=== PATIENT | male | born 1955 | race Caucasian/White ===

== ENCOUNTER → 2017-06-30 | Outpatient (CLI) | payer MEDICARE ==
--- NOTE | 2017-06-30 08:09 | US ---
EXAMINATION TYPE: US abdomen complete DATE OF EXAM: 06/30/2017 COMPARISON: NONE CLINICAL HISTORY: R10.84 Generalized abdominal pain. Intermittent abdomen pain x 1.5 years, diarrhea EXAM MEASUREMENTS: Liver Length: 13.4 cm Gallbladder Wall: 0.2 cm CBD: 0.2 cm Spleen: 8.6 cm Right Kidney: 10.8 x 4.5 x 4.9 cm Left Kidney: 9.6 x 5.2 x 4.4 cm Pancreas: visualized portions wnl, tail obscured by overlying midline bowel gas Liver: wnl Gallbladder: wnl Evidence for sonographic Heller's sign: no CBD: visualized portions wnl, limited by overlying bowel gas Spleen: visualized portions wnl, limited by rib shadowing and overlying bowel gas Right Kidney: 1.0 x 0.9cm cystic area inferior pole, dilated renal pelvis Left Kidney: visualized portions wnl, limited by rib shadowing and overlying bowel gas Upper IVC: wnl Abd Aorta: atherosclerotic changes, AAA seen distally measuring 3.8 x 4.3cm and 7.5cm in length IMPRESSION: 1. Abdominal aortic aneurysm distal abdominal aorta. AP diameter is 3.8 cm with a wider 4.3 cm transv erse dimension. 2. Right renal cyst.
== END | disposition home or self-care (01) ==
LOC: RADUSWWP 07:15
PROVIDERS: ATTEND Internal Medicine Geriatric Medicine
DX: N28.1 Cyst of kidney, acquired (principal); I71.4 Abdominal aortic aneurysm, without rupture
CPT/HCPCS: 76700

== ENCOUNTER 2017-07-31 12:10 | Day surgery (SDC) | payer MEDICARE ==
[2017-07-29 14:22] VITALS: BMI 21.6
[~2017-07-31 12:10] MED LIST: LACTATED RINGERS 1,000 ML IV SCH
[2017-07-31 13:01] VITALS: RESP 16; TEMP 98
[2017-07-31] MEDS ORDERED: LIDOCAINE 1% 20 ML VIAL (10MG/ML) FOR IV START INTRADERMA ONE (13:07)
[2017-07-31] MEDS ORDERED: LIDOCAINE 1% INJ 10MG/ML (20 ML MDV) ONE (13:55)
[2017-07-31] MEDS ORDERED: PROPOFOL 10 MG/ML 20 ML VIAL IV ONE (13:55)
[2017-07-31] MEDS ORDERED: MIDAZOLAM 2 MG/2 ML VIAL ONE (13:55)
[2017-07-31] MEDS ORDERED: IV FLUID CONTINUATION 550 ML IV ONE (14:34)
--- NOTE | 2017-07-31 14:46 | P.PCN ---
Date of Procedure: 07/31/17 Procedure(s) Performed: Procedure: 1. Esophagogastroduodenoscopy and biopsy. 2. Colonoscopy and biopsy and polypectomy. Preoperative diagnosis: Reflux symptoms and change in bowel habits. Postoperative diagnosis: 1. Small sliding hiatal hernia with no obvious esophagitis with short segment of Meeks's esophagus. 2. Mild antral gastritis. 3. Colon exam within normal limits. 4. Biopsies obtained from the duodenum, antrum, esophagus and Meeks's esophagus. Preparation: HalfLytely prep. Sedation: Was provided by anesthesia. Brief clinical history: The patient is a 61-year-old male who I have evaluated in the office recently for episodes of diarrhea alternating with constipation for several days at the time as well as dyspepsia and heartburn type symptoms. This evaluation is to assess for ulcers or complicated reflux disease or bowel pathology. Procedure: With the patient on his left lateral decubitus position and after informed consent and adequate sedation, I passed the Olympus-GIF 160 video upper endoscope through the cricopharyngeus down the esophagus. GE junction was around 35 cm from the incisors and the tubular esophagus continues for another 2-3 cm then there was a small sliding hiatal hernia. The esophagus did not show any evidence of esophagitis. The endoscope was then passed into the stomach which was insufflated with air and inspected in detail including the retroflex view in the cardia. There was some mottling and erythema in the antrum but no ulcers or erosions. Pyloric channel, duodenal bulb, post bulbar area and descending duodenum did not show any ulcers or obvious abnormalities. Because of his symptoms, I obtained biopsies from the duodenum, antrum and esophagus in addition to biopsies from the Meeks's segment then the endoscope was withdrawn and I proceeded to do colonoscopy. Perianal area did not show any fissures or fistulas. There were no masses felt on digital rectal examination. The Olympus CFQ 160L video colonoscope was then inserted in the rectum in the usual fashion and advanced to the cecum. The colon appeared healthy with no edema, erythema, friability, ulceration, exudation or spontaneous bleeding. No polyps or tumors were seen or any obvious diverticular disease or other pathology. I retroflexed the endoscope in the rectum before the endoscope was withdrawn. The patient tolerated the procedure well. Plan: The patient was reassured. Will await pathology results. Discussed dietary measures. Further plans based on his course. I will keep you updated on his progress. He will follow up with you as planned.
[2017-07-31 14:54] VITALS: BP 171/90; PULSE 66
[2017-07-31 14:55] LABS: Glucose,Whole Blood 97 mg/dL (75-99)
== END 2017-07-31 15:45 | disposition home or self-care (01) ==
LOC: ORWHC2ENDO 12:10
DX: K21.0 Gastro-esophageal reflux disease with esophagitis (principal); I10 Essential (primary) hypertension; K22.70 Barrett's esophagus without dysplasia; K29.50 Unspecified chronic gastritis without bleeding; K44.9 Diaphragmatic hernia without obstruction or gangrene; R19.4 Change in bowel habit; Z79.899 Other long term (current) drug therapy
CPT/HCPCS: 88305; 88342; 45378; 43239; J2250; J2001; J2704

== ENCOUNTER 2018-06-20 17:50 | Inpatient (IN) | payer MEDICARE ==
[2018-06-20] MEDS ORDERED: PIPERACILLIN-TAZOBACTAM 3.375 GM in DEXTROSE/WATER 1 50ML.BAG IVPB SCH (21:00)
[2018-06-20] MEDS ORDERED: NALOXONE 0.4 MG/ML 1 ML VIAL IV PRN (21:09)
--- NOTE | 2018-06-20 21:09 | ED ---
Upper Extremity HPI - General Chief Complaint: Extremity Injury, Upper Stated Complaint: Orthopedic consult Time Seen by Provider: 06/20/18 17:50 Source: patient, EMS, RN notes reviewed, old records reviewed Mode of arrival: EMS Limitations: no limitations - History of Present Illness Initial Comments: This is a 62-year-old male who states 5 days ago he has right hand caught in a shopping cart. He presents with complaints of swelling and pain some dorsal redness over his left hand. He was seen at [facility] and transferred here for orthopedic evaluation with a presumed diagnosis of tenosynovitis. He denies any overt fevers chills or sweats he does complain some pain no other modifying factors MD Complaint: Injury to:: right, hand, finger - Related Data Home Medications Medication Instructions Recorded Confirmed Atenolol 100 mg PO BID 07/29/17 06/20/18 DULoxetine HCL [Cymbalta] 60 mg PO BID 07/29/17 06/20/18 Esomeprazole Magnesium [NexIUM 20 mg PO DAILY 07/29/17 06/20/18 24Hr] Gabapentin [Neurontin] 300 mg PO BID 07/29/17 06/20/18 Naproxen Sodium [Aleve] 440 mg PO BID PRN 07/29/17 06/20/18 Tamsulosin HCl [Flomax] 0.4 mg PO DAILY 07/29/17 06/20/18 Atorvastatin [Lipitor] 40 mg PO DAILY 06/20/18 06/20/18 Melatonin 5 mg PO HS 06/20/18 06/20/18 QUEtiapine [SEROquel] 50 mg PO HS 06/20/18 06/20/18 Allergies Allergy/AdvReac Type Severity Reaction Status Date / Time No Known Allergies Allergy Verified 06/20/18 17:59 Review of Systems ROS Statement: Those systems with pertinent positive or pertinent negative responses have been documented in the HPI. ROS Other: All systems not noted in ROS Statement are negative. Past Medical History Past Medical History: GERD/Reflux, Hypertension Additional Past Medical History / Comment(s): freq episodes of constipation and diarrhea with intermittent bleeding with stools,left inquinal hernia,gastritis, hx back fx 7 different areas,mult fx to neck,tremors,difficulty urinating, hypoglycemic,unsteady gait-does not use cane/walker History of Any Multi-Drug Resistant Organisms: None Reported Past Surgical History: Appendectomy, Orthopedic Surgery Additional Past Surgical History / Comment(s): open laparotomy,bone graft rt wrist,lt wrist repair Past Anesthesia/Blood Transfusion Reactions: No Reported Reaction Past Psychological History: Depression Smoking Status: Current every day smoker Past Alcohol Use History: None Reported Past Drug Use History: Marijuana - Past Family History Mother Family Medical History: CVA/TIA Father Family Medical History: Dementia Additional Family Medical History / Comment(s): parkinson's General Exam - General Exam Comments Initial Comments: This is a well-developed well-nourished awake alert oriented 3 male Limitations: no limitations General appearance: alert, in no apparent distress Head exam: Present: atraumatic, normocephalic, normal inspection Eye exam: Present: normal appearance, PERRL, EOMI. Absent: scleral icterus, conjunctival injection, periorbital swelling ENT exam: Present: normal exam, mucous membranes moist Neck exam: Present: normal inspection. Absent: tenderness, meningismus, lymphadenopathy Respiratory exam: Present: normal lung sounds bilaterally. Absent: respiratory distress, wheezes, rales, rhonchi, stridor Cardiovascular Exam: Present: regular rate, normal rhythm, normal heart sounds. Absent: systolic murmur, diastolic murmur, rubs, gallop, clicks GI/Abdominal exam: Absent: distended, tenderness, guarding, rebound, rigid Extremities exam: Present: full ROM, normal capillary refill, other ( Examination reveals evidence of wounds to the middle finger and index finger on the left some edema noted however to his other fingers are also somewhat short and to be similar habitus). Absent: tenderness, pedal edema, joint swelling, calf tenderness Back exam: Present: normal inspection Neurological exam: Present: alert, oriented X3, CN II-XII intact Psychiatric exam: Present: normal affect, normal mood Skin exam: Present: warm, dry, intact, normal color. Absent: rash Course Vital Signs 06/20/18 06/20/18 06/20/18 17:52 19:06 20:24 Temperature 100.9 F H 100.2 F H 98.8 F Pulse Rate 68 58 L 62 Respiratory 16 16 16 Rate Blood Pressure 134/86 136/70 135/74 O2 Sat by Pulse 97 98 97 Oximetry - Reevaluation(s) Reevaluation #1: 06/20/18 21:08 I did discuss the case with Dr. Tong the patient will be admitted to Dr. Estrada but with Dr. Tong and Dr. Trivedi on consultation Disposition Clinical Impression: Cellulitis of finger of left hand, Flexor tenosynovitis of finger, Fever Disposition: ADMITTED IP TO THIS HOSP Condition: Stable Referrals: Nakul Dotson MD [Primary Care Provider] - 1-2 days
[2018-06-20] MEDS: SODIUM CHLORIDE 0.9% 1,000 ML IV SCH (21:43)
[2018-06-20] MEDS: HYDROmorphone 1 MG/ML 1 ML SYRINGE IVP PRN (22:35)
[2018-06-21] MEDS: HYDROmorphone 1 MG/ML 1 ML SYRINGE IVP PRN ×4 (01:31→18:37)
[2018-06-21] MEDS: SODIUM CHLORIDE 0.9% 1,000 ML IV SCH ×3 (06:29→21:24)
[2018-06-21] MEDS: PIPERACILLIN-TAZOBACTAM 3.375 GM in DEXTROSE/WATER 1 50ML.BAG IVPB SCH ×3 (08:20→23:51)
[2018-06-21] MEDS ORDERED: PANTOPRAZOLE 40 MG/10 ML VIAL IV SCH (09:00)
--- NOTE | 2018-06-21 09:46 | P.CNOR ---
History of Present Illness - HPI Consult date: 06/21/18 History of present illness: The patient is a right-hand dominant 62-year-old male presenting with a right hand infection. The patient was transferred from [facility]. The on-call orthopaedic physician who is being paid by [facility] to take call Dr. Nikko El apparently does not feel comfortable dealing with basic orthopedic conditions and requested transferring the patient to a more qualified orthopedic surgeon. I agreed to manage the patient's hand infection after discussion with the PA at [facility] who stated that the patient did not have the means to travel down to [place] for management. This morning the patient has pain in his left middle finger. The patient has had prior infections in his left thumb and small finger requiring open debridement. He denies fevers or chills. Past Medical History Past Medical History: GERD/Reflux, Hypertension Additional Past Medical History / Comment(s): freq episodes of constipation and diarrhea with intermittent bleeding with stools,left inquinal hernia repair, gastritis,hx back fx 7 different areas,mult fx to neck,tremors,difficulty urinating,hypoglycemic,unsteady gait-does not use cane/walker History of Any Multi-Drug Resistant Organisms: None Reported Past Surgical History: Appendectomy, Orthopedic Surgery Additional Past Surgical History / Comment(s): open laparotomy,bone graft rt wrist,lt wrist repair Past Anesthesia/Blood Transfusion Reactions: No Reported Reaction Past Psychological History: Depression Smoking Status: Current every day smoker Past Alcohol Use History: None Reported Additional Past Alcohol Use History / Comment(s): started smoking at age 57, smokes approx 5- 6 cig per day Past Drug Use History: Marijuana Additional Drug Use History / Comment(s): uses marijuana daily - Past Family History Mother Family Medical History: CVA/TIA Father Family Medical History: Dementia Additional Family Medical History / Comment(s): parkinson's Medications and Allergies Home Medications Medication Instructions Recorded Confirmed Type Atenolol 100 mg PO BID 07/29/17 06/20/18 History DULoxetine HCL [Cymbalta] 60 mg PO BID 07/29/17 06/20/18 History Esomeprazole Magnesium [NexIUM 20 mg PO DAILY 07/29/17 06/20/18 History 24Hr] Gabapentin [Neurontin] 300 mg PO BID 07/29/17 06/20/18 History Naproxen Sodium [Aleve] 440 mg PO BID PRN 07/29/17 06/20/18 History Tamsulosin HCl [Flomax] 0.4 mg PO DAILY 07/29/17 06/20/18 History Atorvastatin [Lipitor] 40 mg PO DAILY 06/20/18 06/20/18 History Melatonin 5 mg PO HS 06/20/18 06/20/18 History QUEtiapine [SEROquel] 50 mg PO HS 06/20/18 06/20/18 History Allergies Allergy/AdvReac Type Severity Reaction Status Date / Time No Known Allergies Allergy Verified 06/20/18 17:59 Physical Examination The patient is in no apparent distress and is alert and able to answer questions. His head is normocephalic and atraumatic. He demonstrates nonlabored breathing with symmetric chest expansion. His abdomen is nonobese and nontender. A focused examination of the left upper extremity was conducted. On inspection of the left hand there is fusiform swelling and erythema over the middle finger both volarly and dorsally. There are 2 small open wounds over the volar aspect of the middle and proximal phalanx with a small amount of serous drainage. There are healed surgical wounds over the thenar eminence at the base of the thumb and over the ring finger. There is exquisite tenderness along the flexor tendon. There is pain with passive extension of the middle finger. The tip of the finger is warm and well perfused with brisk capillary refill. There is slightly decreased sensation at the tip of the middle finger. Assessment and Plan (1) Cellulitis of finger of left hand Current Visit: Yes Status: Acute Code(s): L03.012 - CELLULITIS OF LEFT FINGER SNOMED Code(s): 35912182 (2) Flexor tenosynovitis of finger Current Visit: Yes Status: Acute Code(s): M65.9 - SYNOVITIS AND TENOSYNOVITIS, UNSPECIFIED SNOMED Code(s): 206243483 Plan: The patient is presenting with clinical signs consistent with purulent flexor tenosynovium I do's. Due to the severity of the infection I recommended surgical debridement. We discussed different options including closed tendon irrigation with small incisions over the A1 and A5 davida and use of an angiocatheter versus a more extensile open debridement with a zigzag Sharri incision. Due to the severity of the infection and the multiple open draining wounds I recommended a more extensile debridement and extending the incision into the mid palmar space. The patient has previously had hand infections and is well aware of the potential risks of surgery. The patient also knows that due to his cigarette smoking he is at a much higher risk of having a complication. We will plan on taking him to the operating room this morning for an urgent incision and drainage of the middle finger and mid palmar space. The patient will need an infectious disease consultation for determination of choice of antibiotic, duration of treatment, and route of administration.
[2018-06-21] MEDS ORDERED: IV FLUID CONTINUATION 1,000 ML IV ONE (10:32)
[2018-06-21] MEDS ORDERED: LACTATED RINGERS 1,000 ML IV ONE (10:52)
[2018-06-21] MEDS ORDERED: KETOROLAC 30 MG/ML 1 ML VIAL IVP ONE (11:23)
--- NOTE | 2018-06-21 11:30 | P.OP ---
Date of Procedure: 06/21/18 Preoperative Diagnosis: 1. Left purulent flexor tenosynovitis, middle finger 2. Current every day cigarette smoker Postoperative Diagnosis: 1. Left middle finger purulent flexor tendosynovitis 2. Left mid palmar space abscess 3. Current every day cigarette smoker Procedure(s) Performed: 1. Incision and drainage left middle finger purulent flexor tenosynovitis and evacuation of mid palmar space hematoma Anesthesia: ROSALIO Surgeon: Portillo Tong Director Bioinformatics #1: Bia Gtz Estimated Blood Loss (ml): 25 IV fluids (ml): 400 Pathology: other (Deep cultures) Condition: stable Disposition: PACU Indications for Procedure: The patient is a right-hand dominant 62-year-old male with a medical history significant for cigarette smoking. The patient sustained several wounds over his hand resulting in a worsening infection. The patient is had prior infections in his left hand requiring surgical debridement. The patient initially presented to [facility]. The on-call orthopaedic physician at [facility] did not feel comfortable managing the wound so the patient was transferred to our facility. I met with the patient preoperatively and examined his left hand. He had open draining wounds was gross purulence and signs suggestive of a deep space infection so I recommended a formal and extensile open debridement with a Sharri type incision. We discussed the potential risks and complications of surgery including but not limited to risk of anesthesia, risk of superficial infection, risk of deep infection, risk of wound necrosis, risk of ongoing infection, risk of need for further surgery, and possibly amputation. The patient understands that he is at increased risk of having these complications due to his cigarette smoking. He provided his consent to go forward with surgery. Operative Findings: There was gross purulence in the middle finger flexor tendon sheath and in the mid palmar space. There was superficial necrosis in the skin over the volar aspect of the middle finger Description of Procedure: The patient was identified in preoperative holding and the correct left arm and middle finger were marked with my initials. I reviewed the consent form with the patient. All of his questions were answered. The patient was then brought back to the operating room were a Mac anesthetic was administered. A tourniquet was applied over the proximal aspect of the arm. An arm table was placed beneath the arm. The left arm was then prepped and draped in the standard sterile fashion. Prior to starting surgery timeout was performed identifying the correct patient, operative extremity, and procedure. The patient's arm was then elevated for 2 minutes and the tourniquet was inflated to 250 mmHg. I began by outlining a volar Cheri-type incision over the middle finger extending into the palm area and skin incision was made with a scalpel and dissection was carried down to the flexor tendon sheath. Immediately upon entering the flexor tendon sheath there was a large lee of pus. Extension was carried into the mid palmar space and gross purulence was expressed from within the mid palmar space. All of the pus was decompressed and deep cultures were obtained. The wounds were then copiously irrigated using 3 L of sterile saline. A Hudson drain was then passed proximally into the midpalmar space to facilitate further drainage. The wound was loosely closed with nylon sutures to allow for drainage. The tourniquet was let down. The tip of the middle finger had brisk capillary refill. A loose sterile dressing with Betadine soaked Adaptic, fluffs, Kerlix and an Jose wrap was applied. The patient was transferred back to the PACU having to the procedure well. Bia Gtz NP was required as a skilled pet care assistant. Plan: The patient will need IV antibiotics under the direction of infectious disease. I would recommend warm water soaks and whirlpool treatments of the left hand. I will defer wound management to the wound team and infectious disease. We will continue to closely monitor the patient's response to treatment and will be available should he require a second formal debridement in the operating room.
[2018-06-21] MEDS: HYDROmorphone 1 MG/ML 1 ML SYRINGE IVP ONE ×2 (11:39→11:52)
[2018-06-21] MEDS ORDERED: hydrALAZINE HCL 20 MG/ML 1 ML VIAL IVP ONE (11:39)
--- NOTE | 2018-06-21 12:16 | P.HPIM ---
History of Present Illness H&P Date: 06/21/18 Chief Complaint: Left hand pain This is 62 years old male who presented to the emergency department with left hand pain. Patient reported injury earlier last week when he had open wound in the palm of his left hand after he got stuck with sharp mental that caused him to bleed profusely patient after that was seen by physician at urgent care who prescribed him antibiotics with patient not sure if he took the whole course of antibiotics and continued to have pain and decreased discharge range of motion in his left hand and presented to the ER for that reason. Patient denied fever , chills, nausea, vomiting, dumping, dizziness, lightheadedness or blurry vision. Patient stated that the pain got worse to the point where he was not able to move his middle finger and believes that he developed some mass in the left hand that was very painful to touch. Patient denied any drainage. Patient currently in the recovery room after he has incision and drainage by orthopedic surgery and stated that he is lethargic and unable to provide detailed information. Patient smokes 5-10 sig it's a day denied alcohol abuse and said that he smokes medical marijuana for his anxiety and nerve root irritation Review of Systems Studies reviewed and negative except as above Past Medical History Past Medical History: GERD/Reflux, Hypertension Additional Past Medical History / Comment(s): freq episodes of constipation and diarrhea with intermittent bleeding with stools,left inquinal hernia repair, gastritis,hx back fx 7 different areas,mult fx to neck,tremors,difficulty urinating,hypoglycemic,unsteady gait-does not use cane/walker History of Any Multi-Drug Resistant Organisms: None Reported Past Surgical History: Appendectomy, Orthopedic Surgery Additional Past Surgical History / Comment(s): open laparotomy,bone graft rt wrist,lt wrist repair Past Anesthesia/Blood Transfusion Reactions: No Reported Reaction Past Psychological History: Depression Smoking Status: Current every day smoker Past Alcohol Use History: None Reported Additional Past Alcohol Use History / Comment(s): started smoking at age 57, smokes approx 5- 6 cig per day Past Drug Use History: Marijuana Additional Drug Use History / Comment(s): uses marijuana daily - Past Family History Mother Family Medical History: CVA/TIA Father Family Medical History: Dementia Additional Family Medical History / Comment(s): parkinson's Medications and Allergies Home Medications Medication Instructions Recorded Confirmed Type Atenolol 100 mg PO BID 07/29/17 06/20/18 History DULoxetine HCL [Cymbalta] 60 mg PO BID 07/29/17 06/20/18 History Esomeprazole Magnesium [NexIUM 20 mg PO DAILY 07/29/17 06/20/18 History 24Hr] Gabapentin [Neurontin] 300 mg PO BID 07/29/17 06/20/18 History Naproxen Sodium [Aleve] 440 mg PO BID PRN 07/29/17 06/20/18 History Tamsulosin HCl [Flomax] 0.4 mg PO DAILY 07/29/17 06/20/18 History Atorvastatin [Lipitor] 40 mg PO DAILY 06/20/18 06/20/18 History Melatonin 5 mg PO HS 06/20/18 06/20/18 History QUEtiapine [SEROquel] 50 mg PO HS 06/20/18 06/20/18 History Allergies Allergy/AdvReac Type Severity Reaction Status Date / Time No Known Allergies Allergy Verified 06/20/18 17:59 Physical Exam Vitals: Vital Signs Temp Pulse Pulse Pulse Resp BP BP 06/21/18 12:00 75 24 168/87 06/21/18 11:45 71 18 183/98 06/21/18 11:30 61 24 191/108 06/21/18 11:16 97 F L 64 16 175/96 06/21/18 10:12 98.4 F 71 18 159/94 06/21/18 08:00 71 18 06/21/18 07:00 98.4 F 71 18 159/94 06/20/18 23:00 98.1 F 70 18 159/95 06/20/18 21:11 98.7 F 63 16 147/84 06/20/18 20:24 98.8 F 62 16 135/74 06/20/18 19:06 100.2 F H 58 L 16 136/70 06/20/18 17:52 100.9 F H 68 16 134/86 Pulse Ox 06/21/18 12:00 96 06/21/18 11:45 98 06/21/18 11:30 96 06/21/18 11:16 99 06/21/18 10:12 97 06/21/18 08:00 06/21/18 07:00 97 06/20/18 23:00 95 06/20/18 21:11 99 08/11/18 20:24 97 06/20/18 19:06 98 06/20/18 17:52 97 Intake and Output 06/20/18 06/21/18 06/21/18 22:59 06:59 14:59 Intake Total 400 Output Total 5 Balance 395 Intake: IV 400 Output: Estimated Blood Loss 5 Other: Voiding Method Toilet Weight 56.699 kg Gen.: in stated age, no acute distress Heart: Normal S1-S2 Lungs: Clear to auscultation bilaterally Abdomen: Soft, no tenderness, positive bowel sounds in all 4 quadrant no guarding or rebound Skin: No new rash Psych: Alert and oriented 3 Neuro: No focal deficit Left hand examination revealed dressing applied and intact without obvious drainage positive pulses Thrombosis Risk Factor Assmnt - Choose All That Apply Any of the Below Risk Factors Present?: No Other Risk Factors: Yes Each Risk Factor Represents 2 Points: Age 61-74 years Other congenital or acquired thrombophilia - If yes, enter type in comment: No Thrombosis Risk Factor Assessment Total Risk Factor Score: 2 Thrombosis Risk Factor Assessment Level: Low Risk Assessment and Plan Assessment: 1. Left hand cellulitis with abscess formation. 2. Tenosynovitis of the left middle finger 3. Hypertension 4. Tobacco dependency 5. Questionable COPD 6. Anxiety and depression 7. GERD 8. Intractable pain Plan to continue wound care, continue current antibiotics regimen, consult infectious disease for further evaluation and follow-up with the recommendation , continue home medication, repeat blood work in the morning and monitor vital signs closely. Discharge planning based on clinical progress
[2018-06-21] MEDS ORDERED: VANCOMYCIN IV PER PHARMACY 1 EACH MISC MISCELLANE PRN (17:29)
--- NOTE | 2018-06-21 17:35 | P.CONS ---
History of Present Illness - Reason for Consult Consult date: 06/21/18 - Chief Complaint Pain of the left hand - History of Present Illness 62-year-old male who appears to have multiple medical troubles originally presented to [facility] for evaluation of pain and swelling to his left hand. The patient apparently had evidence of significant infection to the hand was transferred to our facility for orthopedic evaluation. The patient evidence of significant pain and swelling to the left hand middle finger as well as on the palm. The patient is an extremely poor historian and relates that he may have injured his hand on a metal object or shopping cart several days before. He knows developed the inability to make a fist and utilizes hand as well as having significant discomfort at the site. He subsequently was seen by the orthopedic surgeon and was taken to the operating room for the incision and drainage of the abscess of left hand third finger as well as the left mid palmar space. With this in an abscess the infectious diseases consultation was requested. The patient did have laboratories at outside hospital that shows evidence of a significant leukocytosis and no evidence of renal failure. The patient is 62, does not appear to be actively employed at this time, and as noted struggles to get history and information about his situation. Other than pain at the site he is denying other areas of injury, believes he may have had a fever but didn't take his temperature does not believe he had chills or rigors. Review of Systems 62-year-old male, his pain to his left hand relates it's numb since the surgery HEENT:Denies headache or acute visual change. Denies sinus or mouth discomforts. Denies neck stiffness or pain. Denies significant oral cavity pain. Denies difficulty on swallowing. Lungs: Chronic tobacco use and has chronic shortness of breath denies new cough or sputum production or hemoptysis .. Cardiovascular: Denies significant shortness of breath, chest pain, chest wall pain, orthopnea, dyspnea on exertion, syncope Gastrointestinal:Denies nausea, vomiting, diarrhea, constipation, hematemesis, melena, hematochezia. No no significant change of bowel habit noticed. Musculoskeletal: denies significant myalgias or arthralgias. No new joint swelling. Denies new back pain. Skin: As per the HPI injury to left hand Neuro: Denies headache or visual change. Denies any new onset weakness or difficulty with ambulation. Denies falls or seizures. Psychiatric:Denies anxiety or depression. Endocrine: Denies significant fatigue, denies significant weight loss or weight gain. Past Medical History Past Medical History: GERD/Reflux, Hypertension Additional Past Medical History / Comment(s): freq episodes of constipation and diarrhea with intermittent bleeding with stools,left inquinal hernia repair, gastritis,hx back fx 7 different areas,mult fx to neck,tremors,difficulty urinating,hypoglycemic,unsteady gait-does not use cane/walker History of Any Multi-Drug Resistant Organisms: None Reported Past Surgical History: Appendectomy, Orthopedic Surgery Additional Past Surgical History / Comment(s): open laparotomy,bone graft rt wrist,lt wrist repair Past Anesthesia/Blood Transfusion Reactions: No Reported Reaction Past Psychological History: Depression Additional Psychological History / Comment(s): , has 2 daughters that live in the other side the state, he cries readily when talking about them. With that he is quite depressed about his situation. He is unable to clearly vocalize the difficulties that he is going through. But does state he is depressed. He has seen a counselor in the past but did not believe it was effective. Positive tobacco smoker. Denies injection drug use. 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 No experience. No international travel. No animal exposures Smoking Status: Current every day smoker Past Alcohol Use History: None Reported Additional Past Alcohol Use History / Comment(s): started smoking at age 57, smokes approx 5- 6 cig per day Past Drug Use History: Marijuana Additional Drug Use History / Comment(s): uses marijuana daily - Past Family History Mother Family Medical History: CVA/TIA Father Family Medical History: Dementia Additional Family Medical History / Comment(s): parkinson's Medications and Allergies Home Medications and Allergies Comment(s): Current Medications Hydromorphone HCl (Dilaudid) 0.5 mg IVP Q3HR PRN PRN Reason: Moderate Pain Last Admin: 06/21/18 15:06 Dose: 0.5 mg Sodium Chloride (Saline 0.9%) 1,000 mls @ 125 mls/hr IV .Q8H [facility] Last Admin: 06/21/18 14:28 Dose: 125 mls/hr Piperacillin/Tazobactam/ (Dextrose 3.375 gm/ IV Solution) 50 mls @ 12.5 mls/hr IVPB Q8H [facility] Last Admin: 06/21/18 15:06 Dose: 12.5 mls/hr Naloxone HCl (Narcan) 0.2 mg IV Q2M PRN PRN Reason: Opioid Reversal Pantoprazole Sodium (Protonix) 40 mg IV DAILY [facility] Last Admin: 06/21/18 09:37 Dose: 40 mg Home Medications Medication Instructions Recorded Confirmed Type Atenolol 100 mg PO BID 07/29/17 06/20/18 History DULoxetine HCL [Cymbalta] 60 mg PO BID 07/29/17 06/20/18 History Esomeprazole Magnesium [NexIUM 20 mg PO DAILY 07/29/17 06/20/18 History 24Hr] Gabapentin [Neurontin] 300 mg PO BID 07/29/17 06/20/18 History Naproxen Sodium [Aleve] 440 mg PO BID PRN 07/29/17 06/20/18 History Tamsulosin HCl [Flomax] 0.4 mg PO DAILY 07/29/17 06/20/18 History Atorvastatin [Lipitor] 40 mg PO DAILY 06/20/18 06/20/18 History Melatonin 5 mg PO HS 06/20/18 06/20/18 History QUEtiapine [SEROquel] 50 mg PO HS 06/20/18 06/20/18 History Allergies Allergy/AdvReac Type Severity Reaction Status Date / Time No Known Allergies Allergy Verified 06/20/18 17:59 Physical Exam Vitals: Vital Signs Temp Pulse Pulse Pulse Pulse Resp BP 06/21/18 15:18 24 06/21/18 15:00 98.7 F 84 18 06/21/18 12:00 75 24 06/21/18 11:45 71 18 06/21/18 11:30 61 24 06/21/18 11:16 97 F L 64 16 06/21/18 10:12 98.4 F 71 18 06/21/18 08:00 71 18 06/21/18 07:00 98.4 F 71 18 06/20/18 23:00 98.1 F 70 18 06/20/18 21:11 98.7 F 63 16 147/84 06/20/18 20:24 98.8 F 62 16 135/74 06/20/18 19:06 100.2 F H 58 L 16 136/70 06/20/18 17:52 100.9 F H 68 16 134/86 BP BP Pulse Ox 06/21/18 15:18 06/21/18 15:00 151/101 97 06/21/18 12:00 168/87 96 06/21/18 11:45 183/98 98 06/21/18 11:30 191/108 96 06/21/18 11:16 175/96 99 06/21/18 10:12 159/94 97 06/21/18 08:00 06/21/18 07:00 159/94 97 06/20/18 23:00 159/95 95 06/20/18 21:11 99 06/20/18 20:24 97 06/20/18 19:06 98 06/20/18 17:52 97 Intake and Output 06/21/18 06/21/18 06/21/18 06:59 14:59 22:59 Intake Total 400 Output Total 5 Balance 395 Intake: IV 400 Output: Estimated Blood Loss 5 Other: Voiding Method Toilet Toilet 62-year-old male has a non-distinct injury to his left hand this resulted in a significant abscess that is not required surgical incision and drainage. HEENT: Anicteric conjunctiva are pink and moist nasal mucosa grossly intact without significant lesions, there is no thrush. Dentition is poor and generally not present no thrush is seen Neck: The neck is supple without significant lymphadenopathy or thyromegaly. Lungs: Symmetrical air entry is noted there is evidence of expiratory wheezes no elier bronchial sounds all dullness or egophony Heart: Regular rate and rhythm with an audible S1-S2, no S3 no S4. There is no significant murmur click or rub, PMI was nondisplaced. Abdomen: Scaphoid, Positive bowel sounds soft and nontender without palpable masses or organomegaly. There was no guarding or rebound. Extremities: Right upper extremities without lesions. Left upper extremity has a bulky dressing in place and the recent surgery. Surgical note is reviewed showing evidence of the abscess that was drained on the left third finger and palmar space. There is no surrounding erythema on the forearm no ascending erythema there is no left axillary or epitrochlear lymphadenopathy. No other abnormal lymph nodes are seen. Skin the patient has evidence of what appears to be at hand but he relates textured part of a rash that is worsening over time. There are no open ulcers or blisters that are noted in any area. He relates that it does get itchy at times but not currently. Neuro: Awake alert oriented to person place and time. There are no acute new gross focal sensory motor deficits. He however is a very poor historian Results Labs: Microbiology - Last 24 Hours (Table) 06/21/18 11:00 Anaerobic Culture - Preliminary Hand - Left 06/21/18 11:00 Anaerobic Culture - Preliminary Hand - Left 06/21/18 11:00 Wound Culture - Preliminary Hand - Left 06/21/18 11:00 Wound Culture - Preliminary Hand - Left 06/20/18 21:42 Blood Culture Gram Stain - Preliminary Blood 06/20/18 21:42 Blood Culture - Final Blood Laboratory from the outside hospital are reviewed and leukocytosis is noted no evidence of acute renal failure Assessment and Plan (1) Abscess of left hand Narrative/Plan: 62-year-old male who has a history of nondescript trauma to his left hand developed evidence of an abscess to his palmar surface as well as to the third finger that has required surgical incision and drainage. Bulky postsurgical dressing is in place. From his anesthesia he is not having much pain at this time. Blood cultures or even call positive for gram-positive cocci. Antibiotic therapy was started with Zosyn and vancomycin will be added until we have further data. The patient will present a challenge as to outpatient treatment given what appears to be great difficulties understanding what is occurring. Routinely with tenosynovitis antibiotic therapy for several weeks is utilized in routinely at his intravenous to maximize treatment into this tissue given the distinct risks of an inadequate treatment of this infection that can result in permanent disability to the hand or limb. Patient will be followed through his hospital stay. Antibiotic suggested based on the cultures are taken and are positive Follow up blood work is requested There is notation that he is up-to-date on his tetanus vaccine from the outside hospital. Current Visit: Yes Status: Acute Code(s): L02.512 - CUTANEOUS ABSCESS OF LEFT HAND SNOMED Code(s): 6109489 (2) Flexor tenosynovitis of finger Current Visit: Yes Status: Acute Code(s): M65.9 - SYNOVITIS AND TENOSYNOVITIS, UNSPECIFIED SNOMED Code(s): 328603316
[2018-06-21 18:18] LABS: Basophils % (A) 0 %; Eosinophils % (A) 0 %; HCT 35.7 % (39.0-53.0); HGB 12.4 gm/dL (13.0-17.5); Lymphocytes # (A) 0.7 k/uL (1.0-4.8); Lymphocytes % (A) 4 %; MCH 32.2 pg (25.0-35.0); MCHC 34.8 g/dL (31.0-37.0); MCV 92.4 fL (80.0-100.0); Mean Platelet Volume 7.9; Monocytes # (A) 0.9 k/uL (0-1.0); Monocytes % (A) 5 %; Neutrophils # (A) 17.1 k/uL (1.3-7.7); Neutrophils % (A) 89 %; Platelet Count 231 k/uL (150-450); RBC 3.87 m/uL (4.30-5.90); RDW 13.3 % (11.5-15.5); WBC 19.1 k/uL (3.8-10.6)
[2018-06-21] MEDS ORDERED: VANCOMYCIN 1,250 MG in SODIUM CHLORIDE 0.9% 250 ML IVPB ONE (18:30)
[2018-06-21 18:31] LABS: ALT 37 U/L (21-72); AST 20 U/L (17-59); Albumin 3.4 g/dL (3.5-5.0); Alkaline Phosphatase 64 U/L (38-126); Anion Gap 8 mmol/L; Blood Urea Nitrogen 13 mg/dL (9-20); Calcium 9.2 mg/dL (8.4-10.2); Carbon Dioxide 23 mmol/L (22-30); Chloride 108 mmol/L (98-107); Glucose 111 mg/dL (74-99); Potassium 3.8 mmol/L (3.5-5.1); Sodium 139 mmol/L (137-145); Total Bilirubin 0.4 mg/dL (0.2-1.3); Total Protein 6.1 g/dL (6.3-8.2)
[2018-06-21] MEDS: ACETAMINOPHEN TAB 325 MG TAB PO PRN (18:36)
[2018-06-21] MEDS: TAMSULOSIN 0.4 MG CAP.ER.24H PO SCH (18:38)
[2018-06-21 20:04] LABS: Erythrocyte Sedimentation Rate 63 mm/hr (0-15)
[2018-06-21] MEDS: GABAPENTIN 300 MG CAP PO SCH (20:40)
[2018-06-21] MEDS: QUEtiapine 50 MG TAB PO SCH (20:40)
[2018-06-21] MEDS: DULoxetine HCL 60 MG CAPSULE.DR PO SCH (20:40)
[2018-06-21] MEDS: ATENOLOL 50 MG TAB PO SCH (20:40)
[2018-06-21] MEDS: MELATONIN 5 MG TABLET PO SCH (20:40)
[2018-06-21] MEDS: ATORVASTATIN 40 MG TAB PO SCH (20:40)
[2018-06-22] MEDS: SODIUM CHLORIDE 0.9% 1,000 ML IV SCH (06:18)
[2018-06-22] MEDS: PIPERACILLIN-TAZOBACTAM 3.375 GM in DEXTROSE/WATER 1 50ML.BAG IVPB SCH ×2 (06:19→13:46)
[2018-06-22 08:06] LABS: Basophils % (A) 0 %; Eosinophils # (A) 0.1 k/uL (0-0.7); Eosinophils % (A) 1 %; HCT 33.9 % (39.0-53.0); HGB 11.6 gm/dL (13.0-17.5); Lymphocytes # (A) 0.6 k/uL (1.0-4.8); Lymphocytes % (A) 5 %; MCH 31.9 pg (25.0-35.0); MCHC 34.3 g/dL (31.0-37.0); MCV 92.9 fL (80.0-100.0); Mean Platelet Volume 7.3; Monocytes # (A) 0.6 k/uL (0-1.0); Monocytes % (A) 5 %; Neutrophils # (A) 10.5 k/uL (1.3-7.7); Neutrophils % (A) 87 %; Platelet Count 220 k/uL (150-450); RBC 3.65 m/uL (4.30-5.90); RDW 13.3 % (11.5-15.5); WBC 12.1 k/uL (3.8-10.6)
[2018-06-22] MEDS: ATENOLOL 50 MG TAB PO SCH ×2 (08:37→21:42)
[2018-06-22] MEDS: PANTOPRAZOLE 40 MG TABLET PO SCH (08:37)
[2018-06-22] MEDS: DULoxetine HCL 60 MG CAPSULE.DR PO SCH ×2 (08:37→21:42)
[2018-06-22] MEDS: GABAPENTIN 300 MG CAP PO SCH ×2 (08:37→21:42)
[2018-06-22] MEDS: VANCOMYCIN 1,000 MG in SODIUM CHLORIDE 0.9% 250 ML IVPB SCH ×2 (08:38→21:42)
[2018-06-22] MEDS: TAMSULOSIN 0.4 MG CAP.ER.24H PO SCH (08:38)
[2018-06-22] MEDS: HYDROcodone/APAP 5-325MG 1 EACH TAB PO PRN ×3 (08:45→21:44)
[2018-06-22 14:08] VITALS: BMI 20.1
[2018-06-22] MEDS: HYDROmorphone 1 MG/ML 1 ML SYRINGE IVP PRN (16:11)
--- NOTE | 2018-06-22 16:57 | P.PN ---
Subjective Progress Note Date: 06/22/18 Principal diagnosis: Left middle finger infection Patient is seen at bedside this afternoon. He is post op day #1 from I and D of left middle finger infection/flexor tensosynovitis. He denies any new complaints including new numbness or tingling, fever or chills. Objective - Vital Signs Vital signs: Vital Signs Temp 99.1 F 06/22/18 14:28 Pulse 66 06/22/18 14:28 Resp 16 06/22/18 14:28 BP 154/95 06/22/18 14:28 Pulse Ox 98 06/22/18 14:28 Intake & Output 06/21/18 06/22/18 06/22/18 18:59 06:59 18:59 Intake Total 400 1300 600 Output Total 5 Balance 395 1300 600 Weight 56.699 kg Intake: IV 400 Intake, IV Titration 1300 Amount Piperacillin-Tazobactam 3 50 .375 gm In Dextrose/Water 1 50ml.bag @ 12.5 mls/hr IVPB Q8H [facility] Rx#: [id number] Sodium Chloride 0.9% 1, 1000 000 ml @ 125 mls/hr IV . Q8H [facility] Rx#:[id number] Vancomycin 1,000 mg In 250 Sodium Chloride 0.9% 250 ml @ 125 mls/hr IVPB Q12H [facility] Rx#:[id number] Oral 600 Output: Estimated Blood Loss 5 Other: Voiding Method Toilet # Voids 1 4 4 - Exam Inspection of the left hand shows nylon sutures in place along the flexor surface of the left middle finger with the wound is loosely approximated and [place] drain is in place. There is postoperative swelling as expected. There is no gross purulence or bleeding. Neurovascular status is grossly intact with 2+ radial pulse and less than 2 second capillary refill in all digits. Flexion and extension is intact. - Constitutional General appearance: Present: no acute distress - Labs CBC & Chem 7: 06/22/18 07:35 06/21/18 18:05 Labs: Abnormal Lab Results - Last 24 Hours (Table) 06/21/18 06/21/18 06/22/18 Range/Units 18:05 18:05 07:35 WBC 19.1 H 12.1 H (3.8-10.6) k/uL RBC 3.87 L 3.65 L (4.30-5.90) m/uL Hgb 12.4 L 11.6 L (13.0-17.5) gm/dL Hct 35.7 L 33.9 L (39.0-53.0) % Neutrophils # 17.1 H 10.5 H (1.3-7.7) k/uL Lymphocytes # 0.7 L 0.6 L (1.0-4.8) k/uL ESR 63 H (0-15) mm/hr Chloride 108 H (98-107) mmol/L Glucose 111 H (74-99) mg/dL C-Reactive Protein 331.0 H (<10.0) mg/L Total Protein 6.1 L (6.3-8.2) g/dL Albumin 3.4 L (3.5-5.0) g/dL Microbiology - Last 24 Hours (Table) 06/21/18 11:00 Gram Stain - Preliminary Hand - Left Wound Culture - Preliminary Beta Hemolytic Strep Group C 06/21/18 11:00 Gram Stain - Preliminary Hand - Left Wound Culture - Preliminary Beta Hemolytic Strep Group C Presumptive Staph aureus 06/20/18 21:42 Blood Culture Gram Stain - Preliminary Blood Blood Culture - Preliminary Coagulase Negative Staph 06/21/18 11:00 Anaerobic Culture - Preliminary Hand - Left 06/21/18 11:00 Anaerobic Culture - Preliminary Hand - Left 06/20/18 21:42 Blood Culture - Final Blood Assessment and Plan (1) Flexor tenosynovitis of finger Narrative/Plan: He'll continue with wound care as directed. Appreciate infectious disease recommendations including IV antibiotics and wound care. Continue pain management as well as medical management. We will continue to monitor closely and make further recommendations as appropriate. Current Visit: Yes Status: Acute Priority: Medium Code(s): M65.9 - SYNOVITIS AND TENOSYNOVITIS, UNSPECIFIED SNOMED Code(s): 261006884 Time with Patient: Less than 30
[2018-06-22] MEDS: ATORVASTATIN 40 MG TAB PO SCH (21:42)
[2018-06-22] MEDS: MELATONIN 5 MG TABLET PO SCH (21:42)
[2018-06-22] MEDS: QUEtiapine 50 MG TAB PO SCH (21:42)
--- NOTE | 2018-06-22 23:24 | P.PN ---
Subjective Progress Note Date: 06/22/18 62-year-old male who appears to have multiple medical troubles originally presented to [facility] for evaluation of pain and swelling to his left hand. The patient apparently had evidence of significant infection to the hand was transferred to our facility for orthopedic evaluation. The patient evidence of significant pain and swelling to the left hand middle finger as well as on the palm. The patient is an extremely poor historian and relates that he may have injured his hand on a metal object or shopping cart several days before. He knows developed the inability to make a fist and utilizes hand as well as having significant discomfort at the site. He subsequently was seen by the orthopedic surgeon and was taken to the operating room for the incision and drainage of the abscess of left hand third finger as well as the left mid palmar space. With this in an abscess the infectious diseases consultation was requested. The patient did have laboratories at outside hospital that shows evidence of a significant leukocytosis and no evidence of renal failure. The patient is 62, does not appear to be actively employed at this time, and as noted struggles to get history and information about his situation. Other than pain at the site he is denying other areas of injury, believes he may have had a fever but didn't take his temperature does not believe he had chills or rigors. 06/22/2018 patient relates to feeling slightly better. Still has pain in his hand and is having difficulty with eating. Denies fever and chills Objective - Vital Signs Vital signs: Vital Signs Temp 97.8 F 06/22/18 22:53 Pulse 67 06/22/18 22:53 Resp 18 06/22/18 22:53 BP 190/108 06/22/18 22:53 Pulse Ox 97 06/22/18 22:53 Intake & Output 06/22/18 06/22/18 06/23/18 06:59 18:59 06:59 Intake Total 1300 600 Balance 1300 600 Weight 56.699 kg Intake: Intake, IV Titration 1300 Amount Piperacillin-Tazobactam 3 50 .375 gm In Dextrose/Water 1 50ml.bag @ 12.5 mls/hr IVPB Q8H [facility] Rx#: [id number] Sodium Chloride 0.9% 1, 1000 000 ml @ 125 mls/hr IV . Q8H [facility] Rx#:[id number] Vancomycin 1,000 mg In 250 Sodium Chloride 0.9% 250 ml @ 125 mls/hr IVPB Q12H [facility] Rx#:[id number] Oral 600 Other: # Voids 4 4 - Exam 62-year-old male has a non-distinct injury to his left hand this resulted in a significant abscess that is not required surgical incision and drainage. HEENT: Anicteric conjunctiva are pink and moist nasal mucosa grossly intact without significant lesions, there is no thrush. Dentition is poor and generally not present no thrush is seen Neck: The neck is supple without significant lymphadenopathy or thyromegaly. Lungs: Symmetrical air entry is noted there is evidence of expiratory wheezes no elier bronchial sounds all dullness or egophony Heart: Regular rate and rhythm with an audible S1-S2, no S3 no S4. There is no significant murmur click or rub, PMI was nondisplaced. Abdomen: Scaphoid, Positive bowel sounds soft and nontender without palpable masses or organomegaly. There was no guarding or rebound. Extremities: Right upper extremities without lesions. Left upper extremity has a bulky dressing in place and the recent surgery. Surgical note is reviewed showing evidence of the abscess that was drained on the left third finger and palmar space. There is no surrounding erythema on the forearm no ascending erythema there is no left axillary or epitrochlear lymphadenopathy. No other abnormal lymph nodes are seen. Skin the patient has evidence of what appears to be textured part of a rash that is worsening over time. There are no open ulcers or blisters that are noted in any area. He relates that it does get itchy at times but not currently. Neuro: Awake alert oriented to person place and time. There are no acute new gross focal sensory motor deficits. He however is a very poor historian - Labs CBC & Chem 7: 06/22/18 07:35 06/21/18 18:05 Labs: Abnormal Lab Results - Last 24 Hours (Table) 06/22/18 Range/Units 07:35 WBC 12.1 H (3.8-10.6) k/uL RBC 3.65 L (4.30-5.90) m/uL Hgb 11.6 L (13.0-17.5) gm/dL Hct 33.9 L (39.0-53.0) % Neutrophils # 10.5 H (1.3-7.7) k/uL Lymphocytes # 0.6 L (1.0-4.8) k/uL Microbiology - Last 24 Hours (Table) 06/21/18 11:00 Gram Stain - Preliminary Hand - Left Wound Culture - Preliminary Beta Hemolytic Strep Group C 06/21/18 11:00 Gram Stain - Preliminary Hand - Left Wound Culture - Preliminary Beta Hemolytic Strep Group C Presumptive Staph aureus 06/20/18 21:42 Blood Culture Gram Stain - Preliminary Blood Blood Culture - Preliminary Coagulase Negative Staph Laboratory Results WBC 12.1 k/uL (3.8-10.6) H 06/22/18 07:35 RBC 3.65 m/uL (4.30-5.90) L 06/22/18 07:35 Hgb 11.6 gm/dL (13.0-17.5) L 06/22/18 07:35 Hct 33.9 % (39.0-53.0) L 06/22/18 07:35 MCV 92.9 fL (80.0-100.0) 06/22/18 07:35 MCH 31.9 pg (25.0-35.0) 06/22/18 07:35 MCHC 34.3 g/dL (31.0-37.0) 06/22/18 07:35 RDW 13.3 % (11.5-15.5) 06/22/18 07:35 Plt Count 220 k/uL (150-450) 06/22/18 07:35 Neutrophils % 87 % 06/22/18 07:35 Lymphocytes % 5 % 06/22/18 07:35 Monocytes % 5 % 06/22/18 07:35 Eosinophils % 1 % 06/22/18 07:35 Basophils % 0 % 06/22/18 07:35 Neutrophils # 10.5 k/uL (1.3-7.7) H 06/22/18 07:35 Lymphocytes # 0.6 k/uL (1.0-4.8) L 06/22/18 07:35 Monocytes # 0.6 k/uL (0-1.0) 06/22/18 07:35 Eosinophils # 0.1 k/uL (0-0.7) 06/22/18 07:35 Basophils # 0.0 k/uL (0-0.2) 06/22/18 07:35 ESR 63 mm/hr (0-15) H 06/21/18 18:05 Sodium 139 mmol/L (137-145) 06/21/18 18:05 Potassium 3.8 mmol/L (3.5-5.1) 06/21/18 18:05 Chloride 108 mmol/L (98-107) H 06/21/18 18:05 Carbon Dioxide 23 mmol/L (22-30) 06/21/18 18:05 Anion Gap 8 mmol/L 06/21/18 18:05 BUN 13 mg/dL (9-20) 06/21/18 18:05 Creatinine 0.80 mg/dL (0.66-1.25) 06/21/18 18:05 Est GFR (CKD-EPI)AfAm >90 (>60 ml/min/1.73 sqM) 06/21/18 18:05 Est GFR (CKD-EPI)NonAf >90 (>60 ml/min/1.73 sqM) 06/21/18 18:05 Glucose 111 mg/dL (74-99) H 06/21/18 18:05 Calcium 9.2 mg/dL (8.4-10.2) 06/21/18 18:05 Total Bilirubin 0.4 mg/dL (0.2-1.3) 06/21/18 18:05 AST 20 U/L (17-59) 06/21/18 18:05 ALT 37 U/L (21-72) 06/21/18 18:05 Alkaline Phosphatase 64 U/L (38-126) 06/21/18 18:05 C-Reactive Protein 331.0 mg/L (<10.0) H 06/21/18 18:05 Total Protein 6.1 g/dL (6.3-8.2) L 06/21/18 18:05 Albumin 3.4 g/dL (3.5-5.0) L 06/21/18 18:05 Microbiology 06/21/18 11:00 Hand - Left Gram Stain - Preliminary 06/21/18 11:00 Hand - Left Wound Culture - Preliminary Beta Hemolytic Strep Group C 06/21/18 11:00 Hand - Left Gram Stain - Preliminary 06/21/18 11:00 Hand - Left Wound Culture - Preliminary Beta Hemolytic Strep Group C Presumptive Staph aureus 06/20/18 21:42 Blood Blood Culture Gram Stain - Preliminary 06/20/18 21:42 Blood Blood Culture - Preliminary Coagulase Negative Staph 06/21/18 11:00 Hand - Left Anaerobic Culture - Preliminary 06/21/18 11:00 Hand - Left Anaerobic Culture - Preliminary 06/20/18 21:42 Blood Blood Culture - Final Assessment and Plan (1) Abscess of left hand Narrative/Plan: 62-year-old male who has a history of nondescript trauma to his left hand developed evidence of an abscess to his palmar surface as well as to the third finger that has required surgical incision and drainage. Bulky postsurgical dressing is in place. From his anesthesia he is not having much pain at this time. Blood cultures or even call positive for gram-positive cocci. Antibiotic therapy was started with Zosyn and vancomycin will be added until we have further data. The patient will present a challenge as to outpatient treatment given what appears to be great difficulties understanding what is occurring. Routinely with tenosynovitis antibiotic therapy for several weeks is utilized in routinely at his intravenous to maximize treatment into this tissue given the distinct risks of an inadequate treatment of this infection that can result in permanent disability to the hand or limb. Patient will be followed through his hospital stay. Antibiotic suggested based on the cultures are taken and are positive Follow up blood work is requested There is notation that he is up-to-date on his tetanus vaccine from the outside hospital. Cultures are in process, appears to be a complex infection given the significant involvement outpatient intravenous antibiotic therapy will likely be required. This may be very challenging to arrange. Fortunately the blood culture appears to be a contaminant. Once the final cultures available we'll then work with case management as a potential antimicrobial therapy in the outpatient setting. When he close follow-up with orthopedic surgery. Current Visit: Yes Status: Acute Code(s): L02.512 - CUTANEOUS ABSCESS OF LEFT HAND SNOMED Code(s): 4177713 (2) Flexor tenosynovitis of finger Current Visit: Yes Status: Acute Priority: Medium Code(s): M65.9 - SYNOVITIS AND TENOSYNOVITIS, UNSPECIFIED SNOMED Code(s): 506476586
[2018-06-23] MEDS: PIPERACILLIN-TAZOBACTAM 3.375 GM in DEXTROSE/WATER 1 50ML.BAG IVPB SCH ×3 (00:33→14:08)
[2018-06-23 08:09] LABS: Basophils % (A) 0 %; Eosinophils # (A) 0.2 k/uL (0-0.7); Eosinophils % (A) 2 %; HGB 11.7 gm/dL (13.0-17.5); Lymphocytes # (A) 0.7 k/uL (1.0-4.8); Lymphocytes % (A) 7 %; MCH 31.2 pg (25.0-35.0); MCHC 33.5 g/dL (31.0-37.0); Mean Platelet Volume 7.1; Monocytes # (A) 0.6 k/uL (0-1.0); Monocytes % (A) 6 %; Neutrophils % (A) 82 %; Platelet Count 278 k/uL (150-450); RBC 3.77 m/uL (4.30-5.90); RDW 13.4 % (11.5-15.5); WBC 9.7 k/uL (3.8-10.6)
[2018-06-23] MEDS: HYDROcodone/APAP 5-325MG 1 EACH TAB PO PRN ×3 (08:27→20:48)
[2018-06-23] MEDS: GABAPENTIN 300 MG CAP PO SCH ×2 (08:28→20:49)
[2018-06-23] MEDS: PANTOPRAZOLE 40 MG TABLET PO SCH (08:28)
[2018-06-23] MEDS: DULoxetine HCL 60 MG CAPSULE.DR PO SCH ×2 (08:28→20:49)
[2018-06-23] MEDS: TAMSULOSIN 0.4 MG CAP.ER.24H PO SCH (08:28)
[2018-06-23] MEDS: ATENOLOL 50 MG TAB PO SCH ×2 (08:28→18:32)
[2018-06-23] MEDS: VANCOMYCIN 1,000 MG in SODIUM CHLORIDE 0.9% 250 ML IVPB SCH ×2 (08:30→20:50)
--- NOTE | 2018-06-23 13:24 | P.PN ---
Subjective Progress Note Date: 06/22/18 This is 62 years old male who presented to the emergency department with left hand pain. Patient reported injury earlier last week when he had open wound in the palm of his left hand after he got stuck with sharp mental that caused him to bleed profusely patient after that was seen by physician at urgent care who prescribed him antibiotics with patient not sure if he took the whole course of antibiotics and continued to have pain and decreased discharge range of motion in his left hand and presented to the ER for that reason. Patient denied fever , chills, nausea, vomiting, dumping, dizziness, lightheadedness or blurry vision. Patient stated that the pain got worse to the point where he was not able to move his middle finger and believes that he developed some mass in the left hand that was very painful to touch. Patient denied any drainage. Patient currently in the recovery room after he has incision and drainage by orthopedic surgery and stated that he is lethargic and unable to provide detailed information. Patient smokes 5-10 sig it's a day denied alcohol abuse and said that he smokes medical marijuana for his anxiety and nerve root irritation 06/22: Patient states he is having some stabbing pain and otherwise numbness in his left hand. He is complaining of some tenderness going into the forearm with some edema. Patient is followed by orthopedics and by Dr. Trivedi for infectious disease. Wound cultures are in progress. Anticipate that he will need IV antibiotics. Objective - Vital Signs Vital signs: Vital Signs Temp 97 F L 06/21/18 11:16 Pulse 75 06/21/18 12:00 Resp 24 06/21/18 15:18 BP 168/87 06/21/18 12:00 Pulse Ox 96 06/21/18 12:00 Intake & Output 06/20/18 06/21/18 06/21/18 18:59 06:59 18:59 Intake Total 400 Output Total 5 Balance 395 Weight 56.699 kg Intake: IV 400 Output: Estimated Blood Loss 5 Other: Voiding Method Toilet - Exam Gen.: in stated age, no acute distress Heart: Normal S1-S2 Lungs: Clear to auscultation bilaterally Abdomen: Soft, no tenderness, positive bowel sounds in all 4 quadrant no guarding or rebound Skin: No new rash Psych: Alert and oriented 3 Neuro: No focal deficit Left hand examination revealed dressing applied and intact without obvious drainage - Labs CBC & Chem 7: 06/23/18 07:36 06/21/18 18:05 Labs: Microbiology - Last 24 Hours (Table) 06/20/18 21:42 Blood Culture Gram Stain - Preliminary Blood 06/20/18 21:42 Blood Culture - Final Blood Assessment and Plan Plan: 1. Left hand cellulitis with abscess formation status post I&D and evacuation of hematoma. Patient is followed by orthopedics and by infectious disease. Wound cultures are pending. Patient is currently on Zosyn and vancomycin. 2. Tenosynovitis of the left middle finger. Continue Zosyn and vancomycin. 3. Hypertension. Continue atenolol 100 mg twice daily. 4. Tobacco dependency 5. Questionable COPD, stable without exacerbation. 6. Generalized anxiety disorder and recurrent depression. Continue Seroquel 50 mg at bedtime and Cymbalta 60 mg twice daily. Patient also uses marijuana regularly for anxiety. 7. GERD 8. Intractable pain 9. Benign prostatic hypertrophy. Continue tamsulosin 0.4 mg daily. Discharge plan: To be determined. Patient will need home IV antibiotics. Impression and plan of care have been directed as dictated by the signing physician. Lisa Bhatia nurse practitioner acting as scribe for signing physician.
--- NOTE | 2018-06-23 13:27 | P.PN ---
Subjective Progress Note Date: 06/23/18 This is 62 years old male who presented to the emergency department with left hand pain. Patient reported injury earlier last week when he had open wound in the palm of his left hand after he got stuck with sharp mental that caused him to bleed profusely patient after that was seen by physician at urgent care who prescribed him antibiotics with patient not sure if he took the whole course of antibiotics and continued to have pain and decreased discharge range of motion in his left hand and presented to the ER for that reason. Patient denied fever , chills, nausea, vomiting, dumping, dizziness, lightheadedness or blurry vision. Patient stated that the pain got worse to the point where he was not able to move his middle finger and believes that he developed some mass in the left hand that was very painful to touch. Patient denied any drainage. Patient currently in the recovery room after he has incision and drainage by orthopedic surgery and stated that he is lethargic and unable to provide detailed information. Patient smokes 5-10 sig it's a day denied alcohol abuse and said that he smokes medical marijuana for his anxiety and nerve root irritation 06/22: Patient states he is having some stabbing pain and otherwise numbness in his left hand. He is complaining of some tenderness going into the forearm with some edema. Patient is followed by orthopedics and by Dr. Trivedi for infectious disease. Wound cultures are in progress. Anticipate that he will need IV antibiotics. 06/23: Patient is also this morning as he just found out that his dog at home possibly from heat stroke. Patient also verbalizes that he does not have any transportation for coming in the hospital for IV antibiotics. increment manager is following. Patient may require subacute rehab for IV antibiotics. We are currently awaiting cultures to be finalized and a PICC line or midline can be placed. Objective - Vital Signs Vital signs: Vital Signs Temp 98.4 F 06/23/18 06:04 Pulse 66 06/23/18 06:04 Resp 17 06/23/18 06:04 BP 155/98 06/23/18 06:04 Pulse Ox 95 06/23/18 06:04 Intake & Output 06/22/18 06/23/18 06/23/18 18:59 06:59 18:59 Intake Total 600 Output Total 2100 Balance 600 -2100 Weight 56.699 kg 56.699 kg Intake: Oral 600 Output: Urine 2100 Other: Voiding Method Toilet Urinal # Voids 4 - Exam Gen.: in stated age, no acute distress Heart: Normal S1-S2 Lungs: Clear to auscultation bilaterally Abdomen: Soft, no tenderness, positive bowel sounds in all 4 quadrant no guarding or rebound Skin: No new rash Psych: Alert and oriented 3 Neuro: No focal deficit Left hand examination revealed surgical wound down the left middle finger and into the palmar surface. Sutures are intact. Small amount of serosanguineous drainage. - Labs CBC & Chem 7: 06/23/18 07:36 06/21/18 18:05 Labs: Abnormal Lab Results - Last 24 Hours (Table) 06/23/18 Range/Units 07:36 RBC 3.77 L (4.30-5.90) m/uL Hgb 11.7 L (13.0-17.5) gm/dL Hct 35.0 L (39.0-53.0) % Neutrophils # 8.0 H (1.3-7.7) k/uL Lymphocytes # 0.7 L (1.0-4.8) k/uL Microbiology - Last 24 Hours (Table) 06/22/18 07:35 Blood Culture - Preliminary Blood No Growth after 24 hours 06/21/18 11:00 Gram Stain - Preliminary Hand - Left Wound Culture - Preliminary Beta Hemolytic Strep Group C 06/21/18 11:00 Gram Stain - Preliminary Hand - Left Wound Culture - Preliminary Beta Hemolytic Strep Group C Presumptive Staph aureus Assessment and Plan Plan: 1. Left hand cellulitis with abscess formation status post I&D and evacuation of hematoma. Patient is followed by orthopedics and by infectious disease. Wound cultures are pending. Patient is currently on Zosyn and vancomycin. 2. Tenosynovitis of the left middle finger. Continue Zosyn and vancomycin. 3. Hypertension. Continue atenolol 100 mg twice daily. 4. Tobacco dependency 5. Questionable COPD, stable without exacerbation. 6. Generalized anxiety disorder and recurrent depression. Continue Seroquel 50 mg at bedtime and Cymbalta 60 mg twice daily. Patient also uses marijuana regularly for anxiety. 7. GERD 8. Intractable pain 9. Benign prostatic hypertrophy. Continue tamsulosin 0.4 mg daily. Discharge plan: A she may require subacute rehab for IV antibiotics. Impression and plan of care have been directed as dictated by the signing physician. Lisa Bhatia nurse practitioner acting as scribe for signing physician.
--- NOTE | 2018-06-23 13:45 | P.PN ---
Subjective Progress Note Date: 06/23/18 Principal diagnosis: Left middle finger infection Patient is seen at bedside this afternoon. He is post op day #2 from I and D of left middle finger infection/flexor tensosynovitis. He denies any new complaints including new numbness or tingling, fever or chills. Objective - Vital Signs Vital signs: Vital Signs Temp 98.4 F 06/23/18 06:04 Pulse 66 06/23/18 06:04 Resp 17 06/23/18 06:04 BP 155/98 06/23/18 06:04 Pulse Ox 95 06/23/18 06:04 Intake & Output 06/22/18 06/23/18 06/23/18 18:59 06:59 18:59 Intake Total 600 250 Output Total 2100 950 Balance 600 -2100 -700 Weight 56.699 kg 56.699 kg Intake: Oral 600 250 Output: Urine 2100 950 Other: Voiding Method Toilet Urinal # Voids 4 1 - Exam Inspection of the left hand shows nylon sutures in place along the flexor surface of the left middle finger with the wound loosely approximated and [place] drain is in place. There is postoperative swelling as expected. There is no gross purulence or bleeding. Neurovascular status is grossly intact with 2+ radial pulse and less than 2 second capillary refill in all digits. Flexion and extension is intact. - Constitutional General appearance: Present: no acute distress - Labs CBC & Chem 7: 06/23/18 07:36 06/21/18 18:05 Labs: Abnormal Lab Results - Last 24 Hours (Table) 06/23/18 Range/Units 07:36 RBC 3.77 L (4.30-5.90) m/uL Hgb 11.7 L (13.0-17.5) gm/dL Hct 35.0 L (39.0-53.0) % Neutrophils # 8.0 H (1.3-7.7) k/uL Lymphocytes # 0.7 L (1.0-4.8) k/uL Microbiology - Last 24 Hours (Table) 06/21/18 11:00 Gram Stain - Preliminary Hand - Left Wound Culture - Preliminary Beta Hemolytic Strep Group C Presumptive Staph aureus 06/22/18 08:36 Blood Culture - Preliminary Blood No Growth after 24 hours 06/22/18 07:35 Blood Culture - Preliminary Blood No Growth after 24 hours Assessment and Plan (1) Flexor tenosynovitis of finger Narrative/Plan: Drain is d/c'd without complication. He'll continue with wound care as directed. Appreciate infectious disease recommendations including IV antibiotics and wound care. Continue pain management as well as medical management. We will continue to monitor closely and make further recommendations as appropriate. Current Visit: Yes Status: Acute Priority: Medium Code(s): M65.9 - SYNOVITIS AND TENOSYNOVITIS, UNSPECIFIED SNOMED Code(s): 113037248 Time with Patient: Less than 30
[2018-06-23] MEDS: ACETAMINOPHEN TAB 325 MG TAB PO PRN (18:34)
[2018-06-23] MEDS ORDERED: VANCOMYCIN TROUGH DUE 1 EACH MISC MISCELLANE ONE (20:00)
[2018-06-23] MEDS ORDERED: BACLOFEN 10 MG TAB PO PRN (20:30)
[2018-06-23] MEDS: cloNIDine HCL 0.2 MG TAB PO PRN (20:47)
[2018-06-23] MEDS: MELATONIN 5 MG TABLET PO SCH (20:49)
[2018-06-23] MEDS: ATORVASTATIN 40 MG TAB PO SCH (20:49)
[2018-06-23] MEDS: QUEtiapine 50 MG TAB PO SCH (20:49)
--- NOTE | 2018-06-24 00:25 | P.PN ---
Subjective Progress Note Date: 06/23/18 62-year-old male who appears to have multiple medical troubles originally presented to [facility] for evaluation of pain and swelling to his left hand. The patient apparently had evidence of significant infection to the hand was transferred to our facility for orthopedic evaluation. The patient evidence of significant pain and swelling to the left hand middle finger as well as on the palm. The patient is an extremely poor historian and relates that he may have injured his hand on a metal object or shopping cart several days before. He knows developed the inability to make a fist and utilizes hand as well as having significant discomfort at the site. He subsequently was seen by the orthopedic surgeon and was taken to the operating room for the incision and drainage of the abscess of left hand third finger as well as the left mid palmar space. With this in an abscess the infectious diseases consultation was requested. The patient did have laboratories at outside hospital that shows evidence of a significant leukocytosis and no evidence of renal failure. The patient is 62, does not appear to be actively employed at this time, and as noted struggles to get history and information about his situation. Other than pain at the site he is denying other areas of injury, believes he may have had a fever but didn't take his temperature does not believe he had chills or rigors. 06/22/2018 patient relates to feeling slightly better. Still has pain in his hand and is having difficulty with eating. Denies fever and chills 06/23/2018 patient has a headache up within this he is not feeling very well. He has significant difficulties with his psychosocial situation. His pet dog apparently today possibly from heatstroke. He has a very difficult home situation in that he does live independently, his mother may be able to care for him. He however does not appear to have optioned for home IV and they are not able to transport to the hospital daily. Social work is involved and will likely sent to rehab for his antibiotic therapy and wound care. Objective - Vital Signs Vital signs: Vital Signs Temp 99.4 F 06/23/18 23:00 Pulse 54 L 06/23/18 23:00 Resp 16 06/23/18 23:00 BP 143/89 06/23/18 23:00 Pulse Ox 96 06/23/18 23:00 Intake & Output 06/23/18 06/23/18 06/24/18 06:59 18:59 06:59 Intake Total 700 Output Total 2099 3760 450 Balance -2099 -3060 -450 Weight 56.699 kg Intake: Oral 700 Output: Urine 2099 3760 450 Other: Voiding Method Toilet Urinal # Voids 1 # Bowel Movements 1 - Exam 62-year-old male has a non-distinct injury to his left hand this resulted in a significant abscess that is not required surgical incision and drainage. HEENT: Anicteric conjunctiva are pink and moist nasal mucosa grossly intact without significant lesions, there is no thrush. Dentition is poor and generally not present no thrush is seen Neck: The neck is supple without significant lymphadenopathy or thyromegaly. Lungs: Symmetrical air entry is noted there is evidence of expiratory wheezes no elier bronchial sounds all dullness or egophony Heart: Regular rate and rhythm with an audible S1-S2, no S3 no S4. There is no significant murmur click or rub, PMI was nondisplaced. Abdomen: Scaphoid, Positive bowel sounds soft and nontender without palpable masses or organomegaly. There was no guarding or rebound. Extremities: Right upper extremities without lesions. Left upper extremity has a bulky dressing in place and the recent surgery. Surgical note is reviewed showing evidence of the abscess that was drained on the left third finger and palmar space. There is no surrounding erythema on the forearm no ascending erythema there is no left axillary or epitrochlear lymphadenopathy. No other abnormal lymph nodes are seen. Skin the patient has evidence of what appears to be textured part of a rash that is worsening over time. There are no open ulcers or blisters that are noted in any area. He relates that it does get itchy at times but not currently. Neuro: Awake alert oriented to person place and time. There are no acute new gross focal sensory motor deficits. He however is a very poor historian - Labs CBC & Chem 7: 06/23/18 07:36 06/21/18 18:05 Labs: Abnormal Lab Results - Last 24 Hours (Table) 06/23/18 Range/Units 07:36 RBC 3.77 L (4.30-5.90) m/uL Hgb 11.7 L (13.0-17.5) gm/dL Hct 35.0 L (39.0-53.0) % Neutrophils # 8.0 H (1.3-7.7) k/uL Lymphocytes # 0.7 L (1.0-4.8) k/uL Microbiology - Last 24 Hours (Table) 06/21/18 11:00 Anaerobic Culture - Preliminary Hand - Left 06/21/18 11:00 Anaerobic Culture - Preliminary Hand - Left 06/21/18 11:00 Gram Stain - Preliminary Hand - Left Wound Culture - Preliminary Beta Hemolytic Strep Group C Presumptive Staph aureus 06/22/18 08:36 Blood Culture - Preliminary Blood No Growth after 24 hours 06/22/18 07:35 Blood Culture - Preliminary Blood No Growth after 24 hours Laboratory Results WBC 9.7 k/uL (3.8-10.6) 06/23/18 07:36 RBC 3.77 m/uL (4.30-5.90) L 06/23/18 07:36 Hgb 11.7 gm/dL (13.0-17.5) L 06/23/18 07:36 Hct 35.0 % (39.0-53.0) L 06/23/18 07:36 MCV 93.0 fL (80.0-100.0) 06/23/18 07:36 MCH 31.2 pg (25.0-35.0) 06/23/18 07:36 MCHC 33.5 g/dL (31.0-37.0) 06/23/18 07:36 RDW 13.4 % (11.5-15.5) 06/23/18 07:36 Plt Count 278 k/uL (150-450) 06/23/18 07:36 Neutrophils % 82 % 06/23/18 07:36 Lymphocytes % 7 % 06/23/18 07:36 Monocytes % 6 % 06/23/18 07:36 Eosinophils % 2 % 06/23/18 07:36 Basophils % 0 % 06/23/18 07:36 Neutrophils # 8.0 k/uL (1.3-7.7) H 06/23/18 07:36 Lymphocytes # 0.7 k/uL (1.0-4.8) L 06/23/18 07:36 Monocytes # 0.6 k/uL (0-1.0) 06/23/18 07:36 Eosinophils # 0.2 k/uL (0-0.7) 06/23/18 07:36 Basophils # 0.0 k/uL (0-0.2) 06/23/18 07:36 ESR 63 mm/hr (0-15) H 06/21/18 18:05 Sodium 139 mmol/L (137-145) 06/21/18 18:05 Potassium 3.8 mmol/L (3.5-5.1) 06/21/18 18:05 Chloride 108 mmol/L (98-107) H 06/21/18 18:05 Carbon Dioxide 23 mmol/L (22-30) 06/21/18 18:05 Anion Gap 8 mmol/L 06/21/18 18:05 BUN 13 mg/dL (9-20) 06/21/18 18:05 Creatinine 0.80 mg/dL (0.66-1.25) 06/21/18 18:05 Est GFR (CKD-EPI)AfAm >90 (>60 ml/min/1.73 sqM) 06/21/18 18:05 Est GFR (CKD-EPI)NonAf >90 (>60 ml/min/1.73 sqM) 06/21/18 18:05 Glucose 111 mg/dL (74-99) H 06/21/18 18:05 Calcium 9.2 mg/dL (8.4-10.2) 06/21/18 18:05 Total Bilirubin 0.4 mg/dL (0.2-1.3) 06/21/18 18:05 AST 20 U/L (17-59) 06/21/18 18:05 ALT 37 U/L (21-72) 06/21/18 18:05 Alkaline Phosphatase 64 U/L (38-126) 06/21/18 18:05 C-Reactive Protein 331.0 mg/L (<10.0) H 06/21/18 18:05 Total Protein 6.1 g/dL (6.3-8.2) L 06/21/18 18:05 Albumin 3.4 g/dL (3.5-5.0) L 06/21/18 18:05 Vancomycin Trough 10.2 ug/mL 06/23/18 20:26 Microbiology 06/21/18 11:00 Hand - Left Anaerobic Culture - Preliminary 06/21/18 11:00 Hand - Left Anaerobic Culture - Preliminary 06/21/18 11:00 Hand - Left Gram Stain - Preliminary 06/21/18 11:00 Hand - Left Wound Culture - Preliminary Beta Hemolytic Strep Group C Presumptive Staph aureus 06/22/18 08:36 Blood Blood Culture - Preliminary No Growth after 24 hours 06/22/18 07:35 Blood Blood Culture - Preliminary No Growth after 24 hours 06/21/18 11:00 Hand - Left Gram Stain - Preliminary 06/21/18 11:00 Hand - Left Wound Culture - Preliminary Beta Hemolytic Strep Group C Presumptive Staph aureus 06/20/18 21:42 Blood Blood Culture Gram Stain - Preliminary 06/20/18 21:42 Blood Blood Culture - Preliminary Coagulase Negative Staph 06/20/18 21:42 Blood Blood Culture - Final Assessment and Plan (1) Abscess of left hand Narrative/Plan: 62-year-old male who has a history of nondescript trauma to his left hand developed evidence of an abscess to his palmar surface as well as to the third finger that has required surgical incision and drainage. Bulky postsurgical dressing is in place. From his anesthesia he is not having much pain at this time. Blood cultures or even call positive for gram-positive cocci. Antibiotic therapy was started with Zosyn and vancomycin will be added until we have further data. The patient will present a challenge as to outpatient treatment given what appears to be great difficulties understanding what is occurring. Routinely with tenosynovitis antibiotic therapy for several weeks is utilized in routinely at his intravenous to maximize treatment into this tissue given the distinct risks of an inadequate treatment of this infection that can result in permanent disability to the hand or limb. Patient will be followed through his hospital stay. Antibiotic suggested based on the cultures are taken and are positive Follow up blood work is requested There is notation that he is up-to-date on his tetanus vaccine from the outside hospital. Cultures are in process, appears to be a complex infection given the significant involvement outpatient intravenous antibiotic therapy will likely be required. This may be very challenging to arrange. Fortunately the blood culture appears to be a contaminant. Once the final cultures available we'll then work with case management as a potential antimicrobial therapy in the outpatient setting. When he close follow-up with orthopedic surgery. 06/23/2018 reveals the patient to have some improvement to his hand. He overall require at least several weeks of intravenous antibiotic therapy for hand salvage. Wound culture is pending which will help direct the course of antibiotic therapy at the care facility. Local wound care is as per orthopedic surgery. Elevation of the hand while he is at rest will help with the swelling and discomfort. He is complaining of some neck pain and some baclofen as ordered which is given of excellent control of headache from his back and neck spasms. With negative blood cultures IV access can be obtained and then transferred to rehab. Current Visit: Yes Status: Acute Code(s): L02.512 - CUTANEOUS ABSCESS OF LEFT HAND SNOMED Code(s): 6949556 (2) Flexor tenosynovitis of finger Current Visit: Yes Status: Acute Priority: Medium Code(s): M65.9 - SYNOVITIS AND TENOSYNOVITIS, UNSPECIFIED SNOMED Code(s): 985167992
[2018-06-24] MEDS: PIPERACILLIN-TAZOBACTAM 3.375 GM in DEXTROSE/WATER 1 50ML.BAG IVPB SCH ×4 (00:28→23:53)
[2018-06-24] MEDS: cloNIDine HCL 0.2 MG TAB PO PRN ×4 (06:43→23:45)
[2018-06-24 08:20] LABS: Basophils % (A) 0 %; Eosinophils # (A) 0.2 k/uL (0-0.7); Eosinophils % (A) 3 %; HCT 39.4 % (39.0-53.0); HGB 12.6 gm/dL (13.0-17.5); Lymphocytes # (A) 0.8 k/uL (1.0-4.8); Lymphocytes % (A) 9 %; MCH 30.3 pg (25.0-35.0); MCV 94.7 fL (80.0-100.0); Monocytes # (A) 0.5 k/uL (0-1.0); Monocytes % (A) 5 %; Neutrophils # (A) 7.2 k/uL (1.3-7.7); Neutrophils % (A) 79 %; Platelet Count 303 k/uL (150-450); RBC 4.16 m/uL (4.30-5.90); RDW 13.6 % (11.5-15.5); WBC 9.1 k/uL (3.8-10.6)
[2018-06-24] MEDS: ATENOLOL 50 MG TAB PO SCH ×2 (09:18→21:07)
[2018-06-24] MEDS: GABAPENTIN 300 MG CAP PO SCH ×2 (09:19→21:07)
[2018-06-24] MEDS: TAMSULOSIN 0.4 MG CAP.ER.24H PO SCH (09:19)
[2018-06-24] MEDS: PANTOPRAZOLE 40 MG TABLET PO SCH (09:20)
[2018-06-24] MEDS: DULoxetine HCL 60 MG CAPSULE.DR PO SCH ×2 (09:20→21:07)
[2018-06-24] MEDS: HYDROcodone/APAP 5-325MG 1 EACH TAB PO PRN ×2 (09:35→21:27)
[2018-06-24] MEDS: VANCOMYCIN 1,000 MG in SODIUM CHLORIDE 0.9% 250 ML IVPB SCH (09:35)
--- NOTE | 2018-06-24 09:55 | P.PN ---
Subjective Progress Note Date: 06/24/18 Principal diagnosis: Left middle finger infection Patient is seen at bedside this afternoon. He is post op day #3 from I and D of left middle finger infection/flexor tensosynovitis. He is on IV antibiotics per infectious disease. He has pain at the surgical site which is improved. He has been doing warm soapy soaks and receiving wound care. He denies any new complaints including new numbness or tingling, fever or chills. Objective - Vital Signs Vital signs: Vital Signs Temp 98.7 F 06/24/18 06:29 Pulse 61 06/24/18 06:29 Resp 16 06/24/18 06:29 BP 174/106 06/24/18 07:23 Pulse Ox 95 06/24/18 06:29 Intake & Output 06/23/18 06/24/18 06/24/18 18:59 06:59 18:59 Intake Total 700 Output Total 3760 1250 Balance -3060 -1250 Weight 56.699 kg Intake: Oral 700 Output: Urine 3760 1250 Other: Voiding Method Toilet Urinal # Voids 1 # Bowel Movements 1 - Exam Inspection of the left hand shows nylon sutures in place along the flexor surface of the left middle finger with the wound loosely approximated. There is postoperative swelling as expected which is stable or improved. There is no gross purulence or bleeding. Neurovascular status is grossly intact with 2+ radial pulse and less than 2 second capillary refill in all digits. Flexion and extension is intact. - Constitutional General appearance: Present: no acute distress - Psychiatric Psychiatric: Present: A&O x's 3, appropriate affect - Labs CBC & Chem 7: 06/24/18 07:47 06/21/18 18:05 Labs: Abnormal Lab Results - Last 24 Hours (Table) 06/24/18 Range/Units 07:47 RBC 4.16 L (4.30-5.90) m/uL Hgb 12.6 L (13.0-17.5) gm/dL Lymphocytes # 0.8 L (1.0-4.8) k/uL Microbiology - Last 24 Hours (Table) 06/21/18 11:00 Anaerobic Culture - Preliminary Hand - Left 06/21/18 11:00 Anaerobic Culture - Preliminary Hand - Left 06/21/18 11:00 Gram Stain - Preliminary Hand - Left Wound Culture - Preliminary Beta Hemolytic Strep Group C Presumptive Staph aureus 06/22/18 08:36 Blood Culture - Preliminary Blood No Growth after 24 hours 06/22/18 07:35 Blood Culture - Preliminary Blood No Growth after 24 hours Assessment and Plan (1) Flexor tenosynovitis of finger Narrative/Plan: He'll continue with wound care as directed. Appreciate infectious disease recommendations including IV antibiotics and wound care. Continue pain management as well as medical management. We will continue to monitor closely and make further recommendations as appropriate. Plan is for him to transfer to ECF for continued IV antibiotics and wound care. Expect that he will transfer to ECF in the next 1-2 days Current Visit: Yes Status: Acute Priority: Medium Code(s): M65.9 - SYNOVITIS AND TENOSYNOVITIS, UNSPECIFIED SNOMED Code(s): 123130286 Time with Patient: Less than 30
--- NOTE | 2018-06-24 10:40 | P.PN ---
Progress Note - Text Progress Note Date: 06/24/18 Prabhjot is feeling much better this morning. His pain and swelling in the left arm is improved. He denies fever or chills. Overall he feels much better. I took down his dressing and examined his left hand. There is a healing Sharri incision over the volar aspect of the middle finger and palm. There is no drainage and minimal erythema. There is minimal tenderness and minimal pain with PROM of the middle finger. The there is no palpable fluctuance over the volar or dorsal aspect of the hand. I have no plans for repeat surgical debridement at this time. Continue local wound care and daily warm water soaks. Will defer to Dr. Trivedi for antibiotic recommendations. We will continue to follow closely while Prabhjot is an inpatient.
--- NOTE | 2018-06-24 12:49 | P.PN ---
Subjective Progress Note Date: 06/24/18 This is 62 years old male who presented to the emergency department with left hand pain. Patient reported injury earlier last week when he had open wound in the palm of his left hand after he got stuck with sharp mental that caused him to bleed profusely patient after that was seen by physician at urgent care who prescribed him antibiotics with patient not sure if he took the whole course of antibiotics and continued to have pain and decreased discharge range of motion in his left hand and presented to the ER for that reason. Patient denied fever , chills, nausea, vomiting, dumping, dizziness, lightheadedness or blurry vision. Patient stated that the pain got worse to the point where he was not able to move his middle finger and believes that he developed some mass in the left hand that was very painful to touch. Patient denied any drainage. Patient currently in the recovery room after he has incision and drainage by orthopedic surgery and stated that he is lethargic and unable to provide detailed information. Patient smokes 5-10 sig it's a day denied alcohol abuse and said that he smokes medical marijuana for his anxiety and nerve root irritation 06/22: Patient states he is having some stabbing pain and otherwise numbness in his left hand. He is complaining of some tenderness going into the forearm with some edema. Patient is followed by orthopedics and by Dr. Trivedi for infectious disease. Wound cultures are in progress. Anticipate that he will need IV antibiotics. 06/23: Patient is also this morning as he just found out that his dog at home possibly from heat stroke. Patient also verbalizes that he does not have any transportation for coming in the hospital for IV antibiotics. numerical analysis group manager is following. Patient may require subacute rehab for IV antibiotics. We are currently awaiting cultures to be finalized and a PICC line or midline can be placed. 06/24: Wound culture sensitivity is still pending. Patient has decided to go to [facility] for IV antibiotic therapy and rehab. Patient is ordered for PICC line today. Anticipate discharge tomorrow. Objective - Vital Signs Vital signs: Vital Signs Temp 98.7 F 06/24/18 06:29 Pulse 61 06/24/18 06:29 Resp 16 06/24/18 06:29 BP 174/106 06/24/18 07:23 Pulse Ox 95 06/24/18 06:29 Intake & Output 06/23/18 06/24/18 06/24/18 18:59 06:59 18:59 Intake Total 700 Output Total 3760 1250 Balance -3060 -1250 Weight 56.699 kg Intake: Oral 700 Output: Urine 3760 1250 Other: Voiding Method Toilet Urinal # Voids 1 # Bowel Movements 1 - Exam Gen.: in stated age, no acute distress Heart: Normal S1-S2 Lungs: Clear to auscultation bilaterally Abdomen: Soft, no tenderness, positive bowel sounds in all 4 quadrant no guarding or rebound Skin: No new rash Psych: Alert and oriented 3 Neuro: No focal deficit Left hand examination revealed surgical wound down the left middle finger and into the palmar surface. Sutures are intact. Small amount of serosanguineous drainage. - Labs CBC & Chem 7: 06/24/18 07:47 06/21/18 18:05 Labs: Abnormal Lab Results - Last 24 Hours (Table) 06/24/18 Range/Units 07:47 RBC 4.16 L (4.30-5.90) m/uL Hgb 12.6 L (13.0-17.5) gm/dL Lymphocytes # 0.8 L (1.0-4.8) k/uL Microbiology - Last 24 Hours (Table) 06/21/18 11:00 Anaerobic Culture - Preliminary Hand - Left 06/21/18 11:00 Anaerobic Culture - Preliminary Hand - Left 06/21/18 11:00 Gram Stain - Preliminary Hand - Left Wound Culture - Preliminary Beta Hemolytic Strep Group C Presumptive Staph aureus 06/22/18 08:36 Blood Culture - Preliminary Blood No Growth after 24 hours 06/22/18 07:35 Blood Culture - Preliminary Blood No Growth after 24 hours Assessment and Plan Plan: 1. Left hand cellulitis with abscess formation status post I&D and evacuation of hematoma. Patient is followed by orthopedics and by infectious disease. Wound cultures are pending. Patient is currently on Zosyn and vancomycin. 2. Tenosynovitis of the left middle finger. Continue Zosyn and vancomycin. 3. Hypertension. Continue atenolol 100 mg twice daily. 4. Tobacco dependency 5. Questionable COPD, stable without exacerbation. 6. Generalized anxiety disorder and recurrent depression. Continue Seroquel 50 mg at bedtime and Cymbalta 60 mg twice daily. Patient also uses marijuana regularly for anxiety. 7. GERD 8. Intractable pain 9. Benign prostatic hypertrophy. Continue tamsulosin 0.4 mg daily. Discharge plan:subacute rehab for IV antibiotics and rehab. Impression and plan of care have been directed as dictated by the signing physician. Lisa Bhatia nurse practitioner acting as scribe for signing physician.
[2018-06-24 14:27] VITALS: RESP 18
[2018-06-24] MEDS: MELATONIN 5 MG TABLET PO SCH (21:07)
[2018-06-24] MEDS: ATORVASTATIN 40 MG TAB PO SCH (21:07)
[2018-06-24] MEDS: QUEtiapine 50 MG TAB PO SCH (21:07)
[2018-06-24] MEDS: VANCOMYCIN 1,250 MG in SODIUM CHLORIDE 0.9% 250 ML IVPB SCH (21:11)
[2018-06-25] MEDS: PIPERACILLIN-TAZOBACTAM 3.375 GM in DEXTROSE/WATER 1 50ML.BAG IVPB SCH (05:58)
[2018-06-25 06:36] VITALS: BP 158/92; PULSE 57; TEMP 98.5
[2018-06-25] MEDS: HYDROcodone/APAP 5-325MG 1 EACH TAB PO PRN (07:28)
[2018-06-25 07:58] LABS: Basophils % (A) 0 %; Eosinophils # (A) 0.2 k/uL (0-0.7); Eosinophils % (A) 3 %; HCT 35.4 % (39.0-53.0); HGB 11.5 gm/dL (13.0-17.5); Lymphocytes # (A) 0.8 k/uL (1.0-4.8); Lymphocytes % (A) 14 %; MCH 29.9 pg (25.0-35.0); MCHC 32.4 g/dL (31.0-37.0); MCV 92.2 fL (80.0-100.0); Mean Platelet Volume 6.9; Monocytes # (A) 0.4 k/uL (0-1.0); Monocytes % (A) 7 %; Neutrophils # (A) 4.3 k/uL (1.3-7.7); Neutrophils % (A) 72 %; Platelet Count 278 k/uL (150-450); RBC 3.84 m/uL (4.30-5.90); RDW 13.7 % (11.5-15.5); WBC 5.9 k/uL (3.8-10.6)
--- NOTE | 2018-06-25 08:10 | P.DS ---
Providers Date of admission: 06/20/18 21:09 Expected date of discharge: 06/25/18 Attending physician: Angel Montelongo Consults: 06/20/18 21:10 Consult Physician Routine Consulting Provider: Portillo Tong Consult Reason/Comments: Sialitis of the hand, left middle finger tenosynovitis Do you want consulting provider notified?: Yes 06/21/18 09:00 Consult Physician Routine Consulting Provider: Nakul Trivedi Consult Reason/Comments: left middle finger tenosynovitis and cellulitis Do you want consulting provider notified?: Yes Primary care physician: [facility] Course: This is 62 years old male who presented to the emergency department with left hand pain. Patient reported injury earlier last week when he had open wound in the palm of his left hand after he got stuck with sharp mental that caused him to bleed profusely patient after that was seen by physician at urgent care who prescribed him antibiotics with patient not sure if he took the whole course of antibiotics and continued to have pain and decreased discharge range of motion in his left hand and presented to the ER for that reason. Patient denied fever , chills, nausea, vomiting, dumping, dizziness, lightheadedness or blurry vision. Patient stated that the pain got worse to the point where he was not able to move his middle finger and believes that he developed some mass in the left hand that was very painful to touch. Patient denied any drainage. Patient currently in the recovery room after he has incision and drainage by orthopedic surgery and stated that he is lethargic and unable to provide detailed information. Patient smokes 5-10 sig it's a day denied alcohol abuse and said that he smokes medical marijuana for his anxiety and nerve root irritation 06/22: Patient states he is having some stabbing pain and otherwise numbness in his left hand. He is complaining of some tenderness going into the forearm with some edema. Patient is followed by orthopedics and by Dr. Trivedi for infectious disease. Wound cultures are in progress. Anticipate that he will need IV antibiotics. 06/23: Patient is also this morning as he just found out that his dog at home possibly from heat stroke. Patient also verbalizes that he does not have any transportation for coming in the hospital for IV antibiotics. manager of disaster recovery is following. Patient may require subacute rehab for IV antibiotics. We are currently awaiting cultures to be finalized and a PICC line or midline can be placed. 06/24: Wound culture sensitivity is still pending. Patient has decided to go to [facility] for IV antibiotic therapy and rehab. Patient is ordered for PICC line today. Anticipate discharge tomorrow. 06/25: PICC line has been placed this morning. Patient will be discharged on cefazolin. No new complaints. Blood pressure is noted to be high for which lisinopril added and clonidine changed to scheduled versus when necessary. Patient will be discharged to ECF in stable condition. Discharge diagnoses: 1. Left hand cellulitis with abscess formation status post I&D and evacuation of hematoma. 2. Tenosynovitis of the left middle finger. 3. Hypertension. 4. Tobacco dependency 5. Questionable COPD, stable without exacerbation. 6. Generalized anxiety disorder and recurrent depression. 7. GERD 8. Intractable pain 9. Benign prostatic hypertrophy. Discharge plan: [facility] under the care of Dr. Mcduffie Impression and plan of care have been directed as dictated by the signing physician. Lisa Bhatia nurse practitioner acting as scribe for signing physician. Patient Condition at Discharge: Good Plan - Discharge Summary Discharge Rx Participant: No New Discharge Prescriptions: New Baclofen [Lioresal] 10 mg PO BID PRN tab PRN Reason: Muscle Spasm HYDROcodone/APAP 5-325MG [[place] 5-325] 1 each PO Q4HR PRN #18 tab PRN Reason: MODERATE Pain Lisinopril [Zestril] 10 mg PO DAILY tab ceFAZolin [Kefzol] 2 gm IVP Q8HR #54 ml cloNIDine HCL [Catapres] 0.1 mg PO BID #60 tab Continue Tamsulosin HCl [Flomax] 0.4 mg PO DAILY Gabapentin [Neurontin] 300 mg PO BID Esomeprazole Magnesium [NexIUM 24Hr] 20 mg PO DAILY DULoxetine HCL [Cymbalta] 60 mg PO BID Atenolol 100 mg PO BID Atorvastatin [Lipitor] 40 mg PO DAILY QUEtiapine [SEROquel] 50 mg PO HS Melatonin 5 mg PO HS Discontinued Naproxen Sodium [Aleve] 440 mg PO BID PRN PRN Reason: Pain Discharge Medication List Atenolol 100 mg PO BID 07/29/17 [History] DULoxetine HCL [Cymbalta] 60 mg PO BID 07/29/17 [History] Esomeprazole Magnesium [NexIUM 24Hr] 20 mg PO DAILY 07/29/17 [History] Gabapentin [Neurontin] 300 mg PO BID 07/29/17 [History] Tamsulosin HCl [Flomax] 0.4 mg PO DAILY 07/29/17 [History] Atorvastatin [Lipitor] 40 mg PO DAILY 06/20/18 [History] Melatonin 5 mg PO HS 06/20/18 [History] QUEtiapine [SEROquel] 50 mg PO HS 06/20/18 [History] Baclofen [Lioresal] 10 mg PO BID PRN tab 06/25/18 [Rx] HYDROcodone/APAP 5-325MG [[place] 5-325] 1 each PO Q4HR PRN #18 tab 06/25/18 [Rx] Lisinopril [Zestril] 10 mg PO DAILY tab 06/25/18 [Rx] ceFAZolin [Kefzol] 2 gm IVP Q8HR #54 ml 06/25/18 [Rx] cloNIDine HCL [Catapres] 0.1 mg PO BID #60 tab 06/25/18 [Rx] Follow up Appointment(s)/Referral(s): Nakul Trivedi MD [STAFF PHYSICIAN] - 2 Weeks Nakul Dotson MD [Primary Care Provider] - 1 Week (after discharge from [facility]) [facility] [place], [NON-STAFF] - 1 Week Portillo Tong MD [Medical Doctor] - 1 Week Patient Instructions/Handouts: Cellulitis (DC) Activity/Diet/Wound Care/Special Instructions: Please ensure follow-up appointment with Dr. Trivedi as length of antibiotic treatment may need to be extended. Regular diet, chopped due to no teeth Activity as tolerated Left Hand dressing change DAILY- warm water/soap soaks, nonadherent, ABD, Kerlix TYLER PICC line for IV antibiotics, inserted 06/25/18 0900 Discharge Disposition: TRANSFER TO SNF/F
[2018-06-25] MEDS: VANCOMYCIN 1,250 MG in SODIUM CHLORIDE 0.9% 250 ML IVPB SCH (08:26)
[2018-06-25] MEDS: ATENOLOL 50 MG TAB PO SCH (08:28)
[2018-06-25] MEDS: GABAPENTIN 300 MG CAP PO SCH (08:28)
[2018-06-25] MEDS: DULoxetine HCL 60 MG CAPSULE.DR PO SCH (08:28)
[2018-06-25] MEDS: TAMSULOSIN 0.4 MG CAP.ER.24H PO SCH (08:28)
[2018-06-25] MEDS: PANTOPRAZOLE 40 MG TABLET PO SCH (08:47)
[2018-06-25] MEDS ORDERED: LISINOPRIL 10 MG TAB PO SCH (09:00)
[2018-06-25] MEDS ORDERED: LIDOCAINE 1% INJ 10MG/ML (20 ML MDV) SQ ONE (09:14)
--- NOTE | 2018-06-25 10:05 | IR ---
PICC LINE PLACEMENT: HISTORY: Infection requiring long-term antibiotic therapy PROCEDURE: Ultrasound and fluoroscopic guidance of PICC line placement. COMPLICATIONS: None ANESTHESIA: 1. 1% Lidocaine locally. FINDINGS/TECHNIQUE: The procedure was explained to the patient. The risks, complications, benefits and alternatives were discussed and any questions were answered. Informed consent was obtained. The patient was placed supine on the fluoroscopic table and prepped and draped in the usual sterile fas ion. Utilizing a 21 gauge needle and sonographic and fluoroscopic guidance, access in the vein was achieved and there is placement of a 0.018 guidewire. The vein is patent. A 4-F sheath was placed o aurelio the guidewire. The guidewire and dilator were removed and a 4-F. PICC line was placed through th e sheath with the tip at the level of the SVC. The sheath was removed, the catheter was flushed and sutured into position. The patient was stable throughout the procedure and remained stable upon disc harge from the Department of Radiology. The vein puncture was patent under ultrasound. A youngblood scale image was obtained to document patency of the vein punctured. All elements of the maximal barrier technique were utilized. FLUOROSCOPY TIME: 0.4 minutes of fluoroscopy and one image submitted. IMPRESSION: Successful PICC line placement under ultrasound and fluoroscopic guidance.
== END 2018-06-25 13:22 | DRG 580 ==
LOC: EC 17:50 → 4MS4W 21:09
PROVIDERS: ADMIT Internal Medicine; ATTEND Internal Medicine
PROC: 0J9K0ZZ Drainage of Left Hand Subcutaneous Tissue and Fascia, Open Approach (ICD-10-PCS; 2018-06-21)
PROC: 0L980ZX Drainage of Left Hand Tendon, Open Approach, Diagnostic (ICD-10-PCS; principal; 2018-06-21 10:00)
PROC: 02HV33Z Insertion of Infusion Device into Superior Vena Cava, Percutaneous Approach (ICD-10-PCS; 2018-06-25 09:00)
DX: L02.512 Cutaneous abscess of left hand (principal); L03.114 Cellulitis of left upper limb; F33.9 Major depressive disorder, recurrent, unspecified; L03.012 Cellulitis of left finger; F17.210 Nicotine dependence, cigarettes, uncomplicated; F41.1 Generalized anxiety disorder; I10 Essential (primary) hypertension; K21.9 Gastro-esophageal reflux disease without esophagitis; M65.9 Synovitis and tenosynovitis, unspecified; N40.0 Benign prostatic hyperplasia without lower urinary tract symptoms; R25.1 Tremor, unspecified; R26.81 Unsteadiness on feet; R51 Headache; Z79.899 Other long term (current) drug therapy; Z90.49 Acquired absence of other specified parts of digestive tract; Z82.0 Family history of epilepsy and other diseases of the nervous system; Z82.3 Family history of stroke
CPT/HCPCS: 36569; 76937; 77001; 80053; 80202; 85025; 85652; 86140; 87040; 87070; 87075; 87077; 87186; 87205; 99285

== ENCOUNTER 2018-06-29 11:46 | Emergency (ER) | payer MEDICARE ==
[2018-06-29] MEDS ORDERED: SODIUM CHLORIDE 0.9% 500 ML IV STA (12:15)
[2018-06-29] MEDS ORDERED: SODIUM CHLORIDE 0.9% 1,000 ML IV STA (12:15)
--- NOTE | 2018-06-29 12:43 | ED ---
Recheck HPI - General Chief Complaint: Recheck/Abnormal Lab/Rx Stated Complaint: BP Time Seen by Provider: 06/29/18 11:46 Source: patient, EMS, RN notes reviewed, old records reviewed Mode of arrival: EMS Limitations: no limitations - History of Present Illness Initial Comments: This a 62-year-old male with a history of hypertension who [facility] where he is getting IV antibiotics for a left hand infection who was sent in for evaluation for refractory hypertension. Patient states she's been very anxious and thinks she is getting better. Denies any chest pain shortness of breath fevers chills or sweats at this time. MD Complaint: other - Related Data Home Medications Medication Instructions Recorded Confirmed Atenolol 100 mg PO BID 07/29/17 06/29/18 DULoxetine HCL [Cymbalta] 60 mg PO BID 07/29/17 06/29/18 Esomeprazole Magnesium [NexIUM 20 mg PO DAILY 07/29/17 06/29/18 24Hr] Gabapentin [Neurontin] 300 mg PO BID PRN 07/29/17 06/29/18 Tamsulosin HCl [Flomax] 0.4 mg PO DAILY 07/29/17 06/29/18 Melatonin 5 mg PO HS PRN 06/20/18 06/29/18 Atorvastatin Calcium [Lipitor] 40 mg PO HS 06/29/18 06/29/18 Liquid Tears 1 drop BOTH EYES DAILY 06/29/18 06/29/18 QUEtiapine FUMARATE 50 mg PO HS 06/29/18 06/29/18 Previous Rx's Medication Instructions Recorded HYDROcodone/APAP 5-325MG [[place] 1 each PO Q4HR PRN #18 tab 06/25/18 5-325] Lisinopril [Zestril] 10 mg PO DAILY tab 06/25/18 ceFAZolin [Kefzol] 2 gm IVP Q8HR #54 ml 06/25/18 cloNIDine HCL [Catapres] 0.1 mg PO BID #60 tab 06/25/18 ALPRAZolam [Xanax] 0.25 mg PO BID PRN #6 tablet 06/29/18 Allergies Allergy/AdvReac Type Severity Reaction Status Date / Time No Known Allergies Allergy Verified 06/20/18 17:59 Review of Systems ROS Statement: Those systems with pertinent positive or pertinent negative responses have been documented in the HPI. ROS Other: All systems not noted in ROS Statement are negative. Past Medical History Past Medical History: GERD/Reflux, Hyperlipidemia, Hypertension, Prostate Disorder Additional Past Medical History / Comment(s): ,hx back fx 7 different areas, mult fx to neck, AAA, History of Any Multi-Drug Resistant Organisms: None Reported Past Surgical History: Appendectomy, Hernia Repair, Orthopedic Surgery Additional Past Surgical History / Comment(s): open laparotomy,bone graft rt wrist,lt wrist repair Past Anesthesia/Blood Transfusion Reactions: No Reported Reaction Past Psychological History: Anxiety, Depression Smoking Status: Current every day smoker Past Alcohol Use History: None Reported Past Drug Use History: Marijuana - Past Family History Mother Family Medical History: CVA/TIA Father Family Medical History: Dementia Additional Family Medical History / Comment(s): parkinson's General Exam - General Exam Comments Initial Comments: This is a well-developed well-nourished awake alert oriented times 3 male Limitations: no limitations General appearance: alert, anxious Head exam: Present: atraumatic, normocephalic, normal inspection Eye exam: Present: normal appearance, PERRL, EOMI. Absent: scleral icterus, conjunctival injection, periorbital swelling ENT exam: Present: mucous membranes dry Neck exam: Present: normal inspection. Absent: tenderness, meningismus, lymphadenopathy Respiratory exam: Present: normal lung sounds bilaterally. Absent: respiratory distress, wheezes, rales, rhonchi, stridor Cardiovascular Exam: Present: regular rate, normal rhythm, normal heart sounds. Absent: systolic murmur, diastolic murmur, rubs, gallop, clicks GI/Abdominal exam: Present: soft, normal bowel sounds. Absent: distended, tenderness, guarding, rebound, rigid Extremities exam: Present: full ROM, normal capillary refill, other (There is a dressing on the left upper extremity no evidence of lymphangitis at this time). Absent: tenderness, pedal edema, joint swelling, calf tenderness Back exam: Present: normal inspection Neurological exam: Present: alert, oriented X3, CN II-XII intact Psychiatric exam: Present: normal affect, normal mood Skin exam: Present: warm, dry, intact, normal color. Absent: rash Course Vital Signs 06/29/18 06/29/18 11:47 12:56 Pulse Rate 59 L Respiratory 18 Rate Blood Pressure 162/107 149/107 O2 Sat by Pulse 97 Oximetry Medical Decision Making - Medical Decision Making The patient is feeling improved I did evaluate the patient's left hand he appears to be healing well slight wound dehiscence on the palmar aspect of the left hand but no drainage or discharge seen at this time no erythema. Patient will be discharged the presentation is likely secondary to slight dehydration and anxiety. - Lab Data Result diagrams: 06/29/18 12:58 06/29/18 12:58 Lab Results 06/29/18 06/29/18 06/29/18 Range/Units 12:30 12:58 12:58 WBC 10.1 (3.8-10.6) k/uL RBC 4.09 L (4.30-5.90) m/uL Hgb 12.1 L (13.0-17.5) gm/dL Hct 38.2 L (39.0-53.0) % MCV 93.5 (80.0-100.0) fL MCH 29.7 (25.0-35.0) pg MCHC 31.8 (31.0-37.0) g/dL RDW 14.0 (11.5-15.5) % Plt Count 384 (150-450) k/uL Neutrophils % 71 % Lymphocytes % 19 % Monocytes % 6 % Eosinophils % 1 % Basophils % 0 % Neutrophils # 7.1 (1.3-7.7) k/uL Lymphocytes # 1.9 (1.0-4.8) k/uL Monocytes # 0.6 (0-1.0) k/uL Eosinophils # 0.1 (0-0.7) k/uL Basophils # 0.0 (0-0.2) k/uL Sodium (137-145) mmol/L Potassium (3.5-5.1) mmol/L Chloride (98-107) mmol/L Carbon Dioxide (22-30) mmol/L Anion Gap mmol/L BUN (9-20) mg/dL Creatinine (0.66-1.25) mg/dL Est GFR (CKD-EPI)AfAm (>60 ml/min/1.73 sqM) Est GFR (CKD-EPI)NonAf (>60 ml/min/1.73 sqM) Glucose (74-99) mg/dL Calcium (8.4-10.2) mg/dL Magnesium (1.6-2.3) mg/dL Total Bilirubin (0.2-1.3) mg/dL AST (17-59) U/L ALT (21-72) U/L Alkaline Phosphatase (38-126) U/L Total Creatine Kinase 29 L (55-170) U/L CK-MB (CK-2) 1.5 (0.0-2.4) ng/mL CK-MB (CK-2) Rel Index 5.2 Troponin I <0.012 (0.000-0.034) ng/mL Total Protein (6.3-8.2) g/dL Albumin (3.5-5.0) g/dL Urine Color Light Yellow Urine Appearance Clear (Clear) Urine pH 7.0 (5.0-8.0) Ur Specific [place] 1.005 (1.001-1.035) Urine Protein Negative (Negative) Urine Glucose (UA) Negative (Negative) Urine Ketones Negative (Negative) Urine Blood Negative (Negative) Urine Nitrite Negative (Negative) Urine Bilirubin Negative (Negative) Urine Urobilinogen <2.0 (<2.0) mg/dL Ur Leukocyte Esterase Negative (Negative) 06/29/18 Range/Units 12:58 WBC (3.8-10.6) k/uL RBC (4.30-5.90) m/uL Hgb (13.0-17.5) gm/dL Hct (39.0-53.0) % MCV (80.0-100.0) fL MCH (25.0-35.0) pg MCHC (31.0-37.0) g/dL RDW (11.5-15.5) % Plt Count (150-450) k/uL Neutrophils % % Lymphocytes % % Monocytes % % Eosinophils % % Basophils % % Neutrophils # (1.3-7.7) k/uL Lymphocytes # (1.0-4.8) k/uL Monocytes # (0-1.0) k/uL Eosinophils # (0-0.7) k/uL Basophils # (0-0.2) k/uL Sodium 139 (137-145) mmol/L Potassium 4.3 (3.5-5.1) mmol/L Chloride 106 (98-107) mmol/L Carbon Dioxide 26 (22-30) mmol/L Anion Gap 7 mmol/L BUN 15 (9-20) mg/dL Creatinine 0.70 (0.66-1.25) mg/dL Est GFR (CKD-EPI)AfAm >90 (>60 ml/min/1.73 sqM) Est GFR (CKD-EPI)NonAf >90 (>60 ml/min/1.73 sqM) Glucose 89 (74-99) mg/dL Calcium 9.2 (8.4-10.2) mg/dL Magnesium 2.0 (1.6-2.3) mg/dL Total Bilirubin 0.3 (0.2-1.3) mg/dL AST 29 (17-59) U/L ALT 35 (21-72) U/L Alkaline Phosphatase 70 (38-126) U/L Total Creatine Kinase (55-170) U/L CK-MB (CK-2) (0.0-2.4) ng/mL CK-MB (CK-2) Rel Index Troponin I (0.000-0.034) ng/mL Total Protein 6.5 (6.3-8.2) g/dL Albumin 3.5 (3.5-5.0) g/dL Urine Color Urine Appearance (Clear) Urine pH (5.0-8.0) Ur Specific [place] (1.001-1.035) Urine Protein (Negative) Urine Glucose (UA) (Negative) Urine Ketones (Negative) Urine Blood (Negative) Urine Nitrite (Negative) Urine Bilirubin (Negative) Urine Urobilinogen (<2.0) mg/dL Ur Leukocyte Esterase (Negative) - EKG Data -: EKG Interpreted by Me EKG shows normal: sinus rhythm (Sinus bradycardia rate of 49. Interval 144 QRS 80 QT since QTC 468/422 poor R-wave progression.) - Radiology Data Radiology results: report reviewed (Did I did review the imaging and report no acute findings.), image reviewed Disposition Clinical Impression: Hypertension, Anxiety, Visit for wound check Disposition: HOME SELF-CARE Condition: Good Instructions: Dehydration (ED), Hypertension (ED), Anxiety (ED) Prescriptions: ALPRAZolam [Xanax] 0.25 mg PO BID PRN #6 tablet PRN Reason: Anxiety Is patient prescribed a controlled substance at d/c from ED?: Yes When asked, does pt state using other controlled substances?: No If prescribed controlled substance>3 days was MAPS reviewed?: Prescribed <3 Days Referrals: aNkul Dotson MD [Primary Care Provider] - 1-2 days
[2018-06-29 12:48] LABS: Appearance,Urine Clear (Clear); Bilirubin,Urine Negative (Negative); Blood,Urine Negative (Negative); Color,Urine Light Yellow; Glucose,Urine (UA) Negative (Negative); Ketones,Urine Negative (Negative); Leukocyte Esterase,Urine Negative (Negative); Nitrite,Urine Negative (Negative); Protein,Urine Negative (Negative); Specific Gravity,Urine 1.005 (1.001-1.035); Urobilinogen,Urine <2.0 mg/dL (<2.0)
[2018-06-29 13:15] LABS: ALT 35 U/L (21-72); AST 29 U/L (17-59); Albumin 3.5 g/dL (3.5-5.0); Alkaline Phosphatase 70 U/L (38-126); Anion Gap 7 mmol/L; Blood Urea Nitrogen 15 mg/dL (9-20); Calcium 9.2 mg/dL (8.4-10.2); Carbon Dioxide 26 mmol/L (22-30); Chloride 106 mmol/L (98-107); Glucose 89 mg/dL (74-99); Potassium 4.3 mmol/L (3.5-5.1); Sodium 139 mmol/L (137-145); Total Bilirubin 0.3 mg/dL (0.2-1.3); Total Protein 6.5 g/dL (6.3-8.2)
[2018-06-29 13:17] LABS: Basophils % (A) 0 %; Eosinophils # (A) 0.1 k/uL (0-0.7); Eosinophils % (A) 1 %; HCT 38.2 % (39.0-53.0); HGB 12.1 gm/dL (13.0-17.5); Lymphocytes # (A) 1.9 k/uL (1.0-4.8); Lymphocytes % (A) 19 %; MCH 29.7 pg (25.0-35.0); MCHC 31.8 g/dL (31.0-37.0); MCV 93.5 fL (80.0-100.0); Mean Platelet Volume 6.6; Monocytes # (A) 0.6 k/uL (0-1.0); Monocytes % (A) 6 %; Neutrophils # (A) 7.1 k/uL (1.3-7.7); Neutrophils % (A) 71 %; Platelet Count 384 k/uL (150-450); RBC 4.09 m/uL (4.30-5.90); WBC 10.1 k/uL (3.8-10.6)
[2018-06-29 13:32] LABS: Creatine Kinase 29 U/L (55-170)
--- NOTE | 2018-06-29 13:43 | XR ---
EXAMINATION TYPE: XR chest 2V DATE OF EXAM: 06/29/2018 COMPARISON: NONE HISTORY: History of hypertension with cough. TECHNIQUE: Frontal and lateral views of the chest are obtained. FINDINGS: There is right-sided PICC line terminating at brachiocephalic confluence in the proximal SV C There is no focal air space opacity, pleural effusion, or pneumothorax seen. The cardiac silhouett e size is within normal limits. There is ectatic descending aorta identified. There is multilevel dis c space narrowing with endplate sclerosis in the lower thoracic spine. IMPRESSION: No suspicious acute infiltrate.
[2018-06-29 13:45] LABS: Creatine Kinase MB 1.5 ng/mL (0.0-2.4); Troponin I <0.012 ng/mL (0.000-0.034)
[2018-06-29] MEDS ORDERED: ATENOLOL 50 MG TAB PO STA (15:14)
[2018-06-29] MEDS ORDERED: ALPRAZolam 0.25 MG TAB PO STA (15:14)
[2018-06-29 15:23] VITALS: PULSE 53
[2018-06-29 16:19] VITALS: BP 176/107; RESP 20
== END 2018-06-29 16:29 | disposition home or self-care (01) ==
LOC: EC 11:46
DX: I10 Essential (primary) hypertension (principal); F41.9 Anxiety disorder, unspecified; Z48.00 Encounter for change or removal of nonsurgical wound dressing; K21.9 Gastro-esophageal reflux disease without esophagitis; E78.5 Hyperlipidemia, unspecified; N42.9 Disorder of prostate, unspecified; F32.9 Major depressive disorder, single episode, unspecified; F17.200 Nicotine dependence, unspecified, uncomplicated; Z79.899 Other long term (current) drug therapy
CPT/HCPCS: 36415; 71046; 80053; 81003; 82550; 82553; 83735; 84484; 85025; 93005; 96360; 99284

== ENCOUNTER 2019-02-12 12:59 | Inpatient (IN) | payer MEDICARE ==
[2019-02-12] MEDS ORDERED: DEXAMETHASONE SOD PHOSPHATE 10 MG/ML 1 ML VIAL IV STA (13:52)
--- NOTE | 2019-02-12 14:23 | ED ---
General Adult HPI - General Chief complaint: Recheck/Abnormal Lab/Rx Stated complaint: MRI results-sent by Time Seen by Provider: 02/12/19 13:15 Source: patient Mode of arrival: wheelchair Limitations: no limitations - History of Present Illness Initial comments: 63-year-old male present emergency department for abnormal MRI results. Patient states he and MRI yesterday at Dr. Christianson's office of his brain and C-spine. Patient states he was called and told to emergency from because he had some cord compression. Patient states that he's had 35 falls in last few months states that he is generalized weak extremities upper and lower. Patient denies any recent fall last few days. Patient states he has chronic pain which is not out of the usual today. Patient denies any fevers or chills no chest pain or shortness of breath. - Related Data Home Medications Medication Instructions Recorded Confirmed Atenolol 100 mg PO BID 07/29/17 06/29/18 DULoxetine HCL [Cymbalta] 60 mg PO BID 07/29/17 06/29/18 Esomeprazole Magnesium [NexIUM 20 mg PO DAILY 07/29/17 06/29/18 24Hr] Gabapentin [Neurontin] 300 mg PO BID PRN 07/29/17 06/29/18 Tamsulosin HCl [Flomax] 0.4 mg PO DAILY 07/29/17 06/29/18 Melatonin 5 mg PO HS PRN 06/20/18 06/29/18 Atorvastatin Calcium [Lipitor] 40 mg PO HS 06/29/18 06/29/18 Liquid Tears 1 drop BOTH EYES DAILY 06/29/18 06/29/18 QUEtiapine FUMARATE 50 mg PO HS 06/29/18 06/29/18 Previous Rx's Medication Instructions Recorded HYDROcodone/APAP 5-325MG [Hana 1 each PO Q4HR PRN #18 tab 06/25/18 5-325] Lisinopril [Zestril] 10 mg PO DAILY tab 06/25/18 ceFAZolin [Kefzol] 2 gm IVP Q8HR #54 ml 06/25/18 cloNIDine HCL [Catapres] 0.1 mg PO BID #60 tab 06/25/18 ALPRAZolam [Xanax] 0.25 mg PO BID PRN #6 tablet 06/29/18 Allergies Allergy/AdvReac Type Severity Reaction Status Date / Time No Known Allergies Allergy Verified 02/12/19 13:13 Review of Systems ROS Statement: Those systems with pertinent positive or pertinent negative responses have been documented in the HPI. ROS Other: All systems not noted in ROS Statement are negative. Past Medical History Past Medical History: GERD/Reflux, Hyperlipidemia, Hypertension, Prostate Disorder Additional Past Medical History / Comment(s): ,hx back fx 7 different areas,mult fx to neck, AAA, History of Any Multi-Drug Resistant Organisms: None Reported Past Surgical History: Appendectomy, Hernia Repair, Orthopedic Surgery Additional Past Surgical History / Comment(s): open laparotomy,bone graft rt wrist,lt wrist repair Past Anesthesia/Blood Transfusion Reactions: No Reported Reaction Past Psychological History: Anxiety, Depression Smoking Status: Current every day smoker Past Alcohol Use History: None Reported Past Drug Use History: Marijuana - Past Family History Mother Family Medical History: CVA/TIA Father Family Medical History: Dementia Additional Family Medical History / Comment(s): parkinson's General Exam Limitations: no limitations General appearance: alert, in no apparent distress Head exam: Present: atraumatic, normocephalic, normal inspection Eye exam: Present: normal appearance, PERRL, EOMI. Absent: scleral icterus, conjunctival injection, periorbital swelling Neck exam: Present: normal inspection, full ROM. Absent: tenderness, meningismus, lymphadenopathy Respiratory exam: Present: normal lung sounds bilaterally. Absent: respiratory distress, wheezes, rales, rhonchi, stridor Cardiovascular Exam: Present: regular rate, normal rhythm, normal heart sounds. Absent: systolic murmur, diastolic murmur, rubs, gallop, clicks Extremities exam: Present: other (No unilateral weakness noted, generalized weakness of his upper extremities strength 4/5, pulse vehicle bilaterally upper and lower extremities) Course Vital Signs 02/12/19 13:10 Temperature 98 F Pulse Rate 66 Respiratory 20 Rate Blood Pressure 126/87 O2 Sat by Pulse 99 Oximetry Medical Decision Making - Medical Decision Making MRI results were reviewed which shows evidence of subluxation and cord compression at C3-C4. Patient will be admitted to service with consult to orthopedics. Disposition Clinical Impression: Subluxation of unspecified cervical vertebrae, initial encounter, Cord compression Disposition: ADMITTED IP TO THIS HOSP Condition: Fair Referrals: Kathe Yuen MD [Primary Care Provider] - 1-2 days
[2019-02-12] MEDS ORDERED: HYDROmorphone 0.5 MG/0.5 ML SYRINGE IVP PRN (14:24)
[2019-02-12] MEDS ORDERED: NALOXONE 0.4 MG/ML 1 ML VIAL IV PRN (14:24)
[2019-02-12 14:32] LABS: Basophils % (A) 0 %; Eosinophils # (A) 0.1 k/uL (0-0.7); Eosinophils % (A) 2 %; HCT 39.6 % (39.0-53.0); HGB 13.8 gm/dL (13.0-17.5); Lymphocytes # (A) 1.7 k/uL (1.0-4.8); Lymphocytes % (A) 23 %; MCH 30.3 pg (25.0-35.0); MCHC 34.9 g/dL (31.0-37.0); Mean Platelet Volume 9.2; Monocytes # (A) 0.4 k/uL (0-1.0); Monocytes % (A) 5 %; Neutrophils % (A) 67 %; Platelet Count 221 k/uL (150-450); RBC 4.56 m/uL (4.30-5.90); RDW 15.4 % (11.5-15.5); WBC 7.5 k/uL (3.8-10.6)
[2019-02-12 14:36] LABS: MCV 86.8 fL (80.0-100.0)
[2019-02-12 14:43] LABS: INR 0.9 (<1.2); Prothrombin Time 9.8 sec (9.0-12.0)
[2019-02-12 14:44] LABS: ALT 32 U/L (21-72); AST 29 U/L (17-59); Albumin 4.1 g/dL (3.5-5.0); Alkaline Phosphatase 67 U/L (38-126); Anion Gap 4 mmol/L; Blood Urea Nitrogen 11 mg/dL (9-20); Calcium 9.8 mg/dL (8.4-10.2); Carbon Dioxide 27 mmol/L (22-30); Chloride 109 mmol/L (98-107); Glucose 85 mg/dL (74-99); Potassium 4.2 mmol/L (3.5-5.1); Sodium 140 mmol/L (137-145); Total Bilirubin 0.4 mg/dL (0.2-1.3); Total Protein 6.9 g/dL (6.3-8.2)
[2019-02-12] MEDS ORDERED: ACETAMINOPHEN TAB 325 MG TAB PO PRN (15:24)
[2019-02-12] MEDS ORDERED: ONDANSETRON 4 MG/2 ML VIAL IVP PRN (15:24)
--- NOTE | 2019-02-12 15:28 | P.HPIM ---
History of Present Illness H&P Date: 02/12/19 Chief Complaint: Abnormal MRI of the neck This is a 63-year-old male with a known past medical history of back and neck fractures, hypertension, hyperlipidemia, abdominal aortic aneurysm, anxiety and depression, BPH and nicotine dependence. Patient presents to the emergency department due to abnormal MRI of the spine. Patient had an MRI of the brain and C-spine yesterday which was ordered by Dr. Christianson's office. Patient was seen by Dr. Christianson due to his recurrent falls with neck and back pain. Patient reports that he was called by Dr. Christianson's office and was informed that he had a cord compression and to present to the ER. Patient's reporting that he had over 35 falls in the last few months. He has weakness and numbness in both arms and legs. Patient denies any chest pain, shortness of breath, loss of consciousness or dizziness during his falls. He reports that his legs discharge taking and he falls down. Patient denies any fever, chills, sweats, nausea or vomiting, bowel movement changes or burning with urination. Patient does admit to a chronic cough. Patient denies any heart attack, diabetes, arrhythmias, COPD or renal failure. Dr. Abdul has been consulted regarding the spinal cord compression. Patient was started on IV dexamethasone. Review of Systems Please refer to HPI otherwise unremarkable Past Medical History Past Medical History: GERD/Reflux, Hyperlipidemia, Hypertension, Prostate Disorder Additional Past Medical History / Comment(s): ,hx back fx 7 different areas,mult fx to neck, AAA, left hand cellulitis and abscess History of Any Multi-Drug Resistant Organisms: None Reported Past Surgical History: Appendectomy, Hernia Repair, Orthopedic Surgery Additional Past Surgical History / Comment(s): open laparotomy,bone graft rt wrist,lt wrist repair Past Anesthesia/Blood Transfusion Reactions: No Reported Reaction Past Psychological History: Anxiety, Depression Smoking Status: Current every day smoker Past Alcohol Use History: None Reported Past Drug Use History: Marijuana - Past Family History Mother Family Medical History: CVA/TIA Father Family Medical History: Dementia Additional Family Medical History / Comment(s): parkinson's Medications and Allergies Home Medications Medication Instructions Recorded Confirmed Type Atenolol 100 mg PO BID 07/29/17 06/29/18 History DULoxetine HCL [Cymbalta] 60 mg PO BID 07/29/17 06/29/18 History Esomeprazole Magnesium [NexIUM 20 mg PO DAILY 07/29/17 06/29/18 History 24Hr] Gabapentin [Neurontin] 300 mg PO BID PRN 07/29/17 06/29/18 History Tamsulosin HCl [Flomax] 0.4 mg PO DAILY 07/29/17 06/29/18 History Melatonin 5 mg PO HS PRN 06/20/18 06/29/18 History HYDROcodone/APAP 5-325MG [[place] 1 each PO Q4HR PRN #18 tab 06/25/18 06/29/18 Rx 5-325] Lisinopril [Zestril] 10 mg PO DAILY tab 06/25/18 06/29/18 Rx ceFAZolin [Kefzol] 2 gm IVP Q8HR #54 ml 06/25/18 06/29/18 Rx cloNIDine HCL [Catapres] 0.1 mg PO BID #60 tab 06/25/18 06/29/18 Rx ALPRAZolam [Xanax] 0.25 mg PO BID PRN #6 tablet 06/29/18 Rx Atorvastatin Calcium [Lipitor] 40 mg PO HS 06/29/18 06/29/18 History Liquid Tears 1 drop BOTH EYES DAILY 06/29/18 06/29/18 History QUEtiapine FUMARATE 50 mg PO HS 06/29/18 06/29/18 History Allergies Allergy/AdvReac Type Severity Reaction Status Date / Time No Known Allergies Allergy Verified 02/12/19 14:47 Physical Exam Vitals: Vital Signs Temp Pulse Resp BP Pulse Ox 02/12/19 14:56 98 F 78 16 158/79 98 02/12/19 13:10 98 F 66 20 126/87 99 Intake and Output 02/12/19 02/12/19 02/12/19 06:59 14:59 22:59 Other: Weight 55.792 kg Head normocephalic Neck supple Lungs few coarse breath sounds that improved with cough Heart regular rate and rhythm S1-S2, no rub or gallop Abdomen is soft nontender nondistended positive bowel sounds no hepatosplenomegaly Extremities no edema Neuro alert and orientated to 3 Results CBC & Chem 7: 02/12/19 14:19 02/12/19 14:19 Labs: Abnormal Lab Results - Last 24 Hours (Table) 02/12/19 Range/Units 14:19 Chloride 109 H (98-107) mmol/L Assessment and Plan Assessment: 1. Subluxation and cord compression at C3 to C4 noted on MRI of the C-spine per ER report. Consult has been placed for Dr. Abdul. Patient has been started on IV dexamethasone 4 mg IV every 6 hours. We'll start preop clearance check EKG and chest x-ray. Continue Hayward and IV Dilaudid as needed for pain control. Add Accu-Cheks with sliding scale coverage while patient is on IV dexamethasone 2. Essential hypertension 3. Nicotine dependence: Discussed smoking cessation for greater than 3 minutes. We'll add nicotine patch 4. Denies anxiety disorder and depression 5. History of enlarged prostate 6. History of multiple back and neck fractures 7. Hyperlipidemia 8. History of abdominal aortic aneurysm measuring 3.8 x 4.3 cm noted on abdominal ultrasound in June 2017. Repeat abdominal ultrasound GI prophylaxis Pepcid and DVT prophylaxis SCDs Time with Patient: Greater than 30 (Greater than 50% of the total time spent in counseling and coordination of care.I performed an examination of the patient and discussed their management with the physician Herpetology Teacher. I have reviewed the Physician Herpetology Teacher's notes and agree with the documented findings and plan of care)
[2019-02-12 15:43] VITALS: BMI 19.8
[2019-02-12] MEDS: NICOTINE 14MG/24HR PATCH TRANSDERM SCH ×2 (15:58→21:10)
[2019-02-12 16:48] LABS: Glucose,Whole Blood 104 mg/dL (75-99)
--- NOTE | 2019-02-12 16:48 | US ---
EXAMINATION TYPE: US duplex aorta DATE OF EXAM: 02/12/2019 COMPARISON: US Aorta 06/30/2017. On this comparison sonographic examination, the abdominal aortic milka devora measured approximately 4 cm transverse x 4.5 cm AP x 7.5 cm CC. CLINICAL HISTORY: AAA evaluation. History of AAA EXAM MEASUREMENTS: Abdominal Aorta: Proximal: 2.6 x 3.0 cm Mid: 2.9 x 3.0 cm Distal: 4.6 x 4.9 x 7.8 cm Right Iliac: 1.1 x 1.1 cm Left Iliac: 1.2 x 1.2 cm IMPRESSION: AAA DISTAL MEASURING 4.6 CM TRANSVERSE X 4.9 CM AP.
[2019-02-12] MEDS: INSULIN ASPART (NovoLOG) 100 UNIT/ML VIAL SQ SCH ×2 (17:00→21:03)
[2019-02-12] MEDS: DEXAMETHASONE SOD PHOSPHATE 4 MG/ML 1 ML VIAL IV SCH ×2 (17:04→23:11)
[2019-02-12] MEDS: HYDROmorphone 1 MG/ML 1 ML SYRINGE IVP PRN (17:04)
[2019-02-12 17:17] LABS: Amorphous Sediment,Urine Moderate /hpf; Appearance,Urine Cloudy (Clear); Bilirubin,Urine Negative (Negative); Blood,Urine Negative (Negative); Color,Urine Yellow; Glucose,Urine (UA) Negative (Negative); Ketones,Urine Negative (Negative); Leukocyte Esterase,Urine Negative (Negative); Mucus,Urine Rare /hpf; Nitrite,Urine Negative (Negative); PH, Urine 7.5 (5.0-8.0); Protein,Urine Trace (Negative); Specific Gravity,Urine 1.017 (1.001-1.035); Squamous Epithelial Cell,Urine <1 /hpf (0-4); Urobilinogen,Urine <2.0 mg/dL (<2.0); WBC,Urine 2 /hpf (0-5)
--- NOTE | 2019-02-12 19:16 | XR ---
EXAMINATION: XR chest 2V DATE AND TIME: 02/12/2019 6:48 PM CLINICAL INDICATION: PHH; cough TECHNIQUE: Departmental protocol COMPARISON: 06/29/2018 FINDINGS: The lungs are clear. The pleural spaces are negative. The cardiac silhouette is not enlarged. The ectatic thoracic aorta is redemonstrated. The skeletal structures and soft tissues are negative for acute findings. Degenerative spine changes are noted in the lower thoracic spine. IMPRESSION: 1) NO DEFINITE ACUTE PULMONARY PROCESS. 2) ECTATIC THORACIC AORTA REDEMONSTRATED.
[2019-02-12 20:26] LABS: Glucose,Whole Blood 220 mg/dL (75-99)
[2019-02-12] MEDS: ATENOLOL 50 MG TAB PO SCH (20:59)
[2019-02-12] MEDS: BACLOFEN 10 MG TAB PO SCH (20:59)
[2019-02-12] MEDS: DULoxetine HCL 60 MG CAPSULE.DR PO SCH (20:59)
[2019-02-12] MEDS: QUEtiapine 50 MG TAB PO SCH ×2 (21:00→23:11)
[2019-02-12] MEDS: GABAPENTIN 300 MG CAP PO PRN (21:01)
[2019-02-13] MEDS: HYDROmorphone 1 MG/ML 1 ML SYRINGE IVP PRN (03:25)
[2019-02-13] MEDS: DEXAMETHASONE SOD PHOSPHATE 4 MG/ML 1 ML VIAL IV SCH ×4 (05:06→23:57)
[2019-02-13 07:03] LABS: Glucose,Whole Blood 148 mg/dL (75-99)
[2019-02-13] MEDS: PANTOPRAZOLE 40 MG TABLET PO SCH (07:19)
[2019-02-13] MEDS: DULoxetine HCL 60 MG CAPSULE.DR PO SCH ×2 (08:48→20:55)
[2019-02-13] MEDS: amLODIPine 5 MG TAB PO SCH (08:48)
[2019-02-13] MEDS: INSULIN ASPART (NovoLOG) 100 UNIT/ML VIAL SQ SCH ×4 (08:48→20:56)
[2019-02-13] MEDS: ATENOLOL 50 MG TAB PO SCH ×2 (08:48→20:55)
[2019-02-13] MEDS: TAMSULOSIN 0.4 MG CAP.ER.24H PO SCH (08:48)
[2019-02-13] MEDS: BACLOFEN 10 MG TAB PO SCH ×2 (08:49→20:55)
[2019-02-13] MEDS ORDERED: ATORVASTATIN 20 MG TAB PO SCH (09:00)
[2019-02-13] MEDS ORDERED: LISINOPRIL 20 MG TAB PO SCH (09:00)
[2019-02-13] MEDS ORDERED: FAMOTIDINE 20 MG TAB PO SCH (09:00)
[2019-02-13 09:08] LABS: Basophils % (A) 0 %; Eosinophils # (A) 0.1 k/uL (0-0.7); Eosinophils % (A) 0 %; HCT 42.7 % (39.0-53.0); HGB 14.7 gm/dL (13.0-17.5); Lymphocytes % (A) 7 %; MCH 30.5 pg (25.0-35.0); MCHC 34.4 g/dL (31.0-37.0); MCV 88.7 fL (80.0-100.0); Mean Platelet Volume 7.7; Monocytes # (A) 0.5 k/uL (0-1.0); Monocytes % (A) 3 %; Neutrophils # (A) 13.1 k/uL (1.3-7.7); Neutrophils % (A) 89 %; Platelet Count 254 k/uL (150-450); RBC 4.81 m/uL (4.30-5.90); RDW 14.7 % (11.5-15.5); WBC 14.7 k/uL (3.8-10.6)
[2019-02-13 09:15] LABS: ALT 28 U/L (21-72); AST 24 U/L (17-59); Albumin 4.3 g/dL (3.5-5.0); Alkaline Phosphatase 72 U/L (38-126); Anion Gap 12 mmol/L; Blood Urea Nitrogen 15 mg/dL (9-20); Calcium 10.2 mg/dL (8.4-10.2); Carbon Dioxide 21 mmol/L (22-30); Chloride 104 mmol/L (98-107); Glucose 200 mg/dL (74-99); Sodium 137 mmol/L (137-145); Total Bilirubin 0.6 mg/dL (0.2-1.3); Total Protein 7.2 g/dL (6.3-8.2)
--- NOTE | 2019-02-13 10:32 | P.CNOR ---
<VernLinda L - Last Filed: 02/13/19 10:23> History of Present Illness - HPI Consult date: 02/13/19 History of present illness: This is a 63-year-old male who is admitted through the emergency room on 02/13/2019 due to an abnormality found on an MRI of his cervical spine done on 02/12/2019. Patient is normally treated by Dr. Christianson and admits to falling about 30 times in the last 6 months. Patient reports chronic tingling in bilateral hands only with activity and states that these symptoms resolve at rest. Patient denies any new symptoms or change in his chronic symptoms. Patient's past medical history significant for hypertension, hyperlipidemia, abdominal aortic aneurysm, anxiety and depression, BPH, nicotine dependence and fractures of the back and neck. Patient denies any fever/chills, abdominal pain, shortness of breath or chest pain. Review of Systems See HPI. Past Medical History Past Medical History: GERD/Reflux, Hyperlipidemia, Hypertension, Prostate Disorder Additional Past Medical History / Comment(s): ,hx back fx 7 different areas,mult fx to neck, AAA, left hand cellulitis and abscess History of Any Multi-Drug Resistant Organisms: None Reported Past Surgical History: Appendectomy, Hernia Repair, Orthopedic Surgery Additional Past Surgical History / Comment(s): open laparotomy,bone graft rt wrist,lt wrist repair Past Anesthesia/Blood Transfusion Reactions: No Reported Reaction Past Psychological History: Anxiety, Depression Smoking Status: Current every day smoker Past Alcohol Use History: None Reported Past Drug Use History: Marijuana - Past Family History Mother Family Medical History: CVA/TIA Father Family Medical History: Dementia Additional Family Medical History / Comment(s): parkinson's Medications and Allergies Home Medications Medication Instructions Recorded Confirmed Type Atenolol 100 mg PO BID 07/29/17 02/12/19 History DULoxetine HCL [Cymbalta] 60 mg PO BID 07/29/17 02/12/19 History Esomeprazole Magnesium [NexIUM 20 mg PO DAILY 07/29/17 02/12/19 History 24Hr] Gabapentin [Neurontin] 300 mg PO BID PRN 07/29/17 02/12/19 History Tamsulosin HCl [Flomax] 0.4 mg PO DAILY 07/29/17 02/12/19 History QUEtiapine FUMARATE 50 mg PO HS 06/29/18 02/12/19 History Atorvastatin [Lipitor] 20 mg PO DAILY 02/12/19 02/12/19 History Baclofen [Lioresal] 10 mg PO BID 02/12/19 02/12/19 History Lisinopril [Zestril] 20 mg PO DAILY 02/12/19 02/12/19 History amLODIPine [Norvasc] 5 mg PO DAILY 02/12/19 02/12/19 History Allergies Allergy/AdvReac Type Severity Reaction Status Date / Time No Known Allergies Allergy Verified 02/12/19 15:29 Physical Examination On exam patient is sitting comfortably on the side of the bed in no acute distress. Patient is alert and oriented. Patient has active elevation of bilateral upper extremities to 90 before there is pain. Patient does move bilateral upper extremities freely without pain or difficulty when talking. 4/5 strength of bilateral upper extremities. Full range of motion of bilateral wrists and hands. Sensation is intact. Radial pulses are 2+ bilaterally. Patient has good range of motion of the head and neck, but this is somewhat limited due to pain. Neurovascular status and circulatory status are intact. Results An MRI report of the cervical spine dated 02/12/2019 shows: 1. Advanced spondylotic change throughout the cervical spine. Associated edematous Modic type I endplate change from C3 down to C6 levels. 2. Grade 2 anterolisthesis at C3-C4 and grade 1 anterolisthesis at C7-T1. 3. At the subluxed C3-C4 level, The AP canal diameter is narrowed to 4 mm. There is a severe spinal canal stenosis here with cord compression and focal increased signal suggesting myelopathic cord signal change/cord edema. 4. Moderate spinal canal stenosis at C5-C6 with AP canal dimension of 6 cm. There is abundant of both dorsal and ventral cord here without elier cord compression. 5. Variable neural foraminal stenoses as outlined above. - Labs Labs: Abnormal Lab Results - Last 24 Hours (Table) 02/12/19 02/12/19 02/12/19 Range/Units 14:19 16:46 17:00 WBC (3.8-10.6) k/uL Neutrophils # (1.3-7.7) k/uL Chloride 109 H (98-107) mmol/L Carbon Dioxide (22-30) mmol/L Glucose (74-99) mg/dL POC Glucose (mg/dL) 104 H (75-99) mg/dL Urine Protein Trace H (Negative) Amorphous Sediment Moderate H (None) /hpf Urine Mucus Rare H (None) /hpf 02/12/19 02/13/19 02/13/19 Range/Units 20:25 07:02 08:22 WBC 14.7 H (3.8-10.6) k/uL Neutrophils # 13.1 H (1.3-7.7) k/uL Chloride (98-107) mmol/L Carbon Dioxide (22-30) mmol/L Glucose (74-99) mg/dL POC Glucose (mg/dL) 220 H 148 H (75-99) mg/dL Urine Protein (Negative) Amorphous Sediment (None) /hpf Urine Mucus (None) /hpf 02/13/19 Range/Units 08:22 WBC (3.8-10.6) k/uL Neutrophils # (1.3-7.7) k/uL Chloride (98-107) mmol/L Carbon Dioxide 21 L (22-30) mmol/L Glucose 200 H (74-99) mg/dL POC Glucose (mg/dL) (75-99) mg/dL Urine Protein (Negative) Amorphous Sediment (None) /hpf Urine Mucus (None) /hpf H & H 02/12/19 02/13/19 Range/Units 14:19 08:22 Hgb 13.8 14.7 (13.0-17.5) gm/dL Hct 39.6 42.7 (39.0-53.0) % Coagulation 02/12/19 Range/Units 14:19 INR 0.9 (<1.2) Result Diagrams: 02/13/19 08:22 02/13/19 08:22 Assessment and Plan Assessment: GERD Hyperlipidemia Hypertension BPH Nicotine dependence Abdominal aortic aneurysm History of back and neck fractures. Anxiety and depression (1) Spinal stenosis of cervical region Current Visit: Yes Status: Acute Code(s): M48.02 - SPINAL STENOSIS, CERVICAL REGION SNOMED Code(s): 37402122 Plan: 1. MRI report is reviewed, no imaging available. Patient's symptoms are chronic in nature. 2. Continue IV Decadron. 3. No surgical intervention planned. Patient may follow up as an outpatient. <Mansi Abdul - Last Filed: 02/13/19 11:15> Physical Examination Osteopathic Statement: *. No significant issues noted on an osteopathic structural exam other than those noted in the History and Physical/Consult. Results - Labs Labs: Abnormal Lab Results - Last 24 Hours (Table) 02/12/19 02/12/19 02/12/19 Range/Units 14:19 16:46 17:00 WBC (3.8-10.6) k/uL Neutrophils # (1.3-7.7) k/uL Chloride 109 H (98-107) mmol/L Carbon Dioxide (22-30) mmol/L Glucose (74-99) mg/dL POC Glucose (mg/dL) 104 H (75-99) mg/dL Urine Protein Trace H (Negative) Amorphous Sediment Moderate H (None) /hpf Urine Mucus Rare H (None) /hpf 02/12/19 02/13/19 02/13/19 Range/Units 20:25 07:02 08:22 WBC 14.7 H (3.8-10.6) k/uL Neutrophils # 13.1 H (1.3-7.7) k/uL Chloride (98-107) mmol/L Carbon Dioxide (22-30) mmol/L Glucose (74-99) mg/dL POC Glucose (mg/dL) 220 H 148 H (75-99) mg/dL Urine Protein (Negative) Amorphous Sediment (None) /hpf Urine Mucus (None) /hpf 02/13/19 Range/Units 08:22 WBC (3.8-10.6) k/uL Neutrophils # (1.3-7.7) k/uL Chloride (98-107) mmol/L Carbon Dioxide 21 L (22-30) mmol/L Glucose 200 H (74-99) mg/dL POC Glucose (mg/dL) (75-99) mg/dL Urine Protein (Negative) Amorphous Sediment (None) /hpf Urine Mucus (None) /hpf H & H 02/12/19 02/13/19 Range/Units 14:19 08:22 Hgb 13.8 14.7 (13.0-17.5) gm/dL Hct 39.6 42.7 (39.0-53.0) % Coagulation 02/12/19 Range/Units 14:19 INR 0.9 (<1.2) Result Diagrams: 02/13/19 08:02/13/19 08:22 Assessment and Plan Plan: The patient is seen and examined at bedside. I reviewed the case with our physician production assistant and reviewed her dictation above and I am in agreement with a dictation above. The patient has been having significant low back symptoms and has had difficulty with his mobilization ambulation and balance. He's been having worsening of his strength his upper extremity with severe radiculopathy. He recently underwent further workup with MRI which showed evidence of myelomalacia at his cervical spine with severe cervical stenosis. He is currently being treated with medication and IV steroids which is appropriate for him. He may be having some benefit with the steroid but he continues to have significant weakness and evidence of myelopathy. I have not been able to view the actual MRI images but I reviewed the report. We will continue to attempt to obtain the actual images from the water open MRI. Based on his symptoms and the MRI report think that the patient is a candidate for surgical intervention. Patient has cervical myelomalacia with myelopathy with severe cervical stenosis bilateral upper children weakness He should continue his IV steroids for now We will consider the possibility of surgical intervention on February 15 once we're able to obtain the images for appropriate planning. The likely surgery would be anterior cervical decompression with discectomy and fusion C3 4 C4 5 C5 6. We will have a more definitive plan once we I am able to do the i mages. We discussed the nature the patient's issues with his cervical spine with his myelopathy and myelomalacia and neurologic changes. His diving acute decline at this point but has been having weakness centrally over the past couple of months. We discussed the risk of occasions alternatives and benefits of surgery and answered his questions and patient elects to proceed with surgical intervention. We will continue follow them closely and likely prepared for surgery on Friday. Time with Patient: Greater than 30
--- NOTE | 2019-02-13 11:15 | P.PN ---
Subjective Progress Note Date: 02/13/19 This is a 63-year-old male with a known past medical history of back and neck fractures, hypertension, hyperlipidemia, abdominal aortic aneurysm, anxiety and depression, BPH and nicotine dependence. Patient presents to the emergency department due to abnormal MRI of the spine. Patient had an MRI of the brain and C-spine yesterday which was ordered by Dr. Christianson's office. Patient was seen by Dr. Christianson due to his recurrent falls with neck and back pain. Patient reports that he was called by Dr. Christianson's office and was informed that he had a cord compression and to present to the ER. Patient's reporting that he had over 35 falls in the last few months. He has weakness and numbness in both arms and legs. Patient denies any chest pain, shortness of breath, loss of consciousness or dizziness during his falls. He reports that his legs discharge taking and he falls down. Patient denies any fever, chills, sweats, nausea or vomiting, bowel movement changes or burning with urination. Patient does admit to a chronic cough. Patient denies any heart attack, diabetes, arrhythmias, COPD or renal failure. Dr. Abdul has been consulted regarding the spinal cord compression. Patient was started on IV dexamethasone. On 02/13/2019 patient was seen and examined on the medical floor he is alert and oriented 3 he is complaining of neck pain and pain radiating to both hands he is complaining of occasional cough otherwise no complaints at this time there is no fever or chills no headache or dizziness no chest pain no shortness of breath no nausea or vomiting no abdominal pain no diarrhea and no urinary symptoms. Objective - Vital Signs Vital signs: Vital Signs Temp 98.7 F 02/13/19 07:00 Pulse 71 02/13/19 07:00 Resp 16 02/13/19 07:00 BP 190/102 02/13/19 07:00 Pulse Ox 97 02/13/19 07:00 Intake & Output 02/12/19 02/13/19 02/13/19 18:59 06:59 18:59 Intake Total 1620 296 Output Total 50 Balance -50 1620 296 Weight 55.792 kg Intake: Oral 1620 296 Output: Urine 50 Other: Voiding Method Urinal # Voids 1 2 - Exam Head normocephalic and atraumatic Neck supple, no JVD no goiter Lungs few coarse breath sounds that improved with cough Heart regular rate and rhythm S1-S2, no rub or gallop Abdomen is soft nontender nondistended positive bowel sounds no hepatosplenomegaly Extremities no edema no cyanosis or clubbing Neuro alert and orientated to 3 - Labs CBC & Chem 7: 02/13/19 08:22 02/13/19 08:22 Labs: Abnormal Lab Results - Last 24 Hours (Table) 02/12/19 02/12/19 02/12/19 Range/Units 14:19 16:46 17:00 WBC (3.8-10.6) k/uL Neutrophils # (1.3-7.7) k/uL Chloride 109 H (98-107) mmol/L Carbon Dioxide (22-30) mmol/L Glucose (74-99) mg/dL POC Glucose (mg/dL) 104 H (75-99) mg/dL Urine Protein Trace H (Negative) Amorphous Sediment Moderate H (None) /hpf Urine Mucus Rare H (None) /hpf 02/12/19 02/13/19 02/13/19 Range/Units 20:25 07:02 08:22 WBC 14.7 H (3.8-10.6) k/uL Neutrophils # 13.1 H (1.3-7.7) k/uL Chloride (98-107) mmol/L Carbon Dioxide (22-30) mmol/L Glucose (74-99) mg/dL POC Glucose (mg/dL) 220 H 148 H (75-99) mg/dL Urine Protein (Negative) Amorphous Sediment (None) /hpf Urine Mucus (None) /hpf 02/13/19 Range/Units 08:22 WBC (3.8-10.6) k/uL Neutrophils # (1.3-7.7) k/uL Chloride (98-107) mmol/L Carbon Dioxide 21 L (22-30) mmol/L Glucose 200 H (74-99) mg/dL POC Glucose (mg/dL) (75-99) mg/dL Urine Protein (Negative) Amorphous Sediment (None) /hpf Urine Mucus (None) /hpf Assessment and Plan Plan: 1. Subluxation and cord compression at C3 to C4 noted on MRI of the C-spine per ER report. Consult has been placed for Dr. Abdul. Patient has been started on IV dexamethasone 4 mg IV every 6 hours. We'll start preop clearance check EKG and chest x-ray. Continue [place] and IV Dilaudid as needed for pain control. Add Accu-Cheks with sliding scale coverage while patient is on IV dexamethasone. Patient was seen by Dr Mackey, we need to obtain MRI disc from Dr Fitzgerald office. Possible surgery on Friday. 2. Essential hypertension, not well controlled increase Lisinopril to 20 mg bid. Obtain Echocardiogram 3. Nicotine dependence: Discussed smoking cessation for greater than 3 minutes. We'll add nicotine patch 4. History of anxiety disorder and depression, continue Xanax PRN at this time. 5. History of enlarged prostate 6. History of multiple back and neck fractures 7. Hyperlipidemia maintained on Lipitor continue. 8. History of abdominal aortic aneurysm measuring 3.8 x 4.3 cm noted on abdominal ultrasound in June 2017. Repeat abdominal ultrasound GI prophylaxis Pepcid and DVT prophylaxis SCDs
[2019-02-13 12:20] LABS: Glucose,Whole Blood 116 mg/dL (75-99)
[2019-02-13 16:49] LABS: Glucose,Whole Blood 145 mg/dL (75-99)
[2019-02-13 16:51] LABS: Glucose,Whole Blood 222 mg/dL (75-99)
[2019-02-13 19:44] LABS: Glucose,Whole Blood 160 mg/dL (75-99)
[2019-02-13] MEDS: LISINOPRIL 20 MG TAB PO SCH (20:55)
[2019-02-13] MEDS: ATORVASTATIN 20 MG TAB PO SCH (20:55)
[2019-02-13] MEDS: MELATONIN 5 MG TABLET PO SCH (20:55)
[2019-02-13] MEDS: QUEtiapine 50 MG TAB PO SCH (20:56)
[2019-02-13] MEDS: NICOTINE 14MG/24HR PATCH TRANSDERM SCH (20:56)
[2019-02-14] MEDS: DEXAMETHASONE SOD PHOSPHATE 4 MG/ML 1 ML VIAL IV SCH ×3 (05:19→17:29)
[2019-02-14 07:07] LABS: Glucose,Whole Blood 102 mg/dL (75-99)
[2019-02-14] MEDS: INSULIN ASPART (NovoLOG) 100 UNIT/ML VIAL SQ SCH ×4 (08:20→21:18)
[2019-02-14] MEDS: LISINOPRIL 20 MG TAB PO SCH ×3 (08:21→21:23)
[2019-02-14] MEDS: DULoxetine HCL 60 MG CAPSULE.DR PO SCH ×2 (08:22→21:18)
[2019-02-14] MEDS: BACLOFEN 10 MG TAB PO SCH ×2 (08:22→21:18)
[2019-02-14] MEDS: TAMSULOSIN 0.4 MG CAP.ER.24H PO SCH (08:22)
[2019-02-14] MEDS: PANTOPRAZOLE 40 MG TABLET PO SCH (08:22)
[2019-02-14] MEDS: amLODIPine 5 MG TAB PO SCH (08:23)
[2019-02-14] MEDS: ATENOLOL 50 MG TAB PO SCH ×2 (08:23→21:18)
[2019-02-14 09:13] LABS: Basophils % (A) 0 %; Eosinophils # (A) 0.1 k/uL (0-0.7); Eosinophils % (A) 0 %; HCT 42.8 % (39.0-53.0); HGB 14.6 gm/dL (13.0-17.5); Lymphocytes # (A) 1.7 k/uL (1.0-4.8); Lymphocytes % (A) 9 %; MCH 30.4 pg (25.0-35.0); MCHC 34.2 g/dL (31.0-37.0); Mean Platelet Volume 7.7; Monocytes % (A) 5 %; Neutrophils # (A) 16.4 k/uL (1.3-7.7); Neutrophils % (A) 84 %; Platelet Count 265 k/uL (150-450); RBC 4.81 m/uL (4.30-5.90); RDW 14.7 % (11.5-15.5); WBC 19.7 k/uL (3.8-10.6)
[2019-02-14 09:57] LABS: ALT 29 U/L (21-72); AST 23 U/L (17-59); Albumin 4.3 g/dL (3.5-5.0); Alkaline Phosphatase 65 U/L (38-126); Anion Gap 9 mmol/L; Blood Urea Nitrogen 21 mg/dL (9-20); Calcium 10.3 mg/dL (8.4-10.2); Carbon Dioxide 28 mmol/L (22-30); Chloride 103 mmol/L (98-107); Glucose 117 mg/dL (74-99); Potassium 4.1 mmol/L (3.5-5.1); Sodium 140 mmol/L (137-145); Total Bilirubin 0.6 mg/dL (0.2-1.3); Total Protein 7.3 g/dL (6.3-8.2)
--- NOTE | 2019-02-14 11:36 | P.PN ---
Progress Note - Text Progress Note Date: 02/14/19 Patient is seen and examined again today at bedside. Apparently he had some confusion overnight as to where he was quite he was here when he is back to his baseline in terms of his alertness. He understands that he is at Hospital regards to his neck. He understands his issues in his neck and his upper trapezius diminished his balance. He says he is not having any improvement despite steroid medication for the past 2 days here in Hospital. He continues to have significant numbness tingling with weakness of his upper extremities and difficulty with his balance. On exam he is alert he's oriented. He understands where he is somewhat he is doing here. 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 He has positive Yan's. He has hyperreflexia bilateral upper extremities. There is some evidence of atrophy in his bilateral hands worse on left than right. He has decreased fine motor motions at his bilateral hands. His lower extremity is have hyperreflexia with positive clonus with approximately 3 beats of clonus in his lower extremity is. He has difficulty with his and ablation. He is a very shuffling gait and has difficulty maintaining his balance with eyes closed. He is widened gait. Assessment and plan Cervical myelopathy Severe cervical spinal stenosis Likely central cord syndrome Bilateral upper extremity myeloradiculopathy with weakness Altered ambulation partially due to myelopathy Confusion which appears to be resolving Patient has severe issues of his cervical spine with severe cervical stenosis with myelomalacia and cervical myelopathy with likely central cord syndrome. This is affecting his bilateral upper extremity is with weakness and decreased coordination as well as his gait and ability to mobilize. We still have not been able to receive the actual images from [facility] open MRI. They were saying that they are unable to get images to us we will try again to receive the actual images. We already have seen the report we need the actual images able to appropriately planted proceed with surgical intervention. We'll plan for surgical intervention for the patient tomorrow. We'll discuss issues in terms of his consent. He has many loosened phases when he seems very reasonable is able to sign but he also has significant confusion at times. We'll discuss this further with his mother who he talked regularly. We will plan to proceed with anterior cervical decompression and discectomy infusion Friday. He'll be nothing by mouth after midnight. We need to obtain the imaging for appropriate planning.
[2019-02-14 11:43] LABS: Glucose,Whole Blood 113 mg/dL (75-99)
[2019-02-14] MEDS: HYDROcodone/APAP 5-325MG 1 EACH TAB PO PRN ×3 (11:57→21:34)
--- NOTE | 2019-02-14 12:47 | XR ---
EXAMINATION TYPE: XR cervical spine limited , 3 VIEWS DATE OF EXAM ORDERED: 02/14/2019 HISTORY: Neck pain and cervical spondylolisthesis. COMPARISON: Previous study dated 05/12/2012. FINDINGS: The patient is edentulous. There is disc space loss and hypertrophic spondylosis at virtua lly all levels with relative sparing of C2-3. There is a minimal antegrade listhesis of C2 on C3 and retrograde listhesis of C4 on C5 and C5 on C6. There is hypertrophic spondylosis extending from C3 th rough to C7. There is mild uncovertebral joint disease, most marked at C5-6 and C6-7. Atlantoaxial re lationships are normal. IMPRESSION: SLIGHT PROGRESSION IN THE PATIENT'S DEGENERATIVE CHANGE. INTERVERTEBRAL FORAMINA HAVE NOT BEEN ASSESS ED.
[2019-02-14 16:56] LABS: Glucose,Whole Blood 257 mg/dL (75-99)
[2019-02-14 16:57] LABS: Glucose,Whole Blood 190 mg/dL (75-99)
--- NOTE | 2019-02-14 17:40 | P.PN ---
Subjective Progress Note Date: 02/14/19 This is a 63-year-old male with a known past medical history of back and neck fractures, hypertension, hyperlipidemia, abdominal aortic aneurysm, anxiety and depression, BPH and nicotine dependence. Patient presents to the emergency department due to abnormal MRI of the spine. Patient had an MRI of the brain and C-spine yesterday which was ordered by Dr. Christianson's office. Patient was seen by Dr. Christianson due to his recurrent falls with neck and back pain. Patient reports that he was called by Dr. Christianson's office and was informed that he had a cord compression and to present to the ER. Patient's reporting that he had over 35 falls in the last few months. He has weakness and numbness in both arms and legs. Patient denies any chest pain, shortness of breath, loss of consciousness or dizziness during his falls. He reports that his legs discharge taking and he falls down. Patient denies any fever, chills, sweats, nausea or vomiting, bowel movement changes or burning with urination. Patient does admit to a chronic cough. Patient denies any heart attack, diabetes, arrhythmias, COPD or renal failure. Dr. Abdul has been consulted regarding the spinal cord compression. Patient was started on IV dexamethasone. On 02/13/2019 patient was seen and examined on the medical floor he is alert and oriented 3 he is complaining of neck pain and pain radiating to both hands he is complaining of occasional cough otherwise no complaints at this time there is no fever or chills no headache or dizziness no chest pain no shortness of breath no nausea or vomiting no abdominal pain no diarrhea and no urinary symptoms. On 02/14/2019 patient was seen and examined on the medical floor he is alert and oriented 3 he is still complaining of neck pain and radiating pain to bilateral hands with significant weakness and loss of coordination in the movement of his hands otherwise he denies any complaints there is no fever or chills no headache or dizziness no chest pain no shortness of breath no cough no nausea or vomiting no abdominal pain no diarrhea and no urinary symptoms Objective - Vital Signs Vital signs: Vital Signs Temp 97.9 F 02/14/19 14:58 Pulse 65 02/14/19 14:58 Resp 16 02/14/19 16:00 BP 141/90 02/14/19 14:58 Pulse Ox 99 02/14/19 14:58 Intake & Output 02/13/19 02/14/19 02/14/19 18:59 06:59 18:59 Intake Total 792 222 Output Total 620 Balance 792 -398 Weight 55.792 kg Intake: Oral 792 222 Output: Urine 620 Other: Voiding Method Urinal # Voids 1 1 2 - Exam Head normocephalic and atraumatic Neck supple, no JVD no goiter Lungs few coarse breath sounds that improved with cough Heart regular rate and rhythm S1-S2, no rub or gallop Abdomen is soft nontender nondistended positive bowel sounds no hepatosplenomegaly Extremities no edema no cyanosis or clubbing Neuro alert and orientated to 3 - Labs CBC & Chem 7: 02/14/19 08:37 02/14/19 08:37 Labs: Abnormal Lab Results - Last 24 Hours (Table) 02/13/19 02/14/19 02/14/19 Range/Units 19:41 07:02 08:37 WBC 19.7 H (3.8-10.6) k/uL Neutrophils # 16.4 H (1.3-7.7) k/uL BUN (9-20) mg/dL Glucose (74-99) mg/dL POC Glucose (mg/dL) 160 H 102 H (75-99) mg/dL Calcium (8.4-10.2) mg/dL 02/14/19 02/14/19 02/14/19 Range/Units 08:37 11:41 16:54 WBC (3.8-10.6) k/uL Neutrophils # (1.3-7.7) k/uL BUN 21 H (9-20) mg/dL Glucose 117 H (74-99) mg/dL POC Glucose (mg/dL) 113 H 257 H (75-99) mg/dL Calcium 10.3 H (8.4-10.2) mg/dL 02/14/19 Range/Units 16:56 WBC (3.8-10.6) k/uL Neutrophils # (1.3-7.7) k/uL BUN (9-20) mg/dL Glucose (74-99) mg/dL POC Glucose (mg/dL) 190 H (75-99) mg/dL Calcium (8.4-10.2) mg/dL Assessment and Plan Plan: 1. Subluxation and cord compression at C3 to C4 noted on MRI of the C-spine per ER report. Consult has been placed for Dr. Abdul. Patient has been started on IV dexamethasone 4 mg IV every 6 hours. We'll start preop clearance check EKG and chest x-ray. Continue [place] and IV Dilaudid as needed for pain control. Add Accu-Cheks with sliding scale coverage while patient is on IV dexamethasone. Patient was seen by Dr Mackey, we need to obtain MRI disc from Dr Fitzgerald office. Possible surgery on Friday. 2. Essential hypertension, not well controlled increase Lisinopril to 20 mg bid. Obtain Echocardiogram 3. Nicotine dependence: Discussed smoking cessation for greater than 3 minutes. We'll add nicotine patch 4. History of anxiety disorder and depression, continue Xanax PRN at this time. 5. History of enlarged prostate 6. History of multiple back and neck fractures 7. Hyperlipidemia maintained on Lipitor continue. 8. History of abdominal aortic aneurysm measuring 3.8 x 4.3 cm noted on abdominal ultrasound in June 2017. Repeat abdominal ultrasound GI prophylaxis Pepcid and DVT prophylaxis SCDs Echocardiogram was ordered to assess cardiac function prior to surgery Medication and labs reviewed continue current management Plan per Dr. Abdul is to proceed with surgery tomorrow
[2019-02-14 20:46] LABS: Glucose,Whole Blood 123 mg/dL (75-99)
[2019-02-14] MEDS: NICOTINE 14MG/24HR PATCH TRANSDERM SCH (21:17)
[2019-02-14] MEDS: ATORVASTATIN 20 MG TAB PO SCH ×2 (21:17→21:22)
[2019-02-14] MEDS: MELATONIN 5 MG TABLET PO SCH (21:17)
[2019-02-14] MEDS: QUEtiapine 50 MG TAB PO SCH ×2 (21:18→21:23)
[2019-02-14] MEDS: GABAPENTIN 300 MG CAP PO PRN (21:28)
[2019-02-15] MEDS: DEXAMETHASONE SOD PHOSPHATE 4 MG/ML 1 ML VIAL IV SCH ×4 (00:35→18:07)
[2019-02-15] MEDS: HYDROcodone/APAP 5-325MG 1 EACH TAB PO PRN ×3 (00:36→22:27)
[2019-02-15 07:07] LABS: Glucose,Whole Blood 129 mg/dL (75-99)
[2019-02-15] MEDS: INSULIN ASPART (NovoLOG) 100 UNIT/ML VIAL SQ SCH ×4 (07:15→22:28)
[2019-02-15 07:31] LABS: Basophils % (A) 0 %; Eosinophils % (A) 0 %; HCT 41.4 % (39.0-53.0); HGB 13.7 gm/dL (13.0-17.5); Lymphocytes # (A) 0.8 k/uL (1.0-4.8); Lymphocytes % (A) 8 %; MCH 29.7 pg (25.0-35.0); MCHC 33.1 g/dL (31.0-37.0); MCV 89.6 fL (80.0-100.0); Mean Platelet Volume 6.9; Monocytes # (A) 0.3 k/uL (0-1.0); Monocytes % (A) 3 %; Neutrophils # (A) 8.9 k/uL (1.3-7.7); Neutrophils % (A) 88 %; Platelet Count 208 k/uL (150-450); RBC 4.62 m/uL (4.30-5.90); RDW 14.2 % (11.5-15.5); WBC 10.1 k/uL (3.8-10.6)
[2019-02-15 07:59] LABS: ALT 35 U/L (21-72); AST 22 U/L (17-59); Albumin 3.9 g/dL (3.5-5.0); Alkaline Phosphatase 56 U/L (38-126); Anion Gap 7 mmol/L; Blood Urea Nitrogen 20 mg/dL (9-20); Calcium 9.7 mg/dL (8.4-10.2); Carbon Dioxide 25 mmol/L (22-30); Chloride 105 mmol/L (98-107); Glucose 115 mg/dL (74-99); Potassium 4.3 mmol/L (3.5-5.1); Sodium 137 mmol/L (137-145); Total Bilirubin 0.5 mg/dL (0.2-1.3); Total Protein 6.6 g/dL (6.3-8.2)
[2019-02-15] MEDS: ATENOLOL 50 MG TAB PO SCH ×2 (08:25→20:06)
[2019-02-15] MEDS: DULoxetine HCL 60 MG CAPSULE.DR PO SCH ×2 (08:25→20:06)
[2019-02-15] MEDS: BACLOFEN 10 MG TAB PO SCH ×2 (08:25→20:06)
[2019-02-15] MEDS: TAMSULOSIN 0.4 MG CAP.ER.24H PO SCH (08:25)
[2019-02-15] MEDS: PANTOPRAZOLE 40 MG TABLET PO SCH (08:25)
[2019-02-15] MEDS: amLODIPine 5 MG TAB PO SCH (08:25)
[2019-02-15] MEDS: LISINOPRIL 20 MG TAB PO SCH ×2 (08:26→22:25)
--- NOTE | 2019-02-15 08:48 | P.PN ---
Progress Note - Text Progress Note Date: 02/15/19 Patient is a very pleasant 63-year-old male who is seen in the bedside for follow-up evaluation in regards to his cervical spine. Since being seen and examined yesterday he has not had any significant improvement of the symptoms. He continues to have significant difficulty with weakness to bilateral upper extremities and difficulties with his hands bilaterally. He has change in the dexterity of his hands. He also has significant difficulty with ambulation. Patient is currently scheduled to undergo surgical intervention today, 02/15/2019. The proposed surgical intervention is an anterior cervical decompression and fusion at C3-4, C4-5, and C5-6. We are currently we are wa iting for MRI imaging from [facility]. Report has been reviewed. This MRI will be picked up by nursing today and loaded into the patient's chart. Patient states he is ready to proceed for surgical intervention. He has no new complaints of the bedside. Today he is awake, alert, and oriented 3. He continues to have significant difficulty with ambulation. He states at the bedside he has fallen multiple times over the past several months. Patient has continued to be seen and examined by medicine. 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 Patient is currently scheduled to undergo an anterior cervical decompression and fusion at C3-4, C4-5, and C5-6 today, 02/15/2019. Scheduling of surgical intervention was based on the patient's physical examination and report. We are currently waiting for visualization of his MRI. This will planned to be picked up by nursing today and loaded into the patient's chart this morning. We will plan to review this MRI prior to surgical intervention. We will proceed forward with the proposed surgical intervention as scheduled and will adjust this proposed surgical intervention prior to surgical intervention if needed after reviewing the imaging. Patient is currently nothing by mouth status. He will remain nothing by mouth in anticipation for surgical intervention. 2. Patient will continue to be seen and examined by medicine. Patient had an echocardiogram performed this morning as ordered by medicine. We will plan for surgical intervention if the patient is cleared from a medical standpoint.
--- NOTE | 2019-02-15 11:32 | ECHOF ---
Referral Reason:pre op MEASUREMENTS -------- HEIGHT: 167.6 cm WEIGHT: 55.8 kg BP: 163/94 RVIDd: 2.9 cm (< 3.3) IVSd: 1.3 cm (0.6 - 1.1) LVIDd: 4.1 cm (3.9 - 5.3) LVPWd: 1.4 cm (0.6 - 1.1) IVSs: 1.7 cm LVIDs: 3.3 cm LVPWs: 1.5 cm LA Diam: 3.3 cm (2.7 - 3.8) LAESV Index (A-L): 26.20 ml/m Ao Diam: 3.4 cm (2.0 - 3.7) AV Cusp: 1.9 cm (1.5 - 2.6) MV EXCURSION: 15.510 mm (> 18.000) MV EF SLOPE: 77 mm/s (70 - 150) EPSS: 0.6 cm MV E Bi: 0.71 m/s MV DecT: 217 ms MV A Bi: 0.63 m/s MV E/A Ratio: 1.14 RAP: 5.00 mmHg RVSP: 31.76 mmHg FINDINGS -------- Resting bradycardia (HR<60bpm). This was a technically good study. The left ventricular size is normal. There is moderate concentric left ventricular hypertrophy. O verall left ventricular systolic function is normal with, an EF between 60 - 65 %. The right ventricle is normal in size. Normal LA size by volume 22+/-6 ml/m2. The right atrium is normal in size. The aortic valve is trileaflet and appears structurally normal. The mitral valve leaflets are mildly thickened. There is trace to mild mitral regurgitation. Mild tricuspid regurgitation present. There is no evidence of pulmonary hypertension. Trace/mild (physiologic) pulmonic regurgitation. The aortic root size is normal. Normal inferior vena cava with normal inspiratory collapse consistent with estimated right atrial pre ssure of 5 mmHg. There is no pericardial effusion. CONCLUSIONS -------- 1. Resting bradycardia (HR<60bpm). 2. This was a technically good study. 3. The left ventricular size is normal. 4. There is moderate concentric left ventricular hypertrophy. 5. Overall left ventricular systolic function is normal with, an EF between 60 - 65 %. 6. The right ventricle is normal in size. 7. Normal LA size by volume 22+/-6 ml/m2. 8. The right atrium is normal in size. 9. The aortic valve is trileaflet and appears structurally normal. 10. The mitral valve leaflets are mildly thickened. 11. There is trace to mild mitral regurgitation. 12. Mild tricuspid regurgitation present. 13. There is no evidence of pulmonary hypertension. 14. Trace/mild (physiologic) pulmonic regurgitation. 15. The aortic root size is normal. 16. Normal inferior vena cava with normal inspiratory collapse consistent with estimated right atrial pressure of 5 mmHg. 17. There is no pericardial effusion. MACHINE MAINTENANCE REPAIRER: Judith Head RDCS
--- NOTE | 2019-02-15 11:36 | P.PN ---
Subjective Progress Note Date: 02/15/19 This is a 63-year-old male with a known past medical history of back and neck fractures, hypertension, hyperlipidemia, abdominal aortic aneurysm, anxiety and depression, BPH and nicotine dependence. Patient presents to the emergency department due to abnormal MRI of the spine. Patient had an MRI of the brain and C-spine yesterday which was ordered by Dr. Christianson's office. Patient was seen by Dr. Christianson due to his recurrent falls with neck and back pain. Patient reports that he was called by Dr. Christianson's office and was informed that he had a cord compression and to present to the ER. Patient's reporting that he had over 35 falls in the last few months. He has weakness and numbness in both arms and legs. Patient denies any chest pain, shortness of breath, loss of consciousness or dizziness during his falls. He reports that his legs discharge taking and he falls down. Patient denies any fever, chills, sweats, nausea or vomiting, bowel movement changes or burning with urination. Patient does admit to a chronic cough. Patient denies any heart attack, diabetes, arrhythmias, COPD or renal failure. Dr. Abdul has been consulted regarding the spinal cord compression. Patient was started on IV dexamethasone. On 02/13/2019 patient was seen and examined on the medical floor he is alert and oriented 3 he is complaining of neck pain and pain radiating to both hands he is complaining of occasional cough otherwise no complaints at this time there is no fever or chills no headache or dizziness no chest pain no shortness of breath no nausea or vomiting no abdominal pain no diarrhea and no urinary symptoms. On 02/14/2019 patient was seen and examined on the medical floor he is alert and oriented 3 he is still complaining of neck pain and radiating pain to bilateral hands with significant weakness and loss of coordination in the movement of his hands otherwise he denies any complaints there is no fever or chills no headache or dizziness no chest pain no shortness of breath no cough no nausea or vomiting no abdominal pain no diarrhea and no urinary symptoms 02/15/2019 patient is scheduled for anterior cervical decompression and fusion of C3 to C4, C4 to C5 and C5 to C6 today with Dr. Abdul. Patient denies any neck pain. He is still reporting numbness in both arms. Patient was hypertensive this morning with a blood pressure 179/106. He received his oral blood pressure medications blood pressures improved 131/83. Verbal echo report reports a normal EF and no significant valvular abnormality. EKG normal sinus rhythm. Ultrasound of the abdomen shows a distal abdominal aortic aneurysm of 4.6 cm in transverse of 4.9 cm. Patient denies any significant cough, fever, chills, sweats, nausea or vomiting, bowel movement changes or urinary symptoms. Objective - Vital Signs Vital signs: Vital Signs Temp 97.7 F 02/15/19 07:00 Pulse 57 L 02/15/19 10:50 Resp 15 02/15/19 08:30 BP 131/83 02/15/19 10:50 Pulse Ox 93 L 02/15/19 07:00 Intake & Output 02/14/19 02/15/19 02/15/19 18:59 06:59 18:59 Intake Total 550 Output Total 400 Balance 150 Intake: Oral 550 Output: Urine 400 Other: Voiding Method Urinal Urinal # Voids 2 2 - Exam Head normocephalic Neck supple Lungs clear to auscultation bilaterally no wheezing or crackles Heart regular rate and rhythm S1-S2, no rub or gallop Abdomen is soft nontender nondistended positive bowel sounds no hepatosplenomegaly Extremities no edema Neuro alert and orientated to 3 - Labs CBC & Chem 7: 02/15/19 02:18 02/15/19 07:18 Labs: Abnormal Lab Results - Last 24 Hours (Table) 02/14/19 02/14/19 02/14/19 Range/Units 11:41 16:54 16:56 Neutrophils # (1.3-7.7) k/uL Lymphocytes # (1.0-4.8) k/uL Glucose (74-99) mg/dL POC Glucose (mg/dL) 113 H 257 H 190 H (75-99) mg/dL 02/14/19 02/15/19 02/15/19 Range/Units 20:44 02:18 07:01 Neutrophils # 8.9 H (1.3-7.7) k/uL Lymphocytes # 0.8 L (1.0-4.8) k/uL Glucose (74-99) mg/dL POC Glucose (mg/dL) 123 H 129 H (75-99) mg/dL 02/15/19 Range/Units 07:18 Neutrophils # (1.3-7.7) k/uL Lymphocytes # (1.0-4.8) k/uL Glucose 115 H (74-99) mg/dL POC Glucose (mg/dL) (75-99) mg/dL Assessment and Plan Assessment: 1. Subluxation and cord compression at C3 to C4 noted on MRI of the C-spine per ER report. Patient scheduled for anterior cervical decompression and fusion of the neck today with Dr. Abdul. Patient is medically stable to proceed with surgery. 2. Essential hypertension 3. Nicotine dependence: Discussed smoking cessation for greater than 3 minutes. We'll add nicotine patch 4. Denies anxiety disorder and depression 5. History of enlarged prostate 6. History of multiple back and neck fractures 7. Hyperlipidemia 8. History of abdominal aortic aneurysm measuring 3.8 x 4.3 cm noted on abdominal ultrasound in June 2017. Abdominal ultrasound showing a distal abdominal aortic aneurysm 4.6 cm in transverse 4.9 cm GI prophylaxis Pepcid and DVT prophylaxis SCDs I performed an examination of the patient and discussed their management with the physician Satellite Television Installer. I have reviewed the Physician Satellite Television Installer's notes and agree with the documented findings and plan of care
[2019-02-15 11:51] LABS: Glucose,Whole Blood 134 mg/dL (75-99)
[2019-02-15] MEDS ORDERED: LACTATED RINGERS 1,000 ML IV ONE ×2 (12:19→15:38)
[2019-02-15] MEDS ORDERED: HYDROmorphone (PF) 1 MG/ML ONE (13:23)
[2019-02-15] MEDS ORDERED: fentaNYL (PF) 50 MCG/ML 2 ML AMP ONE (13:23)
[2019-02-15] MEDS ORDERED: SUCCINYLCHOLINE CHLORIDE 100 MG/5 ML SYR IV ONE (13:23)
[2019-02-15] MEDS ORDERED: MIDAZOLAM 2 MG/2 ML VIAL ONE (13:23)
[2019-02-15] MEDS ORDERED: LIDOCAINE 1% INJ 10MG/ML (20 ML MDV) ONE (13:23)
[2019-02-15] MEDS ORDERED: ePHEDrine SULFATE/0.9% NACL/PF 50 MG/5 ML SYRINGE IV ONE (13:23)
[2019-02-15] MEDS ORDERED: DEXAMETHASONE SOD PHOS (MDV) 100 MG/10 ML VIAL ONE (13:23)
[2019-02-15] MEDS ORDERED: ROCURONIUM BROMIDE 10 MG/ML 10 ML VIAL IV ONE (13:23)
[2019-02-15] MEDS ORDERED: PROPOFOL 10 MG/ML 20 ML VIAL IV ONE (13:23)
[2019-02-15] MEDS ORDERED: BACITRACIN 50,000 UNIT in SODIUM CHLORIDE 0.9% IRRIGATIO 1,000 ML IRRIGATION ONE (13:28)
[2019-02-15] MEDS ORDERED: SODIUM CHLORIDE 0.9% 100 ML with ceFAZolin 2 GM IV ONE ×2 (13:52)
[2019-02-15] MEDS ORDERED: LIDOCAINE 0.5%-EPI 1:200,000 50 ML VIAL SQ ONE (14:10)
[2019-02-15] MEDS ORDERED: GELATIN SPONGE,ABSORB (LARGE) 1 EACH SPONGE MISCELLANE ONE (14:10)
[2019-02-15] MEDS ORDERED: THROMBIN (BOVINE) 5,000 UNIT VIAL TOPICAL ONE (14:11)
--- NOTE | 2019-02-15 15:36 | XR ---
One view cervical spine HISTORY: Needle placement Single lateral cervical spine correlated to prior exam 02/14/2018 Extensive degenerative disc changes, facet arthropathy noted in the cervical spine. There is a needle present within the C3-4 disc space level. Endotracheal tube noted incidentally. Patient is edentulou s. There are overlying leads. Endotracheal tube is in place. IMPRESSION: Orthopedic localization.
[2019-02-15] MEDS ORDERED: MAGNESIUM HYDROXIDE 2,400 MG/10 ML CUP PO PRN (16:03)
[2019-02-15] MEDS ORDERED: HYDROmorphone 0.5 MG/0.5 ML SYRINGE IVP PRN (16:03)
[2019-02-15] MEDS ORDERED: HYDROmorphone 1 MG/ML 1 ML SYRINGE IVP PRN (16:03)
--- NOTE | 2019-02-15 16:14 | P.OP ---
Date of Procedure: 02/15/19 Preoperative Diagnosis: Cervical myelopathy, severe cervical stenosis, cervical myelomalacia, spondylolisthesis C34, severe cervical stenosis C3 4 C4 5 C5 6, degenerative disc disease, upper extremity myeloradiculopathy radiculopathy, upper extremity weakness, gait dysfunction due to cervical myelopathy Postoperative Diagnosis: Same Anesthesia: GETA Pathology: none sent Condition: stable Disposition: PACU Description of Procedure: BRIEF OPERATIVE NOTE Preoperative Diagnosis:Cervical myelopathy, severe cervical stenosis, cervical myelomalacia, spondylolisthesis C34, severe cervical stenosis C3 4 C4 5 C5 6, degenerative disc disease, upper extremity myeloradiculopathy radiculopathy, upper extremity weakness, gait dysfunction due to cervical myelopathy, central cord syndrome Postoperative Diagnosis:Cervical myelopathy, severe cervical stenosis, cervical myelomalacia, spondylolisthesis C34, severe cervical stenosis C3 4 C4 5 C5 6, degenerative disc disease, upper extremity myeloradiculopathy radiculopathy, upper extremity weakness, gait dysfunction due to cervical myelopathy, central cord syndrome Procedure: Anterior cervical decompression with discectomy and fusion C3 4 C4 5 C5 6 Reduction of spondylolisthesis with internal fixation C3 4 Placement of interbody graft C3 4 C4 5 C5 6 Application of anterior cervical plate C3 4 C4 5 C5 6 Use of nim neuro monitoring Surgeon: Dr. Abdul Clipper Automatic: Kobe Mata is present throughout the entire the case persistence during positioning, dissection, exposure, visualization, and all crucial elements of the case as well as closure. Anesthesia: General anesthesia Estimated blood loss: Approximately 50 mL Complications: None apparent Components implanted: K2M Dunn anterior cervical plate system with a 51 mm plate and 7,14 mm screws with Vikos interbody allograft bone graft and 1 mL DBX bone putty supplement the allograft bone graft Disposition: To recovery room in good stable condition. OPERATIVE INDICATIONS The patient has had long-standing issues in their neck and upper extremities. He has been having significant worsening over the past several months particularly the last couple of weeks. He's been having severe difficulty with his gait has had multiple falls has been having worsening function in his upper extremities appointment is unable to shave having difficulty with his daily activities and functions. He underwent further intervention was found to have severe cervical stenosis with cervical myelomalacia which correlated with his myelopathic and radicular symptoms at his bilateral upper extremities as well as his gait disturbance and myelopathy type issues. He was having evidence of central cord syndrome as well due to his cervical spine and swelling of the cervical spine. The patient has been through conservative treatment post having worsening of his symptoms despite this. He was admitted to the hospital in regards to his severity of his symptoms and we are counseled in the case in this regard. Upon his evaluation of his imaging and his exam we felt that he was a candidate for surgical intervention. We discussed various treatment options including surgery, and the patient wishes to proceed with surgery We discussed the risk, patient's alternatives and benefits of surgery including but not limited to, risk of bleeding risk of infection, risk of need for further surgery, risk of decreased, loss of motion, muscle function, malunion nonunion, hardware failure, nerve damage, paralysis, heart attack, and . OPERATIVE SUMMARY After discussing all the risks, patient alternatives and benefits at length, the patient elected to proceed with surgical intervention, signed informed consent, and presented for their procedure. The patient was seen and examined in the preoperative holding area and the surgical site was marked. The patient was given antibiotics and brought to the operating room. The patient was positioned on the operating room table in a supine position being careful to pad any bony prominences and pressure points. The patient was sedated and intubated by anesthesia in standard fashion. Once the airway and C- spine were stabilized the patient's arms were padded and tucked at her side, with her shoulders gently taped. The head was placed in a donut pad with the neck in good neutral alignment and position. We were careful to maintain the patient's cervical spine and good neutral alignment and position throughout. The patient was prepped and draped in a normal standard fashion. An appropriate timeout and keystone protocol performed. We were able to proceed with the surgery. The local wound area was infiltrated with local anesthetic. An incision was made transversely approximately 2-1/2 cm over the appropriate levels at C 45. Dissection was taken down subcutaneously to the level of the platysma which was split in line with its fibers. Dissection was taken with a carotid approach, with the trachea and esophagus medial and the carotid sheath laterally. We dissected down to the anterior surface of the vertebral bodies. There were large anterior cervical osteophytes throughout which had be removed. Intraoperative x-ray was taken which showed a marker at the appropriate level at C3 4. With the appropriate level positively confirmed, we were able to proceed with discectomy at the appropriate levels. All of the operative levels were exposed appropriately from C3 to C6. The patient had all their twitches back, and there was no evidence of recurrent laryngeal issue. The wound was copiously irrigated and suctioned dry as had been done periodically throughout the case. At the appropriate level/levels, starting at C3 4 and then working C4 5 and then at C5 6 I established an annulotomy with an 11 blade scalpel. A discectomy was performed with a combination of pituitary rongeurs, curettes, a high-speed bur, and Kerrison rongeurs. At each level there is severe if not complete disc height loss with [id number] articulation. There was evidence of the listhesis at C3 4. There is large anterior osteophytes which were removed appropriately. The posterior longitudinal ligament was taken down as were any posterior osteophytes. There is evidence of severe stenosis centrally and at the bi lateral neural foramen which was remedied with the decompression and discectomy. This gave good central and bilateral foraminal decompression. There is no evidence of any dural tear or leak. The endplates were prepared with a high- speed bur. With the endplates in good parallel position, I was able to size for the appropriate size interbody graft. The wound was irrigated and suctioned dry the graft was prepared and malleted into position. It had good alignment and position with the anterior surface flush with the anterior surface of the vertebral bodies. This was done similarly the appropriate levels first at C3 4 and then at C4 5 and then at C5 6.. With the grafts intact, I was able to measure and contour and appropriate sized plate. The plate was positioned at the midline over the appropriate levels from C3 to C6. Screw holes were established with a hand drill and drill guide. Screws were placed in good alignment and position with excellent bony purchase. We were able to achieve reduction of the listhesis at C3 4 and fix that space with the plate. There was limited space at the disc space and bone interface for the C 5 screw hole on the left and I chose to leave that whole open. I was able place a good screw at the C5 screw on the right They were seated under the locking device. The construct was checked and found to be stable. Intraoperative x-ray was taken which showed good alignment and position of the implants at the appropriate levels. There was no evidence of any dural tear or leak. Good hemostasis was maintained. The wound was copiously irrigated and suctioned dry as had been done periodically throughout the case. The platysma was closed with absorbable suture. The subcutaneous tissue was closed. The subcuticular tissue was closed with absorbable suture. The wound was cleaned and dried and dressed appropriately. A soft cervical collar was placed appropriately. The patient was woken up by anesthesia, extubated, transferred back gently to their hospital bed and brought to the recovery room in good stable condition. The patient will be admitted to the hospital for appropriate postoperative care, medical management and monitoring. We will continue to follow them closely about the postoperative course.
[2019-02-15] MEDS ORDERED: HYDROmorphone 1 MG/ML 1 ML SYRINGE IVP ONE ×3 (16:25→17:20)
--- NOTE | 2019-02-15 16:46 | XR ---
EXAMINATION TYPE: XR cervical spine 1V DATE OF EXAM: 02/15/2019 COMPARISON: Yesterday HISTORY: Surgery TECHNIQUE: Single view FINDINGS: A single lateral view was obtained and shows a plate with screws fusing anteriorly the cerv ical spine from C 3 to C6. Vertebra have normal alignment. IMPRESSION: No complicating process seen.
[2019-02-15] MEDS: SODIUM CHLORIDE 0.9% 1,000 ML IV SCH (17:20)
[2019-02-15 17:56] LABS: Glucose,Whole Blood 132 mg/dL (75-99)
[2019-02-15] MEDS: MELATONIN 5 MG TABLET PO SCH (20:06)
[2019-02-15] MEDS: NICOTINE 14MG/24HR PATCH TRANSDERM SCH (20:06)
[2019-02-15] MEDS: ceFAZolin IN SWFI 2 GM/20 ML SYRINGE IVP SCH (20:07)
[2019-02-15 21:47] LABS: Glucose,Whole Blood 144 mg/dL (75-99)
[2019-02-15] MEDS: QUEtiapine 50 MG TAB PO SCH (22:25)
[2019-02-15] MEDS: ATORVASTATIN 20 MG TAB PO SCH (22:25)
[2019-02-16] MEDS: DEXAMETHASONE SOD PHOSPHATE 4 MG/ML 1 ML VIAL IV SCH ×5 (00:40→22:56)
[2019-02-16] MEDS: HYDROcodone/APAP 5-325MG 1 EACH TAB PO PRN ×4 (05:18→20:50)
[2019-02-16] MEDS: ceFAZolin IN SWFI 2 GM/20 ML SYRINGE IVP SCH (05:19)
[2019-02-16] MEDS: INSULIN ASPART (NovoLOG) 100 UNIT/ML VIAL SQ SCH ×4 (07:07→21:29)
[2019-02-16] MEDS: SODIUM CHLORIDE 0.9% 1,000 ML IV SCH (07:08)
[2019-02-16 07:20] LABS: Glucose,Whole Blood 118 mg/dL (75-99)
[2019-02-16] MEDS: BACLOFEN 10 MG TAB PO SCH ×2 (07:39→20:07)
[2019-02-16] MEDS: ATENOLOL 50 MG TAB PO SCH ×2 (07:39→20:07)
[2019-02-16] MEDS: DULoxetine HCL 60 MG CAPSULE.DR PO SCH ×2 (07:39→20:07)
[2019-02-16] MEDS: PANTOPRAZOLE 40 MG TABLET PO SCH (07:39)
[2019-02-16] MEDS: LISINOPRIL 20 MG TAB PO SCH ×2 (07:39→20:07)
[2019-02-16] MEDS: SENNOSIDES-DOCUSATE SODIUM 1 EACH TAB PO SCH (07:39)
[2019-02-16] MEDS: amLODIPine 5 MG TAB PO SCH (07:39)
[2019-02-16] MEDS: TAMSULOSIN 0.4 MG CAP.ER.24H PO SCH (07:40)
[2019-02-16 10:29] LABS: Basophils % (A) 0 %; Eosinophils % (A) 0 %; HCT 40.6 % (39.0-53.0); HGB 13.8 gm/dL (13.0-17.5); Lymphocytes # (A) 0.6 k/uL (1.0-4.8); Lymphocytes % (A) 4 %; MCH 30.7 pg (25.0-35.0); MCHC 33.9 g/dL (31.0-37.0); MCV 90.6 fL (80.0-100.0); Mean Platelet Volume 7.7; Monocytes # (A) 0.7 k/uL (0-1.0); Monocytes % (A) 4 %; Neutrophils # (A) 14.8 k/uL (1.3-7.7); Neutrophils % (A) 90 %; Platelet Count 222 k/uL (150-450); RBC 4.48 m/uL (4.30-5.90); RDW 14.5 % (11.5-15.5); WBC 16.4 k/uL (3.8-10.6)
[2019-02-16] MEDS ORDERED: amLODIPine 5 MG TAB PO STA (10:49)
[2019-02-16] MEDS: BENZOCAINE/MENTHOL LOZENG 1 EACH LOZENGE MUCOUS MEM PRN ×3 (10:58→20:50)
[2019-02-16 11:05] LABS: ALT 34 U/L (21-72); AST 26 U/L (17-59); Albumin 3.9 g/dL (3.5-5.0); Alkaline Phosphatase 57 U/L (38-126); Anion Gap 10 mmol/L; Blood Urea Nitrogen 24 mg/dL (9-20); Calcium 9.4 mg/dL (8.4-10.2); Carbon Dioxide 23 mmol/L (22-30); Chloride 106 mmol/L (98-107); Glucose 180 mg/dL (74-99); Sodium 139 mmol/L (137-145); Total Bilirubin 0.5 mg/dL (0.2-1.3); Total Protein 6.5 g/dL (6.3-8.2)
[2019-02-16 11:48] LABS: Appearance,Urine Clear (Clear); Bilirubin,Urine Negative (Negative); Blood,Urine Negative (Negative); Color,Urine Yellow; Glucose,Urine (UA) 1+ (Negative); Ketones,Urine Negative (Negative); Leukocyte Esterase,Urine Negative (Negative); Nitrite,Urine Negative (Negative); Protein,Urine Negative (Negative); Specific Gravity,Urine 1.015 (1.001-1.035); Urobilinogen,Urine <2.0 mg/dL (<2.0)
--- NOTE | 2019-02-16 11:53 | P.PN ---
Subjective Progress Note Date: 02/16/19 This is a 63-year-old male with a known past medical history of back and neck fractures, hypertension, hyperlipidemia, abdominal aortic aneurysm, anxiety and depression, BPH and nicotine dependence. Patient presents to the emergency department due to abnormal MRI of the spine. Patient had an MRI of the brain and C-spine yesterday which was ordered by Dr. Christianson's office. Patient was seen by Dr. Christianson due to his recurrent falls with neck and back pain. Patient reports that he was called by Dr. Christianson's office and was informed that he had a cord compression and to present to the ER. Patient's reporting that he had over 35 falls in the last few months. He has weakness and numbness in both arms and legs. Patient denies any chest pain, shortness of breath, loss of consciousness or dizziness during his falls. He reports that his legs discharge taking and he falls down. Patient denies any fever, chills, sweats, nausea or vomiting, bowel movement changes or burning with urination. Patient does admit to a chronic cough. Patient denies any heart attack, diabetes, arrhythmias, COPD or renal failure. Dr. Abdul has been consulted regarding the spinal cord compression. Patient was started on IV dexamethasone. On 02/13/2019 patient was seen and examined on the medical floor he is alert and oriented 3 he is complaining of neck pain and pain radiating to both hands he is complaining of occasional cough otherwise no complaints at this time there is no fever or chills no headache or dizziness no chest pain no shortness of breath no nausea or vomiting no abdominal pain no diarrhea and no urinary symptoms. On 02/14/2019 patient was seen and examined on the medical floor he is alert and oriented 3 he is still complaining of neck pain and radiating pain to bilateral hands with significant weakness and loss of coordination in the movement of his hands otherwise he denies any complaints there is no fever or chills no headache or dizziness no chest pain no shortness of breath no cough no nausea or vomiting no abdominal pain no diarrhea and no urinary symptoms 02/15/2019 patient is scheduled for anterior cervical decompression and fusion of C3 to C4, C4 to C5 and C5 to C6 today with Dr. Abdul. Patient denies any neck pain. He is still reporting numbness in both arms. Patient was hypertensive this morning with a blood pressure 179/106. He received his oral blood pressure medications blood pressures improved 131/83. Verbal echo report reports a normal EF and no significant valvular abnormality. EKG normal sinus rhythm. Ultrasound of the abdomen shows a distal abdominal aortic aneurysm of 4.6 cm in transverse of 4.9 cm. Patient denies any significant cough, fever, chills, sweats, nausea or vomiting, bowel movement changes or urinary symptoms. 02/16/2019 patient status post anterior cervical decompression with discectomy and fusion with . Patient complaining of some neck pain. Still having numbness and weakness in both arms. Blood pressure 191/105 Norvasc will be increased to 10 mg daily. Patient also having burning with urination and ur inary incontinence. Urinalysis with culture has been ordered. Complaining of constipation did have small hard bowel movement yesterday. Denies any chest pain or shortness breath. Objective - Vital Signs Vital signs: Vital Signs Temp 98.2 F 02/16/19 07:15 Pulse 57 L 02/16/19 07:15 Resp 15 02/16/19 07:45 BP 191/105 02/16/19 07:15 Pulse Ox 92 L 02/16/19 07:15 Intake & Output 02/15/19 02/16/19 02/16/19 18:59 06:59 18:59 Intake Total 1301 600 200 Output Total 350 Balance 951 600 200 Intake: IV 1251 Intake, IV Titration 300 Amount Sodium Chloride 0.9% 1, 300 000 ml @ 75 mls/hr IV . [id number] [facility] Rx#:[id number] Oral 50 300 200 Output: Urine 300 Estimated Blood Loss 50 Other: Voiding Method Urinal Urinal Urinal # Voids 1 - Exam Head normocephalic Neck supple Lungs clear to auscultation bilaterally no wheezing or crackles Heart regular rate and rhythm S1-S2, no rub or gallop Abdomen is soft nontender nondistended positive bowel sounds no hepatosplenomegaly Extremities no edema Neuro alert and orientated to 3 - Labs CBC & Chem 7: 02/16/19 08:46 02/16/19 08:46 Labs: Abnormal Lab Results - Last 24 Hours (Table) 02/15/19 02/15/19 02/15/19 Range/Units 11:42 17:45 21:45 WBC (3.8-10.6) k/uL Neutrophils # (1.3-7.7) k/uL Lymphocytes # (1.0-4.8) k/uL BUN (9-20) mg/dL Glucose (74-99) mg/dL POC Glucose (mg/dL) 134 H 132 H 144 H (75-99) mg/dL Urine Glucose (UA) (Negative) 02/16/19 02/16/19 02/16/19 Range/Units 06:55 08:46 08:46 WBC 16.4 H (3.8-10.6) k/uL Neutrophils # 14.8 H (1.3-7.7) k/uL Lymphocytes # 0.6 L (1.0-4.8) k/uL BUN 24 H (9-20) mg/dL Glucose 180 H (74-99) mg/dL POC Glucose (mg/dL) 118 H (75-99) mg/dL Urine Glucose (UA) (Negative) 02/16/19 Range/Units 11:30 WBC (3.8-10.6) k/uL Neutrophils # (1.3-7.7) k/uL Lymphocytes # (1.0-4.8) k/uL BUN (9-20) mg/dL Glucose (74-99) mg/dL POC Glucose (mg/dL) (75-99) mg/dL Urine Glucose (UA) 1+ H (Negative) Assessment and Plan Assessment: 1. Subluxation and cord compression at C3 to C4 noted on MRI of the C-spine per ER report. Patient is status post anterior cervical decompression with discectomy and fusion C3 to C4 C5 to C6 with Dr. Abdul. 2. Essential hypertension: Patient having elevated blood pressures 191/105. We'll increase the Norvasc to 10 mg daily. Hep-Lock IV fluids. 3. Nicotine dependence: Discussed smoking cessation for greater than 3 minutes. We'll add nicotine patch 4. Denies anxiety disorder and depression 5. History of enlarged prostate continue Flomax 6. History of multiple back and neck fractures 7. Hyperlipidemia 8. History of abdominal aortic aneurysm measuring 3.8 x 4.3 cm noted on abdominal ultrasound in June 2017. Abdominal ultrasound showing a distal ab dominal aortic aneurysm 4.6 cm in transverse 4.9 cm 9. Urinary frequency and dysuria. Check urinalysis with culture 10. Hyperglycemia secondary to steroids. Continue sliding scale coverage 11. Leukocytosis secondary to steroids GI prophylaxis Pepcid and DVT prophylaxis SCDs I performed an examination of the patient and discussed their management with the physician Electric Meter Installer. I have reviewed the Physician Electric Meter Installer's notes and agree with the documented findings and plan of care
[2019-02-16] MEDS ORDERED: DOCUSATE 100 MG CAP PO SCH (12:00)
[2019-02-16 12:15] LABS: Glucose,Whole Blood 124 mg/dL (75-99)
[2019-02-16] MEDS ORDERED: hydrALAZINE HCL 20 MG/ML 1 ML VIAL IVP PRN (13:26)
[2019-02-16] MEDS ORDERED: FUROSEMIDE 10 MG/ML 2 ML VIAL IV ONE (13:26)
--- NOTE | 2019-02-16 13:27 | P.PN ---
Progress Note - Text Progress Note Date: 02/16/19 Orthopedic Spine Patient is a pleasant 63-year-old male who is seen at the bedside following anterior cervical decompression and fusion performed yesterday. Patient states they are ok well postsurgically. He has not had any significant change in his symptoms postoperatively. He continues to have some cervical pain. He is able to eat soft foods without difficulty. He states he is having difficulty swallowing heavier foods. He continues wear a soft cervical collar for comfort support as needed. Currently does not complain of nausea, vomiting, fever, or chills. Patient states pain has been adequately controlled. Patient is eating and voiding freely without difficulty. Patient continues to be seen and examined by medicine. He has had some difficulty with control of his blood pressure. His blood pressure today has been measured at 179/106, 191/105, 164/91, and 157/96. Medicine is adjusting his medications. He is not clear for discharge from a medical standpoint. Physical Exam Cervical Fusion: Status post surgical day number 1 Patient is awake, alert, and oriented 3 Vital signs stable Good chest excursion with deep inspiration and expiration Dressing over the anterior cervical spine is dry and intact with some dried blood Evidence of some generalized swelling and bruising around the surgical site over the anterior right cervical spine Soft cervical collar is intact and is removed during his Adequate range of motion of the cervical spine with adequate flexion, extension, and bilateral rotation Bilateral upper extremity weakness greater on the left than the right with car dropper Bilateral hand atrophy greater on the left than the right Contracture the bilateral hands Significant difficulty was fine motor skills of bilateral hands Significant difficulty with movements in bed including the lower extremities bilaterally Assessment: Status post anterior cervical decompression and fusion at C3-4, C4-5, and C5-6 Cervical myelopathy Severe cervical spinal stenosis Likely central cord syndrome Bilateral upper extremity myeloradiculopathy with weakness Altered ambulation partially due to myelopathy Hypertension Plan: 1. Ambulate as tolerated; work with Physical Therapy to increase mobilization 2. Continue pain control; We will plan to prescribe narcotic pain medication at the time of discharge; Prescription is written, signed, and placed in the patient's chart [facility] has been reviewed today, 02/16/2019 , with an Overall Overdose Risk Score of 310 and a narcotic score of 130. An "Opiod Start Talking" Forn has been signed by the patient and myself in place in the patient's chart. A prescription has been written for [place] 5 mg/325 mg take 1 tab every 6 hours as needed for pain, dispensed #28. 3. Patient may shower with Tegaderm dressing; patient may remove Tegaderm in 3 days and shower without a dressing at that time 4. Medical management can continue to manage patient for patient's other medical issues including hypertension; medicine will continue to adjust medications as needed 5. We will continue to follow the patient closely; it patient is able to improve and have better control of his hypertension, we may plan for discharge home as early as tomorrow, 02/17/2019 6. Patient can follow-up with Kobe Trammell PA-C or Dr. Rubio Abdul at [facility] in 2-3 weeks following discharge
[2019-02-16 16:49] LABS: Glucose,Whole Blood 125 mg/dL (75-99)
[2019-02-16] MEDS: ESOMEPRAZOLE 20 MG PO SCH (20:02)
[2019-02-16] MEDS: NICOTINE 14MG/24HR PATCH TRANSDERM SCH (20:07)
[2019-02-16] MEDS: ATORVASTATIN 20 MG TAB PO SCH (20:07)
[2019-02-16] MEDS: MELATONIN 5 MG TABLET PO SCH (20:07)
[2019-02-16] MEDS: QUEtiapine 50 MG TAB PO SCH (20:08)
[2019-02-16 21:23] LABS: Glucose,Whole Blood 153 mg/dL (75-99)
[2019-02-17] MEDS: HYDROcodone/APAP 5-325MG 1 EACH TAB PO PRN ×4 (01:31→19:41)
[2019-02-17] MEDS: DEXAMETHASONE SOD PHOSPHATE 4 MG/ML 1 ML VIAL IV SCH ×3 (06:27→17:37)
[2019-02-17] MEDS: ESOMEPRAZOLE 20 MG PO SCH (06:28)
[2019-02-17 06:50] LABS: Glucose,Whole Blood 120 mg/dL (75-99)
[2019-02-17] MEDS: INSULIN ASPART (NovoLOG) 100 UNIT/ML VIAL SQ SCH ×4 (07:41→21:51)
[2019-02-17] MEDS: BACLOFEN 10 MG TAB PO SCH ×2 (07:54→19:41)
[2019-02-17] MEDS: amLODIPine 10 MG TAB PO SCH (07:55)
[2019-02-17] MEDS: TAMSULOSIN 0.4 MG CAP.ER.24H PO SCH (07:55)
[2019-02-17] MEDS: LISINOPRIL 20 MG TAB PO SCH ×2 (07:55→19:41)
[2019-02-17] MEDS: SENNOSIDES-DOCUSATE SODIUM 1 EACH TAB PO SCH (07:55)
[2019-02-17] MEDS: DULoxetine HCL 60 MG CAPSULE.DR PO SCH ×2 (07:55→19:41)
[2019-02-17] MEDS: ATENOLOL 50 MG TAB PO SCH ×2 (07:55→19:41)
[2019-02-17 08:10] LABS: Basophils % (A) 0 %; Eosinophils % (A) 0 %; HCT 41.1 % (39.0-53.0); HGB 13.6 gm/dL (13.0-17.5); Lymphocytes # (A) 1.3 k/uL (1.0-4.8); Lymphocytes % (A) 10 %; MCH 29.6 pg (25.0-35.0); MCV 89.7 fL (80.0-100.0); Mean Platelet Volume 7.2; Monocytes # (A) 0.6 k/uL (0-1.0); Monocytes % (A) 5 %; Neutrophils # (A) 10.8 k/uL (1.3-7.7); Neutrophils % (A) 82 %; Platelet Count 208 k/uL (150-450); RBC 4.58 m/uL (4.30-5.90); RDW 14.1 % (11.5-15.5); WBC 13.2 k/uL (3.8-10.6)
[2019-02-17 08:25] LABS: ALT 27 U/L (21-72); AST 22 U/L (17-59); Albumin 3.8 g/dL (3.5-5.0); Alkaline Phosphatase 59 U/L (38-126); Anion Gap 4 mmol/L; Blood Urea Nitrogen 24 mg/dL (9-20); Calcium 9.5 mg/dL (8.4-10.2); Carbon Dioxide 30 mmol/L (22-30); Chloride 105 mmol/L (98-107); Glucose 114 mg/dL (74-99); Potassium 4.3 mmol/L (3.5-5.1); Sodium 139 mmol/L (137-145); Total Bilirubin 0.6 mg/dL (0.2-1.3); Total Protein 6.6 g/dL (6.3-8.2)
--- NOTE | 2019-02-17 08:52 | P.PN ---
Progress Note - Text Progress Note Date: 02/17/19 Postoperative day #2 Patient is seen and examined today at bedside. The patient has some pain around the surgical site as expected, but this seems to be controlled adequately. He is tolerating soft diet. He has been ambulatory and feels his walking is better but is using a walker still. He is using his hands to eat and he feels that he is controlling this somewhat better but he saw and great difficulty with his arms and hands and shoulders. He denies headaches or chest pain or shortness breath. Pain is being controlled with medication. He denies tightness tenderness throughout her neck. Physical Exam Afebrile with stable vital signs Abdomen is soft nontender. Chest has good excursion deep and space expiration At his neck there is diffuse swelling and bruising at the anterior neck. The area soft and is not having firmness. His neck is still supple and the swelling appears stable. The incision site is clean dry and intact. No erythema there is no purulence. Extremities have not had neurologic change from prior to surgery. He has significant weakness in his bilateral upper extremities with decreased disc sterilely in his wrist hands arms and fingers. Calves and thighs were soft nontender without evidence of DVT. Assessment/Plan Postoperative day #2 status post anterior cervical decompression with discectomy and fusion at C3 4 C4 5 C5 6 for his cervical myelomalacia and cervical myelopathy with central cord syndrome and severe cervical stenosis Currently the patient is also having hypertension Patient is progressing somewhat slowly as expected from the surgery. His neck appears to be essentially stable at the incision site and there is swelling but it is not tense and does not seem to be expanding. I think his surgical site is stable at this point. We will continue to increase the patient's mobilization with therapy. He is encouraged to use his cervical collar during activity and may do well with some ice over his neck for the swelling. We will continue pain control with oral or IV medications. I think is okay for discharge to home from a orthopedic spine standpoint when he is stable from medicine. I can plan to see him on an outpatient basis in approximately 2 weeks Medicine is following him closely regards to his other medical issues and has high blood pressure. This morning he was 166/100. He is not having symptoms from this but it appears to be only under moderate control. We'll continue to follow patient closely as long as he is here in Hospital.
[2019-02-17 11:15] LABS: Glucose,Whole Blood 228 mg/dL (75-99)
--- NOTE | 2019-02-17 13:38 | P.PN ---
Subjective Progress Note Date: 02/17/19 This is a 63-year-old male with a known past medical history of back and neck fractures, hypertension, hyperlipidemia, abdominal aortic aneurysm, anxiety and depression, BPH and nicotine dependence. Patient presents to the emergency department due to abnormal MRI of the spine. Patient had an MRI of the brain and C-spine yesterday which was ordered by Dr. Christianson's office. Patient was seen by Dr. Christianson due to his recurrent falls with neck and back pain. Patient reports that he was called by Dr. Christianson's office and was informed that he had a cord compression and to present to the ER. Patient's reporting that he had over 35 falls in the last few months. He has weakness and numbness in both arms and legs. Patient denies any chest pain, shortness of breath, loss of consciousness or dizziness during his falls. He reports that his legs discharge taking and he falls down. Patient denies any fever, chills, sweats, nausea or vomiting, bowel movement changes or burning with urination. Patient does admit to a chronic cough. Patient denies any heart attack, diabetes, arrhythmias, COPD or renal failure. Dr. Abdul has been consulted regarding the spinal cord compression. Patient was started on IV dexamethasone. On 02/13/2019 patient was seen and examined on the medical floor he is alert and oriented 3 he is complaining of neck pain and pain radiating to both hands he is complaining of occasional cough otherwise no complaints at this time there is no fever or chills no headache or dizziness no chest pain no shortness of breath no nausea or vomiting no abdominal pain no diarrhea and no urinary symptoms. On 02/14/2019 patient was seen and examined on the medical floor he is alert and oriented 3 he is still complaining of neck pain and radiating pain to bilateral hands with significant weakness and loss of coordination in the movement of his hands otherwise he denies any complaints there is no fever or chills no headache or dizziness no chest pain no shortness of breath no cough no nausea or vomiting no abdominal pain no diarrhea and no urinary symptoms 02/15/2019 patient is scheduled for anterior cervical decompression and fusion of C3 to C4, C4 to C5 and C5 to C6 today with Dr. Abdul. Patient denies any neck pain. He is still reporting numbness in both arms. Patient was hypertensive this morning with a blood pressure 179/106. He received his oral blood pressure medications blood pressures improved 131/83. Verbal echo report reports a normal EF and no significant valvular abnormality. EKG normal sinus rhythm. Ultrasound of the abdomen shows a distal abdominal aortic aneurysm of 4.6 cm in transverse of 4.9 cm. Patient denies any significant cough, fever, chills, sweats, nausea or vomiting, bowel movement changes or urinary symptoms. 02/16/2019 patient status post anterior cervical decompression with discectomy and fusion with . Patient complaining of some neck pain. Still having numbness and weakness in both arms. Blood pressure 191/105 Norvasc will be increased to 10 mg daily. Patient also having burning with urination and ur inary incontinence. Urinalysis with culture has been ordered. Complaining of constipation did have small hard bowel movement yesterday. Denies any chest pain or shortness breath. On 02/17/2019 patient is currently resting comfortably in bed. Patient still complaining of some neck pain. Per nursing staff and physical therapy recommending rehab. At this point patient is declining. Per orthopedic services would like to keep one more day. steroids per orthopedics. Blood pressure has improved. At this time patient denies chest pain or shortness breath. Patient denies nausea vomiting or diarrhea. Patient denies any urinary burning or frequency. Objective - Vital Signs Vital signs: Vital Signs Temp 98.2 F 02/17/19 07:28 Pulse 75 02/17/19 09:58 Resp 17 02/17/19 01:50 BP 159/95 02/17/19 09:09 Pulse Ox 99 02/17/19 07:28 Intake & Output 02/16/19 02/17/19 02/17/19 18:59 06:59 18:59 Intake Total 440 Balance 440 Weight 55.792 kg Intake: Oral 440 Other: Voiding Method Urinal Urinal # Voids 1 - Exam Head normocephalic Neck supple Lungs clear to auscultation bilaterally no wheezing or crackles Heart regular rate and rhythm S1-S2, no rub or gallop Abdomen is soft nontender nondistended positive bowel sounds no hepatosplenomegaly Extremities no edema Neuro alert and orientated to 3 - Labs CBC & Chem 7: 02/17/19 07:22 02/17/19 07:22 Labs: Abnormal Lab Results - Last 24 Hours (Table) 02/16/19 02/16/19 02/17/19 Range/Units 16:37 21:21 06:49 WBC (3.8-10.6) k/uL Neutrophils # (1.3-7.7) k/uL BUN (9-20) mg/dL Glucose (74-99) mg/dL POC Glucose (mg/dL) 125 H 153 H 120 H (75-99) mg/dL 02/17/19 02/17/19 02/17/19 Range/Units 07:22 07:22 11:14 WBC 13.2 H (3.8-10.6) k/uL Neutrophils # 10.8 H (1.3-7.7) k/uL BUN 24 H (9-20) mg/dL Glucose 114 H (74-99) mg/dL POC Glucose (mg/dL) 228 H (75-99) mg/dL Microbiology - Last 24 Hours (Table) 02/16/19 11:30 Urine Culture - Preliminary Urine,Voided Assessment and Plan Assessment: 1. Subluxation and cord compression at C3 to C4 noted on MRI of the C-spine per ER report. Patient is status post anterior cervical decompression with discectomy and fusion C3 to C4 C5 to C6 with Dr. Abdul. 2. Essential hypertension: Patient having elevated blood pressures 191/105. We'll increase the Norvasc to 10 mg daily. Hep-Lock IV fluids. 3. Nicotine dependence: Discussed smoking cessation for greater than 3 minutes. We'll add nicotine patch 4. Denies anxiety disorder and depression 5. History of enlarged prostate continue Flomax 6. History of multiple back and neck fractures 7. Hyperlipidemia 8. History of abdominal aortic aneurysm measuring 3.8 x 4.3 cm noted on abdominal ultrasound in June 2017. Abdominal ultrasound showing a distal abdominal aortic aneurysm 4.6 cm in transverse 4.9 cm 9. Urinary frequency and dysuria. UA negative. Patient reports this has been a chronic issue for him 10. Hyperglycemia secondary to steroids. Continue sliding scale coverage 11. Leukocytosis secondary to steroids Per physical therapy and nursing patient recommended for ECF. Patient declining at this time. Per orthopedic services possible discharge in the next 24 hours. Continue steroids per orthopedic I performed an examination of the patient and discussed their management with the Nurse Practitioner. I have reviewed the Nurse Practitioner's notes and agree with the documented findings and plan of care
[2019-02-17 16:31] LABS: Glucose,Whole Blood 119 mg/dL (75-99)
[2019-02-17] MEDS: NICOTINE 14MG/24HR PATCH TRANSDERM SCH (19:40)
[2019-02-17] MEDS: BENZOCAINE/MENTHOL LOZENG 1 EACH LOZENGE MUCOUS MEM PRN (19:40)
[2019-02-17] MEDS: ATORVASTATIN 20 MG TAB PO SCH (19:41)
[2019-02-17] MEDS: MELATONIN 5 MG TABLET PO SCH (19:41)
[2019-02-17] MEDS: QUEtiapine 50 MG TAB PO SCH (21:09)
[2019-02-17 21:28] LABS: Glucose,Whole Blood 235 mg/dL (75-99)
[2019-02-18] MEDS: DEXAMETHASONE SOD PHOSPHATE 4 MG/ML 1 ML VIAL IV SCH ×3 (00:12→12:17)
[2019-02-18] MEDS: HYDROcodone/APAP 5-325MG 1 EACH TAB PO PRN (06:03)
[2019-02-18] MEDS: ESOMEPRAZOLE 20 MG PO SCH (06:04)
[2019-02-18 07:22] LABS: Glucose,Whole Blood 115 mg/dL (75-99)
[2019-02-18] MEDS: INSULIN ASPART (NovoLOG) 100 UNIT/ML VIAL SQ SCH ×2 (07:43→12:17)
[2019-02-18] MEDS: TAMSULOSIN 0.4 MG CAP.ER.24H PO SCH (08:24)
[2019-02-18] MEDS: DULoxetine HCL 60 MG CAPSULE.DR PO SCH (08:24)
[2019-02-18] MEDS: BACLOFEN 10 MG TAB PO SCH (08:24)
[2019-02-18] MEDS: LISINOPRIL 20 MG TAB PO SCH (08:24)
[2019-02-18] MEDS: ATENOLOL 50 MG TAB PO SCH (08:24)
[2019-02-18] MEDS: SENNOSIDES-DOCUSATE SODIUM 1 EACH TAB PO SCH (08:24)
[2019-02-18] MEDS: amLODIPine 10 MG TAB PO SCH (08:25)
[2019-02-18] MEDS: GABAPENTIN 300 MG CAP PO PRN (08:28)
[2019-02-18 09:02] VITALS: RESP 12
[2019-02-18 09:13] LABS: Basophils % (A) 0 %; Eosinophils % (A) 0 %; HCT 43.3 % (39.0-53.0); HGB 14.2 gm/dL (13.0-17.5); Lymphocytes # (A) 1.2 k/uL (1.0-4.8); Lymphocytes % (A) 8 %; MCH 29.9 pg (25.0-35.0); MCHC 32.8 g/dL (31.0-37.0); MCV 91.2 fL (80.0-100.0); Mean Platelet Volume 7.7; Monocytes # (A) 0.4 k/uL (0-1.0); Monocytes % (A) 3 %; Neutrophils # (A) 14.2 k/uL (1.3-7.7); Neutrophils % (A) 88 %; Platelet Count 256 k/uL (150-450); RBC 4.76 m/uL (4.30-5.90); RDW 14.9 % (11.5-15.5); WBC 16.2 k/uL (3.8-10.6)
--- NOTE | 2019-02-18 09:47 | P.PN ---
Progress Note - Text Progress Note Date: 02/18/19 Postoperative day #3 Patient is seen and examined today at bedside. The patient has some swelling around the surgical site but this seems to be stable without any significant tension or compression. Pain is being controlled with medication. He has been able to increase his mobilization to some degree. He gets up with his walker independently and has been up to the bathroom by himself without the walker. He feels he still having significant difficulty with his hands as expected. He den ies any fevers. Physical Exam Afebrile with stable vital signs his blood pressure has normalized somewhat today. Abdomen is soft nontender. Chest has good excursion deep and space expiration The incision site is clean dry and intact. No erythema there is no purulence. there is swelling and bruising at his anterior neck but there is no significant tension there is no distortion and he is able to swallow. Extremities have not had neurologic change from prior to surgery. he still has significant weakness at his bilateral hands with myelopathic changes in his bilateral hands. He still has global weakness in his bilateral upper extremities and some difficulty walking but he gets up pretty well on his own and walks with his walker adequately. Calves and thighs were soft nontender without evidence of DVT. Assessment/Plan Postoperative day #3 status post anterior cervical decompression with discectomy fusion C3 4 C4 5 C5 6 for his cervical myelomalacia and cervical myelopathy with central cord syndrome severe stenosis and weakness at his upper extremities and alteration in his gait due to his myelopathy. Patient is progressing quite slowlyas expected from the surgery. his spinal cord has significant damage due to his compression and myelopathic changes with myelomalacia. This will take quite some time to see if it will heal appropriately unit with the decompression. His neck appears to be stabilized. We should try to taper down his steroid once he is discharged and I have written prescription for oral steroid taper. He can continue his Neurontin his other medicines as well. We will continue to increase the patient's mobilization with therapy. With the swelling of his neck he could do well with some ice 3 times a day. We will continue pain control with oral or IV medications. I had a long discussion with the patient yesterday afternoon over the phone after I had seen him and again this morning. He discussed the issues in regards to going to intermediate facility versus home with home health. The patient is quite emphatic that he does not want to go to a intermediate or rehab facility. He still has significant difficulty with his mobilization and we are worried about his gait but he has been making some improvement with physical therapy. He is essentially refusing to go to intermediate would like to go home with home health. We will see we can arrange this for him and help with his safety. He says that he has made some arrangements with his friends so that he can stay with a friend of his over the next week and then with his mother after that if necessary. Case management will be involved to help coordinate his home health for physical and occupational therapy at least approximately 3 times a week and overall care. From out the extent standpoint is okay for him to discharge home health or to intermediate if he becomes willing when he is stable from medicine standpoint. We'll continue to follow patient closely.
[2019-02-18 09:51] LABS: ALT 36 U/L (21-72); AST 25 U/L (17-59); Albumin 3.8 g/dL (3.5-5.0); Alkaline Phosphatase 63 U/L (38-126); Blood Urea Nitrogen 25 mg/dL (9-20); Chloride 104 mmol/L (98-107); Glucose 150 mg/dL (74-99); Potassium 4.2 mmol/L (3.5-5.1); Sodium 140 mmol/L (137-145); Total Bilirubin 0.6 mg/dL (0.2-1.3); Total Protein 6.6 g/dL (6.3-8.2)
[2019-02-18 10:54] LABS: Anion Gap 8 mmol/L; Carbon Dioxide 28 mmol/L (22-30)
[2019-02-18 11:52] LABS: Glucose,Whole Blood 172 mg/dL (75-99)
--- NOTE | 2019-02-18 13:21 | P.DS ---
Providers Date of admission: 02/12/19 14:41 Expected date of discharge: 02/18/19 Attending physician: Kathe Yuen Consults: 02/12/19 14:24 Consult Physician Stat Consulting Provider: Mansi Abdul Consult Reason/Comments: Cervical subluxation with cord compression Do you want consulting provider notified?: Yes Primary care physician: Kathe Yuen [facility] Course: Discharge diagnosis 1. Subluxation and cord compression at C3 to C4 noted on MRI of the C-spine per ER report. Patient is status post anterior cervical decompression with discectomy and fusion C3 to C4 C5 to C6 with Dr. Abdul. 2. Essential hypertension: Patient having elevated blood pressures 191/105. We'll increase the Norvasc to 10 mg daily. Hep-Lock IV fluids. 3. Nicotine dependence: Discussed smoking cessation for greater than 3 minutes. We'll add nicotine patch 4. Denies anxiety disorder and depression 5. History of enlarged prostate continue Flomax 6. History of multiple back and neck fractures 7. Hyperlipidemia 8. History of abdominal aortic aneurysm measuring 3.8 x 4.3 cm noted on abdominal ultrasound in June 2017. Abdominal ultrasound showing a distal abdominal aortic aneurysm 4.6 cm in transverse 4.9 cm 9. Urinary frequency : UTI ruled out. Likely related to IV fluids and prostate issues 10. Hyperglycemia secondary to steroids. Continue sliding scale coverage 11. Leukocytosis secondary to steroids Hospital course This is a 63-year-old male with a known past medical history of back and neck fractures, hypertension, hyperlipidemia, abdominal aortic aneurysm, anxiety and depression, BPH and nicotine dependence. Patient presents to the emergency department due to abnormal MRI of the spine. Patient had an MRI of the brain and C-spine yesterday which was ordered by Dr. Christianson's office. Patient was seen by Dr. Christianson due to his recurrent falls with neck and back pain. Patient reports that he was called by Dr. Christianson's office and was informed that he had a cord compression and to present to the ER. Patient's reporting that he had over 35 falls in the last few months. He has weakness and numbness in both arms and legs. Patient denies any chest pain, shortness of breath, loss of consciousness or dizziness during his falls. He reports that his legs discharge taking and he falls down. Patient denies any fever, chills, sweats, nausea or vomiting, bowel movement changes or burning with urination. Patient does admit to a chronic cough. Patient denies any heart attack, diabetes, arrhythmias, COPD or renal failure. Dr. Abdul has been consulted regarding the spinal cord compression. Patient was started on IV dexamethasone. On 02/13/2019 patient was seen and examined on the medical floor he is alert and oriented 3 he is complaining of neck pain and pain radiating to both hands he is complaining of occasional cough otherwise no complaints at this time there is no fever or chills no headache or dizziness no chest pain no shortness of breath no nausea or vomiting no abdominal pain no diarrhea and no urinary symptoms. On 02/14/2019 patient was seen and examined on the medical floor he is alert and oriented 3 he is still complaining of neck pain and radiating pain to bilateral hands with significant weakness and loss of coordination in the movement of his hands otherwise he denies any complaints there is no fever or chills no headache or dizziness no chest pain no shortness of breath no cough no nausea or vomiting no abdominal pain no diarrhea and no urinary symptoms 02/15/2019 patient is scheduled for anterior cervical decompression and fusion of C3 to C4, C4 to C5 and C5 to C6 today with Dr. Abdul. Patient denies any neck pain. He is still reporting numbness in both arms. Patient was hypertensive this morning with a blood pressure 179/106. He received his oral blood pressure medications blood pressures improved 131/83. Verbal echo report reports a normal EF and no significant valvular abnormality. EKG normal sinus rhythm. Ultrasound of the abdomen shows a distal abdominal aortic aneurysm of 4.6 cm in transverse of 4.9 cm. Patient denies any significant cough, fever, chills, sweats, nausea or vomiting, bowel movement changes or urinary symptoms. 02/16/2019 patient status post anterior cervical decompression with discectomy and fusion with . Patient complaining of some neck pain. Still having numbness and weakness in both arms. Blood pressure 191/105 Norvasc will be increased to 10 mg daily. Patient also having burning with urination and urinary incontinence. Urinalysis with culture has been ordered. Complaining of constipation did have small hard bowel movement yesterday. Denies any chest pain or shortness breath. On 02/17/2019 patient is currently resting comfortably in bed. Patient still complaining of some neck pain. Per nursing staff and physical therapy recommending rehab. At this point patient is declining. Per orthopedic services would like to keep one more day. steroids per orthopedics. Blood pressure has improved. At this time patient denies chest pain or shortness breath. Patient denies nausea vomiting or diarrhea. Patient denies any urinary burning or frequency. 02/18/2019 patient has been cleared by Dr. Abdul for discharge today. Initially was recommended the patient proceeds to ECF for rehab. However patient has declined this. Home care has been set up for patient as well as physical therapy. Patient has been up and ambulating. He reports improvement in some numbness and weakness. He'll follow-up with Dr. rincon in the outpatient setting. Also note that he did have elevated blood pressures during this admission Norvasc was increased from 5 mg to 10 mg daily. Blood pressures have shown improvement. Patient is also been educated to quit smoking nicotine patch has been. Dr. Abdul has discharge patient to continue prednisone taper and given a prescription of [place]. I performed an examination of the patient and discussed their management with the physician Junior Estimator. I have reviewed the Physician Junior Estimator's notes and agree with the documented findings and plan of care Patient Condition at Discharge: Stable Plan - Discharge Summary Discharge Rx Participant: Yes New Discharge Prescriptions: New HYDROcodone/APAP 5-325MG [[place] 5] 1 each PO Q6HR PRN #28 tab PRN Reason: Pain predniSONE 10 mg PO DIRECTED 12 Days #24 tab Nicotine 14Mg/24Hr Patch [Habitrol] 1 patch TRANSDERM 2100 #30 patch amLODIPine [Norvasc] 10 mg PO DAILY #30 tab Continue Tamsulosin HCl [Flomax] 0.4 mg PO DAILY Gabapentin [Neurontin] 300 mg PO BID Esomeprazole Magnesium [NexIUM 24Hr] 20 mg PO DAILY DULoxetine HCL [Cymbalta] 60 mg PO BID Atenolol 100 mg PO BID QUEtiapine FUMARATE 50 mg PO HS Lisinopril [Zestril] 20 mg PO DAILY Baclofen [Lioresal] 10 mg PO BID Atorvastatin [Lipitor] 20 mg PO DAILY Discontinued amLODIPine [Norvasc] 5 mg PO DAILY Discharge Medication List Atenolol 100 mg PO BID 07/29/17 [History] DULoxetine HCL [Cymbalta] 60 mg PO BID 07/29/17 [History] Esomeprazole Magnesium [NexIUM 24Hr] 20 mg PO DAILY 07/29/17 [History] Gabapentin [Neurontin] 300 mg PO BID 07/29/17 [History] Tamsulosin HCl [Flomax] 0.4 mg PO DAILY 07/29/17 [History] QUEtiapine FUMARATE 50 mg PO HS 06/29/18 [History] Atorvastatin [Lipitor] 20 mg PO DAILY 02/12/19 [History] Baclofen [Lioresal] 10 mg PO BID 02/12/19 [History] Lisinopril [Zestril] 20 mg PO DAILY 02/12/19 [History] HYDROcodone/APAP 5-325MG [[place] 5] 1 each PO Q6HR PRN #28 tab 02/16/19 [Rx] Nicotine 14Mg/24Hr Patch [Habitrol] 1 patch TRANSDERM 2100 #30 patch 02/18/19 [Rx] amLODIPine [Norvasc] 10 mg PO DAILY #30 tab 02/18/19 [Rx] predniSONE 10 mg PO DIRECTED 12 Days #24 tab 02/18/19 [Rx] Follow up Appointment(s)/Referral(s): Mansi Abdul DO [Doctor of Osteopathic Medicine] - 2 Weeks [facility] Visiting Nurse, [NON-STAFF] - Kathe Yuen MD [Primary Care Provider] - 1 Week Activity/Diet/Wound Care/Special Instructions: 1. Patient may shower with Tegaderm dressing intact. 2. Patient may remove Tegaderm dressing on Friday, February 20 and shower without a dressing at that time. 3. Patient should keep Steri-Strips intact and allow them to fall off naturally. 4. Patient should refrain from driving until at least after their first follow- up appointment in the office. 5. Patient should avoid excessive cervical flexion, extension, rotation, and side bending; no lifting greater than 10 pounds; avoid overhead activities 6. May wear soft cervical collar for comfort support as needed 7. Take medications as prescribed 8. Do not soak in tub Diet: cardiac Discharge Disposition: HOME WITH HOME HEALTH SERVICES
[2019-02-18 15:32] VITALS: BP 160/106; PULSE 82; TEMP 98
[2019-02-18 16:52] LABS: Glucose,Whole Blood 202 mg/dL (75-99)
== END 2019-02-18 17:07 | disposition home health service (06) | DRG 472 ==
LOC: EC 12:59 → 4SSUR 14:41
PROVIDERS: ADMIT Internal Medicine; ATTEND Internal Medicine
PROC: 4A11X4G Monitoring of Peripheral Nervous Electrical Activity, Intraoperative, External Approach (ICD-10-PCS; 2019-02-15)
PROC: 0RG20K0 Fusion of 2 or more Cervical Vertebral Joints with Nonautologous Tissue Substitute, Anterior Approach, Anterior Column, Open Approach (ICD-10-PCS; principal; 2019-02-15 08:30)
PROC: 0RB30ZZ Excision of Cervical Vertebral Disc, Open Approach (ICD-10-PCS; 2019-02-15 08:30)
DX: M48.02 Spinal stenosis, cervical region (principal); S13.140A Subluxation of C3/C4 cervical vertebrae, initial encounter; M50.00 Cervical disc disorder with myelopathy, unspecified cervical region; G95.20 Unspecified cord compression; G95.89 Other specified diseases of spinal cord; M50.10 Cervical disc disorder with radiculopathy, unspecified cervical region; S14.129A Central cord syndrome at unspecified level of cervical spinal cord, initial encounter; M43.12 Spondylolisthesis, cervical region; R26.9 Unspecified abnormalities of gait and mobility; Q06.1 Hypoplasia and dysplasia of spinal cord; D72.829 Elevated white blood cell count, unspecified; R73.9 Hyperglycemia, unspecified; T38.0X5A Adverse effect of glucocorticoids and synthetic analogues, initial encounter; E78.5 Hyperlipidemia, unspecified; F17.200 Nicotine dependence, unspecified, uncomplicated; F32.9 Major depressive disorder, single episode, unspecified; F41.9 Anxiety disorder, unspecified; G89.29 Other chronic pain; I10 Essential (primary) hypertension; I71.4 Abdominal aortic aneurysm, without rupture; K21.9 Gastro-esophageal reflux disease without esophagitis; K59.00 Constipation, unspecified; N40.1 Benign prostatic hyperplasia with lower urinary tract symptoms; R29.6 Repeated falls; R32 Unspecified urinary incontinence; R35.0 Frequency of micturition; R30.0 Dysuria; Z87.81 Personal history of (healed) traumatic fracture; Z79.899 Other long term (current) drug therapy; Z90.49 Acquired absence of other specified parts of digestive tract; Z82.0 Family history of epilepsy and other diseases of the nervous system; Z82.3 Family history of stroke; Z71.6 Tobacco abuse counseling
CPT/HCPCS: 36415; 71046; 72020; 72040; 80053; 81001; 81003; 85025; 85610; 85730; 87086; 93005; 93306; 93979; 96374; 99285

== ENCOUNTER 2019-04-09 14:29 | Emergency (ER) | payer MEDICARE ==
[2019-04-09 15:02] VITALS: RESP 18
[2019-04-09] MEDS ORDERED: SODIUM CHLORIDE 0.9% 1,000 ML IV STA (16:32)
[2019-04-09 17:11] LABS: Appearance,Urine Clear (Clear); Bilirubin,Urine Negative (Negative); Blood,Urine Negative (Negative); Color,Urine Yellow; Glucose,Urine (UA) Negative (Negative); Ketones,Urine Negative (Negative); Leukocyte Esterase,Urine Negative (Negative); Nitrite,Urine Negative (Negative); PH, Urine 6.5 (5.0-8.0); Protein,Urine Trace (Negative); Specific Gravity,Urine 1.014 (1.001-1.035)
[2019-04-09 17:14] LABS: Basophils % (A) 0 %; Eosinophils # (A) 0.3 k/uL (0-0.7); Eosinophils % (A) 3 %; HCT 39.3 % (39.0-53.0); HGB 13.4 gm/dL (13.0-17.5); Lymphocytes % (A) 22 %; MCH 30.8 pg (25.0-35.0); MCHC 34.2 g/dL (31.0-37.0); MCV 90.1 fL (80.0-100.0); Mean Platelet Volume 7.4; Monocytes # (A) 0.4 k/uL (0-1.0); Monocytes % (A) 4 %; Neutrophils # (A) 6.2 k/uL (1.3-7.7); Neutrophils % (A) 67 %; Platelet Count 207 k/uL (150-450); RBC 4.37 m/uL (4.30-5.90); RDW 15.8 % (11.5-15.5); WBC 9.1 k/uL (3.8-10.6)
[2019-04-09 17:23] LABS: Albumin 3.9 g/dL (3.5-5.0); Calcium 9.6 mg/dL (8.4-10.2); Potassium 4.4 mmol/L (3.5-5.1); Total Bilirubin 0.3 mg/dL (0.2-1.3); Total Protein 6.5 g/dL (6.3-8.2)
--- NOTE | 2019-04-09 17:27 | XR ---
EXAMINATION TYPE: XR chest 2V DATE OF EXAM: 04/09/2019 COMPARISON: 02/12/2019 HISTORY: Hypotension TECHNIQUE: Frontal and lateral views of the chest are obtained. FINDINGS: Heart and mediastinum are normal. Lungs are clear. There is no pleural effusion. Bony thor ax is intact. There is some curvilinear increased density over the lateral left midlung field that co uld relate to healing rib fracture or unusual pleural thickening. IMPRESSION: Density over the periphery of left midlung is a change compared to old exam. This is lik amie related to healing rib fracture.
[2019-04-09 17:28] LABS: INR 0.9 (<1.2); Partial Thromboplastin Time 25.1 sec (22.0-30.0); Prothrombin Time 9.5 sec (9.0-12.0)
--- NOTE | 2019-04-09 17:49 | ED ---
General Adult HPI - General Chief complaint: Psychiatric Symptoms Stated complaint: low blood pressure/suicidal Time Seen by Provider: 04/09/19 16:16 Source: patient, RN notes reviewed Mode of arrival: ambulatory Limitations: no limitations - History of Present Illness Initial comments: 63-year-old male presents to the emergency department for multiple complaints. Patient states he has felt weak for several months. States he thinks he is overmedicated. States when he takes his amlodipine and atenolol in the morning he starts to get weak and lightheaded. States that his blood pressure goes down at this time. States he has not followed up with his doctor by his home health aide did call today. Patient also feeling suicidal. States he does not have a plan at this time. States he is feeling suicidal because he is in chronic pain.Patient has no other complaints at this time including shortness of breath, chest pain, abdominal pain, nausea or vomiting, headache, or visual changes. - Related Data Home Medications Medication Instructions Recorded Confirmed Atenolol 100 mg PO BID 07/29/17 04/09/19 DULoxetine HCL [Cymbalta] 60 mg PO BID 07/29/17 04/09/19 Esomeprazole Magnesium [NexIUM 20 mg PO DAILY 07/29/17 04/09/19 24Hr] Gabapentin [Neurontin] 300 mg PO BID 07/29/17 04/09/19 Tamsulosin HCl [Flomax] 0.4 mg PO DAILY 07/29/17 04/09/19 Atorvastatin [Lipitor] 20 mg PO DAILY 02/12/19 04/09/19 Baclofen [Lioresal] 20 mg PO BID 04/09/19 04/09/19 Ibuprofen [Advil] 400 mg PO BID 04/09/19 04/09/19 Melatonin 10 mg PO HS 04/09/19 04/09/19 Previous Rx's Medication Instructions Recorded amLODIPine [Norvasc] 10 mg PO DAILY #30 tab 02/18/19 Allergies Allergy/AdvReac Type Severity Reaction Status Date / Time lisinopril Allergy Unknown Verified 04/09/19 16:10 Review of Systems ROS Statement: Those systems with pertinent positive or pertinent negative responses have been documented in the HPI. ROS Other: All systems not noted in ROS Statement are negative. Past Medical History Past Medical History: GERD/Reflux, Hyperlipidemia, Hypertension, Prostate Disorder Additional Past Medical History / Comment(s): ,hx back fx 7 different areas,mult fx to neck, AAA, left hand cellulitis and abscess History of Any Multi-Drug Resistant Organisms: None Reported Past Surgical History: Appendectomy, Hernia Repair, Orthopedic Surgery Additional Past Surgical History / Comment(s): open laparotomy,bone graft rt wrist,lt wrist repair Past Anesthesia/Blood Transfusion Reactions: No Reported Reaction Past Psychological History: Anxiety, Depression Smoking Status: Current every day smoker Past Alcohol Use History: None Reported Past Drug Use History: Marijuana - Past Family History Mother Family Medical History: CVA/TIA Father Family Medical History: Dementia Additional Family Medical History / Comment(s): parkinson's General Exam Limitations: no limitations General appearance: alert, in no apparent distress Head exam: Present: atraumatic, normocephalic, normal inspection Eye exam: Present: normal appearance, PERRL, EOMI. Absent: scleral icterus, conjunctival injection, periorbital swelling ENT exam: Present: normal exam, mucous membranes dry. Absent: mucous membranes moist (Mucous membranes appear dry) Neck exam: Present: normal inspection, full ROM. Absent: tenderness, meningismus, lymphadenopathy Respiratory exam: Present: normal lung sounds bilaterally. Absent: respiratory distress, wheezes, rales, rhonchi, stridor Cardiovascular Exam: Present: regular rate, normal rhythm, normal heart sounds. Absent: systolic murmur, diastolic murmur, rubs, gallop, clicks Neurological exam: Present: alert, oriented X3, CN II-XII intact Psychiatric exam: Present: normal affect, normal mood, suicidal ideation Course Vital Signs 04/09/19 14:58 Temperature 98.8 F Pulse Rate 65 Respiratory 18 Rate Blood Pressure 117/84 O2 Sat by Pulse 98 Oximetry EKG Findings - EKG Comments: EKG Findings:: Normal sinus rhythm, ventricular rate 60, NH interval 150, QTC 396 Medical Decision Making - Medical Decision Making 63-year-old male presents to the emergency department for multiple complaints. States he has felt weak for several months. States that he thinks he is overmedicated. States he only feels weak after taking his amlodipine and atenolol at the same time each morning. States when this happened his blood pre ssure goes down but he is not sure how low it went. States that his visiting nurse wanted him to come be evaluated because of his low blood pressure. Apparently they did contact his doctor about this and he will follow-up for medication adjustment. Patient also suicidal because he has chronic pain. Denies any plan for suicide. Actually states "but I'm not really suicidal." Vitals have been stable, patient is not hypotensive at this time. On exam patient does have somewhat dry mucous membranes, he was given a liter of fluids. CBC CMP are unremarkable. Troponin negative. TSH within normal limits. Urine negative. EKG does not show any ST elevation or depression. Chest x-ray shows a density over the periphery of the left mid lung which is likely related to healing rib fracture. Patient evaluated by EPS due to suicidal thoughts. Patient does not meet inpatient criteria however they will be filing an APS report because patient does not seem like he is caring for himself at home. Did speak with patient's mother about this, she is aware. - Lab Data Result diagrams: 04/09/19 17:01 04/09/19 17:01 Lab Results 04/09/19 04/09/19 04/09/19 Range/Units 16:45 17:01 17:01 WBC 9.1 (3.8-10.6) k/uL RBC 4.37 (4.30-5.90) m/uL Hgb 13.4 (13.0-17.5) gm/dL Hct 39.3 (39.0-53.0) % MCV 90.1 (80.0-100.0) fL MCH 30.8 (25.0-35.0) pg MCHC 34.2 (31.0-37.0) g/dL RDW 15.8 H (11.5-15.5) % Plt Count 207 (150-450) k/uL Neutrophils % 67 % Lymphocytes % 22 % Monocytes % 4 % Eosinophils % 3 % Basophils % 0 % Neutrophils # 6.2 (1.3-7.7) k/uL Lymphocytes # 2.0 (1.0-4.8) k/uL Monocytes # 0.4 (0-1.0) k/uL Eosinophils # 0.3 (0-0.7) k/uL Basophils # 0.0 (0-0.2) k/uL PT (9.0-12.0) sec INR (<1.2) APTT (22.0-30.0) sec Sodium 142 (137-145) mmol/L Potassium 4.4 (3.5-5.1) mmol/L Chloride 112 H (98-107) mmol/L Carbon Dioxide 26 (22-30) mmol/L Anion Gap 4 mmol/L BUN 16 (9-20) mg/dL Creatinine 1.06 (0.66-1.25) mg/dL Est GFR (CKD-EPI)AfAm 87 (>60 ml/min/1.73 sqM) Est GFR (CKD-EPI)NonAf 75 (>60 ml/min/1.73 sqM) Glucose 87 (74-99) mg/dL Calcium 9.6 (8.4-10.2) mg/dL Magnesium 2.0 (1.6-2.3) mg/dL Total Bilirubin 0.3 (0.2-1.3) mg/dL AST 29 (17-59) U/L ALT 22 (21-72) U/L Alkaline Phosphatase 61 (38-126) U/L Troponin I (0.000-0.034) ng/mL Total Protein 6.5 (6.3-8.2) g/dL Albumin 3.9 (3.5-5.0) g/dL TSH 0.926 (0.465-4.680) mIU/L Urine Color Yellow Urine Appearance Clear (Clear) Urine pH 6.5 (5.0-8.0) Ur Specific [place] 1.014 (1.001-1.035) Urine Protein Trace H (Negative) Urine Glucose (UA) Negative (Negative) Urine Ketones Negative (Negative) Urine Blood Negative (Negative) Urine Nitrite Negative (Negative) Urine Bilirubin Negative (Negative) Urine Urobilinogen 2.0 (<2.0) mg/dL Ur Leukocyte Esterase Negative (Negative) 04/09/19 04/09/19 Range/Units 17:01 17:01 WBC (3.8-10.6) k/uL RBC (4.30-5.90) m/uL Hgb (13.0-17.5) gm/dL Hct (39.0-53.0) % MCV (80.0-100.0) fL MCH (25.0-35.0) pg MCHC (31.0-37.0) g/dL RDW (11.5-15.5) % Plt Count (150-450) k/uL Neutrophils % % Lymphocytes % % Monocytes % % Eosinophils % % Basophils % % Neutrophils # (1.3-7.7) k/uL Lymphocytes # (1.0-4.8) k/uL Monocytes # (0-1.0) k/uL Eosinophils # (0-0.7) k/uL Basophils # (0-0.2) k/uL PT 9.5 (9.0-12.0) sec INR 0.9 (<1.2) APTT 25.1 (22.0-30.0) sec Sodium (137-145) mmol/L Potassium (3.5-5.1) mmol/L Chloride (98-107) mmol/L Carbon Dioxide (22-30) mmol/L Anion Gap mmol/L BUN (9-20) mg/dL Creatinine (0.66-1.25) mg/dL Est GFR (CKD-EPI)AfAm (>60 ml/min/1.73 sqM) Est GFR (CKD-EPI)NonAf (>60 ml/min/1.73 sqM) Glucose (74-99) mg/dL Calcium (8.4-10.2) mg/dL Magnesium (1.6-2.3) mg/dL Total Bilirubin (0.2-1.3) mg/dL AST (17-59) U/L ALT (21-72) U/L Alkaline Phosphatase (38-126) U/L Troponin I <0.012 (0.000-0.034) ng/mL Total Protein (6.3-8.2) g/dL Albumin (3.5-5.0) g/dL TSH (0.465-4.680) mIU/L Urine Color Urine Appearance (Clear) Urine pH (5.0-8.0) Ur Specific [place] (1.001-1.035) Urine Protein (Negative) Urine Glucose (UA) (Negative) Urine Ketones (Negative) Urine Blood (Negative) Urine Nitrite (Negative) Urine Bilirubin (Negative) Urine Urobilinogen (<2.0) mg/dL Ur Leukocyte Esterase (Negative) Disposition Clinical Impression: Depression, History of hypotension Disposition: HOME SELF-CARE Condition: Good Instructions (If sedation given, give patient instructions): Depression (ED), Hypotension (ED) Additional Instructions: Please follow up with primary care in 1-2 days. Discussed blood pressure medication adjustment with your doctor. Please return here to the emergency department if you have any worsening symptoms. Is patient prescribed a controlled substance at d/c from ED?: No Referrals: Kathe Yuen MD [Primary Care Provider] - 1-2 days Time of Disposition: 19:38
[2019-04-09 20:28] VITALS: BP 147/99; PULSE 67; TEMP 99.1
== END 2019-04-09 20:27 | disposition home or self-care (01) ==
LOC: EC 14:29
DX: F32.9 Major depressive disorder, single episode, unspecified (principal); Z86.79 Personal history of other diseases of the circulatory system; E78.5 Hyperlipidemia, unspecified; I10 Essential (primary) hypertension; K21.9 Gastro-esophageal reflux disease without esophagitis; F41.9 Anxiety disorder, unspecified; F17.200 Nicotine dependence, unspecified, uncomplicated; Z79.899 Other long term (current) drug therapy; Z88.8 Allergy status to other drugs, medicaments and biological substances
CPT/HCPCS: 36415; 71046; 80053; 81003; 82075; 83735; 84443; 84484; 85025; 85610; 85730; 96360; 96361; 99285

== ENCOUNTER → 2019-09-02 | Outpatient (CLI) | payer MEDICARE ==
--- NOTE | 2019-09-03 11:09 | ECHOF ---
Referral Reason:R06.02 shortness of breath MEASUREMENTS -------- HEIGHT: 170.2 cm WEIGHT: 56.7 kg BP: RVIDd: 3.3 cm (< 3.3) IVSd: 1.4 cm (0.6 - 1.1) LVIDd: 4.4 cm (3.9 - 5.3) LVPWd: 1.3 cm (0.6 - 1.1) IVSs: 1.8 cm LVIDs: 3.2 cm LVPWs: 1.5 cm LA Diam: 3.0 cm (2.7 - 3.8) Ao Diam: 3.2 cm (2.0 - 3.7) AV Cusp: 1.4 cm (1.5 - 2.6) LA Diam: 3.6 cm (2.7 - 3.8) MV EXCURSION: 18.221 mm (> 18.000) MV EF SLOPE: 129 mm/s (70 - 150) EPSS: 0.5 cm MV E Bi: 0.50 m/s MV DecT: 307 ms MV A Bi: 0.59 m/s MV E/A Ratio: 0.85 RAP: 5.00 mmHg RVSP: 34.14 mmHg FINDINGS -------- Sinus rhythm. This was a technically good study. The left ventricular size is normal. There is moderate concentric left ventricular hypertrophy. O verall left ventricular systolic function is normal with, an EF between 55 - 60 %. The right ventricle is normal in size. The left atrial size is normal. The right atrial size is normal. There is mild aortic valve sclerosis. There is no evidence of aortic regurgitation. Mild mitral annular calcification present. Mild mitral regurgitation is present. Mild tricuspid regurgitation present. Right ventricular systolic pressure is normal at < 35 mmHg. There is no evidence of pulmonary hypertension. There is no pulmonic regurgitation present. The aortic root size is normal. There is no pericardial effusion. CONCLUSIONS -------- 1. Sinus rhythm. 2. This was a technically good study. 3. The left ventricular size is normal. 4. There is moderate concentric left ventricular hypertrophy. 5. Overall left ventricular systolic function is normal with, an EF between 55 - 60 %. 6. The right ventricle is normal in size. 7. The left atrial size is normal. 8. The right atrial size is normal. 9. There is mild aortic valve sclerosis. 10. Mild mitral annular calcification present. 11. Mild mitral regurgitation is present. 12. Mild tricuspid regurgitation present. 13. Right ventricular systolic pressure is normal at < 35 mmHg. 14. There is no evidence of pulmonary hypertension. 15. There is no pulmonic regurgitation present. 16. The aortic root size is normal. 17. There is no pericardial effusion. [address] LIGHT: Kala Boyer RDCS
== END | disposition home or self-care (01) ==
LOC: RADECHMAIN 11:20
PROVIDERS: ATTEND Internal Medicine
DX: I08.1 Rheumatic disorders of both mitral and tricuspid valves (principal); R22.43 Localized swelling, mass and lump, lower limb, bilateral
CPT/HCPCS: 93306

== ENCOUNTER 2019-12-10 10:39 | Emergency (ER) | payer MEDICARE ==
[2019-12-10 10:47] VITALS: TEMP 98.1
[2019-12-10] MEDS ORDERED: SODIUM CHLORIDE 0.9% 1,000 ML IV STA ×2 (11:26)
--- NOTE | 2019-12-10 11:38 | ED ---
Recheck HPI - General Chief Complaint: Recheck/Abnormal Lab/Rx Stated Complaint: Hypertenion Time Seen by Provider: 12/10/19 10:54 Source: patient, RN notes reviewed Mode of arrival: ambulatory Limitations: no limitations - History of Present Illness Initial Comments: This is a 64-year-old male with a history of hypertension history depression who was at a local surgical center about 2 year ready for right upper extremity carpal tunnel surgery he was noted have a significantly elevated blood pressure is improved vision or changes headache blood pressure was 190/120. He was sent here for evaluation he does state he is on metoprolol and is on amlodipine he did run out of his amlodipine but he did find a spare bottle so we miss one dose. He's only been eating 1 meal a day he states he has had some weight loss due to this he is a smoker was quit recently denies any alcohol at this time additionally he does state he is feeling somewhat depressed but no suicidal thoughts or ideation. No fevers chills nausea vomiting sweats no other symptoms. Patient does state he has chronic neck pain and chronic headache does get worse with movement nothing new today. MD Complaint: other - Related Data Home Medications Medication Instructions Recorded Confirmed Atenolol 100 mg PO BID 07/29/17 12/10/19 DULoxetine HCL [Cymbalta] 60 mg PO BID 07/29/17 12/10/19 Esomeprazole Magnesium [NexIUM 20 mg PO DAILY 07/29/17 12/10/19 24Hr] Gabapentin [Neurontin] 300 mg PO BID 07/29/17 12/10/19 Tamsulosin HCl [Flomax] 0.4 mg PO DAILY 07/29/17 12/10/19 Baclofen [Lioresal] 20 mg PO BID 04/09/19 12/10/19 Ibuprofen [Advil] 400 mg PO BID 04/09/19 12/10/19 Melatonin 10 mg PO HS 04/09/19 12/10/19 Previous Rx's Medication Instructions Recorded amLODIPine [Norvasc] 10 mg PO DAILY #30 tab 02/18/19 Atenolol 100 mg PO BID #60 tab 12/10/19 amLODIPine [Norvasc] 10 mg PO DAILY #30 tablet 12/10/19 Allergies Allergy/AdvReac Type Severity Reaction Status Date / Time lisinopril Allergy Unknown Verified 12/10/19 10:44 Review of Systems ROS Statement: Those systems with pertinent positive or pertinent negative responses have been documented in the HPI. ROS Other: All systems not noted in ROS Statement are negative. Past Medical History Past Medical History: GERD/Reflux, Hyperlipidemia, Hypertension, Prostate Disorder Additional Past Medical History / Comment(s): ,hx back fx 7 different areas,mult fx to neck, AAA, left hand cellulitis and abscess History of Any Multi-Drug Resistant Organisms: None Reported Past Surgical History: Appendectomy, Hernia Repair, Orthopedic Surgery Additional Past Surgical History / Comment(s): open laparotomy,bone graft rt wrist,lt wrist repair Past Anesthesia/Blood Transfusion Reactions: No Reported Reaction Past Psychological History: Anxiety, Depression Smoking Status: Current some day smoker Past Alcohol Use History: None Reported Past Drug Use History: Marijuana - Past Family History Mother Family Medical History: CVA/TIA Father Family Medical History: Dementia Additional Family Medical History / Comment(s): parkinson's General Exam - General Exam Comments Initial Comments: This a well-developed sec appearing male who is awake alert oriented 3 Limitations: no limitations General appearance: alert, anxious Head exam: Present: atraumatic, normocephalic, normal inspection Eye exam: Present: normal appearance, PERRL, EOMI. Absent: scleral icterus, conjunctival injection, periorbital swelling ENT exam: Present: mucous membranes dry Neck exam: Present: normal inspection, tenderness (Tenderness palpation over the paraspinous muscles no definite midline tenderness. The tenderness does extend up into the occipital scalp this is chronic pain palpation reproduces the patient's headache and chronic pain.), full ROM. Absent: meningismus, lymphadenopathy Respiratory exam: Present: normal lung sounds bilaterally. Absent: respiratory distress, wheezes, rales, rhonchi, stridor Cardiovascular Exam: Present: regular rate, normal rhythm, normal heart sounds. Absent: systolic murmur, diastolic murmur, rubs, gallop, clicks GI/Abdominal exam: Present: soft, normal bowel sounds. Absent: distended, tenderness, guarding, rebound, rigid Extremities exam: Present: normal inspection, full ROM, normal capillary refill. Absent: tenderness, pedal edema, joint swelling, calf tenderness Back exam: Present: normal inspection Neurological exam: Present: alert, oriented X3, CN II-XII intact Psychiatric exam: Present: normal affect, normal mood Skin exam: Present: warm, dry, intact, normal color. Absent: rash Course Vital Signs 12/10/19 12/10/19 12/10/19 10:45 14:31 15:40 Temperature 98.1 F Pulse Rate 90 97 89 Respiratory 18 19 17 Rate Blood Pressure 178/133 174/113 142/105 O2 Sat by Pulse 100 100 98 Oximetry Medical Decision Making - Medical Decision Making Patient was reevaluated on multiple occasions. Patient to responded to medication he is feeling back to normal. He will be discharged I will refill his medications he still has the issues with incontinence or urgency which she's had since his hernia repair. This time no further inpatient/year workup is ind icated he will be discharged with follow-up with his doctor he also be referred to vascular surgery. - Lab Data Result diagrams: 12/10/19 10:45 12/10/19 10:45 Lab Results 12/10/19 12/10/19 12/10/19 Range/Units 10:45 10:45 10:45 WBC 7.0 (3.8-10.6) k/uL RBC 4.42 (4.30-5.90) m/uL Hgb 13.4 (13.0-17.5) gm/dL Hct 40.9 (39.0-53.0) % MCV 92.5 (80.0-100.0) fL MCH 30.4 (25.0-35.0) pg MCHC 32.9 (31.0-37.0) g/dL RDW 14.4 (11.5-15.5) % Plt Count 288 (150-450) k/uL Neutrophils % 74 % Lymphocytes % 14 % Monocytes % 5 % Eosinophils % 4 % Basophils % 1 % Neutrophils # 5.1 (1.3-7.7) k/uL Lymphocytes # 1.0 (1.0-4.8) k/uL Monocytes # 0.4 (0-1.0) k/uL Eosinophils # 0.3 (0-0.7) k/uL Basophils # 0.0 (0-0.2) k/uL D-Dimer 1.53 H (<0.60) mg/L FEU Sodium 139 (137-145) mmol/L Potassium 4.1 (3.5-5.1) mmol/L Chloride 105 (98-107) mmol/L Carbon Dioxide 24 (22-30) mmol/L Anion Gap 10 mmol/L BUN 11 (9-20) mg/dL Creatinine 0.76 (0.66-1.25) mg/dL Est GFR (CKD-EPI)AfAm >90 (>60 ml/min/1.73 sqM) Est GFR (CKD-EPI)NonAf >90 (>60 ml/min/1.73 sqM) Glucose 93 (74-99) mg/dL Calcium 9.3 (8.4-10.2) mg/dL Magnesium 2.0 (1.6-2.3) mg/dL Total Bilirubin 0.5 (0.2-1.3) mg/dL AST 28 (17-59) U/L ALT 17 (4-49) U/L Alkaline Phosphatase 75 (38-126) U/L Creatine Kinase 102 (55-170) U/L Troponin I (0.000-0.034) ng/mL Total Protein 7.1 (6.3-8.2) g/dL Albumin 4.1 (3.5-5.0) g/dL Lipase 73 (23-300) U/L Urine Color Urine Appearance (Clear) Urine pH (5.0-8.0) Ur Specific [place] (1.001-1.035) Urine Protein (Negative) Urine Glucose (UA) (Negative) Urine Ketones (Negative) Urine Blood (Negative) Urine Nitrite (Negative) Urine Bilirubin (Negative) Urine Urobilinogen (<2.0) mg/dL Ur Leukocyte Esterase (Negative) 12/10/19 12/10/19 Range/Units 10:45 13:10 WBC (3.8-10.6) k/uL RBC (4.30-5.90) m/uL Hgb (13.0-17.5) gm/dL Hct (39.0-53.0) % MCV (80.0-100.0) fL MCH (25.0-35.0) pg MCHC (31.0-37.0) g/dL RDW (11.5-15.5) % Plt Count (150-450) k/uL Neutrophils % % Lymphocytes % % Monocytes % % Eosinophils % % Basophils % % Neutrophils # (1.3-7.7) k/uL Lymphocytes # (1.0-4.8) k/uL Monocytes # (0-1.0) k/uL Eosinophils # (0-0.7) k/uL Basophils # (0-0.2) k/uL D-Dimer (<0.60) mg/L FEU Sodium (137-145) mmol/L Potassium (3.5-5.1) mmol/L Chloride (98-107) mmol/L Carbon Dioxide (22-30) mmol/L Anion Gap mmol/L BUN (9-20) mg/dL Creatinine (0.66-1.25) mg/dL Est GFR (CKD-EPI)AfAm (>60 ml/min/1.73 sqM) Est GFR (CKD-EPI)NonAf (>60 ml/min/1.73 sqM) Glucose (74-99) mg/dL Calcium (8.4-10.2) mg/dL Magnesium (1.6-2.3) mg/dL Total Bilirubin (0.2-1.3) mg/dL AST (17-59) U/L ALT (4-49) U/L Alkaline Phosphatase (38-126) U/L Creatine Kinase (55-170) U/L Troponin I <0.012 (0.000-0.034) ng/mL Total Protein (6.3-8.2) g/dL Albumin (3.5-5.0) g/dL Lipase (23-300) U/L Urine Color Light Yellow Urine Appearance Clear (Clear) Urine pH 7.5 (5.0-8.0) Ur Specific [place] 1.009 (1.001-1.035) Urine Protein Negative (Negative) Urine Glucose (UA) Negative (Negative) Urine Ketones Negative (Negative) Urine Blood Negative (Negative) Urine Nitrite Negative (Negative) Urine Bilirubin Negative (Negative) Urine Urobilinogen <2.0 (<2.0) mg/dL Ur Leukocyte Esterase Negative (Negative) - EKG Data -: EKG Interpreted by Me EKG shows normal: sinus rhythm EKG Comments: EKG shows normal sinus rhythm of 82 [place] interval 138 QRS duration 82 QT since QTC 370/[address]-T wave changes this is compared to an EKG dated 04/09/19 showing similar configuration's. - Radiology Data Radiology results: report reviewed (I did review the imaging and report evidence of aortic aneurysm no evidence of any bleeding or leaking at this time.), image reviewed Disposition Clinical Impression: Accelerated hypertension, Dehydration, Aortic aneurysm Disposition: HOME SELF-CARE Condition: Good Instructions (If sedation given, give patient instructions): Hypertension (ED), Dehydration (ED), Thoracic Aortic Aneurysm (ED) Additional Instructions: Medication prescriptions sent to your preferred [facility] pharmacy Prescriptions: Atenolol 100 mg PO BID #60 tab amLODIPine [Norvasc] 10 mg PO DAILY #30 tablet Is patient prescribed a controlled substance at d/c from ED?: No Referrals: None,Stated [Primary Care Provider] - 1-2 days Katharine Harrington DO [STAFF PHYSICIAN] - 1-2 days Jae Jackson [STAFF PHYSICIAN] - 1-2 days
[2019-12-10 11:41] LABS: Basophils % (A) 1 %; Eosinophils # (A) 0.3 k/uL (0-0.7); Eosinophils % (A) 4 %; HCT 40.9 % (39.0-53.0); HGB 13.4 gm/dL (13.0-17.5); Lymphocytes % (A) 14 %; MCH 30.4 pg (25.0-35.0); MCHC 32.9 g/dL (31.0-37.0); MCV 92.5 fL (80.0-100.0); Mean Platelet Volume 6.9; Monocytes # (A) 0.4 k/uL (0-1.0); Monocytes % (A) 5 %; Neutrophils # (A) 5.1 k/uL (1.3-7.7); Neutrophils % (A) 74 %; Platelet Count 288 k/uL (150-450); RBC 4.42 m/uL (4.30-5.90); RDW 14.4 % (11.5-15.5)
--- NOTE | 2019-12-10 11:50 | XR ---
EXAMINATION TYPE: XR chest 2V DATE OF EXAM: 12/10/2019 COMPARISON: 04/09/2019 HISTORY: Uncontrolled hypertension. Chest pain. TECHNIQUE: Frontal and lateral views of the chest are obtained. FINDINGS: There is no focal air space opacity, pleural effusion, or pneumothorax seen. Prominence of the main pulmonary arteries can be seen in pulmonary arterial hypertension. The upper mediastinum is enlarged but similar to the prior. Tortuosity of the descending thoracic aorta is seen in the retroc ardiac airspace. The cardiac silhouette size is within normal limits. Partial visualization of cerv ical fusion. The osseous structures are intact. Moderate multilevel degenerative change of the spine. IMPRESSION: Stable superior mediastinal widening and prominence of the main pulmonary arteries. Find ings may be on the basis of thoracic aneurysm or thoracic unfolding and suggests underlying pulmonary arterial hypertension.
[2019-12-10 11:53] LABS: ALT 17 U/L (4-49); AST 28 U/L (17-59); African American GFR (CKD) >90 (>60 ml/min/1.73 sqM); Albumin 4.1 g/dL (3.5-5.0); Alkaline Phosphatase 75 U/L (38-126); Anion Gap 10 mmol/L; Blood Urea Nitrogen 11 mg/dL (9-20); Calcium 9.3 mg/dL (8.4-10.2); Carbon Dioxide 24 mmol/L (22-30); Chloride 105 mmol/L (98-107); Creatine Kinase 102 U/L (55-170); Glucose 93 mg/dL (74-99); Non-African American GFR(CKD) >90 (>60 ml/min/1.73 sqM); Potassium 4.1 mmol/L (3.5-5.1); Sodium 139 mmol/L (137-145); Total Bilirubin 0.5 mg/dL (0.2-1.3); Total Protein 7.1 g/dL (6.3-8.2)
[2019-12-10] MEDS ORDERED: HYDROmorphone 1 MG/ML 1 ML SYRINGE IVP STA (12:06)
[2019-12-10] MEDS ORDERED: METOPROLOL TARTRATE 5 MG/5 ML VIAL IVP STA ×2 (12:06→14:33)
[2019-12-10 13:30] LABS: Appearance,Urine Clear (Clear); Bilirubin,Urine Negative (Negative); Blood,Urine Negative (Negative); Color,Urine Light Yellow; Glucose,Urine (UA) Negative (Negative); Ketones,Urine Negative (Negative); Leukocyte Esterase,Urine Negative (Negative); Nitrite,Urine Negative (Negative); PH, Urine 7.5 (5.0-8.0); Protein,Urine Negative (Negative); Specific Gravity,Urine 1.009 (1.001-1.035); Urobilinogen,Urine <2.0 mg/dL (<2.0)
--- NOTE | 2019-12-10 14:49 | CT ---
EXAMINATION TYPE: CT angio thor/abd pel aorta DATE OF EXAM: 12/10/2019 COMPARISON: None HISTORY: Elevated d-dimer with widened mediastinum. hypertensive CT DLP: 1130.7 mGycm CONTRAST: CTA thoracic and abdominal aorta with 3-D reconstruction is performed and without and with IV Contras t, patient injected with 100 mL of Isovue 370. Contrast CTA of the thoracic and abdominal aorta was performed from the lung apex through the base of the pelvis. 3-D reconstruction imaging obtained at a separate workstation. CT Chest: THORACIC AORTA: Mild ascending thoracic aortic aneurysm measuring 4.1 cm in AP dimension. Saccular an eurysm noted on lateral wall of the descending thoracic aorta just distal to the aortic arch measurin g 2.2 x 1.3 cm. No dissection or mediastinal hematoma. Mild atheromatous changes are seen. LUNGS: The lungs are clear and free of infiltrate or atelectasis. No pulmonary nodule or mass is det ected. No pleural effusion or CT evidence of interstitial lung disease. MEDIASTINUM: No evidence for pulmonary embolism. Mild cardiomegaly No evidence for mediastinal mass o r adenopathy. A hiatal hernia noted. HILAR STRUCTURES: No evidence for mass. No hilar adenopathy is appreciated. OTHER: No significant abnormality. CONTRAST CT ABDOMEN AND PELVIS ABDOMINAL AORTA: Infrarenal abdominal aortic aneurysm with mural thrombus noted measuring 5 cm AP dim ension. Aneurysm extends to the level of the bifurcation. Iliacs are ectatic and atheromatous without occlusive change. Common femoral arteries are patent bilaterally. On the left and there is occlusion of the left common femoral artery with patent upper fundus of femoris. . LIVER/GB- No significant abnormality is seen. PANCREAS- No significant abnormality is seen. SPLEEN- No significant abnormality is seen. ADRENALS- No significant abnormality is seen. KIDNEYS/BLADDER- No significant abnormality is seen. BOWEL- No Significant abnormality GENITAL ORGANS: No gross abnormality seen. LYMPH NODES- No greater than 1cm abdominal or pelvic lymph nodes areappreciated. OSSEOUS STRUCTURES- No significant abnormality is seen. OTHER- No significant abnormality is seen. IMPRESSION- 1. Saccular aneurysm of proximal descending thoracic aorta without complicating factor. There is also ascending thoracic aortic aneurysm. 2. Infrarenal abdominal aortic aneurysm extending to the level of the bifurcation. 3. 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
[2019-12-10] MEDS ORDERED: hydrALAZINE HCL 20 MG/ML 1 ML VIAL IVP STA (15:08)
[2019-12-10 15:40] VITALS: PULSE 89; RESP 17
[2019-12-10 16:29] VITALS: BP 162/95
== END 2019-12-10 16:38 | disposition home or self-care (01) ==
LOC: EC 10:39
DX: E86.0 Dehydration (principal); I71.2 Thoracic aortic aneurysm, without rupture; I10 Essential (primary) hypertension; F32.9 Major depressive disorder, single episode, unspecified; G89.29 Other chronic pain; M54.2 Cervicalgia; K21.9 Gastro-esophageal reflux disease without esophagitis; E78.5 Hyperlipidemia, unspecified; Z98.890 Other specified postprocedural states; Z79.899 Other long term (current) drug therapy; Z79.1 Long term (current) use of non-steroidal anti-inflammatories (NSAID); Z88.8 Allergy status to other drugs, medicaments and biological substances
CPT/HCPCS: 99284; 96374; 96375 ×2; 96376; 96361 ×5; 36415; 93005; 85379; 80053; 82550; 83690; 83735; 84484; 85025; 81003; 71046; 71275; 74174; J0360; J1170; Q9967

== ENCOUNTER 2020-11-24 18:30 | Inpatient (IN) | payer MEDICARE ==
[2020-11-24] MEDS ORDERED: SODIUM CHLORIDE 0.9% 1,000 ML IV ONE ×2 (18:38→22:43)
[2020-11-24] MEDS ORDERED: LORazepam 2 MG/ML INJ IV STA (18:40)
[2020-11-24] MEDS ORDERED: MORPHINE SULFATE 4 MG/ML SYRINGE IVP STA (18:40)
[2020-11-24] MEDS ORDERED: DEXTROSE 50% SYRINGE 50 ML IVP STA (18:44)
[2020-11-24 18:46] LABS: Glucose,Whole Blood 53 mg/dL (75-99)
[2020-11-24 18:58] LABS: Chloride 105 mmol/L (98-107)
[2020-11-24 19:01] LABS: ALT 25 U/L (4-49); AST 71 U/L (17-59); African American GFR (CKD) 24 (>60 ml/min/1.73 sqM); Albumin 2.9 g/dL (3.5-5.0); Alcohol <10 mg/dL; Alkaline Phosphatase 126 U/L (38-126); Anion Gap 14 mmol/L; Blood Urea Nitrogen 77 mg/dL (9-20); Calcium 7.6 mg/dL (8.4-10.2); Carbon Dioxide 17 mmol/L (22-30); Creatine Kinase 877 U/L (55-170); Non-African American GFR(CKD) 21 (>60 ml/min/1.73 sqM); Potassium 5.5 mmol/L (3.5-5.1); Sodium 136 mmol/L (137-145); Total Bilirubin 0.7 mg/dL (0.2-1.3); Total Protein 5.8 g/dL (6.3-8.2)
[2020-11-24 19:03] LABS: Glucose,Whole Blood 172 mg/dL (75-99)
[2020-11-24 19:03] LABS: Glucose,Whole Blood 48 mg/dL (75-99)
[2020-11-24 19:11] LABS: INR 0.9 (<1.2); Partial Thromboplastin Time 25.9 sec (22.0-30.0); Prothrombin Time 10.1 sec (9.0-12.0)
[2020-11-24 19:12] LABS: Appearance,Urine Clear (Clear); Bacteria,Urine Rare /hpf; Bilirubin,Urine Negative (Negative); Blood,Urine Large (Negative); Color,Urine Yellow; Glucose,Urine (UA) Negative (Negative); Hyaline Casts,Urine 3 /lpf (0-2); Ketones,Urine 1+ (Negative); Leukocyte Esterase,Urine Negative (Negative); Mucus,Urine Rare /hpf; Nitrite,Urine Negative (Negative); PH, Urine 5.5 (5.0-8.0); Protein,Urine 1+ (Negative); Specific Gravity,Urine 1.016 (1.001-1.035); Urobilinogen,Urine <2.0 mg/dL (<2.0); WBC,Urine 2 /hpf (0-5)
[2020-11-24 19:13] LABS: Glucose 45 mg/dL (74-99)
[2020-11-24 19:17] LABS: Anisocytosis Slight; HCT 32.7 % (39.0-53.0); HGB 10.1 gm/dL (13.0-17.5); Hypochromasia Slight; MCH 28.3 pg (25.0-35.0); MCHC 30.9 g/dL (31.0-37.0); MCV 91.5 fL (80.0-100.0); Mean Platelet Volume 7.7; Platelet Count 408 k/uL (150-450); RBC 3.57 m/uL (4.30-5.90); RDW 16.9 % (11.5-15.5); WBC 24.3 k/uL (3.8-10.6)
[2020-11-24 19:19] LABS: Amphetamine Screen,Urine Detected (NotDetected); Barbiturate Screen,Urine Not Detected (NotDetected); Benzodiazepines Screen,Urine Not Detected (NotDetected); Cocaine Screen,Urine Not Detected (NotDetected); Methadone Screen, Urine Not Detected (NotDetected); Opiate Screen,Urine Not Detected (NotDetected); Oxycodone Screen, Urine Not Detected (NotDetected); Phencyclidine Screen,Urine Not Detected (NotDetected); Tricyclic Antidepressant,Urine Not Detected (NotDetected); Urn Cannabinoid Scrn Detected (NotDetected)
--- NOTE | 2020-11-24 19:20 | XR ---
EXAMINATION TYPE: XR chest 1V portable DATE OF EXAM: 11/24/2020 COMPARISON: NONE HISTORY: Altered mental status. TECHNIQUE: Single frontal view of the chest is obtained. FINDINGS: There is mild prominence of interstitial and vascular markings. No focal air space opacity , pleural effusion, or pneumothorax seen. The cardiac silhouette size is within normal limits. The osseous structures are without acute abnormality. Cervical spine fusion seen. IMPRESSION: Mild interstitial edema/atelectasis.
--- NOTE | 2020-11-24 19:21 | XR ---
RESULT: HISTORY: pain TECHNIQUE: AP view of the pelvis was obtained. COMPARISON: None. FINDINGS: There is no acute fracture or dislocation. There are moderate degenerative changes of the bilateral h ips. The sacroiliac joints are patent. Atherosclerotic calcifications are seen. IMPRESSION: No acute osseous abnormality.
--- NOTE | 2020-11-24 19:46 | CT ---
EXAMINATION TYPE: CT brain carmela shelely con DATE OF EXAM: 11/24/2020 COMPARISON: None available. HISTORY: ams CT DLP: 1385.4 mGycm Automated exposure control for dose reduction was used. TECHNIQUE: CT scan of the head and cervical spine are performed without contrast. FINDINGS: There is no acute intracranial hemorrhage, mass effect, or midline shift identified. The ventricles and sulci are within normal limits in size. The globes are intact and the visualized sin uses are clear. Cervical spine is visualized in its entirety from C1 through upper thoracic levels and demonstrates s atisfactory alignment without evidence of acute fracture or dislocation. Prevertebral soft tissue ap pears within normal limits. The C1-C2 articulation is unremarkable. C3-C6 ACDF and chronic moderate to marked C6 compression deformity noted. There is multilevel severe cervical spondylosis. IMPRESSION: 1. There is no acute fracture or dislocation evident in the cervical spine. 2. No acute intracranial hemorrhage, mass effect, or midline shift is seen.
[2020-11-24 19:55] LABS: Band Neutrophils % 12 %; Lymphocytes # (M) 1.46 k/uL (1.0-4.8); Monocytes # (M) 0.24 k/uL (0-1.0); Neutrophils % (M) 81 %; Nucleated Red Blood Cells 0 /100 WBC (0-0); Total Cells Counted 100
--- NOTE | 2020-11-24 19:59 | ED ---
Altered Mental Status HPI - General Chief Complaint: Altered Mental Status Stated Complaint: Altered Time Seen by Provider: 11/24/20 18:31 Source: EMS Mode of arrival: EMS Limitations: no limitations - History of Present Illness Initial Comments: Patient presents with altered mental status. He is acting bizarrely, does have a psychiatric history. He is not complaining of any chest pain. He complains of weakness. According to EMS he was found down. He is awake and talking, but appears disoriented. He has no nausea or vomiting. He has no obvious injuries. He moves all extremities. He has no facial asymmetry. According to EMS he was last heard from a day ago. Family called for assistance. - Related Data Home Medications Medication Instructions Recorded Confirmed DULoxetine HCL [Cymbalta] 60 mg PO BID 07/29/17 12/10/19 Esomeprazole Magnesium [NexIUM 20 mg PO DAILY 07/29/17 12/10/19 24Hr] Gabapentin [Neurontin] 300 mg PO BID 07/29/17 12/10/19 Tamsulosin HCl [Flomax] 0.4 mg PO DAILY 07/29/17 12/10/19 atenoloL [Atenolol] 100 mg PO BID 07/29/17 12/10/19 Baclofen [Lioresal] 20 mg PO BID 04/09/19 12/10/19 Ibuprofen [Advil] 400 mg PO BID 04/09/19 12/10/19 Melatonin 10 mg PO HS 04/09/19 12/10/19 Previous Rx's Medication Instructions Recorded amLODIPine [Norvasc] 10 mg PO DAILY #30 tab 02/18/19 amLODIPine [Norvasc] 10 mg PO DAILY #30 tablet 12/10/19 atenoloL [Atenolol] 100 mg PO BID #60 tab 12/10/19 Allergies Allergy/AdvReac Type Severity Reaction Status Date / Time lisinopril Allergy Unknown Verified 11/24/20 18:41 Review of Systems ROS Statement: Those systems with pertinent positive or pertinent negative responses have been documented in the HPI. ROS Other: All systems not noted in ROS Statement are negative. Past Medical History Past Medical History: GERD/Reflux, Hyperlipidemia, Hypertension, Prostate Disorder Additional Past Medical History / Comment(s): ,hx back fx 7 different areas,mult fx to neck, AAA, left hand cellulitis and abscess History of Any Multi-Drug Resistant Organisms: None Reported Past Surgical History: Appendectomy, Hernia Repair, Orthopedic Surgery Additional Past Surgical History / Comment(s): open laparotomy,bone graft rt wrist,lt wrist repair Past Anesthesia/Blood Transfusion Reactions: No Reported Reaction Past Psychological History: Anxiety, Depression Smoking Status: Current every day smoker Past Alcohol Use History: None Reported Past Drug Use History: Marijuana - Past Family History Mother Family Medical History: CVA/TIA Father Family Medical History: Dementia Additional Family Medical History / Comment(s): parkinson's General Exam Limitations: altered mental status General appearance: alert, anxious Head exam: Present: atraumatic Eye exam: Present: normal appearance ENT exam: Present: mucous membranes dry Neck exam: Present: normal inspection. Absent: tenderness, meningismus Respiratory exam: Present: normal lung sounds bilaterally. Absent: respiratory distress Cardiovascular Exam: Present: tachycardia GI/Abdominal exam: Present: soft. Absent: distended, tenderness exam: Present: normal inspection. Absent: testicular tenderness, scrotal swelling Extremities exam: Present: normal capillary refill. Absent: tenderness, pedal edema Back exam: Absent: tenderness, CVA tenderness (R) Neurological exam: Present: alert, other (disoriented) Psychiatric exam: Present: agitated, anxious Skin exam: Present: warm, dry Course Vital Signs 11/24/20 11/24/20 18:36 19:38 Temperature 97.7 F Pulse Rate 78 77 Respiratory 24 20 Rate Blood Pressure 97/86 105/65 O2 Sat by Pulse 100 96 Oximetry Medical Decision Making - Medical Decision Making Patient presented with altered mental status. He seems disoriented. CT head and neck are negative. Chest and pelvis x-rays are negative as well. Laboratory studies show rhabdomyolysis and acute kidney injury. I ordered IV fluids. I will consult nephrology. Patient will be admitted to the hospital. - Lab Data Result diagrams: 11/24/20 18:48 11/24/20 18:48 Lab Results 11/24/20 11/24/20 11/24/20 Range/Units 18:43 18:48 18:48 WBC 24.3 H (3.8-10.6) k/uL RBC 3.57 L (4.30-5.90) m/uL Hgb 10.1 L (13.0-17.5) gm/dL Hct 32.7 L (39.0-53.0) % MCV 91.5 (80.0-100.0) fL MCH 28.3 (25.0-35.0) pg MCHC 30.9 L (31.0-37.0) g/dL RDW 16.9 H (11.5-15.5) % Plt Count 408 (150-450) k/uL MPV 7.7 Neutrophils % (Manual) 81 % Band Neuts % (Manual) 12 % Lymphocytes % (Manual) 6 % Monocytes % (Manual) 1 % Neutrophils # (Manual) 22.50 H (1.3-7.7) k/uL Lymphocytes # (Manual) 1.46 (1.0-4.8) k/uL Monocytes # (Manual) 0.24 (0-1.0) k/uL Nucleated RBCs 0 (0-0) /100 WBC Manual Slide Review Performed Hypochromasia Slight Anisocytosis Slight PT 10.1 (9.0-12.0) sec INR 0.9 (<1.2) APTT 25.9 (22.0-30.0) sec Sodium (137-145) mmol/L Potassium (3.5-5.1) mmol/L Chloride (98-107) mmol/L Carbon Dioxide (22-30) mmol/L Anion Gap mmol/L BUN (9-20) mg/dL Creatinine (0.66-1.25) mg/dL Est GFR (CKD-EPI)AfAm (>60 ml/min/1.73 sqM) Est GFR (CKD-EPI)NonAf (>60 ml/min/1.73 sqM) Glucose (74-99) mg/dL POC Glucose (mg/dL) 53 L (75-99) mg/dL POC Glu [employer] Representative ID Allie Eduardo Calcium (8.4-10.2) mg/dL Total Bilirubin (0.2-1.3) mg/dL AST (17-59) U/L ALT (4-49) U/L Alkaline Phosphatase (38-126) U/L Ammonia (<30) umol/L Creatine Kinase (55-170) U/L Troponin I (0.000-0.034) ng/mL Total Protein (6.3-8.2) g/dL Albumin (3.5-5.0) g/dL Urine Color Urine Appearance (Clear) Urine pH (5.0-8.0) Ur Specific [place] (1.001-1.035) Urine Protein (Negative) Urine Glucose (UA) (Negative) Urine Ketones (Negative) Urine Blood (Negative) Urine Nitrite (Negative) Urine Bilirubin (Negative) Urine Urobilinogen (<2.0) mg/dL Ur Leukocyte Esterase (Negative) Urine WBC (0-5) /hpf Urine Bacteria (None) /hpf Hyaline Casts (0-2) /lpf Urine Mucus (None) /hpf Urine Opiates Screen (NotDetected) Ur Oxycodone Screen (NotDetected) Urine Methadone Screen (NotDetected) Ur Propoxyphene Screen (NotDetected) Ur Barbiturates Screen (NotDetected) U Tricyclic Antidepress (NotDetected) Ur Phencyclidine Scrn (NotDetected) Ur Amphetamines Screen (NotDetected) U Methamphetamines Scrn (NotDetected) U Benzodiazepines Scrn (NotDetected) Urine Cocaine Screen (NotDetected) U Marijuana (THC) Screen (NotDetected) Serum Alcohol mg/dL 11/24/20 11/24/20 11/24/20 Range/Units 18:48 18:48 18:48 WBC (3.8-10.6) k/uL RBC (4.30-5.90) m/uL Hgb (13.0-17.5) gm/dL Hct (39.0-53.0) % MCV (80.0-100.0) fL MCH (25.0-35.0) pg MCHC (31.0-37.0) g/dL RDW (11.5-15.5) % Plt Count (150-450) k/uL MPV Neutrophils % (Manual) % Band Neuts % (Manual) % Lymphocytes % (Manual) % Monocytes % (Manual) % Neutrophils # (Manual) (1.3-7.7) k/uL Lymphocytes # (Manual) (1.0-4.8) k/uL Monocytes # (Manual) (0-1.0) k/uL Nucleated RBCs (0-0) /100 WBC Manual Slide Review Hypochromasia Anisocytosis PT (9.0-12.0) sec INR (<1.2) APTT (22.0-30.0) sec Sodium 136 L (137-145) mmol/L Potassium 5.5 H (3.5-5.1) mmol/L Chloride 105 (98-107) mmol/L Carbon Dioxide 17 L (22-30) mmol/L Anion Gap 14 mmol/L BUN 77 H (9-20) mg/dL Creatinine 3.00 H (0.66-1.25) mg/dL Est GFR (CKD-EPI)AfAm 24 (>60 ml/min/1.73 sqM) Est GFR (CKD-EPI)NonAf 21 (>60 ml/min/1.73 sqM) Glucose 45 L* (74-99) mg/dL POC Glucose (mg/dL) (75-99) mg/dL POC Glu [employer] Sales Representative ID Calcium 7.6 L (8.4-10.2) mg/dL Total Bilirubin 0.7 (0.2-1.3) mg/dL AST 71 H (17-59) U/L ALT 25 (4-49) U/L Alkaline Phosphatase 126 (38-126) U/L Ammonia 18 (<30) umol/L Creatine Kinase 877 H (55-170) U/L Troponin I <0.012 (0.000-0.034) ng/mL Total Protein 5.8 L (6.3-8.2) g/dL Albumin 2.9 L (3.5-5.0) g/dL Urine Color Urine Appearance (Clear) Urine pH (5.0-8.0) Ur Specific [place] (1.001-1.035) Urine Protein (Negative) Urine Glucose (UA) (Negative) Urine Ketones (Negative) Urine Blood (Negative) Urine Nitrite (Negative) Urine Bilirubin (Negative) Urine Urobilinogen (<2.0) mg/dL Ur Leukocyte Esterase (Negative) Urine WBC (0-5) /hpf Urine Bacteria (None) /hpf Hyaline Casts (0-2) /lpf Urine Mucus (None) /hpf Urine Opiates Screen (NotDetected) Ur Oxycodone Screen (NotDetected) Urine Methadone Screen (NotDetected) Ur Propoxyphene Screen (NotDetected) Ur Barbiturates Screen (NotDetected) U Tricyclic Antidepress (NotDetected) Ur Phencyclidine Scrn (NotDetected) Ur Amphetamines Screen (NotDetected) U Methamphetamines Scrn (NotDetected) U Benzodiazepines Scrn (NotDetected) Urine Cocaine Screen (NotDetected) U Marijuana (THC) Screen (NotDetected) Serum Alcohol <10 mg/dL 11/24/20 11/24/20 11/24/20 Range/Units 19:00 19:00 19:01 WBC (3.8-10.6) k/uL RBC (4.30-5.90) m/uL Hgb (13.0-17.5) gm/dL Hct (39.0-53.0) % MCV (80.0-100.0) fL MCH (25.0-35.0) pg MCHC (31.0-37.0) g/dL RDW (11.5-15.5) % Plt Count (150-450) k/uL MPV Neutrophils % (Manual) % Band Neuts % (Manual) % Lymphocytes % (Manual) % Monocytes % (Manual) % Neutrophils # (Manual) (1.3-7.7) k/uL Lymphocytes # (Manual) (1.0-4.8) k/uL Monocytes # (Manual) (0-1.0) k/uL Nucleated RBCs (0-0) /100 WBC Manual Slide Review Hypochromasia Anisocytosis PT (9.0-12.0) sec INR (<1.2) APTT (22.0-30.0) sec Sodium (137-145) mmol/L Potassium (3.5-5.1) mmol/L Chloride (98-107) mmol/L Carbon Dioxide (22-30) mmol/L Anion Gap mmol/L BUN (9-20) mg/dL Creatinine (0.66-1.25) mg/dL Est GFR (CKD-EPI)AfAm (>60 ml/min/1.73 sqM) Est GFR (CKD-EPI)NonAf (>60 ml/min/1.73 sqM) Glucose (74-99) mg/dL POC Glucose (mg/dL) 48 L 172 H (75-99) mg/dL POC Glu [employer] Representative Allie Schafer Danielle Calcium (8.4-10.2) mg/dL Total Bilirubin (0.2-1.3) mg/dL AST (17-59) U/L ALT (4-49) U/L Alkaline Phosphatase (38-126) U/L Ammonia (<30) umol/L Creatine Kinase (55-170) U/L Troponin I (0.000-0.034) ng/mL Total Protein (6.3-8.2) g/dL Albumin (3.5-5.0) g/dL Urine Color Yellow Urine Appearance Clear (Clear) Urine pH 5.5 (5.0-8.0) Ur Specific [place] 1.016 (1.001-1.035) Urine Protein 1+ H (Negative) Urine Glucose (UA) Negative (Negative) Urine Ketones 1+ H (Negative) Urine Blood Large H (Negative) Urine Nitrite Negative (Negative) Urine Bilirubin Negative (Negative) Urine Urobilinogen <2.0 (<2.0) mg/dL Ur Leukocyte Esterase Negative (Negative) Urine WBC 2 (0-5) /hpf Urine Bacteria Rare H (None) /hpf Hyaline Casts 3 H (0-2) /lpf Urine Mucus Rare H (None) /hpf Urine Opiates Screen Not Detected (NotDetected) Ur Oxycodone Screen Not Detected (NotDetected) Urine Methadone Screen Not Detected (NotDetected) Ur Propoxyphene Screen Not Detected (NotDetected) Ur Barbiturates Screen Not Detected (NotDetected) U Tricyclic Antidepress Not Detected (NotDetected) Ur Phencyclidine Scrn Not Detected (NotDetected) Ur Amphetamines Screen Detected H (NotDetected) U Methamphetamines Scrn Detected H (NotDetected) U Benzodiazepines Scrn Not Detected (NotDetected) Urine Cocaine Screen Not Detected (NotDetected) U Marijuana (THC) Screen Detected H (NotDetected) Serum Alcohol mg/dL 11/24/20 19:58 Twelve-lead EKG shows ventricular rate 80 bpm, normal AL interval and QRS complexes, no ST elevation or depression, interpreted by me as normal sinus rhythm. Disposition Clinical Impression: Altered mental status Disposition: ADMITTED IP TO THIS [facility] Condition: Serious Is patient prescribed a controlled substance at d/c from ED?: No Referrals: Nakul Dotson MD [Primary Care Provider] - 1-2 days
[2020-11-24] MEDS ORDERED: CALCIUM GLUCONATE 1 GM in SODIUM CHLORIDE 0.9% 100 ML IVPB ONE (20:00)
[2020-11-24] MEDS ORDERED: NALOXONE 0.4 MG/ML 1 ML VIAL IV PRN (20:06)
[2020-11-24] MEDS ORDERED: DOCUSATE 100 MG CAP PO PRN (20:06)
[2020-11-24] MEDS ORDERED: HYDROcodone/APAP 5-325MG 1 EACH TAB PO PRN (20:06)
[2020-11-24] MEDS ORDERED: MAG HYDROX/AL HYDROX/SIMETH 30 ML CUP PO PRN (20:06)
[2020-11-24] MEDS: SODIUM CHLORIDE 0.9% 1,000 ML IV SCH (21:08)
[2020-11-24] MEDS: atenoloL 50 MG TAB PO SCH (21:09)
[2020-11-24] MEDS: DULoxetine HCL 60 MG CAPSULE.DR PO SCH (21:10)
[2020-11-24] MEDS: BACLOFEN 10 MG TAB PO SCH (21:10)
--- NOTE | 2020-11-24 21:19 | US ---
EXAMINATION TYPE: US scrotum with doppler. Grayscale and color Doppler Duplex imaging performed of jeronimo antony scrotum. DATE OF EXAM: 11/24/2020 COMPARISON: NONE CLINICAL HISTORY: pain. Patient disoriented - unable to obtain history EXAM MEASUREMENTS: TESTICLES: Right Testicle: 3.5 x 2.0 x 2.8 cm Left Testicle: 3.0 x 2.0 x 1.7 cm EPIDIDYMIS HEAD: Right Epididymis: 0.9 x 1.1 x 1.2 cm Left Epididymis: 1.0 x 0.9 x 1.4 cm Doppler performed to assess for testicular vascularity; good bilateral color flow and waveforms are s een. There is no evidence of testicular torsion. Presence of hydroceles: [id number] left hydrocele. No right hydrocele Presence of varicoceles: no IMPRESSION: Small to moderate left hydrocele. No evidence of testicular torsion.
[2020-11-24 21:20] LABS: Glucose,Whole Blood 104 mg/dL (75-99)
[2020-11-24] MEDS: MELATONIN 5 MG TABLET PO SCH (22:13)
[2020-11-24] MEDS: GABAPENTIN 300 MG CAP PO SCH (22:13)
[2020-11-25 00:56] LABS: Glucose,Whole Blood 83 mg/dL (75-99)
[2020-11-25] MEDS: SODIUM CHLORIDE 0.9% 1,000 ML IV SCH ×3 (02:57→17:27)
[2020-11-25 06:43] LABS: Anisocytosis Slight; Basophils # (A) 0.1 k/uL (0-0.2); Basophils % (A) 0 %; Eosinophils % (A) 0 %; HCT 27.3 % (39.0-53.0); HGB 8.9 gm/dL (13.0-17.5); Hypochromasia Moderate; Lymphocytes # (A) 0.4 k/uL (1.0-4.8); Lymphocytes % (A) 2 %; MCH 29.7 pg (25.0-35.0); MCHC 32.8 g/dL (31.0-37.0); MCV 90.6 fL (80.0-100.0); Mean Platelet Volume 7.4; Monocytes # (A) 0.3 k/uL (0-1.0); Monocytes % (A) 2 %; Neutrophils # (A) 16.6 k/uL (1.3-7.7); Neutrophils % (A) 94 %; Platelet Count 327 k/uL (150-450); RBC 3.01 m/uL (4.30-5.90); RDW 16.8 % (11.5-15.5); WBC 17.6 k/uL (3.8-10.6)
[2020-11-25 07:02] LABS: Glucose,Whole Blood 51 mg/dL (75-99)
[2020-11-25] MEDS ORDERED: DEXTROSE 50% SYRINGE 50 ML IVP STA (07:06)
[2020-11-25 07:38] LABS: Glucose,Whole Blood 116 mg/dL (75-99)
[2020-11-25] MEDS: amLODIPine 10 MG TAB PO SCH (07:49)
[2020-11-25] MEDS: atenoloL 50 MG TAB PO SCH ×2 (07:49→07:51)
[2020-11-25] MEDS: BACLOFEN 10 MG TAB PO SCH ×2 (07:49→07:51)
[2020-11-25] MEDS: GABAPENTIN 300 MG CAP PO SCH ×2 (07:50→20:30)
[2020-11-25] MEDS: DULoxetine HCL 60 MG CAPSULE.DR PO SCH ×2 (07:50→07:51)
[2020-11-25] MEDS: TAMSULOSIN 0.4 MG CAP.ER.24H PO SCH (07:50)
[2020-11-25 09:44] LABS: African American GFR (CKD) 31.8 (60.0-200.0); Albumin 2.8 g/dL (3.80-4.90); Albumin/Globulin Ratio 1.47 (1.60-3.17); Anion Gap 11.7 mmol/L (4.00-12.00); BUN/Creat Ratio 30.83 Ratio (12.00-20.00); Carbon Dioxide 19.3 mmol/L (21.6-31.8); Globulin 1.9 g/dL (1.6-3.3); Magnesium 2.5 mg/dL (1.5-2.4); Non-African American GFR(CKD) 27.5 (60.0-200.0); Phosphorus 6.6 mg/dL (2.4-5.1); Potassium 4.4 mmol/L (3.5-5.5); Total Bilirubin 0.2 mg/dL (0.2-1.2); Total Protein 4.7 g/dL (6.2-8.2)
[2020-11-25] MEDS ORDERED: SODIUM CHLORIDE 0.9% 1,000 ML with MVI, ADULT NO.4 WITH VIT K 10 ML, THIAMINE 100 MG, F... IV ONE ×4 (10:00)
--- NOTE | 2020-11-25 10:03 | P.HPIM ---
History of Present Illness H&P Date: 11/25/20 History of present illness This is a 65-year-old patient known to Dr. Dotson who was brought into the emergency room due to altered mental status. Recently stated that he was acting bizarrely does not have a psychiatric history. He was not complaining of any chest pain. Patient was found by EMS unresponsive. He does awake and talk but appears disoriented at times. Family did not hear for him for at least one day. He does have history of drug abuse which includes methamphetamine. 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 Abdominal aortic aneurysm. Patient's drug screen was positive for amphetamines, marijuana, and methamphetamines. At this time patient is alert and oriented to self and place. Patient is able to answer questions appropriately while awake. He will follow back to sleep easily. He is easily arousable. He does have facial tics and enlarged tongue. Patient states he only used marijuana in the last few days. He denies any pain or discomfort at this time. Review Of Systems: Constitutional: No fever, no chills, no night sweats. No weight change. No weakness, fatigue or lethargy. No daytime sleepiness. EENT: No headache. No blurred vision or double vision, no loss of vision. No loss of Hearing, no ringing in the ears, no dizziness. No nasal drainage or congestion. No epistaxis. No sore throat. Lungs: No shortness of breath, cough, no sputum production. No wheezing. Cardiovascular: No chest pain, no lower extremity edema. No palpitations. No paroxysmal nocturnal dyspnea. No orthopnea. No lightheadedness or dizziness. No syncopal episodes. Abdominal: no abdominal discomfort. No nausea, vomiting. no diarrhea. No constipation. No bloody or tarry stools. no loss of appetite. Genitourinary: No dysuria, increased frequency, urgency. No urinary retention. Musculoskeletal: No myalgias. No muscle weakness, no gait dysfunction, no frequent falls. No back pain. No neck pain. Integumentary: No wounds, no lesions. No rash or pruritus. No unusual bruising . No change in hair or nails. Neurologic: No aphasia. No facial droop. Positive change in mentation. No head injury. No headache. No paralysis. No paresthesia. Psychiatric: No depression. No anxiety. No mood swings. Endocrine: No abnormal blood sugars. No weight change. No excessive sweating o r thirst. Social history: Current smoker, current drug use including marijuana daily, denies EtOH Family history: Lives next her to mom - alive with history of dementia related to stroke, four brothers - history of GERD, 2 daughters - alive. Physical examination General Appearance: Arousable, cooperative, no distress, 65-year-old appears older stated age. Neck HEENT: Supple, no lymphadenopathy, no thyroid enlargement, no carotid br uits. Lungs: Clear to auscultation without crackles or wheezes no rhonchi, no deformity. Chest Wall: Chest wall normal expansion with deep inspiration no tenderness and no deformity was found on exam, no costochondral pain or discomfort. Heart: Regular rate and rhythm, S1, S2 normal, no murmur, rub or gallop. Back: Symmetric, no curvature, ROM normal, no CVA tenderness. Abdomen: Soft, non-tender, no rebound or rigidity, no hepatosplenomegaly. Extremities: bilateral lower extremities with dropfoot, able to move extremities with assistance positive pain no cyanosis or edema. Pulses: 2+ and symmetric. Skin: Skin color, texture, tugor normal, no rashes or lesions. Neurologic: Alert oriented x2 self and place, able to follow commands and answer questions appropriately Assessment and plan 1. Altered mental status more than likely related to drug use with positive ur ine tox screen of methamphetamine, amphetamines, marijuana. Consult neurology. 2. Encephalopathy possible hypoxia due to drug overdose. As noted above 3. Rhabdomyolysis. Continue with hydration. Consult PT/OT 4. Acute kidney injury. Continue with hydration, consult nephrology 5. Malnutrition. D5 for 5 at 125, banana bag with multivitamin and 100 mL, bedside swallow eval patient is alert. If passes patient may have a regular diet with ensure 3 times a day 6. Illicit drug use. Positive toxicology screen 7. Schizoaffective disorder. Consult psychiatry. 8. GERD. Pepcid 20 mg IV daily 9. Hyperlipidemia. Atorvastatin 20 mg by mouth held 10. Hypertension amlodipine 10 mg by mouth daily, atenolol 100 mg by mouth twice a day 11. BPH. Tamsulosin 0.4 mg by mouth daily 12. Depression. Cymbalta 60 mg by mouth twice a day 13. GI prophylaxis. Pepcid 20 mg 14. DVT prophylaxis. Pneumatic compression stockings, heparin Patient will be admitted for a minimum of 2 nights day Discharge plan: Consult social work for possible guardianship and placement to a prison. Impression and plan of care have been directed as dictated by the signing physician. Nena Davila nurse practitioner acting as scribe for signing physician. Past Medical History Past Medical History: GERD/Reflux, Hyperlipidemia, Hypertension, Prostate Disorder Additional Past Medical History / Comment(s): ,hx back fx 7 different areas,mult fx to neck, AAA, left hand cellulitis and abscess History of Any Multi-Drug Resistant Organisms: None Reported Past Surgical History: Appendectomy, Hernia Repair, Orthopedic Surgery Additional Past Surgical History / Comment(s): open laparotomy,bone graft rt wrist,lt wrist repair Past Anesthesia/Blood Transfusion Reactions: No Reported Reaction Past Psychological History: Anxiety, Depression Smoking Status: Current every day smoker Past Alcohol Use History: None Reported Past Drug Use History: Marijuana - Past Family History Mother Family Medical History: CVA/TIA Father Family Medical History: Dementia Additional Family Medical History / Comment(s): parkinson's Medications and Allergies Home Medications Medication Instructions Recorded Confirmed Type DULoxetine HCL [Cymbalta] 60 mg PO BID 07/29/17 11/24/20 History Gabapentin [Neurontin] 300 mg PO BID 07/29/17 11/24/20 History Tamsulosin HCl [Flomax] 0.4 mg PO DAILY 07/29/17 11/24/20 History atenoloL [Atenolol] 100 mg PO BID 07/29/17 11/24/20 History amLODIPine [Norvasc] 10 mg PO DAILY #30 tab 02/18/19 11/24/20 Rx Baclofen [Lioresal] 20 mg PO BID PRN 04/09/19 11/24/20 History Atorvastatin [Lipitor] 20 mg PO DAILY 11/24/20 11/24/20 History Mirtazapine [Remeron] 15 mg PO HS 11/24/20 11/24/20 History Pantoprazole Sodium 40 mg PO DAILY 11/24/20 11/24/20 History Allergies Allergy/AdvReac Type Severity Reaction Status Date / Time lisinopril Allergy Unknown Verified 11/24/20 20:41 Physical Exam Vitals: Vital Signs Temp Pulse Pulse Resp BP BP Pulse Ox 11/25/20 07:00 97.9 F 78 18 115/71 98 11/25/20 02:00 97.8 F 76 18 103/67 94 L 11/25/20 00:15 18 11/25/20 00:10 77 22 113/80 98 11/24/20 21:05 78 22 98/63 96 11/24/20 19:38 77 20 105/65 96 11/24/20 18:36 97.7 F 78 24 97/86 100 Intake and Output 11/24/20 11/25/20 11/25/20 22:59 06:59 14:59 Other: Voiding Method External Catheter # Voids 2 # Bowel Movements 1 Weight 70 kg Results CBC & Chem 7: 11/25/20 06:10 11/25/20 06:10 Labs: Abnormal Lab Results - Last 24 Hours (Table) 11/24/20 11/24/20 11/24/20 Range/Units 18:43 18:48 18:48 WBC 24.3 H (3.8-10.6) k/uL RBC 3.57 L (4.30-5.90) m/uL Hgb 10.1 L (13.0-17.5) gm/dL Hct 32.7 L (39.0-53.0) % MCHC 30.9 L (31.0-37.0) g/dL RDW 16.9 H (11.5-15.5) % Neutrophils # (1.3-7.7) k/uL Neutrophils # (Manual) 22.50 H (1.3-7.7) k/uL Lymphocytes # (1.0-4.8) k/uL Sodium 136 L (137-145) mmol/L Potassium 5.5 H (3.5-5.1) mmol/L Chloride (96-109) mmol/L Carbon Dioxide 17 L (22-30) mmol/L BUN 77 H (9-20) mg/dL Creatinine 3.00 H (0.66-1.25) mg/dL Est GFR (CKD-EPI)AfAm (60.0-200.0) Est GFR (CKD-EPI)NonAf (60.0-200.0) BUN/Creatinine Ratio (12.00-20.00) Ratio Glucose 45 L* (74-99) mg/dL POC Glucose (mg/dL) 53 L (75-99) mg/dL Plasma Lactic Acid Cy (0.7-2.0) mmol/L Calcium 7.6 L (8.4-10.2) mg/dL Phosphorus (2.4-5.1) mg/dL Magnesium (1.5-2.4) mg/dL AST 71 H (17-59) U/L Creatine Kinase 877 H (55-170) U/L Total Protein 5.8 L (6.3-8.2) g/dL Albumin 2.9 L (3.5-5.0) g/dL Albumin/Globulin Ratio (1.60-3.17) g/dL Urine Protein (Negative) Urine Ketones (Negative) Urine Blood (Negative) Urine Bacteria (None) /hpf Hyaline Casts (0-2) /lpf Urine Mucus (None) /hpf Ur Amphetamines Screen (NotDetected) U Methamphetamines Scrn (NotDetected) U Marijuana (THC) Screen (NotDetected) 11/24/20 11/24/20 11/24/20 Range/Units 19:00 19:00 19:01 WBC (3.8-10.6) k/uL RBC (4.30-5.90) m/uL Hgb (13.0-17.5) gm/dL Hct (39.0-53.0) % MCHC (31.0-37.0) g/dL RDW (11.5-15.5) % Neutrophils # (1.3-7.7) k/uL Neutrophils # (Manual) (1.3-7.7) k/uL Lymphocytes # (1.0-4.8) k/uL Sodium (137-145) mmol/L Potassium (3.5-5.1) mmol/L Chloride (96-109) mmol/L Carbon Dioxide (22-30) mmol/L BUN (9-20) mg/dL Creatinine (0.66-1.25) mg/dL Est GFR (CKD-EPI)AfAm (60.0-200.0) Est GFR (CKD-EPI)NonAf (60.0-200.0) BUN/Creatinine Ratio (12.00-20.00) Ratio Glucose (74-99) mg/dL POC Glucose (mg/dL) 48 L 172 H (75-99) mg/dL Plasma Lactic Acid Cy (0.7-2.0) mmol/L Calcium (8.4-10.2) mg/dL Phosphorus (2.4-5.1) mg/dL Magnesium (1.5-2.4) mg/dL AST (17-59) U/L Creatine Kinase (55-170) U/L Total Protein (6.3-8.2) g/dL Albumin (3.5-5.0) g/dL Albumin/Globulin Ratio (1.60-3.17) g/dL Urine Protein 1+ H (Negative) Urine Ketones 1+ H (Negative) Urine Blood Large H (Negative) Urine Bacteria Rare H (None) /hpf Hyaline Casts 3 H (0-2) /lpf Urine Mucus Rare H (None) /hpf Ur Amphetamines Screen Detected H (NotDetected) U Methamphetamines Scrn Detected H (NotDetected) U Marijuana (THC) Screen Detected H (NotDetected) 11/24/20 11/24/20 11/25/20 Range/Units 21:05 21:18 06:10 WBC 17.6 H (3.8-10.6) k/uL RBC 3.01 L (4.30-5.90) m/uL Hgb 8.9 L (13.0-17.5) gm/dL Hct 27.3 L (39.0-53.0) % MCHC (31.0-37.0) g/dL RDW 16.8 H (11.5-15.5) % Neutrophils # 16.6 H (1.3-7.7) k/uL Neutrophils # (Manual) (1.3-7.7) k/uL Lymphocytes # 0.4 L (1.0-4.8) k/uL Sodium (137-145) mmol/L Potassium (3.5-5.1) mmol/L Chloride (96-109) mmol/L Carbon Dioxide (22-30) mmol/L BUN (9-20) mg/dL Creatinine (0.66-1.25) mg/dL Est GFR (CKD-EPI)AfAm (60.0-200.0) Est GFR (CKD-EPI)NonAf (60.0-200.0) BUN/Creatinine Ratio (12.00-20.00) Ratio Glucose (74-99) mg/dL POC Glucose (mg/dL) 104 H (75-99) mg/dL Plasma Lactic Acid Cy 2.3 H* (0.7-2.0) mmol/L Calcium (8.4-10.2) mg/dL Phosphorus (2.4-5.1) mg/dL Magnesium (1.5-2.4) mg/dL AST (17-59) U/L Creatine Kinase (55-170) U/L Total Protein (6.3-8.2) g/dL Albumin (3.5-5.0) g/dL Albumin/Globulin Ratio (1.60-3.17) g/dL Urine Protein (Negative) Urine Ketones (Negative) Urine Blood (Negative) Urine Bacteria (None) /hpf Hyaline Casts (0-2) /lpf Urine Mucus (None) /hpf Ur Amphetamines Screen (NotDetected) U Methamphetamines Scrn (NotDetected) U Marijuana (THC) Screen (NotDetected) 11/25/20 11/25/20 11/25/20 Range/Units 06:10 07:01 07:30 WBC (3.8-10.6) k/uL RBC (4.30-5.90) m/uL Hgb (13.0-17.5) gm/dL Hct (39.0-53.0) % MCHC (31.0-37.0) g/dL RDW (11.5-15.5) % Neutrophils # (1.3-7.7) k/uL Neutrophils # (Manual) (1.3-7.7) k/uL Lymphocytes # (1.0-4.8) k/uL Sodium (137-145) mmol/L Potassium (3.5-5.1) mmol/L Chloride 111 H (96-109) mmol/L Carbon Dioxide 19.3 L (22-30) mmol/L BUN 74.0 H (9-20) mg/dL Creatinine 2.4 H (0.66-1.25) mg/dL Est GFR (CKD-EPI)AfAm 31.8 L (60.0-200.0) Est GFR (CKD-EPI)NonAf 27.5 L (60.0-200.0) BUN/Creatinine Ratio 30.83 H (12.00-20.00) Ratio Glucose (74-99) mg/dL POC Glucose (mg/dL) 51 L 116 H (75-99) mg/dL Plasma Lactic Acid Cy (0.7-2.0) mmol/L Calcium 8.0 L (8.4-10.2) mg/dL Phosphorus 6.6 H (2.4-5.1) mg/dL Magnesium 2.5 H (1.5-2.4) mg/dL AST 64 H (17-59) U/L Creatine Kinase (55-170) U/L Total Protein 4.7 L (6.3-8.2) g/dL Albumin 2.80 L (3.5-5.0) g/dL Albumin/Globulin Ratio 1.47 L (1.60-3.17) g/dL Urine Protein (Negative) Urine Ketones (Negative) Urine Blood (Negative) Urine Bacteria (None) /hpf Hyaline Casts (0-2) /lpf Urine Mucus (None) /hpf Ur Amphetamines Screen (NotDetected) U Methamphetamines Scrn (NotDetected) U Marijuana (THC) Screen (NotDetected)
--- NOTE | 2020-11-25 10:53 | P.NPCON ---
History of Present Illness - Reason for Consult acute renal failure - History of Present Illness Reason for consultation: Acute kidney injury History of present illness: Patient is a 65-year-old male seen in renal consultation for acute kidney injury. Patient's creatinine as of November 2019 was 0.76. This admission and was elevated at 3.0 and is down to 2.4 today. He is maintained on IV fluids. A shunt presented to the hospital due to altered mental status. He was found down at home and was brought to the hospital by the EMS. It appears patient has been abusing drugs including meth. Patient is not a reliable historian. No edema is noted. Blood pressure was in the lower side in the systolics 90s on admission. He was taking antihypertensives as an outpatient including atenolol and amlodi pine which are currently held. Lactic acid was also elevated at 2.3 on admission and improved to 0.8 as of this morning. He did receive 2 L of IV fluid bolus on admission. I don't see any nonsteroidals and his home medications. No history of diabetes. Blood sugars have been running low and he did receive amp of D50 and is maintained on D5 half-normal at 150 mL an hour. CK level was elevated at 877 on admission. Vital signs are stable. General: The patient appeared well nourished and normally developed. HEENT: Head exam is unremarkable. Neck is without jugular venous distension. LUNGS: Breath sounds decreased. HEART: Rate and Rhythm are regular. ABDOMEN: Soft, nontender. EXTREMITITES: No edema. Past Medical History Past Medical History: GERD/Reflux, Hyperlipidemia, Hypertension, Prostate Disorder Additional Past Medical History / Comment(s): ,hx back fx 7 different areas,mult fx to neck, AAA, left hand cellulitis and abscess History of Any Multi-Drug Resistant Organisms: None Reported Past Surgical History: Appendectomy, Hernia Repair, Orthopedic Surgery Additional Past Surgical History / Comment(s): open laparotomy,bone graft rt wrist,lt wrist repair Past Anesthesia/Blood Transfusion Reactions: No Reported Reaction Past Psychological History: Anxiety, Depression Smoking Status: Current every day smoker Past Alcohol Use History: None Reported Past Drug Use History: Marijuana - Past Family History Mother Family Medical History: CVA/TIA Father Family Medical History: Dementia Additional Family Medical History / Comment(s): parkinson's Medications and Allergies Home Medications Medication Instructions Recorded Confirmed Type DULoxetine HCL [Cymbalta] 60 mg PO BID 07/29/17 11/24/20 History Gabapentin [Neurontin] 300 mg PO BID 07/29/17 11/24/20 History Tamsulosin HCl [Flomax] 0.4 mg PO DAILY 07/29/17 11/24/20 History atenoloL [Atenolol] 100 mg PO BID 07/29/17 11/24/20 History amLODIPine [Norvasc] 10 mg PO DAILY #30 tab 02/18/19 11/24/20 Rx Baclofen [Lioresal] 20 mg PO BID PRN 04/09/19 11/24/20 History Atorvastatin [Lipitor] 20 mg PO DAILY 11/24/20 11/24/20 History Mirtazapine [Remeron] 15 mg PO HS 11/24/20 11/24/20 History Pantoprazole Sodium 40 mg PO DAILY 11/24/20 11/24/20 History Allergies Allergy/AdvReac Type Severity Reaction Status Date / Time lisinopril Allergy Unknown Verified 11/24/20 20:41 Physical Exam Vitals: Vital Signs Temp Pulse Pulse Resp BP BP Pulse Ox 11/25/20 07:00 97.9 F 78 18 115/71 98 11/25/20 02:00 97.8 F 76 18 103/67 94 L 11/25/20 00:15 18 11/25/20 00:10 77 22 113/80 98 11/24/20 21:05 78 22 98/63 96 11/24/20 19:38 77 20 105/65 96 11/24/20 18:36 97.7 F 78 24 97/86 100 Intake and Output 11/24/20 11/25/20 11/25/20 22:59 06:59 14:59 Other: Voiding Method External Catheter # Voids 2 # Bowel Movements 1 Weight 70 kg Results - Lab Results Most recent lab results Calcium 8.0 mg/dL (8.7-10.3) L 11/25/20 06:10 Phosphorus 6.6 mg/dL (2.4-5.1) H 11/25/20 06:10 Magnesium 2.5 mg/dL (1.5-2.4) H 11/25/20 06:10 11/25/20 06:10 11/25/20 06:10 Assessment and Plan Plan: Assessment: 1. Acute kidney injury mostly prerenal secondary to hypotension/hypovolemia. Creatinine was 3 and admission and is down to 2.4 today. Creatinine as of November 2019 was 0.76. 2. Hyperkalemia secondary to acute kidney injury and metabolic acidosis. Better. 3. Metabolic acidosis secondary to acute kidney injury. Improving. 4. Polysubstance drug abuse. Urine drug screen positive for amphetamines, methamphetamines as well as marijuana. 5. Anemia. Rule out iron deficiency. Plan: Maintain IV fluids. He will be started on a banana bag and to be alternated with D5 half-normal saline at 1 50 mL an hour. Check renal ultrasound. Check iron studies. Swallow eval pending. Hold antihypertensives for systolic blood pressure less than 125. Avoid nephrotoxins. Continue to monitor renal function and urine output. Thank you for the consult dictation. I will continue to follow patient with you during his hospital stay.
[2020-11-25 11:37] LABS: Glucose,Whole Blood 91 mg/dL (75-99)
--- NOTE | 2020-11-25 12:03 | US ---
EXAMINATION TYPE: US kidneys/renal and bladder DATE OF EXAM: 11/25/2020 COMPARISON: NONE CLINICAL HISTORY: mary ann. EXAM MEASUREMENTS: Right Kidney: only able to obtain transverse measurement 3.9 cm Left Kidney: 4.1 cm confused patient laying supine, unable to cooperate with examiner, moving, thrashing and talking thro ughout exam. Right Kidney: not visualized well enough to be diagnostic Left Kidney:not visualized well enough to be diagnostic Bladder: not seen The exam is limited. No hydronephrosis evident. IMPRESSION: Exam is limited
[2020-11-25 13:06] LABS: % Iron Saturation 4.13 (15.00-50.00)
[2020-11-25 13:19] LABS: Ferritin 543.8 ng/mL (22.0-322.0)
[2020-11-25] MEDS: DEXTROSE 5%-0.45% NACL 1,000 ML IV SCH ×3 (13:32→21:36)
[2020-11-25 16:45] LABS: Glucose,Whole Blood 85 mg/dL (75-99)
--- NOTE | 2020-11-25 16:47 | P.CON ---
Consult Note - . Consult date: 11/25/20 Assessment/Plan:: IDENTIFYING DATA: He is a 65-year-old male admitted to medicine service for evaluation of an altered mental status. HISTORY OF PRESENT ILLNESS: The hospitalist consult to psychiatry for evaluation of substance abuse disorder. The patient was was unable to provide a coherent history. According to the record, the EMS found him unresponsive. His history is significant for methamphetamine use as well as hypertension and aortic aneurysm. His urine drug screen was positive for amphetamine, marijuana and methamphetamines. PAST PSYCHIATRIC HISTORY: According to record, he does not have a history of psychiatric illness PAST MEDICAL HISTORY: His medical diagnoses include encephalopathy, rhabdomyolysis, acute kidney injury and malnutrition ALLERGIES: Lisinopril SUBSTANCE USE HISTORY: He was unable to provide a coherent substance abuse history. FAMILY PSYCHIATRIC/SUBSTANCE USE HISTORY: Unknown SOCIAL HISTORY: Unknown MENTAL STATUS EXAM:. He presented as a thin edentulous elderly male with a thick gomez. He is lying in bed and could not attend or concentrate on the interview. He made intermittent eye contact. His speech was dysarthric and nonsensical. He had marked dyskinetic movements involving the head, neck, jaw, tongue, trunk and upper and lower limbs. IMPRESSIONS: He is 65-year-old man history of methamphetamine use who presents with acute change in mental status as well as marked dyskinetic movements. He is markedly cognitively impaired impairment and unable provide a coherent history. As such, we are not able to engage in discussion of his substance abuse or substance abuse treatment. The dyskinetic movements can occur with withdrawal from chronic methamphetamine use. His presentation is consistent with a delirium most likely from multiple medical problems. DIAGNOSIS: Delirium due to multiple etiologies, acute, hyperactive, methamphetamine use disorder, methamphetamine withdrawal RECOMMENDATION: Discontinue duloxetine and melatonin. Continue Ativan 1 mg IV every 6 hours for agitation. Obtain collateral information from family. Psychiatry will follow.
[2020-11-25] MEDS: LORazepam 2 MG/ML INJ IV PRN ×2 (17:03→23:42)
--- NOTE | 2020-11-25 17:40 | P.CNNES ---
History of Present Illness Consult date: 11/25/20 Reason for Consult: altered mental status Chief complaint: altered mental status History of Present Illness: The patient is a 65-year-old male who is seen in neurologic consultation on November 25, 2020 via teleneurology. History is obtained from the chart and from the patient's mother via the telephone. The patient himself is unable to provide any history. The patient was reportedly brought in by EMS after being found down. Apparently the patient's family members had not heard from him in several days. The patient's mother reports that the patient has been in this state of mind for several days. She notes that he has been unable to walk for approximately one to 2 weeks. She says this is because his feet swell. She also reports that the patient has not been eating for approximately one week. According to the patient's mother, she attempted to speak with him on the phone however he was unable to converse. Apparently, per the patient's family doctor patient had a suicide attempt proximally 5 years ago. The family doctor has not seen him since that time. The patient reportedly uses drugs. His urine drug screen was found to be positive for methamphetamine, amphetamines and marijuana. The patient himself is able to tell me that he was "on the ground for a while". He does not know why he was on the ground. Past Medical History Past Medical History: GERD/Reflux, Hyperlipidemia, Hypertension, Prostate Disorder Additional Past Medical History / Comment(s): ,hx back fx 7 different areas,mult fx to neck, AAA, left hand cellulitis and abscess History of Any Multi-Drug Resistant Organisms: None Reported Past Surgical History: Appendectomy, Hernia Repair, Orthopedic Surgery Additional Past Surgical History / Comment(s): open laparotomy,bone graft rt wrist,lt wrist repair Past Anesthesia/Blood Transfusion Reactions: No Reported Reaction Past Psychological History: Anxiety, Depression Additional Psychological History / Comment(s): , has 2 daughters that live in the other side the state, he cries readily when talking about them. With that he is quite depressed about his situation. He is unable to clearly vocalize the difficulties that he is going through. But does state he is depressed. He has seen a counselor in the past but did not believe it was effective. Positive tobacco smoker. Denies injection drug use. 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 No experience. No international travel. No animal exposures Smoking Status: Current every day smoker Past Alcohol Use History: None Reported Additional Past Alcohol Use History / Comment(s): started smoking at age 57,smokes approx 5- 6 cig per day Past Drug Use History: Marijuana Additional Drug Use History / Comment(s): uses marijuana daily - Past Family History Mother Family Medical History: CVA/TIA Father Family Medical History: Dementia, GERD/Reflux, Hyperlipidemia Additional Family Medical History / Comment(s): parkinson's Medications and Allergies Home Medications Medication Instructions Recorded Confirmed Type DULoxetine HCL [Cymbalta] 60 mg PO BID 07/29/17 11/24/20 History Gabapentin [Neurontin] 300 mg PO BID 07/29/17 11/24/20 History Tamsulosin HCl [Flomax] 0.4 mg PO DAILY 07/29/17 11/24/20 History atenoloL [Atenolol] 100 mg PO BID 07/29/17 11/24/20 History amLODIPine [Norvasc] 10 mg PO DAILY #30 tab 02/18/19 11/24/20 Rx Baclofen [Lioresal] 20 mg PO BID PRN 04/09/19 11/24/20 History Atorvastatin [Lipitor] 20 mg PO DAILY 11/24/20 11/24/20 History Mirtazapine [Remeron] 15 mg PO HS 11/24/20 11/24/20 History Pantoprazole Sodium 40 mg PO DAILY 11/24/20 11/24/20 History Allergies Allergy/AdvReac Type Severity Reaction Status Date / Time lisinopril Allergy Unknown Verified 11/24/20 20:41 Physical Examination - Vital Signs Vital Signs: Vital Signs Temp Pulse Pulse Resp BP BP Pulse Ox 11/25/20 07:00 97.9 F 78 18 115/71 98 11/25/20 02:00 97.8 F 76 18 103/67 94 L 11/25/20 00:15 18 11/25/20 00:10 77 22 113/80 98 11/24/20 21:05 78 22 98/63 96 11/24/20 19:38 77 20 105/65 96 11/24/20 18:36 97.7 F 78 24 97/86 100 Intake and Output 11/24/20 11/25/20 11/25/20 22:59 06:59 14:59 Other: Voiding Method External Catheter External Catheter # Voids 2 # Bowel Movements 1 Weight 70 kg 70 kg Gen.: The patient is reclining in the bed. He is agitated. There are frequent movements of his head and neck. They're frequent tongue movements. He is moaning intermittently. HEENT: Head is atraumatic, normocephalic. Fundus not visualized. There is no scleral icterus. The patient's tongue is large. There is no evidence of laceration or injury. Neck: Without carotid bruits Heart: Regular rate and rhythm Lungs: Clear to auscultation Extremities: There is mottling of the bilateral feet,L >R. There is swelling of the right ankle. There is dark, discoloration of the small toe the right foot. Pulses are intact in the feet. There is lack of hair growth on the distal lower extremities. Neurologic examination Mental status: The patient is able to state his name. He is aware that he is in a "hospital". He follows intermittent commands. There is intermittently moaning. There is lip smacking and tongue protrusion. Cranial nerves: Pupils are equal, round and reactive to light. Patient does blink to visual threat. He is unable to follow commands for testing of extraocular movements. There is no obvious facial asymmetry. Motor: Bilateral upper extremities are flaccid. The patient is able to move his arms. Strength is diminished. There is no volitional movement of the legs. The patient is able to wiggle the toes on both feet. Sensation: There is pain with passive dorsiflexion of the right ankle. Otherwise sensation is difficult to assess secondary to mental status. Coordination: The patient is unable to participate with [id number] testing, secondary to weakness. Deep tendon reflexes: 2-3+/4+ throughout. Plantar response was not assessed. Results - Laboratory Findings CBC and BMP: 11/25/20 06:10 11/25/20 06:10 Abnormal Lab Findings: Abnormal Labs 11/24/20 11/24/20 11/24/20 18:43 18:48 18:48 WBC 24.3 H RBC 3.57 L Hgb 10.1 L Hct 32.7 L MCHC 30.9 L RDW 16.9 H Neutrophils # Neutrophils # (Manual) 22.50 H Lymphocytes # Sodium 136 L Potassium 5.5 H Chloride Carbon Dioxide 17 L BUN 77 H Creatinine 3.00 H Est GFR (CKD-EPI)AfAm Est GFR (CKD-EPI)NonAf BUN/Creatinine Ratio Glucose 45 L* POC Glucose (mg/dL) 53 L Plasma Lactic Acid Cy Calcium 7.6 L Phosphorus Magnesium Iron % Saturation Ferritin AST 71 H Creatine Kinase 877 H Total Protein 5.8 L Albumin 2.9 L Albumin/Globulin Ratio Urine Protein Urine Ketones Urine Blood Urine Bacteria Hyaline Casts Urine Mucus Ur Amphetamines Screen U Methamphetamines Scrn U Marijuana (THC) Screen 11/24/20 11/24/20 11/24/20 19:00 19:00 19:01 WBC RBC Hgb Hct MCHC RDW Neutrophils # Neutrophils # (Manual) Lymphocytes # Sodium Potassium Chloride Carbon Dioxide BUN Creatinine Est GFR (CKD-EPI)AfAm Est GFR (CKD-EPI)NonAf BUN/Creatinine Ratio Glucose POC Glucose (mg/dL) 48 L 172 H Plasma Lactic Acid Cy Calcium Phosphorus Magnesium Iron % Saturation Ferritin AST Creatine Kinase Total Protein Albumin Albumin/Globulin Ratio Urine Protein 1+ H Urine Ketones 1+ H Urine Blood Large H Urine Bacteria Rare H Hyaline Casts 3 H Urine Mucus Rare H Ur Amphetamines Screen Detected H U Methamphetamines Scrn Detected H U Marijuana (THC) Screen Detected H 11/24/20 11/24/20 11/25/20 21:05 21:18 06:10 WBC 17.6 H RBC 3.01 L Hgb 8.9 L Hct 27.3 L MCHC RDW 16.8 H Neutrophils # 16.6 H Neutrophils # (Manual) Lymphocytes # 0.4 L Sodium Potassium Chloride Carbon Dioxide BUN Creatinine Est GFR (CKD-EPI)AfAm Est GFR (CKD-EPI)NonAf BUN/Creatinine Ratio Glucose POC Glucose (mg/dL) 104 H Plasma Lactic Acid Cy 2.3 H* Calcium Phosphorus Magnesium Iron % Saturation Ferritin AST Creatine Kinase Total Protein Albumin Albumin/Globulin Ratio Urine Protein Urine Ketones Urine Blood Urine Bacteria Hyaline Casts Urine Mucus Ur Amphetamines Screen U Methamphetamines Scrn U Marijuana (THC) Screen 11/25/20 11/25/20 11/25/20 06:10 06:10 07:01 WBC RBC Hgb Hct MCHC RDW Neutrophils # Neutrophils # (Manual) Lymphocytes # Sodium Potassium Chloride 111 H Carbon Dioxide 19.3 L BUN 74.0 H Creatinine 2.4 H Est GFR (CKD-EPI)AfAm 31.8 L Est GFR (CKD-EPI)NonAf 27.5 L BUN/Creatinine Ratio 30.83 H Glucose POC Glucose (mg/dL) 51 L Plasma Lactic Acid Cy Calcium 8.0 L Phosphorus 6.6 H Magnesium 2.5 H Iron 10 L % Saturation 4.13 L Ferritin 543.8 H AST 64 H Creatine Kinase Total Protein 4.7 L Albumin 2.80 L Albumin/Globulin Ratio 1.47 L Urine Protein Urine Ketones Urine Blood Urine Bacteria Hyaline Casts Urine Mucus Ur Amphetamines Screen U Methamphetamines Scrn U Marijuana (THC) Screen 11/25/20 07:30 WBC RBC Hgb Hct MCHC RDW Neutrophils # Neutrophils # (Manual) Lymphocytes # Sodium Potassium Chloride Carbon Dioxide BUN Creatinine Est GFR (CKD-EPI)AfAm Est GFR (CKD-EPI)NonAf BUN/Creatinine Ratio Glucose POC Glucose (mg/dL) 116 H Plasma Lactic Acid Cy Calcium Phosphorus Magnesium Iron % Saturation Ferritin AST Creatine Kinase Total Protein Albumin Albumin/Globulin Ratio Urine Protein Urine Ketones Urine Blood Urine Bacteria Hyaline Casts Urine Mucus Ur Amphetamines Screen U Methamphetamines Scrn U Marijuana (THC) Screen Assessment and Plan Assessment: 1. Mental status changes: Differential diagnosis includes toxic encephalopathy (positive drug screen) versus delirium secondary to UTI versus seizure and/or postictal state Per patient's mother, the patient has been unable to ambulate for the past 1-2 weeks, has been confused for the past 5-6 days and reportedly has not been eating or drinking for 1 week. Unfortunately, this history from the patient's mother is difficult to verify 2. Reported history of suicide attempt 3. Reported history of polysubstance abuse 4. Rhabdomyolysis with acute kidney injury Plan: 1. Stat EEG 2. Continue supportive care 3. Agree with obtaining a guardian for this patient 4. Continue IV fluids as tolerated Time with Patient: Greater than 30 (spent 40 minutes with patient via teleneurology)
[2020-11-25] MEDS: MELATONIN 5 MG TABLET PO SCH (20:30)
[2020-11-25] MEDS: HEPARIN SODIUM,PORCINE 5,000 UNIT/ML 1 ML VIAL SQ SCH (20:30)
[2020-11-25 20:36] LABS: Glucose,Whole Blood 98 mg/dL (75-99)
[2020-11-26 02:17] LABS: Glucose,Whole Blood 149 mg/dL (75-99)
[2020-11-26 07:09] LABS: Glucose,Whole Blood 124 mg/dL (75-99)
[2020-11-26 07:53] LABS: Anisocytosis Slight; Basophils % (A) 0 %; Eosinophils % (A) 0 %; HCT 29.5 % (39.0-53.0); HGB 9.1 gm/dL (13.0-17.5); Hypochromasia Marked; Lymphocytes # (A) 0.3 k/uL (1.0-4.8); Lymphocytes % (A) 3 %; MCH 28.4 pg (25.0-35.0); MCHC 30.9 g/dL (31.0-37.0); MCV 92.1 fL (80.0-100.0); Mean Platelet Volume 7.5; Monocytes # (A) 0.4 k/uL (0-1.0); Monocytes % (A) 3 %; Neutrophils # (A) 12.9 k/uL (1.3-7.7); Neutrophils % (A) 93 %; Platelet Count 263 k/uL (150-450); RBC 3.21 m/uL (4.30-5.90); RDW 17.2 % (11.5-15.5); WBC 13.8 k/uL (3.8-10.6)
[2020-11-26] MEDS: atenoloL 50 MG TAB PO SCH ×2 (08:22→18:49)
[2020-11-26] MEDS: BACLOFEN 10 MG TAB PO SCH ×2 (08:22→18:49)
[2020-11-26] MEDS: amLODIPine 10 MG TAB PO SCH (08:22)
[2020-11-26] MEDS: DULoxetine HCL 60 MG CAPSULE.DR PO SCH ×2 (08:23→18:49)
[2020-11-26] MEDS: TAMSULOSIN 0.4 MG CAP.ER.24H PO SCH (08:23)
[2020-11-26] MEDS: GABAPENTIN 300 MG CAP PO SCH ×2 (08:23→18:49)
[2020-11-26] MEDS: FAMOTIDINE 20 MG/2 ML VIAL IV SCH (09:19)
[2020-11-26] MEDS: LORazepam 2 MG/ML INJ IV PRN ×3 (09:19→19:54)
--- NOTE | 2020-11-26 09:44 | P.PN ---
Subjective Patient is seen in follow-up for acute kidney injury. Creatinine was 3 on admission and down to 2.4 as of yesterday. Labs from today are pending. He is maintained on half-normal saline at 125 mL an hour. Patient is not a reliable historian. Nonoliguric. Vital signs are stable. General: The patient appeared well nourished and normally developed. HEENT: Head exam is unremarkable. Neck is without jugular venous distension. LUNGS: Breath sounds decreased. HEART: Rate and Rhythm are regular. ABDOMEN: Soft, no distention noted. EXTREMITITES: No edema. Objective - Vital Signs Vital signs: Vital Signs Temp 98.2 F 11/26/20 07:52 Pulse 76 11/26/20 07:52 Resp 18 11/26/20 07:52 BP 140/84 11/26/20 07:52 Pulse Ox 99 11/26/20 07:52 Intake & Output 11/25/20 11/26/20 11/26/20 18:59 06:59 18:59 Intake Total 1500 Output Total 650 Balance -650 1500 Weight 70 kg Intake: Intake, IV Titration 1200 Amount Sodium Chloride 0.9% 1, 1200 000 ml @ 100 mls/hr IV . Q10H7M ONE with Mvi, Adult No.4 with Vit K 10 ml with Thiamine 100 mg with Folic Acid 1 mg Rx#: [id number] Oral 300 Output: Urine 650 Other: Voiding Method External Catheter External Catheter - Labs CBC & Chem 7: 11/26/20 07:23 11/25/20 06:10 Labs: Abnormal Lab Results - Last 24 Hours (Table) 11/25/20 11/25/20 11/26/20 Range/Units 06:10 06:10 02:15 WBC (3.8-10.6) k/uL RBC (4.30-5.90) m/uL Hgb (13.0-17.5) gm/dL Hct (39.0-53.0) % MCHC (31.0-37.0) g/dL RDW (11.5-15.5) % Neutrophils # (1.3-7.7) k/uL Lymphocytes # (1.0-4.8) k/uL Chloride 111 H (96-109) mmol/L Carbon Dioxide 19.3 L (21.6-31.8) mmol/L BUN 74.0 H (9.0-27.0) mg/dL Creatinine 2.4 H (0.6-1.5) mg/dL Est GFR (CKD-EPI)AfAm 31.8 L (60.0-200.0) Est GFR (CKD-EPI)NonAf 27.5 L (60.0-200.0) BUN/Creatinine Ratio 30.83 H (12.00-20.00) Ratio POC Glucose (mg/dL) 149 H (75-99) mg/dL Calcium 8.0 L (8.7-10.3) mg/dL Phosphorus 6.6 H (2.4-5.1) mg/dL Magnesium 2.5 H (1.5-2.4) mg/dL Iron 10 L (65-175) ug/dL % Saturation 4.13 L (15.00-50.00) Ferritin 543.8 H (22.0-322.0) ng/mL AST 64 H (14-35) U/L Total Protein 4.7 L (6.2-8.2) g/dL Albumin 2.80 L (3.80-4.90) g/dL Albumin/Globulin Ratio 1.47 L (1.60-3.17) g/dL 11/26/20 11/26/20 Range/Units 06:55 07:23 WBC 13.8 H (3.8-10.6) k/uL RBC 3.21 L (4.30-5.90) m/uL Hgb 9.1 L (13.0-17.5) gm/dL Hct 29.5 L (39.0-53.0) % MCHC 30.9 L (31.0-37.0) g/dL RDW 17.2 H (11.5-15.5) % Neutrophils # 12.9 H (1.3-7.7) k/uL Lymphocytes # 0.3 L (1.0-4.8) k/uL Chloride (96-109) mmol/L Carbon Dioxide (21.6-31.8) mmol/L BUN (9.0-27.0) mg/dL Creatinine (0.6-1.5) mg/dL Est GFR (CKD-EPI)AfAm (60.0-200.0) Est GFR (CKD-EPI)NonAf (60.0-200.0) BUN/Creatinine Ratio (12.00-20.00) Ratio POC Glucose (mg/dL) 124 H (75-99) mg/dL Calcium (8.7-10.3) mg/dL Phosphorus (2.4-5.1) mg/dL Magnesium (1.5-2.4) mg/dL Iron (65-175) ug/dL % Saturation (15.00-50.00) Ferritin (22.0-322.0) ng/mL AST (14-35) U/L Total Protein (6.2-8.2) g/dL Albumin (3.80-4.90) g/dL Albumin/Globulin Ratio (1.60-3.17) g/dL Microbiology - Last 24 Hours (Table) 11/24/20 23:15 Blood Culture - Preliminary Blood No Growth after 24 hours Assessment and Plan Plan: Assessment: 1. Acute kidney injury mostly prerenal secondary to hypotension/hypovolemia. Creatinine was 3 and admission and is down to 2.4 as of yesterday. Creatinine as of November 2019 was 0.76. Renal ultrasound could not be performed due to patient's movements. 2. Hyperkalemia secondary to acute kidney injury and metabolic acidosis. Better. Potassium 4.4 as of yesterday. 3. Metabolic acidosis secondary to acute kidney injury. Improving. 4. Polysubstance drug abuse. Urine drug screen positive for amphetamines, methamphetamines as well as marijuana. 5. Anemia. Iron deficiency present. Plan: Maintain IV fluids. IV iron 3 doses. First dose today. Hold antihypertensives for systolic blood pressure less than 125. Avoid nephrotoxins. Continue to monitor renal function and urine output. Morning labs pending.
--- NOTE | 2020-11-26 10:54 | P.PN ---
Subjective Progress Note Date: 11/26/20 History of present illness This is a 65-year-old patient known to Dr. Dotson who was brought into the emergency room due to altered mental status. Recently stated that he was acting bizarrely does not have a psychiatric history. He was not complaining of any chest pain. Patient was found by EMS unresponsive. He does awake and talk but appears disoriented at times. Family did not hear for him for at least one day. He does have history of drug abuse which includes methamphetamine. 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 Abdominal aortic aneurysm. Patient's drug screen was positive for amphetamines, marijuana, and methamphetamines. At this time patient is alert and oriented to self and place. Patient is able to answer questions appropriately while awake. He will follow back to sleep easily. He is easily arousable. He does have facial tics and enlarged tongue. Patient states he only used marijuana in the last few days. He denies any pain or discomfort at this time. 11/26: Patient is found rolling in bed answering only to name. Unable to follow commands or answer questions appropriately. Patient continues with facial tics including extending enlarged tongue and smacking lips. Patient appears to be in pain. Per nursing mother called yesterday discussing patient has not, back for weeks. He will drink a beer daily. Unsure about food intake. Mother purchases groceries and takes it to him. He does have a friend who visits him daily. Patient was seen by neurology and the History. More than likely meth. DTs occu rring. Discussed to have family meeting tomorrow with mother and sibling to assist with guardianship. Review Of Systems: Unable to obtain due to mental status Physical examination General Appearance: Arousable, on cooperative, no distress, 65-year-old appears older stated age. Neck HEENT: Supple, no lymphadenopathy, no thyroid enlargement, no carotid bruits. Lungs: Clear to auscultation without crackles or wheezes no rhonchi, no defo rmity. Chest Wall: Chest wall normal expansion with deep inspiration no tenderness and no deformity was found on exam, no costochondral pain or discomfort. Heart: Regular rate and rhythm, S1, S2 normal, no murmur, rub or gallop. Back: Symmetric, no curvature, ROM normal, no CVA tenderness. Abdomen: Soft, non-tender, no rebound or rigidity, no hepatosplenomegaly. Extremities: bilateral lower extremities with dropfoot, able to move extremities with assistance positive pain no cyanosis or edema. Pulses: 2+ and symmetric. Skin: Skin color, texture, tugor normal, no rashes or lesions. Neurologic: Alert oriented x1 self , unable to follow commands or answer questions appropriately Assessment and plan 1. Altered mental status more than likely related to drug use with positive urine tox screen of methamphetamine, amphetamines, marijuana. Neurology consult appreciated, psych consult appreciated, social work consult initiated with plans for guardianship and placement. Dilaudid 0.5 mg every 4 hours as needed for pain 2. Toxic Encephalopathy possible hypoxia due to multiple drug overdose. As noted above 3. Rhabdomyolysis. Continue with hydration. Consult PT/OT 4. Acute kidney injury. Continue with hydration, ALLERGY consult appreciated 5. Malnutrition. D5 for 5 at 125, banana bag with multivitamin and 100 mL, bedside swallow eval patient is alert. If passes patient may have a regular diet with ensure 3 times a day 6. Illicit drug use with withdrawals. Ativan 1 mg every 6 hours as needed Positive toxicology screen. 7. Schizoaffective disorder. Psych consult appreciated 8. GERD. Pepcid 20 mg IV daily 9. Hyperlipidemia. Atorvastatin 20 mg by mouth held 10. Hypertension amlodipine 10 mg by mouth daily, atenolol 100 mg by mouth twice a day 11. BPH. Tamsulosin 0.4 mg by mouth daily 12. Depression. Cymbalta 60 mg by mouth twice a day 13. GI prophylaxis. Pepcid 20 mg 14. DVT prophylaxis. Pneumatic compression stockings, heparin Patient will be admitted for a minimum of 2 nights day Discharge plan: Consult social work for possible guardianship and placement. Impression and plan of care have been directed as dictated by the signing physician. Nena Davila nurse practitioner acting as scribe for signing physician. Objective - Vital Signs Vital signs: Vital Signs Temp 98.2 F 11/26/20 07:52 Pulse 76 11/26/20 07:52 Resp 18 11/26/20 07:52 BP 140/84 11/26/20 07:52 Pulse Ox 99 11/26/20 07:52 Intake & Output 11/25/20 11/26/20 11/26/20 18:59 06:59 18:59 Intake Total 1500 Output Total 650 Balance -650 1500 Weight 70 kg Intake: Intake, IV Titration 1200 Amount Sodium Chloride 0.9% 1, 1200 000 ml @ 100 mls/hr IV . Q10H7M ONE with Mvi, Adult No.4 with Vit K 10 ml with Thiamine 100 mg with Folic Acid 1 mg Rx#: [id number] Oral 300 Output: Urine 650 Other: Voiding Method External Catheter External Catheter - Labs CBC & Chem 7: 11/26/20 07:23 11/25/20 06:10 Labs: Abnormal Lab Results - Last 24 Hours (Table) 11/25/20 11/26/20 11/26/20 Range/Units 06:10 02:15 06:55 WBC (3.8-10.6) k/uL RBC (4.30-5.90) m/uL Hgb (13.0-17.5) gm/dL Hct (39.0-53.0) % MCHC (31.0-37.0) g/dL RDW (11.5-15.5) % Neutrophils # (1.3-7.7) k/uL Lymphocytes # (1.0-4.8) k/uL POC Glucose (mg/dL) 149 H 124 H (75-99) mg/dL Iron 10 L (65-175) ug/dL % Saturation 4.13 L (15.00-50.00) Ferritin 543.8 H (22.0-322.0) ng/mL 11/26/20 Range/Units 07:23 WBC 13.8 H (3.8-10.6) k/uL RBC 3.21 L (4.30-5.90) m/uL Hgb 9.1 L (13.0-17.5) gm/dL Hct 29.5 L (39.0-53.0) % MCHC 30.9 L (31.0-37.0) g/dL RDW 17.2 H (11.5-15.5) % Neutrophils # 12.9 H (1.3-7.7) k/uL Lymphocytes # 0.3 L (1.0-4.8) k/uL POC Glucose (mg/dL) (75-99) mg/dL Iron (65-175) ug/dL % Saturation (15.00-50.00) Ferritin (22.0-322.0) ng/mL Microbiology - Last 24 Hours (Table) 11/24/20 23:15 Blood Culture - Preliminary Blood No Growth after 24 hours
[2020-11-26 11:22] LABS: Glucose,Whole Blood 172 mg/dL (75-99)
--- NOTE | 2020-11-26 11:58 | P.CON ---
Consult Note - . Consult date: 11/26/20 Assessment/Plan:: Clinical Problems: Delirium due to multiple etiologies, acute, hyperactive, methamphetamine use disorder, methamphetamine withdrawal Interim history: I reviewed the medical record and attempted to interview the patient. He was able to make eye contact briefly after I called this name several times. However, he was unable to focus or attend to interview. He was making vocal noises but was not producing intelligible speech. Nursing reported that he appeared less restless and the dyskinetic movements diminished with Ativan. Mental status exam: He presented as a thin edentulous elderly man who is laying in bed. He continued facial dyskinetic movements of the head, neck, mouth and tongue. The dyskinetic movements of his trunk and legs were not as pronounced as yesterday. I was unable to communicate with him. Assessment: The dyskinetic movements are less severe but he remains confused and disorganized. Plan: He is not appropriate for transfer to the psychiatric unit. He is not appropriate for referral for substance abuse treatment at this time. Consider increasing the frequency of Ativan to 1-2 mg every 2-4 hours when necessary for agitation. Psychiatry will sign off the case.
[2020-11-26] MEDS: HEPARIN SODIUM,PORCINE 5,000 UNIT/ML 1 ML VIAL SQ SCH ×2 (12:01→19:54)
[2020-11-26] MEDS: HYDROmorphone 0.5 MG/0.5 ML SYRINGE IVP PRN ×3 (12:01→22:48)
[2020-11-26] MEDS: DEXTROSE 5%-0.45% NACL 1,000 ML IV SCH ×3 (12:02→23:59)
[2020-11-26] MEDS: SODIUM FERRIC GLUCONAT-SUCROSE 125 MG in SODIUM CHLORIDE 0.9% 100 ML IVPB SCH (12:02)
[2020-11-26 12:29] LABS: Albumin/Globulin Ratio 1.58 (1.60-3.17); Anion Gap 4.6 mmol/L (4.00-12.00); BUN/Creat Ratio 30.63 Ratio (12.00-20.00); Calcium 7.9 mg/dL (8.7-10.3); Carbon Dioxide 22.4 mmol/L (21.6-31.8); Globulin 1.9 g/dL (1.6-3.3); Magnesium 2.4 mg/dL (1.5-2.4); Non-African American GFR(CKD) 44.9 (60.0-200.0); Potassium 3.7 mmol/L (3.5-5.5); Total Bilirubin 0.4 mg/dL (0.3-1.2); Total Protein 4.9 g/dL (6.2-8.2)
--- NOTE | 2020-11-26 15:14 | P.PN ---
Subjective Progress Note Date: 11/26/20 The patient is seen in neurologic follow-up on November 26, 2020 via telemetry neurology. The patient's nurse reports that the patient had not slept in several hours and so he just received a dose of Ativan prior to my entry to the room. Per nursing, the patient's mother called several times again yesterday, forgetting that she had already spoken with the nurse. In light of this information, history obtained from the patient's mother is extremely unreliable. Per nursing, the patient was able to eat some food and drink some water last p.m. Objective - Vital Signs Vital signs: Vital Signs Temp 98.2 F 11/26/20 07:52 Pulse 76 11/26/20 07:52 Resp 18 11/26/20 07:52 BP 140/84 11/26/20 07:52 Pulse Ox 99 11/26/20 07:52 Intake & Output 11/25/20 11/26/20 11/26/20 18:59 06:59 18:59 Intake Total 1500 Output Total 650 Balance -650 1500 Weight 70 kg Intake: Intake, IV Titration 1200 Amount Sodium Chloride 0.9% 1, 1200 000 ml @ 100 mls/hr IV . Q10H7M ONE with Mvi, Adult No.4 with Vit K 10 ml with Thiamine 100 mg with Folic Acid 1 mg Rx#: [id number] Oral 300 Output: Urine 650 Other: Voiding Method External Catheter External Catheter - Exam Gen.: The patient is observed sleeping in the bed. He does awaken briefly, to moan and reposition himself. There is also tongue protrusion and mouth movements at this time. Motor: There are no other abnormal movements noted. Extremities are extended and relaxed. Extremities: There is diffuse muscle atrophy. There is a blister observed on the patient's right index finger. - Labs CBC & Chem 7: 11/26/20 07:23 11/26/20 07:23 Labs: Abnormal Lab Results - Last 24 Hours (Table) 11/25/20 11/26/20 11/26/20 Range/Units 06:10 02:15 06:55 WBC (3.8-10.6) k/uL RBC (4.30-5.90) m/uL Hgb (13.0-17.5) gm/dL Hct (39.0-53.0) % MCHC (31.0-37.0) g/dL RDW (11.5-15.5) % Neutrophils # (1.3-7.7) k/uL Lymphocytes # (1.0-4.8) k/uL POC Glucose (mg/dL) 149 H 124 H (75-99) mg/dL Iron 10 L (65-175) ug/dL % Saturation 4.13 L (15.00-50.00) Ferritin 543.8 H (22.0-322.0) ng/mL 11/26/20 Range/Units 07:23 WBC 13.8 H (3.8-10.6) k/uL RBC 3.21 L (4.30-5.90) m/uL Hgb 9.1 L (13.0-17.5) gm/dL Hct 29.5 L (39.0-53.0) % MCHC 30.9 L (31.0-37.0) g/dL RDW 17.2 H (11.5-15.5) % Neutrophils # 12.9 H (1.3-7.7) k/uL Lymphocytes # 0.3 L (1.0-4.8) k/uL POC Glucose (mg/dL) (75-99) mg/dL Iron (65-175) ug/dL % Saturation (15.00-50.00) Ferritin (22.0-322.0) ng/mL Microbiology - Last 24 Hours (Table) 11/24/20 23:15 Blood Culture - Preliminary Blood No Growth after 24 hours Assessment and Plan Assessment: 1. Mental status changes: Differential diagnosis includes toxic encephalopathy (positive drug screen) versus delirium secondary to UTI versus seizure and/or postictal state(doubt) versus methamphetamine withdrawal 2. Reported history of suicide attempt 3. Reported history of polysubstance abuse 4. Rhabdomyolysis with acute kidney injury Plan: 1. EEG is scheduled for today, if the patient is able to cooperate. If EEG is done, it will be interpreted today. 2. Dr. Jacques Curran will assume neurologic coverage of this patient tomorrow Time with Patient: Less than 30 (spent 20 minutes with patient via teleneurology)
[2020-11-26 16:52] LABS: Glucose,Whole Blood 151 mg/dL (75-99)
[2020-11-26] MEDS: MELATONIN 5 MG TABLET PO SCH (18:49)
--- NOTE | 2020-11-26 19:09 | EEG ---
ELECTROENCEPHALOGRAM REPORT DATE OF SERVICE: 11/26/2020 REASON FOR EEG: Mental status changes, possible seizure. MEDICATIONS: Ativan 1 mg prior to testing. FINDINGS: This EEG is performed utilizing the international 10/20 placement system. The patient is reportedly asleep at the onset of the recording. He did receive 1 mg of Ativan. The background rhythm is noted to be 6-7 Hz. There is no significant change with passive eye opening, by the tech. Photic stimulation is performed and produces an inconsistent driving response. Hyperventilation was not performed. There are no focal or lateralizing discharges. There are no epileptiform discharges. IMPRESSION: This is a sleeping EEG with a posterior dominant background rhythm of 6-7 Hz. There are no epileptiform discharges. I do not have any awake background rhythm to verify whether there is any generalized slowing of the background rhythm. Clinical correlation is advised. SHERON / MASHA: [id number] /
[2020-11-26 20:19] LABS: Glucose,Whole Blood 138 mg/dL (75-99)
[2020-11-27] MEDS: LORazepam 2 MG/ML INJ IV PRN ×4 (01:57→21:17)
[2020-11-27] MEDS: HYDROmorphone 0.5 MG/0.5 ML SYRINGE IVP PRN ×2 (04:53→10:21)
[2020-11-27 06:40] LABS: Anisocytosis Slight; Basophils % (A) 0 %; Eosinophils % (A) 0 %; HCT 29.8 % (39.0-53.0); HGB 9.2 gm/dL (13.0-17.5); Hypochromasia Marked; Lymphocytes # (A) 0.5 k/uL (1.0-4.8); Lymphocytes % (A) 5 %; MCH 28.4 pg (25.0-35.0); MCHC 30.9 g/dL (31.0-37.0); MCV 92.1 fL (80.0-100.0); Mean Platelet Volume 7.4; Monocytes # (A) 0.3 k/uL (0-1.0); Monocytes % (A) 3 %; Neutrophils # (A) 8.9 k/uL (1.3-7.7); Neutrophils % (A) 89 %; Platelet Count 218 k/uL (150-450); Poikilocytosis Slight; RBC 3.24 m/uL (4.30-5.90); RDW 17.2 % (11.5-15.5)
[2020-11-27] MEDS: amLODIPine 10 MG TAB PO SCH (07:25)
[2020-11-27] MEDS: atenoloL 50 MG TAB PO SCH ×2 (07:26→20:13)
[2020-11-27] MEDS: DULoxetine HCL 60 MG CAPSULE.DR PO SCH ×2 (07:27→20:13)
[2020-11-27] MEDS: TAMSULOSIN 0.4 MG CAP.ER.24H PO SCH (07:27)
[2020-11-27] MEDS: GABAPENTIN 300 MG CAP PO SCH ×2 (07:27→20:13)
[2020-11-27] MEDS: BACLOFEN 10 MG TAB PO SCH ×2 (07:27→20:13)
[2020-11-27 07:30] LABS: Glucose,Whole Blood 146 mg/dL (75-99)
[2020-11-27] MEDS: FAMOTIDINE 20 MG/2 ML VIAL IV SCH (07:50)
[2020-11-27] MEDS: HEPARIN SODIUM,PORCINE 5,000 UNIT/ML 1 ML VIAL SQ SCH ×2 (07:51→20:08)
[2020-11-27] MEDS ORDERED: cloNIDine 0.1 MG/24HR PATCH TRANSDERM SCH (09:00)
[2020-11-27 09:25] LABS: African American GFR (CKD) 73.6 (60.0-200.0); Albumin 2.7 g/dL (3.80-4.90); Albumin/Globulin Ratio 1.5 (1.60-3.17); Calcium 7.6 mg/dL (8.7-10.3); Globulin 1.8 g/dL (1.6-3.3); Magnesium 2.3 mg/dL (1.5-2.4); Non-African American GFR(CKD) 63.5 (60.0-200.0); Potassium 3.2 mmol/L (3.5-5.5); Total Bilirubin 0.6 mg/dL (0.2-1.2); Total Protein 4.5 g/dL (6.2-8.2)
--- NOTE | 2020-11-27 10:05 | P.PN ---
Subjective Patient is seen in follow-up for acute kidney injury. Creatinine was 3 on admission and is down to 1.2 today. Sodium level up to 148. Potassium also on the lower side. Not able to tolerate oral intake. Vital signs are stable. HEENT: Head exam is unremarkable. LUNGS: Breath sounds decreased. HEART: Rate and Rhythm are regular. ABDOMEN: Soft, no distention noted. EXTREMITITES: No edema. Objective - Vital Signs Vital signs: Vital Signs Temp 98.4 F 11/27/20 08:00 Pulse 84 11/27/20 08:00 Resp 16 11/27/20 08:00 BP 172/102 11/27/20 08:00 Pulse Ox 93 L 11/27/20 08:00 Intake & Output 11/26/20 11/27/20 11/27/20 18:59 06:59 18:59 Intake Total 300 Output Total 400 700 Balance -400 -400 Intake: Oral 300 Output: Urine 400 700 Other: Voiding Method External Catheter External Catheter # Voids 1 - Labs CBC & Chem 7: 11/27/20 06:02 11/27/20 06:02 Labs: Abnormal Lab Results - Last 24 Hours (Table) 11/26/20 11/26/20 11/26/20 Range/Units 07:23 11:21 16:51 RBC (4.30-5.90) m/uL Hgb (13.0-17.5) gm/dL Hct (39.0-53.0) % MCHC (31.0-37.0) g/dL RDW (11.5-15.5) % Neutrophils # (1.3-7.7) k/uL Lymphocytes # (1.0-4.8) k/uL Sodium (135-145) mmol/L Potassium (3.5-5.5) mmol/L Chloride 118 H (96-109) mmol/L BUN 49.0 H (9.0-27.0) mg/dL Creatinine 1.6 H (0.6-1.5) mg/dL Est GFR (CKD-EPI)AfAm 52.0 L (60.0-200.0) Est GFR (CKD-EPI)NonAf 44.9 L (60.0-200.0) BUN/Creatinine Ratio 30.63 H (12.00-20.00) Ratio Glucose 154 H (70-110) mg/dL POC Glucose (mg/dL) 172 H 151 H (75-99) mg/dL Calcium 7.9 L (8.7-10.3) mg/dL AST 63 H (14-35) U/L Alkaline Phosphatase (41-126) U/L Total Protein 4.9 L (6.2-8.2) g/dL Albumin 3.00 L (3.80-4.90) g/dL Albumin/Globulin Ratio 1.58 L (1.60-3.17) g/dL 11/26/20 11/27/20 11/27/20 Range/Units 20:17 06:02 06:02 RBC 3.24 L (4.30-5.90) m/uL Hgb 9.2 L (13.0-17.5) gm/dL Hct 29.8 L (39.0-53.0) % MCHC 30.9 L (31.0-37.0) g/dL RDW 17.2 H (11.5-15.5) % Neutrophils # 8.9 H (1.3-7.7) k/uL Lymphocytes # 0.5 L (1.0-4.8) k/uL Sodium 148 H (135-145) mmol/L Potassium 3.2 L (3.5-5.5) mmol/L Chloride 120 H (96-109) mmol/L BUN 30.0 H (9.0-27.0) mg/dL Creatinine (0.6-1.5) mg/dL Est GFR (CKD-EPI)AfAm (60.0-200.0) Est GFR (CKD-EPI)NonAf (60.0-200.0) BUN/Creatinine Ratio 25.00 H (12.00-20.00) Ratio Glucose 154 H (70-110) mg/dL POC Glucose (mg/dL) 138 H (75-99) mg/dL Calcium 7.6 L (8.7-10.3) mg/dL AST 51 H (14-35) U/L Alkaline Phosphatase 173 H (41-126) U/L Total Protein 4.5 L (6.2-8.2) g/dL Albumin 2.70 L (3.80-4.90) g/dL Albumin/Globulin Ratio 1.50 L (1.60-3.17) g/dL 11/27/20 Range/Units 07:28 RBC (4.30-5.90) m/uL Hgb (13.0-17.5) gm/dL Hct (39.0-53.0) % MCHC (31.0-37.0) g/dL RDW (11.5-15.5) % Neutrophils # (1.3-7.7) k/uL Lymphocytes # (1.0-4.8) k/uL Sodium (135-145) mmol/L Potassium (3.5-5.5) mmol/L Chloride (96-109) mmol/L BUN (9.0-27.0) mg/dL Creatinine (0.6-1.5) mg/dL Est GFR (CKD-EPI)AfAm (60.0-200.0) Est GFR (CKD-EPI)NonAf (60.0-200.0) BUN/Creatinine Ratio (12.00-20.00) Ratio Glucose (70-110) mg/dL POC Glucose (mg/dL) 146 H (75-99) mg/dL Calcium (8.7-10.3) mg/dL AST (14-35) U/L Alkaline Phosphatase (41-126) U/L Total Protein (6.2-8.2) g/dL Albumin (3.80-4.90) g/dL Albumin/Globulin Ratio (1.60-3.17) g/dL Microbiology - Last 24 Hours (Table) 11/24/20 23:15 Blood Culture - Preliminary Blood No Growth after 48 hours Assessment and Plan Plan: Assessment: 1. Acute kidney injury mostly prerenal secondary to hypotension/hypovolemia. Creatinine was 3 and admission and is down to 1.2 today. Creatinine as of November 2019 was 0.76. Renal ultrasound could not be performed due to patient's movements. 2. Hypokalemia from poor intake. Magnesium normal. 3. Metabolic acidosis secondary to acute kidney injury. Improving. 4. Polysubstance drug abuse. Urine drug screen positive for amphetamines, methamphetamines as well as marijuana. 5. Anemia. Iron deficiency present. 6. Hypernatremia secondary to lack of oral water intake. Plan: I will change IV fluids to D5W to be run at 80 mL an hour. IV iron 3 doses. Second dose today. Avoid nephrotoxins. Continue to monitor renal function and urine output. Replace potassium. 40 mEq today. Repeat electrolytes, including phosphorus level in the morning.
[2020-11-27] MEDS: SODIUM FERRIC GLUCONAT-SUCROSE 125 MG in SODIUM CHLORIDE 0.9% 100 ML IVPB SCH (10:21)
[2020-11-27] MEDS: DEXTROSE 5%-0.45% NACL 1,000 ML IV SCH (10:22)
--- NOTE | 2020-11-27 11:48 | P.PN ---
Subjective Progress Note Date: 11/27/20 History of present illness This is a 65-year-old patient known to Dr. Dotson who was brought into the emergency room due to altered mental status. Recently stated that he was acting bizarrely does not have a psychiatric history. He was not complaining of any chest pain. Patient was found by EMS unresponsive. He does awake and talk but appears disoriented at times. Family did not hear for him for at least one day. He does have history of drug abuse which includes methamphetamine. 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 Abdominal aortic aneurysm. Patient's drug screen was positive for amphetamines, marijuana, and methamphetamines. At this time patient is alert and oriented to self and place. Patient is able to answer questions appropriately while awake. He will follow back to sleep easily. He is easily arousable. He does have facial tics and enlarged tongue. Patient states he only used marijuana in the last few days. He denies any pain or discomfort at this time. 11/26: Patient is found rolling in bed answering only to name. Unable to follow commands or answer questions appropriately. Patient continues with facial tics including extending enlarged tongue and smacking lips. Patient appears to be in pain. Per nursing mother called yesterday discussing patient has not, back for weeks. He will drink a beer daily. Unsure about food intake. Mother purchases groceries and takes it to him. He does have a friend who visits him daily. Patient was seen by neurology and the History. More than likely meth. DTs occ urring. Discussed to have family meeting tomorrow with mother and sibling to assist with guardianship. 11/27: Patient continues to be unresponsive. He has been afebrile with temperature max 100.1. Heart rate 84, blood pressure 172/102, pulse ox 93% on 2 L nasal cannula. Repeat lab work reveals Laya BC 10, hemoglobin 9.2, platelet count 218. Sodium 148, potassium 3.2, chloride 120, CO2 23, BUN 30 and creatinine 1.2. Blood sugars running between 138 and 154. AST 51, ALT 30, alkaline phosphatase 173. Blood cultures no growth at 48 hours. Patient is followed by nephrology and changed IV fluids D5W at 80 ML's per hour. Iron infusion is in process #2/3. Psychiatry is recommending referral to substance abuse treatment and consider frequency of Ativan to 1-2 mg every 2-4 hours for agitation and psychiatry has signed off. Patient is also followed by neurology. EEG reveals no epileptiform discharges. The stress case with social work regarding guardianship issues and Adult Protective Services to evaluate home situation as well as discharge planning. Review Of Systems: Unable to obtain due to mental status Physical examination General Appearance: Not Arousable, no distress, 65-year-old appears older stated age. Disheveled appearance. Neck HEENT: Supple, no lymphadenopathy, no thyroid enlargement, no carotid brui ts. Lungs: Clear to auscultation without crackles or wheezes no rhonchi, no deformity. Chest Wall: Chest wall normal expansion with deep inspiration no tenderness and no deformity was found on exam, no costochondral pain or discomfort. Heart: Regular rate and rhythm, S1, S2 normal, no murmur, rub or gallop. Back: Symmetric, no curvature, ROM normal, no CVA tenderness. Abdomen: Soft, non-tender, no rebound or rigidity, no hepatosplenomegaly. Extremities: bilateral lower extremities with dropfoot, able to move extremities with assistance positive pain no cyanosis or edema. Pulses: 2+ and symmetric. Skin: Skin color, texture, tugor normal, no rashes or lesions. Neurologic: Patient is unresponsive, unable to follow commands or answer questions appropriately Assessment and plan 1. Metabolic or toxic encephalopathy related to drug use with positive urine tox screen of methamphetamine, amphetamines, marijuana. Neurology consult appreciated, psych consult appreciated, social work consult initiated with plans for guardianship and placement. Ativan 1 mg every 6 hours as needed. Dilaudid 0.5 mg every 4 hours as needed for pain 2. Toxic Encephalopathy possible hypoxia due to multiple drug overdose, possibly related to benzodiazepine withdrawal. As noted above 3. Rhabdomyolysis. Continue with hydration. Consult PT/OT 4. Acute kidney injury. Continue with hydration, ALLERGY consult appreciated 5. Severe protein calorie malnutrition. Patient will be started on oral supplements once awake. A regular diet with ensure 3 times a day 6. Illicit drug use with withdrawals. Ativan 1 mg every 6 hours as needed Positive toxicology screen. 7. SIRS presented with leukocytosis and mental status changes. No sign of infection. 8. Hypernatremia. Follow G is following. IV fluids changed to D5W. 9. Schizoaffective disorder. Psych consult appreciated 10. GERD. Pepcid 20 mg IV daily 11. Hyperlipidemia. Atorvastatin 20 mg by mouth held 12. Hypertension amlodipine 10 mg by mouth daily, atenolol 100 mg by mouth twice a day 13. BPH. Tamsulosin 0.4 mg by mouth daily 14. Depression. Cymbalta 60 mg by mouth twice a day 15. GI prophylaxis. Pepcid 20 mg 16. DVT prophylaxis. Pneumatic compression stockings, heparin Discharge plan: Consult social work for possible guardianship and placement. Impression and plan of care have been directed as dictated by the signing physician. Lisa Bhatia nurse practitioner acting as scribe for signing physician. Objective - Vital Signs Vital signs: Vital Signs Temp 98.4 F 11/27/20 08:00 Pulse 84 11/27/20 08:00 Resp 16 11/27/20 08:00 BP 172/102 11/27/20 08:00 Pulse Ox 93 L 11/27/20 08:00 Intake & Output 11/26/20 11/27/20 11/27/20 18:59 06:59 18:59 Intake Total 300 Output Total 400 700 Balance -400 -400 Intake: Oral 300 Output: Urine 400 700 Other: Voiding Method External Catheter External Catheter # Voids 1 - Labs CBC & Chem 7: 11/27/20 06:02 11/27/20 06:02 Labs: Abnormal Lab Results - Last 24 Hours (Table) 11/26/20 11/26/20 11/26/20 Range/Units 07:23 11:21 16:51 RBC (4.30-5.90) m/uL Hgb (13.0-17.5) gm/dL Hct (39.0-53.0) % MCHC (31.0-37.0) g/dL RDW (11.5-15.5) % Neutrophils # (1.3-7.7) k/uL Lymphocytes # (1.0-4.8) k/uL Chloride 118 H (96-109) mmol/L BUN 49.0 H (9.0-27.0) mg/dL Creatinine 1.6 H (0.6-1.5) mg/dL Est GFR (CKD-EPI)AfAm 52.0 L (60.0-200.0) Est GFR (CKD-EPI)NonAf 44.9 L (60.0-200.0) BUN/Creatinine Ratio 30.63 H (12.00-20.00) Ratio Glucose 154 H (70-110) mg/dL POC Glucose (mg/dL) 172 H 151 H (75-99) mg/dL Calcium 7.9 L (8.7-10.3) mg/dL AST 63 H (14-35) U/L Total Protein 4.9 L (6.2-8.2) g/dL Albumin 3.00 L (3.80-4.90) g/dL Albumin/Globulin Ratio 1.58 L (1.60-3.17) g/dL 11/26/20 11/27/20 11/27/20 Range/Units 20:17 06:02 07:28 RBC 3.24 L (4.30-5.90) m/uL Hgb 9.2 L (13.0-17.5) gm/dL Hct 29.8 L (39.0-53.0) % MCHC 30.9 L (31.0-37.0) g/dL RDW 17.2 H (11.5-15.5) % Neutrophils # 8.9 H (1.3-7.7) k/uL Lymphocytes # 0.5 L (1.0-4.8) k/uL Chloride (96-109) mmol/L BUN (9.0-27.0) mg/dL Creatinine (0.6-1.5) mg/dL Est GFR (CKD-EPI)AfAm (60.0-200.0) Est GFR (CKD-EPI)NonAf (60.0-200.0) BUN/Creatinine Ratio (12.00-20.00) Ratio Glucose (70-110) mg/dL POC Glucose (mg/dL) 138 H 146 H (75-99) mg/dL Calcium (8.7-10.3) mg/dL AST (14-35) U/L Total Protein (6.2-8.2) g/dL Albumin (3.80-4.90) g/dL Albumin/Globulin Ratio (1.60-3.17) g/dL Microbiology - Last 24 Hours (Table) 11/24/20 23:15 Blood Culture - Preliminary Blood No Growth after 48 hours
[2020-11-27] MEDS: POTASSIUM CHLORIDE 20 MEQ in WATER FOR INJECTION 1 100ML.BAG IVPB SCH ×2 (11:53→14:39)
[2020-11-27] MEDS: DEXTROSE 5% IN WATER 1,000 ML IV SCH ×2 (15:07→21:16)
[2020-11-27] MEDS: hydrALAZINE HCL 20 MG/ML 1 ML VIAL IVP PRN ×2 (15:57→20:08)
[2020-11-27] MEDS: MELATONIN 5 MG TABLET PO SCH (20:13)
[2020-11-28] MEDS ORDERED: ACETAMINOPHEN IV (For NPO) 1,000 MG in EMPTY BAG 1 BAG IVPB ONE (02:56)
[2020-11-28] MEDS: LORazepam 2 MG/ML INJ IV PRN (04:01)
[2020-11-28] MEDS: atenoloL 50 MG TAB PO SCH ×2 (06:59→19:03)
[2020-11-28] MEDS: amLODIPine 10 MG TAB PO SCH (06:59)
[2020-11-28] MEDS: TAMSULOSIN 0.4 MG CAP.ER.24H PO SCH (07:00)
[2020-11-28] MEDS: BACLOFEN 10 MG TAB PO SCH ×2 (07:00→19:03)
[2020-11-28] MEDS: GABAPENTIN 300 MG CAP PO SCH ×2 (07:00→19:03)
[2020-11-28] MEDS: DULoxetine HCL 60 MG CAPSULE.DR PO SCH ×2 (07:00→19:03)
[2020-11-28] MEDS: FAMOTIDINE 20 MG/2 ML VIAL IV SCH (07:18)
[2020-11-28] MEDS: HEPARIN SODIUM,PORCINE 5,000 UNIT/ML 1 ML VIAL SQ SCH ×2 (07:18→20:17)
[2020-11-28] MEDS: PIPERACILLIN-TAZOBACTAM 3.375 GM in SODIUM CHLORIDE 0.9% 100 ML IVPB SCH ×2 (09:15→16:15)
--- NOTE | 2020-11-28 10:27 | P.PN ---
Subjective Progress Note Date: 11/28/20 History of present illness This is a 65-year-old patient known to Dr. Dotson who was brought into the emergency room due to altered mental status. Recently stated that he was acting bizarrely does not have a psychiatric history. He was not complaining of any chest pain. Patient was found by EMS unresponsive. He does awake and talk but appears disoriented at times. Family did not hear for him for at least one day. He does have history of drug abuse which includes methamphetamine. 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 Abdominal aortic aneurysm. Patient's drug screen was positive for amphetamines, marijuana, and methamphetamines. At this time patient is alert and oriented to self and place. Patient is able to answer questions appropriately while awake. He will follow back to sleep easily. He is easily arousable. He does have facial tics and enlarged tongue. Patient states he only used marijuana in the last few days. He denies any pain or discomfort at this time. 11/26: Patient is found rolling in bed answering only to name. Unable to follow commands or answer questions appropriately. Patient continues with facial tics including extending enlarged tongue and smacking lips. Patient appears to be in pain. Per nursing mother called yesterday discussing patient has not, back for weeks. He will drink a beer daily. Unsure about food intake. Mother purchases groceries and takes it to him. He does have a friend who visits him daily. Patient was seen by neurology and the History. More than likely meth. DTs occ urring. Discussed to have family meeting tomorrow with mother and sibling to assist with guardianship. 11/27: Patient continues to be unresponsive. He has been afebrile with temperature max 100.1. Heart rate 84, blood pressure 172/102, pulse ox 93% on 2 L nasal cannula. Repeat lab work reveals Laya BC 10, hemoglobin 9.2, platelet count 218. Sodium 148, potassium 3.2, chloride 120, CO2 23, BUN 30 and creatinine 1.2. Blood sugars running between 138 and 154. AST 51, ALT 30, alkaline phosphatase 173. Blood cultures no growth at 48 hours. Patient is followed by nephrology and changed IV fluids D5W at 80 ML's per hour. Iron infusion is in process #2/3. Psychiatry is recommending referral to substance abuse treatment and consider frequency of Ativan to 1-2 mg every 2-4 hours for agitation and psychiatry has signed off. Patient is also followed by neurology. EEG reveals no epileptiform discharges. The stress case with social work regarding guardianship issues and Adult Protective Services to evaluate home situation as well as discharge planning. 11/28: Patient continues to be unresponsive. He has fevers with temperature maximum 102.8, heart rate 100 116, respiratory rate 25, blood pressure 138/97, pulse ox 96% on room air. COVID-19, chest x-ray, urinalysis and culture all ordered. Patient will be started on Zosyn and IV fluids increased to 100 mL per hour. Contacted patient's family, Heydi, and provided update regarding patient's current condition. She is agreeable to do temporary guardianship. At this time, patient will be in no code and no plan for artificial feeding. Review Of Systems: Unable to obtain due to mental status Physical examination General Appearance: Not Arousable, no distress, 65-year-old appears older stated age. Disheveled appearance. Neck HEENT: Supple, no lymphadenopathy, no thyroid enlargement, no carotid bruits. Patient is edentulous. Tongue is large and beefy. Lungs: Clear to auscultation without crackles or wheezes no rhonchi, no deformity. Chest Wall: Chest wall normal expansion with deep inspiration no tenderness and no deformity was found on exam, no costochondral pain or discomfort. Heart: Regular rate and rhythm, S1, S2 normal, no murmur, rub or gallop. Back: Symmetric, no curvature, ROM normal, no CVA tenderness. Abdomen: Soft, non-tender, no rebound or rigidity, no hepatosplenomegaly. Extremities: bilateral lower extremities with dropfoot, able to move extremities with assistance positive pain no cyanosis or edema. Pulses: 2+ and symmetric. Skin: Skin color, texture, tugor normal, no rashes or lesions. Neurologic: Patient is unresponsive, unable to follow commands or answer questions appropriately Assessment and plan 1. Metabolic or toxic encephalopathy related to drug use with positive urine tox screen of methamphetamine, amphetamines, marijuana. Neurology consult appreciated, psych consult appreciated, social work consult initiated with plans for guardianship and placement. Ativan 1 mg every 6 hours as needed. Dilaudid 0.5 mg every 4 hours as needed for pain 2. Toxic Encephalopathy possible hypoxia due to multiple drug overdose, possibly related to benzodiazepine withdrawal. As noted above 3. Rhabdomyolysis. Continue with hydration. Consult PT/OT 4. Acute kidney injury. Continue with hydration, ALLERGY consult appreciated 5. Severe protein calorie malnutrition. Patient will be started on oral supplements once awake. A regular diet with ensure 3 times a day 6. Illicit drug use with withdrawals. Ativan 1 mg every 6 hours as needed Positive toxicology screen. 7. SIRS, rule out aspiration pneumonia presented with leukocytosis and mental status changes. Covid 19, chest x-ray and urinalysis with culture ordered. Patient started on Zosyn for possible aspiration pneumonia. 8. Hypernatremia. Follow G is following. IV fluids changed to D5W. 9. Schizoaffective disorder. Psych consult appreciated 10. GERD. Pepcid 20 mg IV daily 11. Hyperlipidemia. Atorvastatin 20 mg by mouth held 12. Hypertension amlodipine 10 mg by mouth daily, atenolol 100 mg by mouth twice a day 13. BPH. Tamsulosin 0.4 mg by mouth daily 14. Recurrent Depression. Cymbalta 60 mg by mouth twice a day 15. GI prophylaxis. Pepcid 20 mg 16. DVT prophylaxis. Pneumatic compression stockings, heparin Discharge plan: Consult social work for possible guardianship and placement. Impression and plan of care have been directed as dictated by the signing physician. Lisa Bhatia nurse practitioner acting as scribe for signing physician. Objective - Vital Signs Vital signs: Vital Signs Temp 101.5 F H 11/28/20 08:00 Pulse 100 11/28/20 08:00 Resp 16 11/28/20 08:00 BP 138/97 11/28/20 08:00 Pulse Ox 96 11/28/20 08:00 Intake & Output 11/27/20 11/28/20 11/28/20 18:59 06:59 18:59 Output Total 800 Balance -800 Output: Urine 800 Other: Voiding Method External Catheter External Catheter # Voids 550 - Labs CBC & Chem 7: 11/27/20 06:02 11/27/20 06:02 Labs: Abnormal Lab Results - Last 24 Hours (Table) 11/27/20 Range/Units 06:02 Sodium 148 H (135-145) mmol/L Potassium 3.2 L (3.5-5.5) mmol/L Chloride 120 H (96-109) mmol/L BUN 30.0 H (9.0-27.0) mg/dL BUN/Creatinine Ratio 25.00 H (12.00-20.00) Ratio Glucose 154 H (70-110) mg/dL Calcium 7.6 L (8.7-10.3) mg/dL AST 51 H (14-35) U/L Alkaline Phosphatase 173 H (41-126) U/L Total Protein 4.5 L (6.2-8.2) g/dL Albumin 2.70 L (3.80-4.90) g/dL Albumin/Globulin Ratio 1.50 L (1.60-3.17) g/dL Microbiology - Last 24 Hours (Table) 11/24/20 23:15 Blood Culture - Preliminary Blood No Growth after 72 hours
[2020-11-28 10:34] LABS: African American GFR (CKD) 66.8 (60.0-200.0); Anion Gap 10.9 mmol/L (4.00-12.00); BUN/Creat Ratio 23.08 Ratio (12.00-20.00); Calcium 7.7 mg/dL (8.7-10.3); Carbon Dioxide 20.1 mmol/L (21.6-31.8); Magnesium 2.1 mg/dL (1.5-2.4); Non-African American GFR(CKD) 57.7 (60.0-200.0); Phosphorus 2.1 mg/dL (2.4-5.1); Potassium 3.2 mmol/L (3.5-5.5)
[2020-11-28] MEDS ORDERED: Phosphorus Replacement Protoco 1 EACH MISC MISCELLANE PRN (10:39)
--- NOTE | 2020-11-28 10:44 | P.PN ---
Subjective Patient is seen in follow-up for acute kidney injury. Creatinine was 3 on admission and is stable at 1.3 today. Sodium level also stable at 148. Not tolerating oral intake. Not a reliable historian. Vital signs are stable. HEENT: Head exam is unremarkable. LUNGS: Breath sounds decreased. HEART: Rate and Rhythm are regular. ABDOMEN: Soft, no distention noted. EXTREMITITES: No edema. Objective - Vital Signs Vital signs: Vital Signs Temp 101.5 F H 11/28/20 08:00 Pulse 100 11/28/20 08:00 Resp 16 11/28/20 08:00 BP 138/97 11/28/20 08:00 Pulse Ox 96 11/28/20 08:00 Intake & Output 11/27/20 11/28/20 11/28/20 18:59 06:59 18:59 Intake Total 300 Output Total 800 Balance -800 300 Intake: Oral 300 Output: Urine 800 Other: Voiding Method External Catheter External Catheter External Catheter # Voids 550 - Labs CBC & Chem 7: 11/27/20 06:02 11/28/20 06:06 Labs: Abnormal Lab Results - Last 24 Hours (Table) 11/28/20 Range/Units 06:06 Sodium 148 H (135-145) mmol/L Potassium 3.2 L (3.5-5.5) mmol/L Chloride 117 H (96-109) mmol/L Carbon Dioxide 20.1 L (21.6-31.8) mmol/L BUN 30.0 H (9.0-27.0) mg/dL Est GFR (CKD-EPI)NonAf 57.7 L (60.0-200.0) BUN/Creatinine Ratio 23.08 H (12.00-20.00) Ratio Glucose 157 H (70-110) mg/dL Calcium 7.7 L (8.7-10.3) mg/dL Phosphorus 2.1 L (2.4-5.1) mg/dL Microbiology - Last 24 Hours (Table) 11/24/20 23:15 Blood Culture - Preliminary Blood No Growth after 72 hours Assessment and Plan Plan: Assessment: 1. Acute kidney injury mostly prerenal secondary to hypotension/hypovolemia. Creatinine was 3 and admission and is stable at 1.3 today. Creatinine as of November 2019 was 0.76. Renal ultrasound could not be performed due to patient's movements. 2. Hypokalemia from poor intake. Magnesium normal. 3. Metabolic acidosis secondary to acute kidney injury. 4. Polysubstance drug abuse. Urine drug screen positive for amphetamines, methamphetamines as well as marijuana. 5. Anemia. Iron deficiency present. 6. Hypernatremia secondary to lack of oral water intake. Plan: Increase D5W to 125 mL an hour. IV iron 3 doses. Last dose today. Avoid nephrotoxins. Continue to monitor renal function and urine output. Replace potassium. 40 mEq today. Also replace phosphorus. Repeat potassium level this evening. Add oral bicarb.
[2020-11-28] MEDS ORDERED: POTASSIUM PHOSPHATE 10 MMOL in SODIUM CHLORIDE 0.9% 250 ML IV ONE (11:00)
[2020-11-28] MEDS: SODIUM BICARBONATE TAB 650 MG TAB PO SCH ×2 (11:33→20:03)
[2020-11-28] MEDS: POTASSIUM CHLORIDE 20 MEQ in WATER FOR INJECTION 1 100ML.BAG IVPB SCH ×2 (11:36→12:39)
[2020-11-28] MEDS: DEXTROSE 5% IN WATER 1,000 ML IV SCH ×2 (11:40→19:23)
--- NOTE | 2020-11-28 12:33 | XR ---
EXAMINATION TYPE: XR chest 1V portable DATE OF EXAM: 11/28/2020 COMPARISON: Chest x-ray 11/24/2020 HISTORY: Covid follow-up, abnormal chest x-ray TECHNIQUE: Single frontal view of the chest is obtained. FINDINGS: There is airspace disease greater on the right, some volume loss suspected, elevation righ t hemidiaphragm, no pleural effusion or pneumothorax seen. The cardiac silhouette size is within nor mal limits. The mediastinum is widened. The aorta is aneurysmal. The osseous structures are intact, postop change noted in the cervical spine, there are overlying leads. IMPRESSION: Aortic aneurysm, correlate for pneumonia, atelectasis. Abnormal widening of the superior mediastinum, consider chest CT
[2020-11-28 12:53] LABS: Magnesium 2.1 mg/dL (1.5-2.4); Phosphorus 2.1 mg/dL (2.4-5.1)
[2020-11-28] MEDS: SODIUM FERRIC GLUCONAT-SUCROSE 125 MG in SODIUM CHLORIDE 0.9% 100 ML IVPB SCH (14:44)
[2020-11-28] MEDS ORDERED: ACYCLOVIR 400 MG/10 ML CUP PO SCH (18:45)
--- NOTE | 2020-11-28 18:47 | P.PN ---
Subjective Progress Note Date: 11/28/20 The patient was seen at bedside and the patient continues to be unresponsive. I was notified by the patient nurse that he has been like that since his presentation. There is no clinical seizure-like activity or the patient's nurse. Per the patient's nurse and she stated that the his primary attending I will have a discussion with the his sister regarding addressing patient's status and possible hospice. Please refer to Dr. Hobbs's note for detail of his neurological history. I attempted to arouse the patient but he is unarousable. Objective - Vital Signs Vital signs: Vital Signs Temp 101.3 F H 11/28/20 14:00 Pulse 124 H 11/28/20 14:00 Resp 22 11/28/20 14:00 BP 123/84 11/28/20 14:00 Pulse Ox 92 L 11/28/20 14:00 Intake & Output 11/27/20 11/28/20 11/28/20 18:59 06:59 18:59 Intake Total 600 Output Total 800 Balance -800 600 Intake: Oral 600 Output: Urine 800 Other: Voiding Method External Catheter External Catheter External Catheter # Voids 550 3 - Exam General: Does not seem in distress. HENT: Some increase neck ridigity. Neurological Exam: Limited because of his condition. Higher mental function: Patient is in sleep and is un-arousable. Patient is not following commands or of verbalizing. Higher mental function: Eyes are closed so I have to and manual open his eyes and the pupils are midline or moving from side to side but there is no gaze deviation. The pupils are 3 mm and reactive to light. No facial weakness noted. Cannot assess rest of the cranial nerves because of his condition. Motor: Gait is unable to assess because of condition. Motor strength could not assess because of lack of cooperation even with painful stimuli he'll grimace. No spontaneous movement noted. I felt the patient had normal tone throughout. He has diffuse muscle atrophy. Cerebellar: Could not assess. - Labs CBC & Chem 7: 11/27/20 06:02 11/28/20 17:56 Labs: Abnormal Lab Results - Last 24 Hours (Table) 11/28/20 11/28/20 Range/Units 06:06 06:06 Sodium 148 H (135-145) mmol/L Potassium 3.2 L (3.5-5.5) mmol/L Chloride 117 H (96-109) mmol/L Carbon Dioxide 20.1 L (21.6-31.8) mmol/L BUN 30.0 H (9.0-27.0) mg/dL Est GFR (CKD-EPI)NonAf 57.7 L (60.0-200.0) BUN/Creatinine Ratio 23.08 H (12.00-20.00) Ratio Glucose 157 H (70-110) mg/dL Calcium 7.7 L (8.7-10.3) mg/dL Phosphorus 2.1 L 2.1 L (2.4-5.1) mg/dL Microbiology - Last 24 Hours (Table) 11/24/20 23:15 Blood Culture - Preliminary Blood No Growth after 72 hours Assessment and Plan Assessment: 1. Mental status changes: Differential diagnosis includes toxic encephalopathy (positive drug screen) versus delirium versus methamphetamine withdrawal vs underlying meningoencephalitis (encephalopathic, leukocytosis and fever) 2. Leukocytosis--resolved 3. Pyrexia 4. Acute mild Hypernatremia (148) cleaned due to dehydration. 5. Reported history of suicide attempt 6. Reported history of polysubstance abuse 7. Rhabdomyolysis with acute kidney injury Plan: * Routine EEG on 11/26/20: Reported as this is a sleeping EEG with posterior dominant rhythm of 6-7 Hz. There are no epileptiform discharges. I don't have any awake background rhythm to verify whether there is any generalized slowing of the background rhythm. * I ordered an urgent EEG for tomorrow. * I started the patient on thiamine 100 mg daily. * I consulted anesthesiology for an STAT for lumbar puncture especially since the patient is encephalopathic and has fever. I also consulted Dr. Washington (Infection Disease). 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 The patient is on Zosyn every 8 hours. I started the patient on acyclovir as well as ceftriaxone for the meningeal encephalitis coverage will defer modifying the medication the to the infection disease team. * Psychiatry evaluated the patient on 11/26/2020 and they recommended off concerning increasing the frequency of Ativan to 1-2 mg every 2-4 hours with history for agitation and then they signed off. I disagree with the m anagement and I would like psychiatry to reevaluate the patient again. Cur rently the patient is getting Ativan 1 mg every 6 hours as needed and the last Ativan was added today at 4am. I notified the nurse to avoid giving the patient any more Ativan for now unless the patient is having seizures since we want the patient to be more awake. * Please avoid given any opiates or narcotic. The plan was discussed with the patient's nurse Jacques Curran MD Neuro-Hospitalist Time with Patient: Greater than 30
[2020-11-28] MEDS: MELATONIN 5 MG TABLET PO SCH (20:03)
[2020-11-28] MEDS: THIAMINE 100 MG/ML 2 ML VIAL IVP SCH (20:12)
[2020-11-28 20:35] LABS: Partial Thromboplastin Time 37.2 sec (22.0-30.0); Prothrombin Time 10.5 sec (9.0-12.0)
[2020-11-28] MEDS: ACYCLOVIR SODIUM 700 MG in SODIUM CHLORIDE 0.9% 100 ML IVPB SCH (21:17)
[2020-11-29] MEDS ORDERED: ACETAMINOPHEN IV (For NPO) 1,000 MG in EMPTY BAG 1 BAG IVPB PRN (03:00)
[2020-11-29] MEDS: LORazepam 2 MG/ML INJ IV PRN (03:17)
[2020-11-29] MEDS: DEXTROSE 5% IN WATER 1,000 ML IV SCH (03:26)
[2020-11-29] MEDS: ACYCLOVIR SODIUM 700 MG in SODIUM CHLORIDE 0.9% 100 ML IVPB SCH (06:15)
[2020-11-29] MEDS: atenoloL 50 MG TAB PO SCH (06:56)
[2020-11-29] MEDS: amLODIPine 10 MG TAB PO SCH (06:56)
[2020-11-29] MEDS: BACLOFEN 10 MG TAB PO SCH (06:57)
[2020-11-29] MEDS: DULoxetine HCL 60 MG CAPSULE.DR PO SCH (06:57)
[2020-11-29] MEDS: SODIUM BICARBONATE TAB 650 MG TAB PO SCH (06:57)
[2020-11-29] MEDS: TAMSULOSIN 0.4 MG CAP.ER.24H PO SCH (06:58)
[2020-11-29] MEDS: GABAPENTIN 300 MG CAP PO SCH (07:09)
[2020-11-29] MEDS: THIAMINE 100 MG/ML 2 ML VIAL IVP SCH (07:19)
[2020-11-29] MEDS: FAMOTIDINE 20 MG/2 ML VIAL IV SCH (07:20)
[2020-11-29] MEDS: HEPARIN SODIUM,PORCINE 5,000 UNIT/ML 1 ML VIAL SQ SCH (07:20)
[2020-11-29 08:03] LABS: Anisocytosis Slight; HCT 30.4 % (39.0-53.0); HGB 9.7 gm/dL (13.0-17.5); Hypochromasia Marked; MCH 28.8 pg (25.0-35.0); MCHC 31.9 g/dL (31.0-37.0); MCV 90.4 fL (80.0-100.0); Mean Platelet Volume 10.7; Platelet Count 156 k/uL (150-450); Poikilocytosis Slight; RBC 3.36 m/uL (4.30-5.90); RDW 17.9 % (11.5-15.5); WBC 17.7 k/uL (3.8-10.6)
[2020-11-29 08:05] VITALS: BP 72/35; PULSE 106; RESP 44; TEMP 101
[2020-11-29] MEDS: SODIUM FERRIC GLUCONAT-SUCROSE 125 MG in SODIUM CHLORIDE 0.9% 100 ML IVPB SCH (09:41)
[2020-11-29] MEDS ORDERED: DRY MOUTH SPRAY 44.3 SPRAY/44.3 ML SPRAY MUCOUS MEM PRN (10:30)
[2020-11-29] MEDS ORDERED: ATROPINE OPHTH SOLN 1% 5ML BTL SUBLINGUAL PRN (10:30)
[2020-11-29] MEDS ORDERED: ACETAMINOPHEN SUPPOSITORY 650 MG SUPP RECTAL PRN (10:30)
[2020-11-29] MEDS ORDERED: ARTIFICIAL TEARS-HYPROMELLOSE DROPS 15 ML BTL BOTH EYES PRN (10:30)
[2020-11-29] MEDS ORDERED: MORPHINE SULFATE 2 MG/ML SYRINGE IV PRN (10:30)
[2020-11-29] MEDS ORDERED: SODIUM CHLORIDE 0.9% 1,000 ML IV SCH (10:30)
[2020-11-29] MEDS ORDERED: LORazepam 2 MG/ML INJ IV PRN (10:30)
[2020-11-29] MEDS ORDERED: ONDANSETRON 4 MG/2 ML VIAL IVP PRN (10:30)
[2020-11-29] MEDS ORDERED: MORPHINE SULFATE (100 MG/2 ML) 100 MG in SODIUM CHLORIDE 0.9% 100 ML IV SCH (11:00)
[2020-11-29 11:59] LABS: African American GFR (CKD) 24.3 (60.0-200.0); Albumin 2.5 g/dL (3.80-4.90); Albumin/Globulin Ratio 1.47 (1.60-3.17); Anion Gap 12.7 mmol/L (4.00-12.00); BUN/Creat Ratio 21.67 Ratio (12.00-20.00); Calcium 7.3 mg/dL (8.7-10.3); Carbon Dioxide 15.3 mmol/L (21.6-31.8); Globulin 1.7 g/dL (1.6-3.3); Magnesium 2.2 mg/dL (1.5-2.4); Phosphorus 2.9 mg/dL (2.4-5.1); Potassium 4.2 mmol/L (3.5-5.5); Total Bilirubin 0.5 mg/dL (0.3-1.2); Total Protein 4.2 g/dL (6.2-8.2)
--- NOTE | 2020-11-29 13:29 | P.PN ---
Subjective Progress Note Date: 11/29/20 History of present illness This is a 65-year-old patient known to Dr. Dotson who was brought into the emergency room due to altered mental status. Recently stated that he was acting bizarrely does not have a psychiatric history. He was not complaining of any chest pain. Patient was found by EMS unresponsive. He does awake and talk but appears disoriented at times. Family did not hear for him for at least one day. He does have history of drug abuse which includes methamphetamine. 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 Abdominal aortic aneurysm. Patient's drug screen was positive for amphetamines, marijuana, and methamphetamines. At this time patient is alert and oriented to self and place. Patient is able to answer questions appropriately while awake. He will follow back to sleep easily. He is easily arousable. He does have facial tics and enlarged tongue. Patient states he only used marijuana in the last few days. He denies any pain or discomfort at this time. 11/26: Patient is found rolling in bed answering only to name. Unable to follow commands or answer questions appropriately. Patient continues with facial tics including extending enlarged tongue and smacking lips. Patient appears to be in pain. Per nursing mother called yesterday discussing patient has not, back for weeks. He will drink a beer daily. Unsure about food intake. Mother purchases groceries and takes it to him. He does have a friend who visits him daily. Patient was seen by neurology and the History. More than likely meth. DTs occ urring. Discussed to have family meeting tomorrow with mother and sibling to assist with guardianship. 11/27: Patient continues to be unresponsive. He has been afebrile with temperature max 100.1. Heart rate 84, blood pressure 172/102, pulse ox 93% on 2 L nasal cannula. Repeat lab work reveals Laya BC 10, hemoglobin 9.2, platelet count 218. Sodium 148, potassium 3.2, chloride 120, CO2 23, BUN 30 and creatinine 1.2. Blood sugars running between 138 and 154. AST 51, ALT 30, alkaline phosphatase 173. Blood cultures no growth at 48 hours. Patient is followed by nephrology and changed IV fluids D5W at 80 ML's per hour. Iron infusion is in process #2/3. Psychiatry is recommending referral to substance abuse treatment and consider frequency of Ativan to 1-2 mg every 2-4 hours for agitation and psychiatry has signed off. Patient is also followed by neurology. EEG reveals no epileptiform discharges. The stress case with social work regarding guardianship issues and Adult Protective Services to evaluate home situation as well as discharge planning. 11/28: Patient continues to be unresponsive. He has fevers with temperature maximum 102.8, heart rate 100 116, respiratory rate 25, blood pressure 138/97, pulse ox 96% on room air. COVID-19, chest x-ray, urinalysis and culture all ordered. Patient will be started on Zosyn and IV fluids increased to 100 mL per hour. Contacted patient's family, Heydi, and provided update regarding patient's current condition. She is agreeable to do temporary guardianship. At this time, patient will be in no code and no plan for artificial feeding. 11/29: Patient remains unresponsive. He has had no urine output since yesterday. There is some mottling noted to the extremities. Blood pressure is low at 72/35, he continues to run fevers up to 102.9, heart rate in the low 100s to 100-130. Pulse ox is 93% on 4 L nasal cannula. Patient has been seen by neurology and started on acyclovir and ceftriaxone with concern for meningitis. Zosyn was discontinued. After further discussion, LP on hold until clarified with family. Subsequently, family have decided to make the patient comfort care only and all aggressive treatment has been discontinued. Expect the patient will within 24 hours. Review Of Systems: Unable to obtain due to mental status Physical examination General Appearance: Not Arousable, no distress, 65-year-old appears older stated age. Disheveled appearance. Neck HEENT: Supple, no lymphadenopathy, no thyroid enlargement, no carotid bruits. Patient is edentulous. Tongue is large and beefy. Lungs: Clear to auscultation without crackles or wheezes no rhonchi, no deformity. Chest Wall: Chest wall normal expansion with deep inspiration no tenderness and no deformity was found on exam, no costochondral pain or discomfort. Heart: Regular rate and rhythm, S1, S2 normal, no murmur, rub or gallop. Back: Symmetric, no curvature, ROM normal, no CVA tenderness. Abdomen: Soft, non-tender, no rebound or rigidity, no hepatosplenomegaly. Harrington catheter and fatigue. Extremities: bilateral lower extremities with dropfoot, able to move extremities with assistance positive pain no cyanosis or edema. Pulses: 2+ and symmetric. Skin: Skin color, texture, tugor normal, no rashes or lesions. Neurologic: Patient is unresponsive, unable to follow commands or answer questions appropriately Assessment and plan 1. Metabolic or toxic encephalopathy related to drug use with positive urine tox screen of methamphetamine, amphetamines, marijuana. 2. Toxic Encephalopathy possible hypoxia due to multiple drug overdose, po ssibly related to benzodiazepine withdrawal. 3. Rhabdomyolysis. 4. Acute kidney injury. 5. Severe protein calorie malnutrition. 6. Illicit drug use with withdrawals. 7. SIRS, rule out aspiration pneumonia presented with leukocytosis and mental status changes. 8. Hypernatremia. 9. Schizoaffective disorder. 10. GERD. 11. Hyperlipidemia. 12. Hypertension. 13. BPH. 14. Recurrent Depression. Plan: All aggressive treatment discontinued. Patient started on comfort jarvis sures only. Impression and plan of care have been directed as dictated by the signing physician. Lisa Bhatia nurse practitioner acting as scribe for signing physician. Objective - Vital Signs Vital signs: Vital Signs Temp 101 F H 11/29/20 07:14 Pulse 106 H 11/29/20 07:14 Resp 44 H 11/29/20 07:14 BP 72/35 11/29/20 07:14 Pulse Ox 93 L 11/29/20 07:14 Intake & Output 11/28/20 11/29/20 11/29/20 18:59 06:59 18:59 Intake Total 600 500 Output Total 0 Balance 600 500 Intake: Intake, IV Titration 500 Amount ACETAMINOPHEN IV (For NPO 400 ) 1,000 mg In Empty Bag 1 bag @ 400 mls/hr IVPB Q6H PRN Rx#:[id number] Acyclovir Sodium 700 mg 100 In Sodium Chloride 0.9% 100 ml @ 100 mls/hr IVPB Q8H RADHA Rx#:[id number] Oral 600 Output: Urine 0 Other: Voiding Method External Catheter External Catheter # Voids 3 - Labs CBC & Chem 7: 11/29/20 06:58 11/29/20 06:58 Labs: Abnormal Lab Results - Last 24 Hours (Table) 11/28/20 11/28/20 11/28/20 Range/Units 06:06 06:06 19:33 WBC (3.8-10.6) k/uL RBC (4.30-5.90) m/uL Hgb (13.0-17.5) gm/dL Hct (39.0-53.0) % RDW (11.5-15.5) % APTT 37.2 H (22.0-30.0) sec Sodium 148 H (135-145) mmol/L Potassium 3.2 L (3.5-5.5) mmol/L Chloride 117 H (96-109) mmol/L Carbon Dioxide 20.1 L (21.6-31.8) mmol/L BUN 30.0 H (9.0-27.0) mg/dL Est GFR (CKD-EPI)NonAf 57.7 L (60.0-200.0) BUN/Creatinine Ratio 23.08 H (12.00-20.00) Ratio Glucose 157 H (70-110) mg/dL Calcium 7.7 L (8.7-10.3) mg/dL Phosphorus 2.1 L 2.1 L (2.4-5.1) mg/dL 11/29/20 Range/Units 06:58 WBC 17.7 H (3.8-10.6) k/uL RBC 3.36 L (4.30-5.90) m/uL Hgb 9.7 L (13.0-17.5) gm/dL Hct 30.4 L (39.0-53.0) % RDW 17.9 H (11.5-15.5) % APTT (22.0-30.0) sec Sodium (135-145) mmol/L Potassium (3.5-5.5) mmol/L Chloride (96-109) mmol/L Carbon Dioxide (21.6-31.8) mmol/L BUN (9.0-27.0) mg/dL Est GFR (CKD-EPI)NonAf (60.0-200.0) BUN/Creatinine Ratio (12.00-20.00) Ratio Glucose (70-110) mg/dL Calcium (8.7-10.3) mg/dL Phosphorus (2.4-5.1) mg/dL Microbiology - Last 24 Hours (Table) 11/24/20 23:15 Blood Culture - Preliminary Blood No Growth after 96 hours
--- NOTE | 2020-11-29 15:42 | P.PN ---
Subjective Progress Note Date: 11/29/20 Patient was seen at bedside and he continues to be unresponsive. The patient nurse have them yesterday and she stated that his condition has not improved at all. Patient continues to have fevers with a T-max of 102.9 around the 1999 yesterday. Objective - Vital Signs Vital signs: Vital Signs Temp 101 F H 11/29/20 07:14 Pulse 106 H 11/29/20 07:14 Resp 44 H 11/29/20 07:14 BP 72/35 11/29/20 07:14 Pulse Ox 93 L 11/29/20 07:14 Intake & Output 11/28/20 11/29/20 11/29/20 18:59 06:59 18:59 Intake Total 600 500 13.009 Output Total 0 Balance 600 500 13.009 Intake: Intake, IV Titration 500 13.009 Amount ACETAMINOPHEN IV (For NPO 400 ) 1,000 mg In Empty Bag 1 bag @ 400 mls/hr IVPB Q6H PRN Rx#:[id number] Acyclovir Sodium 700 mg 100 In Sodium Chloride 0.9% 100 ml @ 100 mls/hr IVPB Q8H RADHA Rx#:[id number] Morphine Sulfate (100 mg/ 13.009 2 ml) 100 mg In Sodium Chloride 0.9% 100 ml @ 1 MG/HR 1.02 mls/hr IV . Q24H RADHA Rx#:[id number] Oral 600 Output: Urine 0 Other: Voiding Method External Catheter External Catheter # Voids 3 - Exam General: Does not seem in distress. HENT: Some increase neck ridigity. Neurological Exam: Limited because of his condition. Higher mental function: Patient is in sleep and is un-arousable. Patient is not following commands or attempting to verbalize. Higher mental function: Eyes are closed so I have to and manual open his eyes and the pupils are midline or moving from side to side but there is no gaze deviation. The pupils are 3 mm and reactive to light. No facial weakness noted. Cannot assess rest of the cranial nerves because of his condition. Motor: Gait is unable to assess because of condition. Motor strength could not assess because of lack of cooperation even with painful stimuli he'll grimace. No spontaneous movement noted. I felt the patient had decreased tone thro ughout. He has diffuse muscle atrophy. Cerebellar: Could not assess. Sensory: Could not assess light touch but would be frowing with painful stimuli. Reflexes: 1+ throughout bilateral upper. 3+ bilateral patellar and 2+ ankles. Plantars are downgoing. - Labs CBC & Chem 7: 11/29/20 06:58 11/29/20 06:58 Labs: Abnormal Lab Results - Last 24 Hours (Table) 11/28/20 11/29/20 11/29/20 Range/Units 19:33 06:58 06:58 WBC 17.7 H (3.8-10.6) k/uL RBC 3.36 L (4.30-5.90) m/uL Hgb 9.7 L (13.0-17.5) gm/dL Hct 30.4 L (39.0-53.0) % RDW 17.9 H (11.5-15.5) % APTT 37.2 H (22.0-30.0) sec Sodium 146 H (135-145) mmol/L Chloride 118 H (96-109) mmol/L Carbon Dioxide 15.3 L (21.6-31.8) mmol/L Anion Gap 12.70 H (4.00-12.00) mmol/L BUN 65.0 H (9.0-27.0) mg/dL Creatinine 3.0 H (0.6-1.5) mg/dL Est GFR (CKD-EPI)AfAm 24.3 L (60.0-200.0) Est GFR (CKD-EPI)NonAf 21.0 L (60.0-200.0) BUN/Creatinine Ratio 21.67 H (12.00-20.00) Ratio Glucose 152 H (70-110) mg/dL Calcium 7.3 L (8.7-10.3) mg/dL AST 379 H (14-35) U/L ALT 119 H (10-49) U/L Alkaline Phosphatase 151 H (41-126) U/L Total Protein 4.2 L (6.2-8.2) g/dL Albumin 2.50 L (3.80-4.90) g/dL Albumin/Globulin Ratio 1.47 L (1.60-3.17) g/dL Microbiology - Last 24 Hours (Table) 11/24/20 23:15 Blood Culture - Preliminary Blood No Growth after 96 hours Assessment and Plan Assessment: 1. Encephalopathy: Differential diagnosis includes toxic encephalopathy (positive drug screen) versus delirium versus methamphetamine withdrawal vs underlying meningoencephalitis (encephalopathic, leukocytosis and fever) 2. Leukocytosis--resolved 3. Pyrexia 4. Acute mild Hypernatremia (148) cleaned due to dehydration. 5. Reported history of suicide attempt 6. Reported history of polysubstance abuse 7. Rhabdomyolysis with acute kidney injury Plan: * Routine EEG on 11/26/20: Reported as this is a sleeping EEG with posterior dominant rhythm of 6-7 Hz. There are no epileptiform discharges. I don't have any awake background rhythm to verify whether there is any generalized slowing of the background rhythm. * I ordered an urgent EEG. * I started the patient on thiamine 100 mg daily. * I consulted anesthesiology for an STAT for lumbar puncture especially since the patient is encephalopathic and has fever. I also consulted Dr. Washington (Infection Disease). 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 The patient is on Zosyn every 8 hours. I started the patient on acyclovir as well as ceftriaxone for the meningeal encephalitis coverage will defer modifying the medication the to the infection disease team. * Psychiatry evaluated the patient on 11/26/2020 and they recommended off concerning increasing the frequency of Ativan to 1-2 mg every 2-4 hours with history for agitation and then they signed off. I disagree with the management and I would like psychiatry to reevaluate the patient again. Currently the patient is getting Ativan 1 mg every 6 hours as needed and the last Ativan was added today at 4am. I notified the nurse to avoid giving the patient any more Ativan for now unless the patient is having seizures since we want the patient to be more awake. * Please avoid given any opiates or narcotic. * The plan was discussed with the primary team. * I was notified by the nurse practitioner from the primary team that the family decided to make the patient comfort care. Jacques Curran MD Neuro-Hospitalist Time with Patient: Less than 30
--- NOTE | 2020-11-30 07:38 | P.DS ---
Providers Date of admission: 11/24/20 20:07 Expected date of discharge: 11/30/20 Attending physician: Nakul Dotson Consults: 11/24/20 20:08 Consult Physician Routine Consulting Provider: Mariano Whitfield Consult Reason/Comments: mary ann Do you want consulting provider notified?: Yes Consult Physician Routine Consulting Provider: Nakul Webb Consult Reason/Comments: polysubstance abuse Do you want consulting provider notified?: Yes 11/25/20 09:02 Consult Physician Routine Consulting Provider: Jacques Curran Consult Reason/Comments: change in mental status Do you want consulting provider notified?: Yes 11/28/20 18:31 anesthesia [Consult to Anesthesia] Stat Consulting Provider: Anesthesia,Services Consult Reason/Comments: lumbar puncture 11/28/20 18:33 Consult Physician Urgent Consulting Provider: Ranulfo Washington Consult Reason/Comments: altered mental status with fever Do you want consulting provider notified?: Yes 11/28/20 18:49 Consult Physician Routine Consulting Provider: Calos Calabrese Consult Reason/Comments: polysubstance abuse. Please re-evaluate recommendation Do you want consulting provider notified?: Yes Primary care physician: [facility] Course: History of present illness This is a 65-year-old patient known to Dr. Dotson who was brought into the emergency room due to altered mental status. Recently stated that he was acting bizarrely does not have a psychiatric history. He was not complaining of any chest pain. Patient was found by EMS unresponsive. He does awake and talk but appears disoriented at times. Family did not hear for him for at least one day. He does have history of drug abuse which includes methamphetamine. 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 Abdominal aortic aneurysm. Patient's drug screen was positive for amphetamines, marijuana, and methamphetamines. At this time patient is alert and oriented to self and place. Patient is able to answer questions appropriately while awake. He will follow back to sleep easily. He is easily arousable. He does have facial tics and enlarged tongue. Patient states he only used marijuana in the last few days. He denies any pain or discomfort at this time. 11/26: Patient is found rolling in bed answering only to name. Unable to follow commands or answer questions appropriately. Patient continues with facial tics including extending enlarged tongue and smacking lips. Patient appears to be in pain. Per nursing mother called yesterday discussing patient has not, back for weeks. He will drink a beer daily. Unsure about food intake. Mother purchases groceries and takes it to him. He does have a friend who visits him daily. Patient was seen by neurology and the History. More than likely meth. DTs occurring. Discussed to have family meeting tomorrow with mother and sibling to assist with guardianship. 11/27: Patient continues to be unresponsive. He has been afebrile with temperature max 100.1. Heart rate 84, blood pressure 172/102, pulse ox 93% on 2 L nasal cannula. Repeat lab work reveals Laya BC 10, hemoglobin 9.2, platelet count 218. Sodium 148, potassium 3.2, chloride 120, CO2 23, BUN 30 and creatinine 1.2. Blood sugars running between 138 and 154. AST 51, ALT 30, alkaline phosphatase 173. Blood cultures no growth at 48 hours. Patient is followed by nephrology and changed IV fluids D5W at 80 ML's per hour. Iron infusion is in process #2/3. Psychiatry is recommending referral to substance abuse treatment and consider frequency of Ativan to 1-2 mg every 2-4 hours for agitation and psychiatry has signed off. Patient is also followed by neurology. EEG reveals no epileptiform discharges. The stress case with social work regarding guardianship issues and Adult Protective Services to evaluate home situation as well as discharge planning. 11/28: Patient continues to be unresponsive. He has fevers with temperature maximum 102.8, heart rate 100 116, respiratory rate 25, blood pressure 138/97, pulse ox 96% on room air. COVID-19, chest x-ray, urinalysis and culture all ordered. Patient will be started on Zosyn and IV fluids increased to 100 mL per hour. Contacted patient's family, Heydi, and provided update regarding patient's current condition. She is agreeable to do temporary guardianship. At this time, patient will be in no code and no plan for artificial feeding. 11/29: Patient remains unresponsive. He has had no urine output since yesterday. There is some mottling noted to the extremities. Blood pressure is low at 72/35, he continues to run fevers up to 102.9, heart rate in the low 100s to 100-130. Pulse ox is 93% on 4 L nasal cannula. Patient has been seen by neurology and started on acyclovir and ceftriaxone with concern for meningitis. Zosyn was discontinued. After further discussion, LP on hold until clarified with family. Subsequently, family have decided to make the patient comfort care only and all aggressive treatment has been discontinued. Expect the patient will within 24 hours. Patient on November 29. Please see nursing documentation for details. Assessment and plan 1. Metabolic or toxic encephalopathy related to drug use, drug overdose with positive urine tox screen of methamphetamine, amphetamines, marijuana. 2. Toxic Encephalopathy possible hypoxia due to multiple drug overdose, possibly related to benzodiazepine withdrawal. 3. Rhabdomyolysis. 4. Acute kidney injury. 5. Severe protein calorie malnutrition. 6. Illicit drug use with withdrawals. 7. Sepsis, possible aspiration pneumonia presented with leukocytosis and meta bolic encephalopathy. 8. Hypernatremia. 9. Schizoaffective disorder. 10. GERD. 11. Hyperlipidemia. 12. Hypertension. 13. BPH. 14. Recurrent Depression. 15. Multiorgan failure including [employer] with toxic encephalopathy, acute kidney injury, and liver shock. All present on admission Impression and plan of care have been directed as dictated by the signing physician. Lisa Bhatia nurse practitioner acting as scribe for signing physician. Patient Condition at Discharge: Undetermined Plan - Discharge Summary New Discharge Prescriptions: No Action Tamsulosin HCl [Flomax] 0.4 mg PO DAILY Gabapentin [Neurontin] 300 mg PO BID DULoxetine HCL [Cymbalta] 60 mg PO BID atenoloL [Atenolol] 100 mg PO BID amLODIPine [Norvasc] 10 mg PO DAILY #30 tab Baclofen [Lioresal] 20 mg PO BID PRN PRN Reason: Muscle Spasm Pantoprazole Sodium 40 mg PO DAILY Atorvastatin [Lipitor] 20 mg PO DAILY Mirtazapine [Remeron] 15 mg PO HS Discharge Medication List DULoxetine HCL [Cymbalta] 60 mg PO BID 07/29/17 [History] Gabapentin [Neurontin] 300 mg PO BID 07/29/17 [History] Tamsulosin HCl [Flomax] 0.4 mg PO DAILY 07/29/17 [History] atenoloL [Atenolol] 100 mg PO BID 07/29/17 [History] amLODIPine [Norvasc] 10 mg PO DAILY #30 tab 02/18/19 [Rx] Baclofen [Lioresal] 20 mg PO BID PRN 04/09/19 [History] Atorvastatin [Lipitor] 20 mg PO DAILY 11/24/20 [History] Mirtazapine [Remeron] 15 mg PO HS 11/24/20 [History] Pantoprazole Sodium 40 mg PO DAILY 11/24/20 [History] Follow up Appointment(s)/Referral(s): Nakul Dotson MD [Primary Care Provider] - 1-2 days Discharge Disposition: - Preliminary Cause of Preliminary Cause of : toxic encephalopathy related to drug use, drug overdose
== END 2020-11-29 22:10 | disposition expired | DRG 917 ==
LOC: SUPCPDRO 18:30 → EC 18:30 → 4SSUR 20:07
PROVIDERS: ADMIT Internal Medicine Geriatric Medicine; ATTEND Internal Medicine Geriatric Medicine
DX: T43.621A Poisoning by amphetamines, accidental (unintentional), initial encounter (principal); A41.9 Sepsis, unspecified organism; G92 Toxic encephalopathy; E43 Unspecified severe protein-calorie malnutrition; K72.00 Acute and subacute hepatic failure without coma; J69.0 Pneumonitis due to inhalation of food and vomit; G03.9 Meningitis, unspecified; F33.9 Major depressive disorder, recurrent, unspecified; M62.82 Rhabdomyolysis; N17.9 Acute kidney failure, unspecified; F05 Delirium due to known physiological condition; F15.23 Other stimulant dependence with withdrawal; E87.0 Hyperosmolality and hypernatremia; E87.2 Acidosis; Z51.5 Encounter for palliative care; Z66 Do not resuscitate; E87.6 Hypokalemia; E86.0 Dehydration; Z20.822 Contact with and (suspected) exposure to COVID-19; I71.4 Abdominal aortic aneurysm, without rupture; F25.9 Schizoaffective disorder, unspecified; D63.0 Anemia in neoplastic disease; I10 Essential (primary) hypertension; K21.9 Gastro-esophageal reflux disease without esophagitis; E78.5 Hyperlipidemia, unspecified; F41.9 Anxiety disorder, unspecified; F17.200 Nicotine dependence, unspecified, uncomplicated; N40.0 Benign prostatic hyperplasia without lower urinary tract symptoms; R47.1 Dysarthria and anarthria; D50.9 Iron deficiency anemia, unspecified; E86.1 Hypovolemia; E87.5 Hyperkalemia; F12.90 Cannabis use, unspecified, uncomplicated; Z79.899 Other long term (current) drug therapy; Z88.8 Allergy status to other drugs, medicaments and biological substances; Z87.81 Personal history of (healed) traumatic fracture; Z86.19 Personal history of other infectious and parasitic diseases; Z90.49 Acquired absence of other specified parts of digestive tract; Z98.890 Other specified postprocedural states; Z82.3 Family history of stroke; Z82.0 Family history of epilepsy and other diseases of the nervous system; Z91.5 Personal history of self-harm; Z68.24 Body mass index [BMI] 24.0-24.9, adult
CPT/HCPCS: 36415; 70450; 71045; 72125; 72170; 76770; 76870; 80048; 80053; 80306; 80320; 81001; 82140; 82550; 82728; 83540; 83550; 83605; 83735; 84100; 84295; 84484; 85025; 85027; 85610; 85730; 87040; 87635; 93005; 93975; 95819; 96361; 96365; 96375; 99285